=== PATIENT | female | born 1970 | race African-American/Black ===

== ENCOUNTER 2020-10-19 06:54 | Outpatient (NON) | payer OTHER, MEDICAID, SELFPAY ==
[2020-10-19 23:29] LABS: SARS-CoV-2 RNA PCR Negative
== END 2020-10-19 06:55 ==
LOC: ANHCOVIDDT 07:15
PROVIDERS: PCP Emergency Medicine; Visit Provider Emergency Medicine
DX: R51.9 Headache, unspecified (principal); Z20.822 Contact with and (suspected) exposure to COVID-19
CPT/HCPCS: C9803; U0003

== ENCOUNTER 2021-01-21 17:34 | Emergency (ER) | payer OTHER, MEDICAID, SELFPAY ==
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
[2021-01-21 18:30] VITALS: BP 148/79; PULSE 72; RESP 16; TEMP 36.3; O2SAT 100
[2021-01-21] MEDS: HYDROcodone/acetaminophen (*CRX) 5-325 MG TABLET 1 TAB PO (19:00)
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
== END 2021-01-21 20:09 | disposition home or self-care (01) ==
PROVIDERS: Emergency Provider Emergency Medicine; PCP Emergency Medicine
DX: S63.601A Unspecified sprain of right thumb, initial encounter (principal); V49.40XA Driver injured in collision with unspecified motor vehicles in traffic accident, initial encounter
CPT/HCPCS: 73140; 99283; A9270

== ENCOUNTER 2022-01-06 23:32 | Inpatient (IN) | payer OTHER, SELFPAY ==
--- NOTE | ~2022-01-06 | XR_ITS ---
XR chest 1V portable DATE: 01/06/2022 23:49 INDICATION: Chest pain TECHNIQUE: Portable AP chest on 01/06/2022 2346 hours COMPARISON: November 30, 2015 2 view chest FINDINGS: Heart size appears within normal range. No hilar or mediastinal enlargement is evident. There is patchy infiltrate or atelectasis in the left lower lobe and minimal infiltrate or atelectasi s at the right lung base. No pulmonary consolidation is noted otherwise. No pleural effusion, pulmonary vascular congestion or pneumothorax. IMPRESSION: Bilateral lower lung infiltrate and/atelectasis, left greater than right Reviewed, dictated and finalized at location A.
[2022-01-06 23:29] VITALS: PULSE 90
[2022-01-06] MEDS: SODIUM CHLORIDE 0.9% IV 1,000 ML 999 ML IV CONT (23:29)
--- NOTE | 2022-01-06 23:38 | ECG_ITS ---
Measurements Intervals [place] Rate: 65 P: 64 VA: 169 QRS: 51 QRSD: 82 T: 73 QT: 439 QTc: 459 Interpretive Statements SINUS RHYTHM [id number] MYOCARDIAL INJURY WITH POSSIBLE POSTERIOR INVOLVEMENT POSSIBLE LEFT ATRIAL ENLARGEMENT [-0.1mV P WAVE IN V1/V2] ABNORMAL EKG Electronically Signed On 01-20-2022 13:47:16 CDT by Randell Blas M.D.
[2022-01-06 23:40] VITALS: BP 120/94; PULSE 75; RESP 22; O2SAT 92
--- NOTE | 2022-01-06 23:43 | ECG_ITS ---
Measurements Intervals [place] Rate: 67 P: 71 TN: 169 QRS: 48 QRSD: 85 T: 80 QT: 449 QTc: 477 Interpretive Statements SINUS RHYTHM ST DEVIATION AND MODERATE T-WAVE ABNORMALITY, CONSIDER ANTERIOR ISCHEMIA [-0.1+ mV T WAVE IN V3/V4] ABNORMAL ECG NO PREVIOUS ECG AVAILABLE FOR COMPARISON Electronically Signed On 01-07-2022 17:12:09 CDT by Neel Norton M.D.
[2022-01-06 23:47] LABS: Basophils Absolute Auto 0.1 K/mm3 (0.0-0.1); Basophils Percent Auto 0.8 % (0.2-1.2); Eosinophils Absolute Auto 0.3 K/mm3 (0-0.3); Eosinophils Percent Auto 3.3 % (0-4.4); Hematocrit 41.1 % (37.0-47.0); Hemoglobin 14.1 g/dL (12.0-15.0); Immature Granulocyte Absolute 0.03 K/mm3 (0.00-0.031); Immature Granulocyte Percent A 0.4 % (0-0.5); Lymphocytes Absolute Auto 4.84 K/mm3 (0.9-3.2); Lymphocytes Percent Auto 56.6 % (18.3-44.2); Mean Corpuscular HGB Conc 34.3 g/dl (32-36); Mean Corpuscular Hemoglobin 32.4 pg (26-34); Mean Corpuscular Volume 94.5 fl (80-100); Monocytes Absolute Auto 0.7 K/mm3 (0.1-0.6); Monocytes Percent Auto 7.6 % (2.6-8.5); Neutrophils Absolute Auto 2.7 K/mm3 (1.3-6.7); Neutrophils Percent Auto 31.3 % (45.5-73.1); Platelet Count Result 235 k/mm3 (150-375); Red Blood Count 4.35 M/mm3 (4.2-5.4); Red Cell Distribution Width 12.2 % (11.5-14.5); White Blood Count 8.6 K/mm3 (4.5-10.0)
[2022-01-06] MEDS: TICAGRELOR 90 MG TABLET 180 MG PO (23:55)
--- NOTE | 2022-01-06 23:57 | ED.GENADULT ---
HPI - General Adult General Chief complaint: Chest Pain Stated complaint: STEMI Time Seen by Provider: 01/06/22 23:37 History of Present Illness HPI narrative: Patient is a 51-year-old female who presents the emergency department with chief complaint of chest pain. Patient earlier today had a beer and then ate a THC gummy. Patient had several episodes where she passed out and there was complaining of chest discomfort. The patient states it feels as a heaviness or tightness in her chest patient states that its not improved by anything nor is it worsened by anything. Patient states is midsternal nonradiating. Patient family called EMS when EMS arrived and found the patient to be hypotensive with a pressure in the 60s and 70s. EKG was done in the field which showed ST depressions a posterior EKG was performed which showed evidence of ST elevation. Upon arrival to department patient's blood pressure has improved patient is still complaining of pain. Patient was a prehospital activation for ST elevation [place]. Patient received aspirin by EMS. Cardiology was notified Related Data Home Medications Medication Instructions Recorded Confirmed No Home Medications 01/07/22 01/07/22 Allergies Allergy/AdvReac Type Severity Reaction Status Date / Time No Known Allergies Allergy Unknown Verified 06/05/18 18:48 Review of Systems Review of Systems: A 10 system review of systems was completed on the patient and is negative except for what is stated in the HPI. Nursing and ancillary documentation was reviewed. PMFSH Past Medical History Medical History Healthy female adult Surgical History Surgical History History of section Family History Family History (Updated 01/07/22 @ 02:44 by Alessia Barros RN) Grandparent Cancer Social History Social History (Updated 01/07/22 @ 02:05 by Jose Alejandro Cerrato MD) Smoking packs per day: 1 Smoking cigarettes per day: 20.0 Years smoked: 33 Smoking pack-years: 33.00 Smoking status: Current every day smoker Tobacco type: cigarettes Alcohol intake: current Drinks per week: 1 Substance use: current Substance use type: marijuana Other substance usage details: marijuana Spiritual care concerns: No Exam Narrative: GENERAL: Well-appearing, well-nourished, and in no acute distress. HEAD: Normocephalic, atraumatic. EYES: PERRLA and EOMI. ENT: Nares clear, no rhinorrhea or epistaxis. Mucous membranes moist. NECK: Supple. CHEST: Clear to auscultation. No respiratory distress. HEART: Regular rate and rhythm. No murmur heard. Normal peripheral pulses. ABDOMEN: Soft, nontender, nondistended, normal active bowel sounds. EXTREMITIES: Normal range of motion. No edema. SKIN: Warm, dry, no rash. NEURO: No focal deficits. Alert and oriented x3. PSYCH: Normal mood and affect. Course Course Emergency Course: Prehospital EKG shows evidence of ST depression and posterior EKG showed ST elevation EKGs in the emergency department showed evidence of improved and was normalized ST elevation. Patient received aspirin prehospital Beta-blockers and nitrates were held due to hypotension Patient received fluid boluses and pressure has improved to the 120s Patient received a heparin bolus Brilinta will be given to the patient Vital Signs Vital signs: Vital Signs Pulse Rate 90 01/06/22 23:29 Pulse Rate 81 01/07/22 06:00 Respiratory Rate 17 01/07/22 05:25 Blood Pressure 139/82 01/07/22 05:25 Pulse Oximetry 98 01/07/22 05:25 Medical Decision Making Vital Signs Vital Signs: Vital Signs Pulse Rate 90 01/06/22 23:29 Pulse Rate 81 01/07/22 06:00 Respiratory Rate 17 01/07/22 05:25 Blood Pressure 139/82 01/07/22 05:25 Pulse Oximetry 98 01/07/22 05:25 Lab Data Result diagrams: 01/06/22 23
[2022-01-06 23:58] LABS: Partial Thromboplastin Time 22.7 SECONDS (22.3-36.8); Prothrombin Time 12.3 Seconds (11.1-14.7)
[2022-01-07] VITALS (48 sets, daily range): BP systolic 94–156; BP diastolic 69–107; PULSE 68–99; RESP 12–20; O2SAT 94–100; BMI 28.1
[2022-01-07] MEDS: fentaNYL CITRATE INJ (*CRX) 100 MCG/2 ML VIAL 50 MCG IV PUSH
[2022-01-07 00:08] LABS: Alanine Aminotransferase 21 U/L (4-35); Albumin Level 4.5 g/dL (3.5-5.1); Alkaline Phosphatase 63 U/L (38-126); Anion Gap 9 mmol/L (8-16); Aspartate Amino Transferase 43 U/L (14-36); Bilirubin,Total 0.6 mg/dL (0.2-1.3); Blood Urea Nitrogen 10 mg/dL (7-17); Calcium 8.4 mg/dL (8.4-10.2); Carbon Dioxide 21 mmol/L (22-30); Chloride 107 mmol/L (98-107); Cholesterol 256 mg/dL (0-200); Estimated Glomerular Filt Rate > 60; Glucose 219 mg/dL (65-110); HDL Direct 39 mg/dL; Potassium 4.2 mmol/L (3.4-5.0); Sodium 137 mmol/L (137-145); Triglycerides 150 mg/dL (<150)
[2022-01-07 00:17] LABS: LDL Cholesterol Direct 171 mg/dL
--- NOTE | 2022-01-07 00:21 | PC.NURSE ---
Per , pt ate a marijuana edible and drank one beer. Pt then had several syncopal episodes in bathroom, along with vomiting. Pt then started to c/o chest pain and was brought in for evaluation.
[2022-01-07 00:22] LABS: Troponin I 0.045 ng/mL (0.000-0.034)
--- NOTE | 2022-01-07 01:31 | WPDMODSED ---
Moderate Sedation Note-Pt Data Patient Data Allergies Allergy/AdvReac Type Severity Reaction Status Date / Time No Known Allergies Allergy Unknown Verified 06/05/18 18:48 Home Medications Medication Instructions Recorded Confirmed Type hydrocodone-acetaminophen 1 tablet PO Q6H PRN #10 tablet 01/21/21 Rx Sedation/Anesthesia: No previous sedation/anesthesia problems (including family history). [facility] Past Medical History Medical History Healthy female adult Surgical History Surgical History History of section Mod Sed Physical Exam Physical Exam Pre Procedural Exam: Normal: Airway Hours since solid foods: 4 Hours since liquid intake: 4 Mallampati Classification: class II Internal Medicine - PN: Obj Da Vital Signs Vital Signs: Vital Signs - 24 hr 01/06/22 23:29 01/06/22 23:40 01/07/22 00:05 Pulse Rate 90 75 70 Respiratory Rate 22 H 18 Blood Pressure 120/94 H 133/87 Pulse Oximetry 92 96 Meds/Results Radiology Results: ITS Impressions Chest X-Ray 01/06/22 23:57 IMPRESSION: Bilateral lower lung infiltrate and/atelectasis, left greater than right Labs CBC & Chem 7: 01/06/22 23:40 01/06/22 23:39 Labs: Laboratory Results - last 24 hr 01/06/22 01/06/22 01/06/22 23:39 23:39 23:39 WBC RBC Hgb Hct MCV MCH MCHC RDW Plt Count MPV Immature Gran % (Auto) Neut % (Auto) Lymph % (Auto) Dundy % (Auto) Eos % (Auto) Baso % (Auto) Lymph # (Auto) Dundy # (Auto) Eos # (Auto) Baso # (Auto) Abs Immat Gran (auto) Absolute Neuts (auto) Absolute Nucleated RBC Nucleated RBC % PT 12.3 INR 1.0 APTT 22.7 Sodium 137 Potassium 4.2 Chloride 107 Carbon Dioxide 21 L Anion Gap 9 BUN 10 Creatinine 0.90 Estim Creat Clear Calc Not Reportable Estimated GFR > 60 Glucose 219 H Calcium 8.4 Total Bilirubin 0.6 AST 43 H ALT 21 Alkaline Phosphatase 63 Troponin I 0.045 H* Total Protein 8.0 Albumin 4.5 Triglycerides 150 Cholesterol 256 H LDL Cholesterol Direct 171 HDL Direct 39 Blood Type A Positive Antibody Screen Negative 01/06/22 23:40 WBC 8.6 RBC 4.35 Hgb 14.1 Hct 41.1 MCV 94.5 MCH 32.4 MCHC 34.3 RDW 12.2 Plt Count 235 MPV 11.0 H Immature Gran % (Auto) 0.4 Neut % (Auto) 31.3 L Lymph % (Auto) 56.6 H Dundy % (Auto) 7.6 Eos % (Auto) 3.3 Baso % (Auto) 0.8 Lymph # (Auto) 4.84 H Dundy # (Auto) 0.7 H Eos # (Auto) 0.3 Baso # (Auto) 0.1 Abs Immat Gran (auto) 0.03 Absolute Neuts (auto) 2.7 Absolute Nucleated RBC 0.0 Nucleated RBC % 0.0 PT INR APTT Sodium Potassium Chloride Carbon Dioxide Anion Gap BUN Creatinine Estim Creat Clear Calc Estimated GFR Glucose Calcium Total Bilirubin AST ALT Alkaline Phosphatase Troponin I Total Protein Albumin Triglycerides Cholesterol LDL Cholesterol Direct HDL Direct Blood Type Antibody Screen ASA Classification/Sedation ASA Classification/Sedation ASA Class: V Emergent: Yes Risks: Risks, benefits and alternatives explained and patient/family accepted plan for sedation. Patient re-evaluated immediately prior to sedation.
--- NOTE | 2022-01-07 01:35 | WPDCARDPROC ---
Cardiac Cath Procedure Note Date of procedure:: 01/07/22 Performing physician:: Jose Alejandro Cerrato MD Procedure Procedure note:: EMERGENT CARDIAC CATHETERIZATION AND PERCUTANEOUS CORONARY INTERVENTION REPORT DATE OF PROCEDURE: 01/07/2022 INDICATION FOR PROCEDURE: Acute coronary syndrome-posterior ST-elevation myocardial infarction BRIEF CLINICAL HISTORY: 51-year-old female with no known prior cardiac history; history of tobacco and marijuana abuse. Patient presented to [facility] emergency room with complaints of chest pain that started about 90 minutes prior to the arrival. EKG showed ST depression in the septal leads with ST elevation in the posterior leads. Cardiac catheterization lab was activated for primary PCI. Patient was hypotensive in the ER with blood pressures in 70s-80s systolic. She was given boluses of IV normal saline with improvement in the blood pressure. Patient was given aspirin, loading dose of ticagrelor and 4000 units of unfractionated heparin in the emergency room. Patient was emergently brought to the laboratory technology teacher for primary PCI. PROCEDURES PERFORMED: 1. Emergent left heart catheterization- Selective left and right coronary angiogram; left ventriculogram and hemodynamic assessment 2. Percutaneous coronary intervention- a) balloon angioplasty and stenting of ostial-proximal left circumflex artery using 3.5x18 mm Leapsetiro sirolimus eluting stent; b) balloon angioplasty of ostial LAD in a kissing fashion; c) intravascular ultrasound ( IVUS) of left main and LCX 3. Moderate sedation-CPT code 97175 MODERATE SEDATION: Midazolam 1 mg; fentanyl 50 mcg. Start time 0023 , Stop time 0118 ; Total [id number] time 55 minutes; Rupa Torres RN was trained observer for moderate sedation. ACCESS SITE: Right common femoral artery PROCEDURE NOTE: patient was emergently brought to catheterization lab and prepped and draped in a usual sterile manner. After local anesthesia with lidocaine, right common femoral artery access was taken with micropuncture needle followed by insertion of a 6 Algerian sheath. Selective left and right coronary angiogram was performed using 5 Algerian JL4 and JR4 catheters respectively. Orthogonal views were taken. After completion of PCI, 5 Algerian pigtail catheter was advanced in the LV cavity and was flushed with normal saline. LV pressure measurement was performed. After this, left ventriculogram was performed. The catheter was flushed again, and gradient across the aortic valve was measured on the pullback of the catheter. The angiographic findings and details of intervention are given below. FINDINGS: LEFT MAIN CORONARY: The left main coronary artery is a medium caliber, relatively short vessel with poorly defined hazy stenosis in the distal segment before it bifurcates into LAD and left circumflex branches. LEFT ANTERIOR DESCENDING ARTERY: The lad is a medium to large caliber vessel in the proximal segment, becomes medium caliber, tortuous vessel in the mid segment, tapers distally and reaches LV apex. There is about 80% stenosis at the ostium of LAD. The diagonal branch is a small to medium caliber vessel with high-grade stenosis at the ostium. LEFT CIRCUMFLEX ARTERY: The LAD is a medium caliber vessel with hazy, about 99% diffuse stenosis in the proximal segment. Om 1 branch is a medium caliber vessel with about 50% stenosis in the distal segment. The LCX continues in the AV groove and gives rise to small caliber OM2 branch and medium caliber LPDA which has diffuse disease in the distal segment. There was DAVY 2 flow before PCI, which normalized to DAVY 3 flow after PCI. RIGHT CORONARY ARTERY: Medium to large caliber vessel, with severe atherosclerosis. There is diffuse, high-grade stenosis in the proximal and mid segments up to 95% in severity. The vessel gives rise to medium caliber PDA branch and small caliber PLV branch with high-grade stenosis at the origin of the PLV branch and
--- NOTE | 2022-01-07 02:02 | PM.IMHP ---
H&P: HPI History of Present Illness Date/Time: 01/07/22 02:02 Date of service: 01/07/2022 Chief complaint: Chest pain HPI: 51-year-old female with no known prior cardiac history; history of tobacco and marijuana abuse. Patient presented to [facility] emergency room with complaints of chest pain that started about 90 minutes prior to the arrival. EKG showed ST depression in the septal leads with ST elevation in the posterior leads. Cardiac catheterization lab was activated for primary PCI. Patient was hypotensive in the ER with blood pressures in 70s-80s systolic. She was given boluses of IV normal saline with improvement in the blood pressure. Patient was given aspirin, loading dose of ticagrelor and 4000 units of unfractionated heparin in the emergency room. Patient was emergently brought to the recyclable products sorter for primary PCI . Emergent cardiac catheterization showed multivessel CAD with proximal LCX as culprit vessel. She underwent primary PCI with balloon angioplasty and stenting of ostial-proximal LCX which was infarct-related vessel. LV systolic function is preserved. Patient will undergo staged intervention for the remaining high-grade stenosis -multivessel PCI versus surgical revascularization after discussion with the patient . Chief Complaint: Chest pain Review of Systems Review of Systems: General: Negative for fever, chills, fatigue Psychological: positive for anxiety Ophthalmic: negative for loss of vision ENT: Negative for epistaxis, headaches Allergy and immunology: Negative for hives, nasal congestion Hematologic and lymphatic: Negative for overt bleeding problems Endocrine: Negative for hot flashes, palpitations Respiratory: Negative for cough, hemoptysis Cardiovascular: positive for chest pain, shortness is breath, dizziness, no syncope Gastrointestinal: Negative for abdominal pain, nausea, vomiting, hematochezia Musculoskeletal: Negative for myalgia, joint pains Neurological: Negative for weakness Dermatological: Negative for rash, skin discoloration PMFSH Past Medical History Medical History Healthy female adult Surgical History Surgical History History of section Social History Social History (Updated 01/07/22 @ 02:05 by Jose Alejandro Cerrato MD) Smoking status: Current every day smoker Alcohol intake: current Substance use: current Substance use type: marijuana Other substance usage details: marijuana Meds Home Medications and Allergies Home Medications Medication Instructions Recorded Confirmed Type hydrocodone-acetaminophen 1 tablet PO Q6H PRN #10 tablet 01/21/21 Rx Allergies Allergy/AdvReac Type Severity Reaction Status Date / Time No Known Allergies Allergy Unknown Verified 06/05/18 18:48 Vital Signs Vital Signs - 24 hr 01/06/22 23:29 01/06/22 23:40 01/07/22 00:05 Pulse Rate 90 75 70 Respiratory Rate 22 H 18 Blood Pressure 120/94 H 133/87 Pulse Oximetry 92 96 Exam Narrative: PHYSICAL EXAMINATION: GENERAL: Alert, oriented, no acute distress MENTAL STATUS: anxious EYES: Extraocular movements intact, no pallor EARS: External ears appear normal, hearing grossly normal NOSE: Normal and patent, no discharge MOUTH: Mucous membranes moist, tongue normal NECK: Supple, no JVD CHEST: Good respiratory effort, clear to auscultation HEART: Normal rate, regular rhythm, normal S1 and S2, no audible murmurs ABDOMEN: Soft, nontender NEUROLOGICAL: Alert, oriented, normal speech, no gross motor deficits MUSCULOSKELETAL: No major deformity, no amputation EXTREMITIES: No pedal edema, no clubbing, no cyanosis SKIN: no rash on the exposed area, no cyanosis PSYCHIATRIC: Normal mood, appropriate affect H&P: Results Labs Labs: Short CBC 01/06/22 Range/Units 23:40 WBC 8.6 (4.5-10.0) K
[2022-01-07] MEDS: SODIUM CHLORIDE 0.9% IV 1,000 ML 125 ML IV CONT ×2 (02:23→12:04)
--- NOTE | 2022-01-07 02:40 | ADMGEN ---
This patient, Bertha Echevarria, was admitted to Intensive Care Unit-9 at 0210 on 01/07/2022 . Patient/family oriented to hospital policies and general routines including ID bracelet, bed and alarms, visiting hours, pain management, procedures, bathroom and other care routines, personal items, smoking policy, room service/diet, and visiting hours. Information on how to activate the Rapid Response Team has been discussed. Patient/Family are encouraged to report perceived risks to care and to ask questions if they do not understand what they are told or what they should do.
--- NOTE | 2022-01-07 02:49 | PC.NURSE ---
This patient, Bertha Echevarria, was admitted to IMU status, and placed in Intensive Care Unit-9. Patient/family oriented to hospital policies and general routines including ID bracelet, bed and alarms, visiting hours, pain management, procedures, bathroom and other care routines, personal items, smoking policy, room service/diet, and visiting hours. Valuables list has been completed. Information on how to activate the Rapid Response Team has been discussed. Patient/Family are encouraged to report perceived risks to care and to ask questions if they do not understand what they are told or what they should do.
[2022-01-07] MEDS: ATORVASTATIN 40 MG TABLET 80 MG PO ×2 (03:01→20:30)
--- NOTE | 2022-01-07 06:55 | ECG_ITS ---
Measurements Intervals [place] Rate: 88 P: 69 LA: 161 QRS: 60 QRSD: 80 T: -46 QT: 405 QTc: 491 Interpretive Statements SINUS RHYTHM POSSIBLE LEFT ATRIAL ENLARGEMENT [-0.1mV P WAVE IN V1/V2] MODERATE T-WAVE ABNORMALITY, CONSIDER INFERIOR/LATERAL ISCHEMIA [-0.1+ mV T WAVE IN II/aVF] COMPARED TO ECG 01/06/2022 23:43:25 PRECORDIAL T-WAVE ABNORMALITY IS IMPROVED Electronically Signed On 01-07-2022 17:15:48 CDT by Neel Norton M.D.
[2022-01-07] MEDS: NITROGLYCERIN SL 0.4 MG TABLET SUBLINGUAL ×2 (07:15→08:30)
--- NOTE | 2022-01-07 08:00 | ECG_ITS ---
Measurements Intervals [place] Rate: 83 P: 61 LA: 147 QRS: 35 QRSD: 87 T: -10 QT: 391 QTc: 461 Interpretive Statements SINUS RHYTHM ST AND T ABNORMALITY CONSISTENT WITH INFEROLATERAL ISCHEMIA COMPARED TO ECG 01/07/2022 06:59:45 NO SIGNIFICANT CHANGES Electronically Signed On 01-07-2022 17:17:56 CDT by Neel Norton M.D.
--- NOTE | 2022-01-07 08:39 | PC.NURSE ---
Cardiopulmonary Rehab Services flyer was given to patient in cardiac admission folder.
[2022-01-07] MEDS: MORPHINE SULFATE (*CRX) 2 MG/ML INJ IV PUSH (08:55)
--- NOTE | 2022-01-07 08:56 | WPDMODSED ---
Moderate Sedation Note-Pt Data Patient Data Allergies Allergy/AdvReac Type Severity Reaction Status Date / Time No Known Allergies Allergy Unknown Verified 06/05/18 18:48 Home Medications Medication Instructions Recorded Confirmed Type No Home Medications 01/07/22 01/07/22 History Current Medications: Active Medications Aspirin (Aspirin 81 Mg Enteric Tablet) 81 mg PO QAM DANIELLE Atorvastatin Calcium (Atorvastatin 40 Mg Tablet) 80 mg PO HS DANIELLE Sodium Chloride (Normal Saline Iv) 1,000 mls @ 125 mls/hr IV CONT .Q8H ONE Stop: 01/07/22 10:07 Last Admin: 01/07/22 02:23 Dose: 125 mls/hr Documented by: Metoprolol Tartrate (Metoprolol Tartrate 25 Mg Tablet) 25 mg PO Q12HR DANIELLE Morphine Sulfate (Morphine Sulfate (*Crx) 2 Mg/Ml Inj) 2 mg IV PUSH Q3H PRN PRN Reason: Pain Rated 4-6 Morphine Sulfate (Morphine Sulfate (*Crx) 4 Mg/Ml Inj) 4 mg IV PUSH Q3H PRN PRN Reason: Pain Rated 7-10 Ticagrelor (Ticagrelor 90 Mg Tablet) 90 mg PO Q12HR DANIELLE Sedation/Anesthesia: No previous sedation/anesthesia problems (including family history). [facility] Past Medical History Medical History Healthy female adult Surgical History Surgical History History of section Family History Family History (Updated 01/07/22 @ 02:44 by Alessia Barros RN) Grandparent Cancer Social History Social History (Updated 01/07/22 @ 02:05 by Jose Alejandro Cerrato MD) Smoking packs per day: 1 Smoking cigarettes per day: 20.0 Years smoked: 33 Smoking pack-years: 33.00 Smoking status: Current every day smoker Tobacco type: cigarettes Alcohol intake: current Drinks per week: 1 Substance use: current Substance use type: marijuana Other substance usage details: marijuana Spiritual care concerns: No Mod Sed Physical Exam Physical Exam Pre Procedural Exam: Normal: Airway Hours since solid foods: 10 Hours since liquid intake: 10 Mallampati Classification: class II Internal Medicine - PN: Obj Da Vital Signs Vital Signs: Vital Signs - 24 hr 01/06/22 23:29 01/06/22 23:40 01/07/22 00:05 Pulse Rate 90 75 70 Pulse Rate [Monitor] Respiratory Rate 22 H 18 Blood Pressure 120/94 H 133/87 Pulse Oximetry 92 96 01/07/22 01:55 01/07/22 02:10 01/07/22 02:25 Pulse Rate 80 82 79 Pulse Rate [Monitor] 80 82 79 Respiratory Rate 15 12 13 Blood Pressure 137/87 135/88 134/85 Pulse Oximetry 95 95 97 01/07/22 02:45 01/07/22 02:55 01/07/22 03:25 Pulse Rate 79 84 80 Pulse Rate [Monitor] 84 80 Respiratory Rate 14 16 Blood Pressure 142/84 H 140/87 Pulse Oximetry 95 96 97 01/07/22 04:00 01/07/22 04:25 01/07/22 04:47 Pulse Rate 84 86 82 Pulse Rate [Monitor] 86 Respiratory Rate 12 14 Blood Pressure 140/85 138/81 Pulse Oximetry 98 98 97 01/07/22 04:52 01/07/22 04:57 01/07/22 05:02 Pulse Rate 75 77 78 Pulse Rate [Monitor] 78 Respiratory Rate 13 16 15 Blood Pressure 127/85 121/89 124/80 Pulse Oximetry 98 99 98 01/07/22 05:07 01/07/22 05:25 01/07/22 06:00 Pulse Rate 81 84 81 Pulse Rate [Monitor] 81 84 Respiratory Rate 14 17 Blood Pressure 127/90 139/82 Pulse Oximetry 98 98 01/07/22 06:25 01/07/22 07:15 01/07/22 07:20 Pulse Rate 74 79 83 Pulse Rate [Monitor] 74 Respiratory Rate 16 Blood Pressure 138/73 138/79 94/76 L Pulse Oximetry 95 98 95 01/07/22 07:30 01/07/22 07:53 Pulse Rate 72 Pulse Rate [Monitor] Respiratory Rate Blood Pressure 115/69 Pulse Oximetry 98 100 Intake/Output Intake/Output: Intake & Output 01/04/22 01/05/22 01/06/22 01/07/22 23:59 23:59 23:59 23:59 Output Total 950 Balance -950 Meds/Results Medications: Active Medications Generic Name Dose Route Start Last Admin Trade Name Freq PRN Reason Stop Dose Admin Aspirin 81 mg 01/07/22 09:00 Aspirin 81 Mg Enteric [facility]at
--- NOTE | 2022-01-07 09:00 | PC.NURSE ---
patient was taken to labor commissioner
--- NOTE | 2022-01-07 09:28 | WPDCNINT ---
Assessment and Plan Assessment and plan (1) ST elevation (STEMI) myocardial infarction involving left circumflex coronary artery: Code(s): I21.21 - ST elevation (STEMI) myocardial infarction involving left circumflex coronary artery Status: Acute Assessment and Plan: Patient presented with STEMI and had cardiac catheterization done overnight. Patient underwent Emergent left heart catheterization- Selective left and right coronary angiogram; left ventriculogram and hemodynamic assessment. Percutaneous coronary intervention- a) balloon angioplasty and stenting of ostial-proximal left circumflex artery using 3.5x18 mm orsiro sirolimus eluting stent; b) balloon angioplasty of ostial LAD in a kissing fashion; c) intravascular ultrasound ( IVUS) of left main and LCX She was given aspirin Brilinta prior to the procedure This morning patient continues to have chest pain and case was discussed with Cardiology. Patient is going back to cardiac catheterization lab to evaluate for any stent thrombosis versus other areas that may need intervention Patient may need CABG due to her multivessel disease and may need to be transferred to outside facility for cardiothoracic surgery evaluation Once patient back we will check echocardiogram although the cardiac function was preserved on the ventriculogram done last night Continue aspirin but hold Brilinta this time as she may be going for cardiac surgery Patient was given nitroglycerin and patient's pain did improve but did not fully resolve. Continue p.r.n. nitroglycerin and morphine for pain control Lipitor has been started Continue IV fluids for renal protection (2) Chest pain: Code(s): R07.9 - Chest pain, unspecified Status: Acute Assessment and Plan: Patient has ongoing chest pain in although her history appears mixed, it is likely secondary to her coronary disease and RI Patient is going back to cardiac catheterization lab to evaluate for any stent thrombosis versus other areas that may need intervention P.r.n. nitroglycerin. May need nitroglycerin infusion depending on a cardiac catheterization results P.r.n. morphine (3) Tobacco abuse: Code(s): Z72.0 - Tobacco use Status: Acute Assessment and Plan: Patient was encouraged and counseled to quit smoking Additional Plan DVT prophylaxis -start Lovenox from tomorrow Nutrition -NPO at this time Code Status - Full Code Total Critical Care Time - 32 minutes Due to a high probability of clinically significant, life threatening deterioration, the patient required my highest level of preparedness to intervene emergently and I personally spent this critical care time directly and personally managing the patient. This critical care time included obtaining a history; examining the patient; pulse oximetry; ordering and review of studies; arranging urgent treatment with development of a management plan; evaluation of patient's response to treatment; frequent reassessment; and discussions with other providers. It was exclusive of separately billable procedures and treating other patients and teaching time. Please see Assessment and Plan section and the rest of the note for further information on patient assessment and treatment Human Resources Compensation Analyst Consult Note Consult date: 01/07/22 HPI: Bertha Echevarria is a 51 year old female with no significant past medical history except smoking 1 pack per day for more than 30 years presented last night with chief complaint of chest pain. Patient states that she was sleeping when she woke up at 10:00 p.m. with chest pain. Chest pain was 10 out 10, was burning in quality, radiated to her abdomen, was associated with nausea vomiting dizziness lightheadedness. She did not see any blood in her vomit. Pain continued and she arrived to the ER. In the ED patient was found to have elevated troponin and was diagnosed with STEMI. Patient was taken emergently to cardiac catheterization lab and un
--- NOTE | 2022-01-07 10:40 | WPDCARDPROC ---
Cardiac Cath Procedure Note Date of procedure:: 01/07/22 Performing physician:: Jose Alejandro Cerrato MD Procedure Procedure note:: CARDIAC CATHETERIZATION AND PERCUTANEOUS CORONARY INTERVENTION REPORT ( REPEAT PROCEDURE, SEPARATE FROM EMERGENT PROCEDURE PERFORMED LAST NIGHT) DATE OF PROCEDURE: 01/07/2022 INDICATION FOR PROCEDURE: recurrent chest pain in a patient with recent posterior ST-elevation HI and known multivessel CAD BRIEF CLINICAL HISTORY: 51-year-old female with CAD, tobacco and marijuana abuse. Patient was brought to [facility] ER last night via EMS with chest pain at, and was found to have posterior ST-elevation HI. She was emergently taken to the cardiac crime lab analyst, and was found to have multivessel CAD involving ostial LAD, proximal left circumflex artery, and RCA. Lesion in proximal left circumflex artery was infarct-related, and patient underwent PCI/ MARY x1 ostial -proximal left circumflex artery, and angioplasty of the ostial LAD in a kissing fashion. Patient had resolution of chest discomfort. Additional PCI at that time was not performed with intention to do staged intervention -multivessel PCI versus surgical revascularization. However, this morning, patient had recurrent chest discomfort with features similar to what she had during coronary event. EKG with posteriorly due to show improvement in the ST segment abnormality, however, due to ongoing chest discomfort, patient was brought to the crime lab analyst for repeat coronary angiogram. The case was also discussed with Dr. Yepez-CT surgeon at [facility]. Benefits and risks of the procedure were discussed with the patient in depth, and informed consent was obtained prior to the procedure. Risks of the procedure include but are not limited to vascular complications including groin hematoma, retroperitoneal bleed, vessel perforation; periprocedural HI, cardiac arrhythmias, stroke, contrast induced nephropathy, and . After discussing all the benefits, risks and alternatives, patient was willing to proceed with the procedure. PROCEDURES PERFORMED: 1. Selective left and right coronary angiogram 2. Percutaneous coronary intervention- Balloon angioplasty and stenting of diffuse, high-grade stenosis in the proximal-mid RCA using 2 sirolimus eluting stents -non overlapping ( 3.5 x 15 mm in the proximal segment and 3.5 x 26 mm in the mid segment); balloon angioplasty and stenting of proximal RPDA using a 2.5 x 13 mm sirolimus eluting stent; balloon angioplasty of ostial RPL branch. 3. Moderate sedation-CPT code 02769 MODERATE SEDATION: Fentanyl 25 mcg. Start time 0927 , Stop time 1029 ; Total [id number] time 58 minutes; Rupa Torres RN was trained observer for moderate sedation. ACCESS SITE: Right common femoral artery PROCEDURE NOTE: After obtaining informed consent, patient was urgently brought to catheterization lab and prepped and draped in a usual sterile manner. After local anesthesia with lidocaine, right common femoral artery access was taken with micropuncture needle followed by insertion of a 5 Malay sheath. Selective left and right coronary angiogram was performed using 5 Malay JL4 and JR4 catheters respectively. Orthogonal views were taken. The angiographic findings and details of intervention are given below. FINDINGS: LEFT MAIN CORONARY: The left main coronary artery is a medium caliber, relatively short vessel . Previously visualized poorly defined hazy stenosis in the distal segment is no longer seen. LEFT ANTERIOR DESCENDING ARTERY: The lad is a medium to large caliber vessel in the proximal segment, becomes medium caliber, tortuous vessel in the mid segment, tapers distally and reaches LV apex. There is about 40-50% residual stenosis at the ostium of LAD post previous angioplasty. The diagonal branch is a small to medium caliber vessel with high-grade stenosis at the ostium. LEFT CIRCUMFLEX ARTERY: The LCX is a medium caliber vessel. Re
--- NOTE | 2022-01-07 11:00 | PC.NURSE ---
patient back from laboratory sampler; 6fr sheath intact in right groin; site clean, dry and intact; no bleeding or hematoma present; patient complaining of chest pain of 5/10 but states feels different and better than before.
[2022-01-07] MEDS: ASPIRIN 81 MG ENTERIC TABLET PO (11:02)
[2022-01-07] MEDS: TICAGRELOR 90 MG TABLET PO ×2 (11:04→20:30)
[2022-01-07] MEDS: ONDANSETRON INJ 4 MG/2 ML VIAL IV PUSH ×2 (12:04→17:45)
[2022-01-07] MEDS: MORPHINE SULFATE (*CRX) 4 MG/ML INJ IV PUSH (15:13)
[2022-01-07] MEDS: MAG HYDROX/AL HYDROX/SIMETH 30 ML UDC PO (18:24)
[2022-01-07] MEDS: METOPROLOL TARTRATE 25 MG TABLET PO (20:29)
[2022-01-07] MEDS: LACTATED RINGERS 1,000 ML 100 ML IV CONT (20:30)
[2022-01-08] VITALS (17 sets, daily range): BP systolic 108–149; BP diastolic 77–98; PULSE 64–100; RESP 14–26; TEMP 36.8–37.1; O2SAT 94–100
[2022-01-08] MEDS: MORPHINE SULFATE (*CRX) 2 MG/ML INJ IV PUSH ×3 (01:30→20:49)
[2022-01-08] MEDS: LACTATED RINGERS 1,000 ML 100 ML IV CONT (06:22)
[2022-01-08] MEDS: METOPROLOL TARTRATE 25 MG TABLET PO ×2 (08:02→20:47)
[2022-01-08] MEDS: TICAGRELOR 90 MG TABLET PO ×2 (08:02→20:47)
[2022-01-08] MEDS: ASPIRIN 81 MG ENTERIC TABLET PO (08:02)
[2022-01-08 08:10] LABS: Hematocrit 34.4 % (37.0-47.0); Hemoglobin 11.8 g/dL (12.0-15.0); Mean Corpuscular HGB Conc 34.3 g/dl (32-36); Mean Corpuscular Hemoglobin 32.2 pg (26-34); Mean Corpuscular Volume 93.7 fl (80-100); Mean Platelet Volume 11.1 fl (7.4-10.4); Platelet Count Result 166 k/mm3 (150-375); Red Blood Count 3.67 M/mm3 (4.2-5.4); Red Cell Distribution Width 12.5 % (11.5-14.5)
[2022-01-08 08:21] LABS: Alanine Aminotransferase 34 U/L (4-35); Albumin Level 3.6 g/dL (3.5-5.1); Alkaline Phosphatase 50 U/L (38-126); Anion Gap 5 mmol/L (8-16); Aspartate Amino Transferase 213 U/L (14-36); Bilirubin,Total 0.7 mg/dL (0.2-1.3); Blood Urea Nitrogen 9 mg/dL (7-17); Calcium 7.9 mg/dL (8.4-10.2); Carbon Dioxide 22 mmol/L (22-30); Chloride 108 mmol/L (98-107); Estimated CRCL calculation 83 ml/min; Estimated Glomerular Filt Rate > 60; Glucose 135 mg/dL (65-110); Potassium 3.7 mmol/L (3.4-5.0); Sodium 135 mmol/L (137-145)
--- NOTE | 2022-01-08 09:27 | WPDINTPN ---
Progress Note: A&P Assessment and Plan (1) ST elevation (STEMI) myocardial infarction involving left circumflex coronary artery: Code(s): I21.21 - ST elevation (STEMI) myocardial infarction involving left circumflex coronary artery Status: Acute Assessment and Plan: Patient presented with STEMI and had cardiac catheterization done overnight. Patient underwent Emergent left heart catheterization- Selective left and right coronary angiogram; left ventriculogram and hemodynamic assessment. Percutaneous coronary intervention- a) balloon angioplasty and stenting of ostial-proximal left circumflex artery using 3.5x18 mm orsiro sirolimus eluting stent; b) balloon angioplasty of ostial LAD in a kissing fashion; c) intravascular ultrasound ( IVUS) of left main and LCX She was given aspirin Brilinta prior to the procedure 01/07 patient continued to had chest pain in the morning and was taken back to cardiac catheterization lab and 3 additional stents were placed in right coronary artery. Will check echocardiogram although the cardiac function was preserved on the ventriculogram done last night Continue aspirin, Brilinta Continue p.r.n. nitroglycerin and morphine for pain control Lipitor has been started He will discontinue IV fluids that were started for renal protection Add ARB (2) Chest pain: Code(s): R07.9 - Chest pain, unspecified Status: Acute Assessment and Plan: Chest distant appears to be better and this time does not appear to be classic headache chest pain P.r.n. nitroglycerin. P.r.n. morphine (3) Tobacco abuse: Code(s): Z72.0 - Tobacco use Status: Acute Assessment and Plan: Patient was again encouraged and counseled to quit smoking (4) Nausea: Code(s): R11.0 - Nausea Status: Acute Assessment and Plan: Continue p.r.n. Zofran And Protonix (5) Anemia: Code(s): D64.9 - Anemia, unspecified Status: Acute Assessment and Plan: Could be dilutional. Discussed with Dr. Norton who examine cath puncture site which doesnt show any hematoma and doesn't recommend any additional testing. Continue to monitor hemoglobin Additional Plan DVT prophylaxis -SCDs Nutrition -NPO at this time Code Status - Full Code Incentive spirometry Transfer out of ICU today Subjective Date/time seen: 01/08/22 09:27 Patient states she feels much better today as compared to yesterday but still feels that she has occasional discomfort in her chest. She states that it feels different than her presentation and she is not showed whether it is real pain Or heartburn. It comes and goes spontaneously. When asked her to rate her discomfort she states is 1/10. She continues to feel nauseous. No vomiting. No shortness of breath dizziness or lightheadedness. Patient denies any other complaints. All other systems were reviewed and were negative Review of Systems Review of Systems: All systems reviewed & are unremarkable except as noted in HPI and below (HPI) Exam Narrative: General: Pt is alert awake and in NAD Lungs/Chest: Trachea central Clear BS B/L, No crackles or wheezing. Cardiac: RRR. Normal S1 S2. No murmurs Circulation: Pedal pulses are intact and symmetrical. Abdomen: Normal bowel sounds. Soft. NT. ND. Extremities: No clubbing, cyanosis or edema. Warm right groin cath site is under dressing hand is mildly tender but has no swelling or hematoma : Gamez in place Neurologic: Follows commands. Moves all 4 extremities PERRL AO x3 Skin: No Rash Objective Data Vital Signs Vital Signs: Vital Signs - 24 hr 01/07/22 11:00 01/07/22 11:15 01/07/22 11:30 Temperature Pulse Rate 78 68 72 Respiratory Rate 18 18 18 Blood Pressure 118/80 139/75 151/89 H Pulse Oximetry 96 95 94 01/07/22 11:45 01/07/22 12:00 01/07/22 12:30 Temperature Pulse Rate 73 78 82 Respiratory Rate 18 16 15 Blood Pressure 152/99 H 156/101 H 140/83 Pulse Oximetry
--- NOTE | 2022-01-08 10:00 | PM.PNCARD ---
Progress Note: A&P Additional Plan 51-year-old lady with: Extensive multivessel coronary artery disease status post emergency PCI of the ostial circumflex segment as well as the long length of the heavily diseased right coronary artery because of ongoing chest pain yesterday. She feels better this morning no longer having any ischemic chest pain. Patient has been started on dual anti-platelet therapy beta-dipesh and statin. Will start ARB today. Consult cardiac rehab, she can move out of the ICU. Neel Norton MD [facility] Subjective Date/time seen: 01/08/22 10:00 Interval history: Follow-up visit in this 51-year-old lady with: New diagnosis of coronary artery disease yesterday presenting with acute TN. Patient has extensive multivessel disease as detailed in the flue dust laborer notes. No went initially PCI of the ostial/proximal circumflex segment and then brought back to the flue dust laborer because of ongoing chest pain and had extensive intervention and heavily diseased RCA. Initial plan was to consider surgical revascularization following recovery from this infarction. Patient feels well this morning is very appreciative of the care that she received yesterday. Understands that her unhealthy diet and cigarette smoking or the principle reasons for this. Exam Const: General: comfortable and no acute distress HENMT: Mouth: Yes moist mucous membranes Eyes: Sclera: sclerae normal Pupils: Equal, round and reactive pupils present Neck: Neck: supple and no JVD Resp: Effort & Inspection: normal respiratory effort Auscultation: clear to auscultation bilaterally Cardio: Rate: regular rate Rhythm: regular rhythm Other: No audible murmur or gallop GI: GI Palp: Yes Soft to palpation Auscultation: normal bowel sounds Skin: General skin exam: normal color Neuro: Cognition (Neuro): normal cognition Extrem: General: normal to inspection Other: crime lab analyst puncture site in the right groin looks fine no hematoma. Objective Data Vital Signs Vital Signs: Vital Signs - 24 hr 01/07/22 11:00 01/07/22 11:15 01/07/22 11:30 Temperature Pulse Rate 78 68 72 Respiratory Rate 18 18 18 Blood Pressure 118/80 139/75 151/89 H Pulse Oximetry 96 95 94 01/07/22 11:45 01/07/22 12:00 01/07/22 12:30 Temperature Pulse Rate 73 78 82 Respiratory Rate 18 16 15 Blood Pressure 152/99 H 156/101 H 140/83 Pulse Oximetry 95 97 95 01/07/22 13:00 01/07/22 13:03 01/07/22 13:25 Temperature Pulse Rate 76 74 78 Respiratory Rate 16 16 16 Blood Pressure 145/90 H 137/88 146/82 H Pulse Oximetry 95 96 95 01/07/22 13:45 01/07/22 14:00 01/07/22 14:15 Temperature Pulse Rate 84 87 75 Respiratory Rate 20 18 16 Blood Pressure 125/107 H 144/85 H 129/76 Pulse Oximetry 94 96 96 01/07/22 14:30 01/07/22 15:00 01/07/22 15:30 Temperature Pulse Rate 82 76 85 Respiratory Rate 15 16 14 Blood Pressure 133/79 133/78 141/81 H Pulse Oximetry 96 97 96 01/07/22 16:00 01/07/22 17:00 01/07/22 18:00 Temperature Pulse Rate 99 88 90 Respiratory Rate 19 17 16 Blood Pressure 143/84 H 144/87 H 138/83 Pulse Oximetry 97 95 96 01/07/22 19:00 01/07/22 20:00 01/07/22 20:29 Temperature Pulse Rate 84 88 84 Respiratory Rate 17 15 Blood Pressure 144/84 H 143/79 H Pulse Oximetry 96 94 01/07/22 22:00 01/07/22 23:21 01/08/22 00:00 Temperature 36.9 C Pulse Rate 85 84 84 Respiratory Rate 14 16 26 H Blood Pressure 138/83 137/77 Pulse Oximetry 94 94 94 01/08/22 02:00 01/08/22 03:16 01/08/22 04:00 Temperature 37.1 C Pulse Rate 77 81 70 Respiratory Rate 15 14 14 Blood Pressure 140/84 144/83 H Pulse Oximetry 95 95 97 01/08/22 06:00 01/08/22 08:00 01/08/22 08:02 Temperature Pulse Rate 65 74 Respiratory Rate 15 Blood Pressure 128/89 Pulse Oximetry 96 98 Intake/Output Intake/Output: Intake & Output 01/05/22 01/06/22 01/07/22 01/08/22 23:59 23:59 23:59 23:59 Intake Total 240 1500 Output Total 1850
[2022-01-08] MEDS: ATORVASTATIN 40 MG TABLET 80 MG PO (20:46)
[2022-01-09] VITALS (7 sets, daily range): BP systolic 119–131; BP diastolic 79–87; PULSE 58–80; RESP 14–18; TEMP 36–36.8; O2SAT 98–99
[2022-01-09 04:52] LABS: Hemoglobin 11.5 g/dL (12.0-15.0); Mean Corpuscular HGB Conc 34.8 g/dl (32-36); Mean Corpuscular Hemoglobin 32.5 pg (26-34); Mean Corpuscular Volume 93.2 fl (80-100); Platelet Count Result 156 k/mm3 (150-375); Red Blood Count 3.54 M/mm3 (4.2-5.4); Red Cell Distribution Width 12.4 % (11.5-14.5); White Blood Count 6.8 K/mm3 (4.5-10.0)
[2022-01-09 05:07] LABS: Alanine Aminotransferase 47 U/L (4-35); Albumin Level 3.6 g/dL (3.5-5.1); Alkaline Phosphatase 65 U/L (38-126); Anion Gap 4 mmol/L (8-16); Aspartate Amino Transferase 119 U/L (14-36); Bilirubin,Total 0.5 mg/dL (0.2-1.3); Blood Urea Nitrogen 10 mg/dL (7-17); Carbon Dioxide 26 mmol/L (22-30); Chloride 108 mmol/L (98-107); Estimated CRCL calculation 73 ml/min; Estimated Glomerular Filt Rate > 60; Glucose 142 mg/dL (65-110); Magnesium 1.9 mg/dL (1.6-2.3); Potassium 3.7 mmol/L (3.4-5.0); Sodium 138 mmol/L (137-145)
[2022-01-09] MEDS: ASPIRIN 81 MG ENTERIC TABLET PO (08:21)
[2022-01-09] MEDS: METOPROLOL TARTRATE 25 MG TABLET PO (08:22)
[2022-01-09] MEDS: TICAGRELOR 90 MG TABLET PO (08:22)
[2022-01-09] MEDS: LOSARTAN POTASSIUM 25 MG TABLET PO (08:22)
[2022-01-09] MEDS: PANTOPRAZOLE 40 MG TABLET PO (08:22)
--- NOTE | 2022-01-09 09:06 | PM.DS ---
DS: Admitting Diagnosis Discharge Date 12/30/2021 <MP Mcmahan - Last Filed: 01/09/22 10:11> Admitting Diagnosis STEMI <MP Mcmahan - Last Filed: 01/09/22 10:11> DS: Discharge Diagnosis Discharge Diagnosis (1) ST elevation (STEMI) myocardial infarction involving left circumflex coronary artery: Code(s): I21.21 - ST elevation (STEMI) myocardial infarction involving left circumflex coronary artery <MP Mcmahan - Last Filed: 01/09/22 10:11> Status: Acute <MP Mcmahan - Last Filed: 01/09/22 10:11> Assessment and Plan: Patient presented with posterior ST-elevation [place], found to have multivessel CAD with proximal LCX as infarct-related vessel. She underwent primary PCI with balloon angioplasty and stenting of ostial-proximal LCX which was infarct-related vessel. LV systolic function is preserved. She was brought back to the circus laborer for ongoing chest pain. At that time, she underwent extensive intervention to the heavily diseased proximal to mid RCA as well as stenting of the proximal RPDA and balloon angioplasty to the ostial RPL branch. Today she is feeling well and is without any complaints. She denies any chest pain or shortness of breath. She has ambulated in her room and has not had any problems with that. Her vital signs are stable and she has not had any ectopy on telemetry. Plan for d/c home today. Continue beta-dipesh Continue high-intensity statin. Continue losartan Risk factor modification Smoking cessation. Cardiac rehab referral <MP Mcmahan - Last Filed: 01/09/22 10:11> (2) Tobacco abuse: Code(s): Z72.0 - Tobacco use <MP Mcmahan - Last Filed: 01/09/22 10:11> Status: Acute <MP Mcmahan - Last Filed: 01/09/22 10:11> Assessment and Plan: smoking cessation counseling was done. <MP Mcmahan - Last Filed: 01/09/22 10:11> DS: Summary Hospital Course Hospital Course: Patient presented to the emergency department with a chief complaint of chest pain that had been ongoing for about 90 minutes prior to presentation to the hospital. EKG showed ST depression in the septal leads with ST elevation in the posterior leads. Cardiac catheterization lab was activated for primary PCI. Patient was emergently brought to the circus laborer for primary PCI . Emergent cardiac catheterization showed multivessel CAD with proximal LCX as culprit vessel. She underwent primary PCI with balloon angioplasty and stenting of ostial-proximal LCX which was infarct-related vessel. LV systolic function is preserved. She was brought back to the circus laborer on the morning of 01/07 for ongoing chest pain. At that time, she underwent extensive intervention to the heavily diseased proximal to mid RCA as well as stenting of the proximal RPDA and balloon angioplasty to the ostial RPL branch. Following the second set of interventions she remained free from chest pain and did not have any post-procedural complications. Today, she is feeling well, vital signs are stable, and she has not had any ectopy on telemetry. She does not have any ongoing chest pain. She is stable for discharge home today. <MP Mcmahan - Last Filed: 01/09/22 10:11> Time spent discussing smoking cessation with patient: 3 to 10 minutes <MP Mcmahan - Last Filed: 01/09/22 10:11> Status at Discharge Functional status at discharge: independent ambulation <MP Mcmahan - Last Filed: 01/09/22 10:11> Time Spent with Patient Time attestation: Total time spent providing and/or coordinating discharge services: 44 minutes <MP Mcmahan - Last Filed: 01/09/22 10:11> Exam Const: General: comfortable and no acute distress <MP Mcmahan - Last Filed: 01/09/22 10:11> HENMT: Mouth: Yes moist mucous membranes <MP Mcmahan - Last Filed: 01/09/22 10:11> Eyes:
== END 2022-01-09 09:40 | disposition home or self-care (01) | DRG 174 ==
LOC: ANHED 23:41 → ANHICU 01-07 02:26
PROVIDERS: Internal Medicine; Admitting Provider Internal Medicine Cardiovascular Disease; Emergency Provider Emergency Medicine; PCP Emergency Medicine; Visit Provider Nurse Practitioner
PROC: 4A023N7 Measurement of Cardiac Sampling and Pressure, Left Heart, Percutaneous Approach (ICD-10-PCS; CPT 93452; principal; 2022-01-06 23:55)
PROC: (CPT 92920; 2022-01-06 23:55)
PROC: 027034Z Dilation of Coronary Artery, One Artery with Drug-eluting Intraluminal Device, Percutaneous Approach (ICD-10-PCS; CPT 93454; principal; 2022-01-07 08:45)
PROC: 027034Z Dilation of Coronary Artery, One Artery with Drug-eluting Intraluminal Device, Percutaneous Approach (ICD-10-PCS; 2022-01-07 08:45)
DX: I21.21 ST elevation (STEMI) myocardial infarction involving left circumflex coronary artery (principal); I25.10 Atherosclerotic heart disease of native coronary artery without angina pectoris; F12.10 Cannabis abuse, uncomplicated; F17.210 Nicotine dependence, cigarettes, uncomplicated; Z79.899 Other long term (current) drug therapy
CPT/HCPCS: 36415; 71045; 80053; 80061; 83735; 84484; 85025; 85027; 85610; 85730; 86850; 86900; 86901; 92920; 92978; 93005; 93454; 93458; 96374; 99285; A9270; C1725; C1753; C1769; C1874; C1887; C1894; C9600; C9606; J0461; J0583; J1644; J2250; J2270; J2405; J3010; J7030; J7040; J7120

== ENCOUNTER 2022-02-10 07:00 | Emergency (ER) | payer OTHER, SELFPAY ==
[2022-02-10] VITALS (39 sets, daily range): BP systolic 112–129; BP diastolic 67–90; PULSE 49–91; RESP 12–23; O2SAT 97–100
--- NOTE | ~2022-02-10 | CT_ITS ---
EXAMINATION: CT brain wo con DATE: 02/10/2022 07:26 INDICATION: Head injury TECHNIQUE: Computed tomography (CT) of the head was performed without intravenous contrast. Sagittal and coronal reconstructions were performed. The mA was adjusted according to patient size. Iterative reconstruction technique was employed. The dose-length product was 605.33 mGy-cm. COMPARISON: None FINDINGS: No fracture. No acute intracranial hemorrhage, acute infarction or abnormal extra axial fluid collect ion. Ventricles are normal and symmetric. No mass/mass effect. The orbits, paranasal sinuses and mast oid air cells are normal. IMPRESSION: 1. Normal head CT. Reviewed, dictated and finalized at location A. IMPRESSION: 1. Normal head CT.
--- NOTE | ~2022-02-10 | XR_ITS ---
EXAMINATION: XR chest 1V portable DATE: 02/10/2022 07:39 INDICATION: Chest pain. Bradycardia. TECHNIQUE: frontal view of the chest was obtained. COMPARISON: Chest radiograph dated 01/06/2022 FINDINGS: The lungs are clear with no focal airspace opacities, pulmonary edema, pleural effusion or pneumothor ax. The cardiomediastinal silhouette is normal. Calcified nodules at the left axilla potentially calc ified lymph nodes related to old granulomatous disease. IMPRESSION: 1. No acute cardiopulmonary disease. Reviewed, dictated and finalized at location A.
--- NOTE | 2022-02-10 07:07 | ECG_ITS ---
Measurements Intervals Tuttle Rate: 58 P: 76 MT: 135 QRS: 65 QRSD: 93 T: 43 QT: 433 QTc: 428 Interpretive Statements SINUS BRADYCARDIA WITH SINUS ARRHYTHMIA BORDERLINE ST-T WAVE ABNORMALITY- INFERIOR LEADS BASELINE ARTIFACT- I, II, III, AVL BORDERLINE ECG Electronically Signed On 02-10-2022 8:49:17 CDT by Daniel Vazquez D.O.
--- NOTE | 2022-02-10 07:14 | ED.CHESTPAIN ---
HPI - Chest Pain General Chief Complaint: Chest Pain Stated Complaint: STEMI Time Seen by Provider: 02/10/22 07:12 Source: patient, EMS, RN notes reviewed and old records reviewed Mode of arrival: EMS Limitations: no limitations History of Present Illness HPI narrative: 51-year-old female presents to the emergency department for evaluation after having a syncopal episode with associated dizziness and chest pain. Patient states that she had a episode of bilateral chest pain yesterday that lasted approximately 1 hour and this occurred before bed. this morning she reported was having dizziness and while walking to the bathroom she had a syncopal episode during which she fell and struck her face on the tub. Patient did have a previous STEMI in 01/07 and was cathed. Patient denies any anterior chest pain at this time but she states this feels exactly like the last time I had a heart attack . Patient states that she did have a little dizziness when she initially got out of bed but was able to make it to the bathroom. Patient states after having a bowel movement she stood up and was increasingly dizzy and did ultimately have a near syncopal episode. Patient did have a prodrome of feeling lightheaded and flushed prior to the episode. Patient did not take any of her home medications this morning but reports she had been taking her brilinta daily until this morning. Patient was treated aspirin en route to the ED. Patient denies any current chest pain. Related Data Allergies Allergy/AdvReac Type Severity Reaction Status Date / Time No Known Allergies Allergy Unknown Verified 02/10/22 08:11 Review of Systems Review of Systems: CONSTITUTIONAL: Denies fever, chills, or sweats. EYES: Denies visual changes, redness, or discharge. ENT: Denies rhinorrhea, congestion, sore throat, or otalgia. CARDIOVASCULAR: See HPI RESPIRATORY: Denies cough or dyspnea. GASTROINTESTINAL: Denies abdominal pain, nausea, vomiting, or diarrhea. GENITOURINARY: Denies dysuria or hematuria. SKIN: Denies rash or itching. MUSCULOSKELETAL: Denies back pain, joint pain, or myalgia. NEUROLOGIC: See HPI PSYCHIATRIC: Denies anxiety or depression. All systems reviewed & are unremarkable except as noted in HPI and below PMFSH Past Medical History Medical History Healthy female adult Surgical History Surgical History History of section Family History Family History Grandparent Cancer Social History Social History Smoking packs per day: 1 Smoking cigarettes per day: 20.0 Years smoked: 33 Smoking pack-years: 33.00 Smoking status: Current every day smoker Tobacco type: cigarettes Alcohol intake: current Drinks per week: 1 Substance use: current Substance use type: marijuana Other substance usage details: marijuana Spiritual care concerns: No Exam Narrative: APPEARANCE: Well appearing, no pain, no distress, well-nourished. HEAD: normocephalic, atraumatic. EYES: PERRLA/EOMI, conjunctivae clear. NOSE: Abrasion to nose THROAT: Pharynx clear, no exudate. NECK: Supple. No adenopathy, no masses. RESPIRATORY: Airway patent, respirations nonlabored. Clear to auscultation bilaterally, no rales, rhonchi, wheezing. CARDIOVASCULAR: Regular rate and rhythm without murmurs rubs or gallops. ABDOMINAL: Soft, nontender, nondistended, normal bowel sounds MUSCULOSKELETAL: Moves all extremities. Strength/ROM intact, No edema, No calf tenderness. NEURO: Alert. Cranial nerves II through XII intact. Good gait. Good coordination SKIN: Warm, dry. Normal Color Course Course Emergency Course: STEMI was called in the field. Patient did have slight elevation in anterior elevations with no depression. Previous cath did show show disease of the LAD. Cardiology
[2022-02-10] MEDS: TICAGRELOR 90 MG TABLET (07:15)
[2022-02-10 07:20] LABS: Basophils Absolute Auto 0.1 K/mm3 (0.0-0.1); Basophils Percent Auto 1.2 % (0.2-1.2); Eosinophils Absolute Auto 0.7 K/mm3 (0-0.3); Eosinophils Percent Auto 10.5 % (0-4.4); Hematocrit 36.4 % (37.0-47.0); Hemoglobin 12.2 g/dL (12.0-15.0); Immature Granulocyte Absolute 0.01 K/mm3 (0.00-0.031); Immature Granulocyte Percent A 0.2 % (0-0.5); Lymphocytes Absolute Auto 2.96 K/mm3 (0.9-3.2); Mean Corpuscular HGB Conc 33.5 g/dl (32-36); Mean Corpuscular Hemoglobin 31.7 pg (26-34); Mean Corpuscular Volume 94.5 fl (80-100); Monocytes Absolute Auto 0.5 K/mm3 (0.1-0.6); Monocytes Percent Auto 7.9 % (2.6-8.5); Neutrophils Absolute Auto 2.3 K/mm3 (1.3-6.7); Neutrophils Percent Auto 35.2 % (45.5-73.1); Platelet Count Result 224 k/mm3 (150-375); Red Blood Count 3.85 M/mm3 (4.2-5.4); Red Cell Distribution Width 11.4 % (11.5-14.5); White Blood Count 6.6 K/mm3 (4.5-10.0)
[2022-02-10 07:31] LABS: Alanine Aminotransferase 99 U/L (4-35); Albumin Level 4.4 g/dL (3.5-5.1); Alkaline Phosphatase 181 U/L (38-126); Anion Gap 8 mmol/L (8-16); Aspartate Amino Transferase 94 U/L (14-36); Bilirubin,Total 0.5 mg/dL (0.2-1.3); Blood Urea Nitrogen 8 mg/dL (7-17); Calcium 8.6 mg/dL (8.4-10.2); Carbon Dioxide 25 mmol/L (22-30); Chloride 105 mmol/L (98-107); Cholesterol 134 mg/dL (0-200); Estimated CRCL calculation 65 ml/min; Estimated Glomerular Filt Rate > 60; Glucose 150 mg/dL (65-110); HDL Direct 33 mg/dL; Sodium 138 mmol/L (137-145); Triglycerides 157 mg/dL (<150)
[2022-02-10 07:41] LABS: LDL Cholesterol Direct 62 mg/dL; Troponin I < 0.012 ng/mL (0.000-0.034)
--- NOTE | 2022-02-10 07:43 | PC.NURSE ---
Took report from Sebastián guadarramanight nurse, pt resting at this time, no complains, family at bedside.
[2022-02-10 07:58] LABS: INR 1.1; Prothrombin Time 14.2 Seconds (11.1-14.7)
[2022-02-10 07:59] LABS: Partial Thromboplastin Time 24.5 SECONDS (22.3-36.8)
[2022-02-10 08:54] LABS: D Dimer 0.41 ug/mL (<0.48)
[2022-02-10] MEDS: ACETAMINOPHEN 325 MG TABLET 650 MG PO (09:32)
[2022-02-10 10:46] LABS: Troponin I < 0.012 ng/mL (0.000-0.034)
== END 2022-02-10 12:25 | disposition home or self-care (01) ==
PROVIDERS: Emergency Provider Emergency Medicine; PCP Emergency Medicine
DX: R55 Syncope and collapse (principal); S09.90XA Unspecified injury of head, initial encounter; F17.210 Nicotine dependence, cigarettes, uncomplicated; R00.1 Bradycardia, unspecified; R94.31 Abnormal electrocardiogram [ECG] [EKG]; W01.198A Fall on same level from slipping, tripping and stumbling with subsequent striking against other object, initial encounter
CPT/HCPCS: 36415; 70450; 71045; 80053; 80061; 84484; 85025; 85380; 85610; 85730; 86850; 86900; 86901; 93005; 99284; A9270; J1644

== ENCOUNTER 2022-04-06 11:47 | Observation (INO) | payer OTHER, SELFPAY ==
[2022-04-06] VITALS (17 sets, daily range): BP systolic 119–153; BP diastolic 76–90; PULSE 47–72; RESP 12–23; TEMP 36.4–37; O2SAT 97–100; BMI 26.6
--- NOTE | ~2022-04-06 | XR_ITS ---
EXAMINATION: XR chest 2V DATE: 04/06/2022 12:27 INDICATION: Left upper chest pain TECHNIQUE: PA and lateral views of the chest are obtained. COMPARISON: 02/10/2022 FINDINGS: The lungs are free of acute opacities. There is no pleural effusion or pneumothorax. The ca rdiomediastinal silhouette is normal. There is mild thoracic spondylosis. Calcified left axillary lym ph nodes are again noted. IMPRESSION: 1. No acute cardiopulmonary abnormality. Reviewed, dictated and finalized at location A.
--- NOTE | 2022-04-06 11:56 | ECG_ITS ---
Measurements Intervals [place] Rate: 64 P: 68 ND: 156 QRS: 58 QRSD: 86 T: 38 QT: 413 QTc: 426 Interpretive Statements SINUS RHYTHM WITH SINUS ARRHYTHMIA NORMAL ECG COMPARED TO ECG 02/10/2022 07:05:15 NO CHANGE Electronically Signed On 04-07-2022 7:13:07 CDT by Neel Norton M.D.
[2022-04-06 12:12] LABS: Basophils Absolute Auto 0.1 K/mm3 (0.0-0.1); Basophils Percent Auto 1.2 % (0.2-1.2); Eosinophils Absolute Auto 0.3 K/mm3 (0-0.3); Eosinophils Percent Auto 5.9 % (0-4.4); Hematocrit 35.4 % (37.0-47.0); Hemoglobin 11.7 g/dL (12.0-15.0); Immature Granulocyte Absolute 0.01 K/mm3 (0.00-0.031); Immature Granulocyte Percent A 0.2 % (0-0.5); Lymphocytes Absolute Auto 2.24 K/mm3 (0.9-3.2); Lymphocytes Percent Auto 43.8 % (18.3-44.2); Mean Corpuscular HGB Conc 33.1 g/dl (32-36); Mean Corpuscular Hemoglobin 30.5 pg (26-34); Mean Corpuscular Volume 92.4 fl (80-100); Mean Platelet Volume 11.3 fl (7.4-10.4); Monocytes Absolute Auto 0.4 K/mm3 (0.1-0.6); Monocytes Percent Auto 7.6 % (2.6-8.5); Neutrophils Absolute Auto 2.1 K/mm3 (1.3-6.7); Neutrophils Percent Auto 41.3 % (45.5-73.1); Platelet Count Result 258 k/mm3 (150-375); Red Blood Count 3.83 M/mm3 (4.2-5.4); Red Cell Distribution Width 11.9 % (11.5-14.5); White Blood Count 5.1 K/mm3 (4.5-10.0)
--- NOTE | 2022-04-06 12:15 | ED.CHESTPAIN ---
HPI - Chest Pain General Chief Complaint: Chest Pain Stated Complaint: Chest Pain Time Seen by Provider: 04/06/22 12:02 Source: RN notes reviewed History of Present Illness HPI narrative: Patient presents emerged department from work via EMS for chest pain. Patient states she is at work today when she experienced left-sided chest pain the pain was described as a burning sensation across her chest. States that the pain is now resolved. She states that she has a previous heart attack earlier this year with a stent placed states she supposed be on aspirin but has not taken the aspirin for the past 3 weeks states she has been taking her medication. She states that this pain did not radiate states that it feels similar to her previous heart attack. States she did feel short of breath with the symptoms. Denies any fevers or chills abdominal pain nausea vomiting or any other symptoms Related Data Allergies Allergy/AdvReac Type Severity Reaction Status Date / Time No Known Allergies Allergy Unknown Verified 02/10/22 08:11 Review of Systems Review of Systems: Gen.: Denies fevers or chills ENT: Denies congestion Respiratory: Reports shortness of breath CV: See HPI GI: Denies abdominal pain nausea, emesis or diarrhea Musculoskeletal: Denies back pain or muscle pain Neuro: Denies numbness, tingling, weakness or focal weakness Skin: Denies rash Except as documented, all other systems reviewed and negative [facility] Past Medical History Medical History (Updated 04/06/22 @ 13:53 by Jack Walters DO) Coronary artery disease Healthy female adult Surgical History Surgical History History of section Family History Family History Grandparent Cancer Social History Social History Smoking packs per day: 1 Smoking cigarettes per day: 20.0 Years smoked: 33 Smoking pack-years: 33.00 Smoking status: Current every day smoker Tobacco type: cigarettes Alcohol intake: current Drinks per week: 1 Substance use: current Substance use type: marijuana Other substance usage details: marijuana Spiritual care concerns: No Exam Narrative: APPEARANCE: No acute distress, nontoxic, resting in bed EYES: EOMI HEENT: Normocephalic, atraumatic, OMM RESPIRATORY: No respiratory distress Clear to auscultation bilaterally with no rhonchi wheezing or rales. CARDIOVASCULAR: Regular rate and rhythm without murmurs rubs or gallops. ABDOMINAL: Soft, nontender, nondistended, no rebound or guarding MUSCULOSKELETAl: Moves all extremities. No clubbing, cyanosis or edema. NEURO: Awake and alert. Following commands, speech normal, no focal deficits SKIN:: Warm, dry. No rashes lesions or abrasions PSYCHIATRIC: Normal affect/mood, Course Course Emergency Course: Discussed with Dr. Norton presentation and work-up this patient started on aspirin and Lovenox and will follow as an inpatient Discussed with GIL Hidalgo for Dr. Pierson agrees with admission Discussed with patient and family results of workup and diagnosis. Discussed need for admission. Patient and family understand and agree to current treatment plan Vital Signs Vital signs: Vital Signs Temperature 97.5 F L 04/06/22 11:52 Temperature 97.5 F L 04/06/22 11:52 Pulse Rate 55 L 04/06/22 13:32 Respiratory Rate 23 H 04/06/22 13:15 MDM - Chest Pain Lab Data Result diagrams: 04/06/22 12:06 04/06/22 12:06 Labs: Lab Results 04/06/22 04/06/22 04/06/22 Range/Units 12:06 12:06 12:06 WBC 5.1 (4.5-10.0) K/mm3 RBC 3.83 L (4.2-5.4) M/mm3 Hgb 11.7 L (12.0-15.0) g/dL Hct 35.4 L (37.0-47.0) % MCV 92.4 (80-100) fl MCH 30.5 (26-34) pg MCHC 33.1 (32-36) g/dl RDW 11.9 (11.5-14.5) % Plt Count 258 (150-375) k/mm3 MPV 11
[2022-04-06 12:25] LABS: Alanine Aminotransferase 55 U/L (6-35); Alkaline Phosphatase 121 U/L (38-126); Anion Gap 9 mmol/L (8-16); Aspartate Amino Transferase 51 U/L (14-36); Bilirubin,Total 0.5 mg/dL (0.2-1.3); Blood Urea Nitrogen 12 mg/dL (7-17); Calcium 9.2 mg/dL (8.4-10.2); Carbon Dioxide 24 mmol/L (22-30); Chloride 105 mmol/L (98-107); Estimated CRCL calculation 63 ml/min; Estimated Glomerular Filt Rate > 60; Glucose 105 mg/dL (65-110); Lipase 72 U/L (23-300); Potassium 4.3 mmol/L (3.4-5.0); Prothrombin Time 12.7 Seconds (11.1-14.7); Sodium 138 mmol/L (137-145)
[2022-04-06 12:26] LABS: Partial Thromboplastin Time 30.6 SECONDS (22.3-36.8)
[2022-04-06 12:35] LABS: Troponin I < 0.012 ng/mL (0.000-0.034)
[2022-04-06] MEDS: ENOXAPARIN 80 MG/0.8 ML SYRINGE 66 MG SUB-Q (14:10)
--- NOTE | 2022-04-06 14:45 | PM.IMHP ---
H&P: HPI History of Present Illness Date/Time: 04/06/22 14:45 Chief Complaint: Chest pain. Narrative: This is a very pleasant 51-year-old female with coronary artery disease, hypertension, and hyperlipidemia who presented to the emergency department via EMS from work for evaluation of chest pain. Shortly prior to arrival she developed nonradiating and self-limiting left-sided chest pain, similar to the pain she experienced with her AR in December of this year. She also reports dizziness, nausea, and shortness of breath with the onset of the chest pain. At that time she had the pharmacist at her work take her blood pressure and per patient report, her blood pressure was 160/100. She was given a baby aspirin and emergency services were contacted. With further questioning the patient admits that she has not been taking her aspirin for the last 3 weeks because she forgot to by it while out shopping. She states compliance with her prescription medications, however. Her initial troponin was normal and EKG on arrival did not show any acute ST segment changes. She has not had any significant chest discomfort since admission to the [facility]. Review of Systems Review of Systems: Twelve systems were reviewed. She has frequent hot flashes thus it is difficult for her to say whether not she was having sweats with the chest pain today or if she was simply having a hot flash. No cold or flu symptoms. She denies pleuritic pain. No lower extremity edema. No vomiting. Except as documented, all other systems were reviewed and are negative. [facility] Past Medical History Medical History (Updated 04/06/22 @ 21:45 by Gwen Grey PA-C) Acute ST elevation myocardial infarction (STEMI) of posterior wall (01/06/22) Coronary artery disease Dyslipidemia Hypertension Tobacco abuse Patient quit smoking in December 2021 after her AR. Surgical History Surgical History (Updated 04/06/22 @ 15:54 by Gwen Grey PA-C) History of cardiac catheterization History of section History of coronary artery stent placement (12/2021) PCI/stenting of the ostial-proximal left circumflex and right PDA with balloon angioplasty to the ostial RPL branch. Family History Family History (Updated 04/06/22 @ 15:54 by Gwen Grey PA-C) Grandparent Cancer Social History Social History Social History: Surrogate decision maker: Angel Echevarria, son. Code status: Full code. Smoking packs per day: 1 Smoking cigarettes per day: 20.0 Years smoked: 33 Smoking pack-years: 33.00 Smoking status: Former smoker Tobacco type: cigarettes Smoking end date: 01/06/22 Alcohol intake: former Drinks per week: 1 Substance use: former Substance use type: marijuana Spiritual care concerns: No Meds Home Medications and Allergies Home Medications Medication Instructions Recorded Confirmed Type aspirin 81 mg tablet,delayed 81 mg PO QAM 30 days #30 tabs 01/09/22 04/06/22 Rx release atorvastatin 40 mg tablet 80 mg PO HS 30 days #60 tabs 01/09/22 04/06/22 Rx losartan 25 mg tablet 25 mg PO DAILY 30 days #30 tabs 01/09/22 04/06/22 Rx ticagrelor 90 mg tablet (Brilinta) 90 mg PO Q12HR #60 tabs 01/09/22 04/06/22 Rx metoprolol tartrate 25 mg tablet 25 mg PO DAILY 04/06/22 04/06/22 History Allergies Allergy/AdvReac Type Severity Reaction Status Date / Time No Known Allergies Allergy Unknown Verified 02/10/22 08:11 Vital Signs Vital Signs - 24 hr 04/06/22 11:52 04/06/22 12:53 04/06/22 13:00 Temperature 97.5 F L Pulse Rate 60 54 L Respiratory Rate 14 21 H Blood Pressure Pulse Oximetry 04/06/22 13:15 04/06/22 13:32 04/06/22 13:30 Temperature Pulse Rate 56 L 55 L 56 L Respiratory Rate 23 H 12 Blood Pressure Pulse Oximetry 04/06/22 13:52 04/06/22 14:03 04/06/22 14:15 Temperature Pulse Rate 47 L 51 L 54 L Respiratory Rate 18 21 H 19 Blo
--- NOTE | 2022-04-06 15:15 | PC.NURSE ---
This patient, Bertha Echevarria, was admitted to IMU Room 200-01. Patient/family oriented to hospital policies and general routines including ID bracelet, bed and alarms, visiting hours, pain management, procedures, bathroom and other care routines, personal items, smoking policy, room service/diet, and visiting hours. Information on how to activate the Rapid Response Team has been discussed. Patient/Family are encouraged to report perceived risks to care and to ask questions if they do not understand what they are told or what they should do.
[2022-04-06 15:35] LABS: Troponin I < 0.012 ng/mL (0.000-0.034)
[2022-04-06 18:50] LABS: Troponin I < 0.012 ng/mL (0.000-0.034)
[2022-04-06 19:27] LABS: Hepatitis B Surface Antigen Negative (Negative)
[2022-04-06 19:33] LABS: HAV RESULT Negative (Negative); Hepatitis B Core IgM Result Negative (Negative)
[2022-04-06 19:45] LABS: Hepatitis C Virus Antibody Negative (Negative)
[2022-04-06] MEDS: ATORVASTATIN 40 MG TABLET 80 MG PO (20:53)
[2022-04-06] MEDS: TICAGRELOR 90 MG TABLET PO (20:53)
[2022-04-07] VITALS (7 sets, daily range): BP systolic 108–125; BP diastolic 62–79; PULSE 45–88; RESP 16–18; TEMP 36.4; O2SAT 99–100
--- NOTE | 2022-04-07 04:19 | ECG_ITS ---
Measurements Intervals [place] Rate: 52 P: 60 MN: 129 QRS: 46 QRSD: 94 T: 21 QT: 448 QTc: 420 Interpretive Statements SINUS BRADYCARDIA OTHERWISE NORMAL ECG COMPARED TO ECG 04/06/2022 12:01:17 SINUS BRADYCARDIA NOW PRESENT Electronically Signed On 04-07-2022 15:45:19 CDT by Neel Norton M.D.
[2022-04-07 04:31] LABS: Basophils Absolute Auto 0.1 K/mm3 (0.0-0.1); Basophils Percent Auto 1.5 % (0.2-1.2); Eosinophils Absolute Auto 0.3 K/mm3 (0-0.3); Eosinophils Percent Auto 6.6 % (0-4.4); Hematocrit 34.9 % (37.0-47.0); Hemoglobin 11.5 g/dL (12.0-15.0); Immature Granulocyte Absolute 0.01 K/mm3 (0.00-0.031); Immature Granulocyte Percent A 0.2 % (0-0.5); Lymphocytes Percent Auto 47.1 % (18.3-44.2); Mean Corpuscular Hemoglobin 30.3 pg (26-34); Mean Corpuscular Volume 92.1 fl (80-100); Mean Platelet Volume 10.9 fl (7.4-10.4); Monocytes Absolute Auto 0.4 K/mm3 (0.1-0.6); Monocytes Percent Auto 9.2 % (2.6-8.5); Neutrophils Absolute Auto 1.7 K/mm3 (1.3-6.7); Neutrophils Percent Auto 35.4 % (45.5-73.1); Platelet Count Result 223 k/mm3 (150-375); Red Blood Count 3.79 M/mm3 (4.2-5.4); Red Cell Distribution Width 11.9 % (11.5-14.5); White Blood Count 4.7 K/mm3 (4.5-10.0)
[2022-04-07 04:42] LABS: Alanine Aminotransferase 45 U/L (6-35); Albumin Level 4.2 g/dL (3.5-5.1); Alkaline Phosphatase 116 U/L (38-126); Anion Gap 7 mmol/L (8-16); Aspartate Amino Transferase 38 U/L (14-36); Bilirubin,Total 0.3 mg/dL (0.2-1.3); Blood Urea Nitrogen 13 mg/dL (7-17); Calcium 8.9 mg/dL (8.4-10.2); Carbon Dioxide 23 mmol/L (22-30); Chloride 110 mmol/L (98-107); Estimated CRCL calculation 63 ml/min; Estimated Glomerular Filt Rate > 60; Glucose 124 mg/dL (65-110); Magnesium 1.8 mg/dL (1.6-2.3); Potassium 4.3 mmol/L (3.4-5.0); Sodium 140 mmol/L (137-145)
[2022-04-07 04:54] LABS: Troponin I < 0.012 ng/mL (0.000-0.034)
[2022-04-07] MEDS: ASPIRIN 81 MG ENTERIC TABLET PO (08:08)
[2022-04-07] MEDS: TICAGRELOR 90 MG TABLET PO (08:08)
[2022-04-07] MEDS: LOSARTAN POTASSIUM 25 MG TABLET PO (08:08)
[2022-04-07] MEDS: METOPROLOL TARTRATE 25 MG TABLET PO (08:08)
--- NOTE | 2022-04-07 09:29 | PM.CNCAR ---
Assessment and Plan Assessment and plan (1) Chest pain: Code(s): R07.9 - Chest pain, unspecified Status: Acute (2) Coronary artery disease: Code(s): I25.10 - Atherosclerotic heart disease of [place] coronary artery without angina pectoris Status: Acute Plan this is a 51-year-old lady with known to have severe multivessel coronary disease as described above she enters the hospital with some chest pain that is reminiscent of her ischemia although fortunately her ECG looks benign her troponins are negative. Due to the extensive multivessel nature of disease involvement of the left main I did recommend a follow-up angiogram for today. The patient does not wish to proceed with that. She would like to be treated medically. I will give her a full strength aspirin at this time since for some reason she decided to stop the aspirin on her own accord. I will also add isosorbide to her regimen. Neel Norton MD [facility] History of Present Illness History of Present Illness Consult date/time: 04/07/22 09:29 Consult reason: chest pain Reason For Visit: Unstable angina Narrative: this is a 51-year-old woman known to have multivessel coronary artery disease admitted to the hospital yesterday evening because of some chest pain that occurred while she was at home and created concern. The discomfort was a burning-like central retrosternal pain that lasted for about 20 minutes and resolved spontaneously before she came in. She recognizes the symptoms as very similar to her recent previous ischemic symptoms and so she of course was concerned and presented to the emergency department. By the time she got here she was pain free her electrocardiogram is unremarkable her biomarkers x3 sets following admission are normal. She is comfortable this morning and offers no complaints. I have not been involved in this patient's care prior to this consultation she was seen recently here late in December of this year and seen by my partner, Dr. Cerrato who took her to the chemical lab supervisor emergently in the setting of what was appeared to be acute posterior infarction. The patient was brought to the cardiac catheterization lab and found to have multivessel disease including some hazy stenosis in the left main. High-grade stenosis in the proximal circumflex. Significant stenosis in the ostium of the LAD as well as several high-grade lesions in the right coronary from the proximal, 2nd portion and in the RPDA. She also had some small vessel disease in the RPDA itself as well as in the RPL. She underwent emergency revascularization with stenting of the ostium of the circumflex as well as kissing balloon angioplasty of the ostium of the circumflex, left main and LAD. She had an acceptable angiographic result of this procedure. The following day she was still having ischemic type chest pain she was brought back to the cardiac catheterization where she underwent right coronary intervention involving the prox stenting of the proximal and mid lesions and balloon angioplasty of the distal lesion. Following that she stabilized and was discharged. She was seen in the office a couple of times since then and has been doing well. She does indicate that she stopped taking her aspirin several weeks ago she did not think that the baby aspirin was in important part of her medical regimen. She has been compliant with the remainder of her regimen including her Brilinta. I did review the angiograms and I was very concerned about the involvement of her left main in December as well as the multivessel nature of her disease. On the positive side there is no evidence of acute coronary syndrome but given the symptoms I did recommend follow-up cardiac catheterization. Patient understands this but is not agreeable at this time it is her preference to try to treat this medically since she thinks the symptoms are not as severe and she points out that her electrocardiogram is not ischemic looki
[2022-04-07] MEDS: ISOSORBIDE MONONITRATE 30 MG TAB.ER.24H PO (10:20)
--- NOTE | 2022-04-07 16:16 | PM.DS ---
DS: Admitting Diagnosis Discharge Date 04/07/22 Admitting Diagnosis Chest pain DS: Discharge Diagnosis Discharge Diagnosis (1) Chest pain: Code(s): R07.9 - Chest pain, unspecified Status: Acute Assessment and Plan: Patient's symptoms are similar to those she experienced when she had an [place] in December 2021. She is thus being admitted to IMU for closer monitoring. She was given a therapeutic dose of Lovenox in the emergency department as well as aspirin 324 mg. Troponins will be trended and she will be NPO after midnight for possible intervention tomorrow. Dr. Norton has been consulted and his input is appreciated. (2) Coronary artery disease: Code(s): I25.10 - Atherosclerotic heart disease of [place] coronary artery without angina pectoris Status: Acute Assessment and Plan: Continue dual anti-platelet therapy, statin, and beta-dipesh. I had a long discussion with the patient about the importance of taking all of her prescribed medications. As the aspirin is an [id number] medication, I do not think she thought it was too important to take, compared to her prescription medications. (3) Dyslipidemia: Code(s): E78.5 - Hyperlipidemia, unspecified Status: Acute Assessment and Plan: Continue statin. Her LFTs are a bit elevated but lower than what they have been in the past. (4) Elevated LFTs: Code(s): R79.89 - Other specified abnormal findings of blood chemistry Status: Acute Assessment and Plan: They have been elevated in the past but are lower than what they have been. Abdominal exam is benign. (5) Tobacco abuse: Code(s): Z72.0 - Tobacco use Status: Acute DS: Summary Hospital Course Hospital Course: 51-year-old female with past medical history significant for severe multivessel coronary artery disease with recent PCI in December 2021 is presenting with symptoms similar to when she had her 1st [place]. She is complaining of a sense of nausea any nausea, dizziness as well as dyspnea with exertion. She also has some left-sided chest pain that radiates into her back and feels the same as her 1st episode. While she was at work at [employer], she checked her blood pressure was 160/100 and so a colleague called emergency services. She also states that she has stopped taking her baby aspirin because she thought it was on important, however, she did continue her Brilinta. Initial troponin was negative. ECG showed no acute abnormalities. Cardiology was consulted and recommended catheterization. Patient adamantly refused any invasive procedures and requested medical management. Cardiology recommended full-dose aspirin as well as isosorbide be added to her current regimen. Patient was discharged in good condition and was chest pain-free. Strict return precautions were discussed extensively. Risks and benefits of avoiding catheterization discussed with patient, discussed significant risk of avoiding catheterization and patient still refused procedure. Time Spent with Patient Time attestation: Total time spent providing and/or coordinating discharge services: Exam Narrative: General: Well-developed feel mi sitting up in bed in no distress. Weight: 70.5 kg. BMI: 26.7. HEENT: PERRL, EOMI. Sclerae anicteric. Oral mucosa moist. Oropharynx clear. Neck: Supple. No JVD or bruits. Respiratory: Lungs are clear to auscultation bilaterally. Cardiovascular: Regular rate and rhythm with S1-S2. Chest: No tenderness to palpation over the chest wall. Gastrointestinal: Abdomen is soft, nontender, and nondistended with positive bowel sounds. Skin: Warm and dry. No rash or lesions on limited exam. Extremities: No cyanosis, clubbing, or edema. Radial and pedal pulses intact. Neurological: Alert. Cranial nerves 2-12 are grossly intact. No gross focal deficits to casual conversation. Psychiatric: Pleasant and cooperative with normal mood and affect.
== END 2022-04-07 14:06 | disposition home or self-care (01) ==
LOC: ANHED 13:53 → ANHIMU 14:33
PROVIDERS: Emergency Medicine; Internal Medicine; Physician Assistant; Admitting Provider Student in an Organized Health Care Education/Training Program; Emergency Provider Emergency Medicine; PCP Emergency Medicine; Visit Provider Student in an Organized Health Care Education/Training Program
DX: R07.9 Chest pain, unspecified (principal); I25.10 Atherosclerotic heart disease of native coronary artery without angina pectoris; I10 Essential (primary) hypertension; E78.5 Hyperlipidemia, unspecified; Z87.891 Personal history of nicotine dependence; I25.2 Old myocardial infarction
CPT/HCPCS: 36415; 71046; 80053; 80074; 83690; 83735; 84484; 85025; 85610; 85730; 93005; 96372; 99285; A9270; G0378; G0379; J1650

== ENCOUNTER 2022-05-30 09:34 | Observation (INO) | payer OTHER, SELFPAY ==
[2022-05-30] VITALS (11 sets, daily range): BP systolic 99–143; BP diastolic 61–76; PULSE 46–67; RESP 14–24; TEMP 36.3–36.8; O2SAT 98–100
--- NOTE | ~2022-05-30 | XR_ITS ---
EXAMINATION: XR chest 2V DATE: 05/30/2022 10:18 INDICATION: Chest pain TECHNIQUE: PA and lateral views of the chest are obtained. COMPARISON: 04/06/2022 FINDINGS: The lungs are free of acute opacities. No pleural effusion or pneumothorax. The cardiomedia stinal silhouette is normal. There is mild thoracic spondylosis. Again noted are calcified left axill marge lymph nodes. IMPRESSION: 1. No acute cardiopulmonary abnormality. Reviewed, dictated and finalized at location A.
--- NOTE | 2022-05-30 09:39 | ECG_ITS ---
Measurements Intervals [place] Rate: 51 P: 58 MN: 160 QRS: 29 QRSD: 87 T: -8 QT: 432 QTc: 398 Interpretive Statements SINUS BRADYCARDIA, OTHERWISE NORMAL EKG NO CHANGE COMPARED TO PRIOR TRACING Electronically Signed On 05-31-2022 13:18:00 CDT by Kassidy Sun M.D.
[2022-05-30 09:59] LABS: Basophils Percent Auto 0.9 % (0.2-1.2); Eosinophils Absolute Auto 0.3 K/mm3 (0-0.3); Eosinophils Percent Auto 5.6 % (0-4.4); Hemoglobin 11.1 g/dL (12.0-15.0); Immature Granulocyte Absolute 0.01 K/mm3 (0.00-0.031); Immature Granulocyte Percent A 0.2 % (0-0.5); Lymphocytes Percent Auto 42.7 % (18.3-44.2); Mean Corpuscular HGB Conc 32.6 g/dl (32-36); Mean Corpuscular Hemoglobin 29.7 pg (26-34); Mean Corpuscular Volume 90.9 fl (80-100); Mean Platelet Volume 11.8 fl (7.4-10.4); Monocytes Absolute Auto 0.5 K/mm3 (0.1-0.6); Neutrophils Absolute Auto 1.9 K/mm3 (1.3-6.7); Neutrophils Percent Auto 40.6 % (45.5-73.1); Platelet Count Result 215 k/mm3 (150-375); Red Blood Count 3.74 M/mm3 (4.2-5.4); Red Cell Distribution Width 12.7 % (11.5-14.5); White Blood Count 4.7 K/mm3 (4.5-10.0)
[2022-05-30 10:20] LABS: Alanine Aminotransferase 40 U/L (6-35); Albumin Level 4.3 g/dL (3.5-5.1); Alkaline Phosphatase 64 U/L (38-126); Anion Gap 10 mmol/L (8-16); Aspartate Amino Transferase 39 U/L (14-36); Bilirubin,Total 0.5 mg/dL (0.2-1.3); Blood Urea Nitrogen 12 mg/dL (7-17); Carbon Dioxide 28 mmol/L (22-30); Chloride 101 mmol/L (98-107); Estimated CRCL calculation 65 ml/min; Estimated Glomerular Filt Rate > 60; Glucose 152 mg/dL (65-110); Potassium 4.5 mmol/L (3.4-5.0); Sodium 139 mmol/L (137-145)
[2022-05-30 10:22] LABS: NT Pro B Type Natriuretic Pept 99 pg/mL (5-100); Troponin I < 0.012 ng/mL (0.000-0.034)
--- NOTE | 2022-05-30 11:36 | ED.CHESTPAIN ---
HPI - Chest Pain General Chief Complaint: Chest Pain Stated Complaint: chest pain Time Seen by Provider: 05/30/22 09:39 History of Present Illness HPI narrative: 51yoF h/o CAD s/p stents p/w L sided chest pain and radiating to L arm since eating burger earlier. States this does feel quite similar to the time where she had a heart attack. Related Data Home Medications Medication Instructions Recorded Confirmed metoprolol tartrate 25 mg tablet 25 mg PO DAILY 04/06/22 04/06/22 Allergies Allergy/AdvReac Type Severity Reaction Status Date / Time No Known Allergies Allergy Unknown Verified 02/10/22 08:11 Review of Systems Review of Systems: CONST: No fever. HEENT: No sore throat C/V: chest pain RESP: No cough GI: nausea : No dysuria. M/S: No joint pain. SKIN: No rash. NEURO: Some tingling in the left arm PSYCH: [No depression] PMFSH Past Medical History Medical History Acute ST elevation myocardial infarction (STEMI) of posterior wall (01/06/22) Coronary artery disease Dyslipidemia Hypertension Tobacco abuse Patient quit smoking in December 2021 after her [place]. Surgical History Surgical History History of cardiac catheterization History of section History of coronary artery stent placement (12/2021) PCI/stenting of the ostial-proximal left circumflex and right PDA with balloon angioplasty to the ostial RPL branch. Family History Family History Grandparent Cancer Social History Social History Social History: Surrogate decision maker: Angel Echevarria, son. Code status: Full code. Smoking packs per day: 1 Smoking cigarettes per day: 20.0 Years smoked: 33 Smoking pack-years: 33.00 Smoking status: Former smoker Tobacco type: cigarettes Smoking end date: 01/06/22 Alcohol intake: former Drinks per week: 1 Substance use: former Substance use type: marijuana Spiritual care concerns: No Exam Narrative: EXAMINATION OF ORGAN SYSTEMS/BODY AREAS: Constitutional: Vital signs per nursing GENERAL:[No acute distress, non-toxic appearing.] HEAD: Normal with no signs of head trauma. EYES: EOMI, conjunctiva normal ENT: Hearing grossly intact LUNGS: Nonlabored breathing. HEART: [Regular rate and rhythm] ABD: [Soft], [nontender to palpation] EXT: Normal range of motion SKIN: [No rashes or lesions.] NEURO: [Alert and oriented x 3. No gross focal sensory or strength deficits.] PSYCH: Normal affect Course Vital Signs Vital signs: Vital Signs Temperature 97.8 F 05/30/22 09:40 Pulse Rate 57 L 05/30/22 09:40 Respiratory Rate 14 05/30/22 09:40 Blood Pressure 139/61 05/30/22 09:40 Pulse Oximetry 100 05/30/22 09:40 Oxygen Delivery Room Air 05/30/22 09:40 Temperature 97.8 F 05/30/22 09:40 Pulse Rate 57 L 05/30/22 09:52 Respiratory Rate 14 05/30/22 09:40 Blood Pressure 139/61 05/30/22 09:40 Pulse Oximetry 100 05/30/22 09:40 Oxygen Delivery Room Air 05/30/22 09:40 MDM - Chest Pain MDM Narrative Medical decision making narrative: ED COURSE AND MEDICAL DECISION MAKIN51 year old presenting with chest pain. EKG done in triage negative for acute ischemic changes. Cardiac workup is initiated. EKG: Performed in triage and interpreted by me. Normal sinus rhythm. Rate 51. Normal axis. VT normal. QRS duration normal. QTc normal. No pathologic Q waves. No ST segment elevation or depression to suggest acute ischemia. No RV strain pattern. HEART score is 5. Wells low risk making PE unlikely. Presentation not consistent with dissection or aneurysm without severe pain or pulse deficits. CXR negative for mediastinal widening. No abdominal pain or signs of sepsis that would be concerning for esophageal perforation or mediastinitis. No cardiomega
[2022-05-30 13:16] LABS: Troponin I < 0.012 ng/mL (0.000-0.034)
--- NOTE | 2022-05-30 13:20 | PM.IMHP ---
H&P: HPI History of Present Illness Date/Time: 05/30/22 13:20 Chief Complaint: Chest pain. Narrative: This is a pleasant 51-year-old female with known multivessel coronary artery disease with history of posterior wall STEMI in December 2021 status post difficult, complex multivessel PCI who presented to the emergency department via EMS from work for evaluation of chest pain. She is known to myself and the hospitalist service from a recent overnight admission on 04/06/22 at which time she presented with similar complaints. Cardiac catheterization was recommended though she declined however she has followed up with Dr. Cerrato in the office and in fact she is scheduled for angiography 1 week from today at [facility]. She continues to have intermittent chest pain, mainly with exertion, and today was no different. While at work at a local [employer] she once again developed nonradiating left-sided anterior chest pain associated with associated with sweats and shortness of breath. Her symptoms improved with resting for 10 minutes or so she has had several recurrent episodes today which have occurred with activity. 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 She checked her blood pressure at the store and reports that it was well over 200 and she was advised to come to the ER. EKG on arrival showed no acute ST or T-wave abnormalities and her 1st troponin was negative. After discussions with Cardiology, it was felt that she should be admitted overnight for observation. She received aspirin 324 mg on arrival to ER but she has not required any other medications and she is currently without pain. She denies presyncope, syncope, current chest pain, shortness breast, pleuritic pain, palpitations, nausea, and vomiting. Review of Systems Review of Systems: Twelve systems were reviewed and are negative except for as per HPI. [facility] Past Medical History Medical History (Updated 05/30/22 @ 19:46 by Gwen Grey PA-C) Acute ST elevation myocardial infarction (STEMI) of posterior wall (01/06/22) Coronary artery disease Dyslipidemia Hypertension Tobacco abuse Patient quit smoking in December 2021 after her [place]. Surgical History Surgical History (Updated 05/30/22 @ 19:44 by Gwen Grey PA-C) History of cardiac catheterization History of section History of coronary artery stent placement (12/2021) Multivessel coronary disease status post difficult complex multivessel PCI. Family History Family History Grandparent Cancer Social History Social History Social History: Surrogate decision maker: Angel Echevarria, son. Code status: Full code. Smoking packs per day: 1 Smoking cigarettes per day: 20.0 Years smoked: 33 Smoking pack-years: 33.00 Smoking status: Former smoker Tobacco type: cigarettes Smoking end date: 01/06/22 Alcohol intake: former Drinks per week: 1 Substance use: former Substance use type: marijuana Spiritual care concerns: No Meds Home Medications and Allergies Home Medications Medication Instructions Recorded Confirmed Type aspirin 81 mg tablet,delayed 81 mg PO QAM 30 days #30 tabs 01/09/22 05/30/22 Rx release atorvastatin 40 mg tablet 80 mg PO HS 30 days #60 tabs 01/09/22 05/30/22 Rx losartan 25 mg tablet 25 mg PO DAILY 30 days #30 tabs 01/09/22 05/30/22 Rx ticagrelor 90 mg tablet (Brilinta) 90 mg PO Q12HR #60 tabs 01/09/22 05/30/22 Rx metoprolol tartrate 25 mg tablet 25 mg PO DAILY 04/06/22 05/30/22 History isosorbide mononitrate 30 mg 30 mg PO QAM 30 days #30 tabs 04/07/22 05/30/22 Rx tablet,extended release 24 hr Allergies Allergy/AdvReac Type Severity Reaction Status Date / Time No Known Allergies Allergy Unknown Verified 02/10/22 08:11
--- NOTE | 2022-05-30 14:48 | ADMGEN ---
This patient, Bertha Echevarria, was admitted to IMU Room 205-01. Patient/family oriented to hospital policies and general routines including ID bracelet, bed and alarms, visiting hours, pain management, procedures, bathroom and other care routines, personal items, smoking policy, room service/diet, and visiting hours. Information on how to activate the Rapid Response Team has been discussed. Patient/Family are encouraged to report perceived risks to care and to ask questions if they do not understand what they are told or what they should do.
[2022-05-30 15:17] LABS: SARS-CoV-2 RNA PCR Negative
--- NOTE | 2022-05-30 16:07 | PM.CNCAR ---
Assessment and Plan Assessment and plan (1) Chest pain: Code(s): R07.9 - Chest pain, unspecified Status: Acute Plan This is a 51-year-old lady with multivessel coronary disease status post difficult complex multivessel PCI in the end of December of this year. Since then she has been symptomatic with exertional shortness of breath as well as episodes of intermittent chest discomfort now with paresthesias that are creating concern of course but are not associated with any objective evidence of acute coronary syndrome. Because of these symptoms and the extensive nature of her coronary disease follow-up angiography appropriately is scheduled to be done at [facility]. Because of the proximity of this disease to the left main I would have significant concerns/pause in bringing this lady to the cardiac laboratory mechanical technician here at [place]. Since there is no evidence of acute coronary syndrome I would observe her overnight if she stable in the morning lower to be discharged with instructions to remain sedentary until her angiogram takes place as it is currently scheduled next week at [facility]. If she becomes objectively unstable she can be transferred over there by ambulance for angiography at any time Neel Norton MD [facility] History of Present Illness History of Present Illness Consult date/time: 05/30/22 16:07 Reason For Visit: Chest Pain Narrative: This is a 51-year-old woman who I know from previous consultation with coronary artery disease admitted to the IMU after being seen in the emergency room earlier today. The patient is followed by my partner Dr. Cerrato. She was in her usual state of relatively stable health when earlier today while at work at a local [employer] started to have some symptoms of paresthesias in her hands and a tingling sensation as well in the left precordium. The symptoms would come and go for a brief period of time were not associated by any radha pain in the chest diaphoresis nausea or vomiting. Because of her history she became concerned and went to the pharmacy department at the [employer] where she was seen by the pharmacist had her blood pressure checked and was found to be rather high. She was advised to come to the emergency room by ambulance and was resistant initially. She states because she continued to have markedly elevated blood pressure she then became agreeable an ambulance was called and brought her here to the emergency room. In the emergency department her ECG shows sinus rhythm with no significant ST or T-wave abnormalities. She has 2 troponin levels so far that are normal. Patient has a established history of coronary artery disease that was severe and complex and was managed after presentation here in December of this year with acute coronary syndrome and ST elevation posterior [place]. She was brought to the cardiac catheterization lab and found to have multivessel coronary disease involving the ostium of the LAD, proximal circumflex as well as right coronary artery. Her some proximal circumflex disease was felt to be the culprit and was treated with a drug-eluting stent and then she underwent angioplasty and stenting of the LAD with in a kissing fashion. I did believe she had some abnormal hazy appearance of her left main at that time as well. Following that procedure she was once again symptomatic with chest pain she was brought back to the laboratory mechanical technician where she underwent PCI of extensive diffuse disease in the right coronary artery using 3 drug-eluting stents from the proximal, mid and down to the RPDA. Objectively she has done well since that procedure although she has been in the hospital in March of this year with recurrent chest pain at which time I recommended follow-up angiography which she declined. She did see my partner, Dr Cerrato on 05/07/2022 and because of these symptoms he recommended follow-up angiography which as it happens is scheduled for noon next Thursday, 1 week from today over at [facility]
[2022-05-30] MEDS: ACETAMINOPHEN 325 MG TABLET 650 MG PO (18:25)
[2022-05-30] MEDS: ATORVASTATIN 40 MG TABLET 80 MG PO (21:30)
[2022-05-30] MEDS: TICAGRELOR 90 MG TABLET PO (21:31)
[2022-05-31] VITALS (10 sets, daily range): BP systolic 103–114; BP diastolic 62–74; PULSE 46–74; RESP 15–18; TEMP 36.4–36.8; O2SAT 98–100
[2022-05-31 05:04] LABS: Anion Gap 8 mmol/L (8-16); Blood Urea Nitrogen 12 mg/dL (7-17); Calcium 8.6 mg/dL (8.4-10.2); Carbon Dioxide 26 mmol/L (22-30); Chloride 106 mmol/L (98-107); Estimated CRCL calculation 58 ml/min; Estimated Glomerular Filt Rate > 60; Glucose 125 mg/dL (65-110); Magnesium 1.8 mg/dL (1.6-2.3); Potassium 4.1 mmol/L (3.4-5.0); Sodium 140 mmol/L (137-145)
[2022-05-31] MEDS: ASPIRIN 81 MG ENTERIC TABLET PO (09:16)
[2022-05-31] MEDS: ISOSORBIDE MONONITRATE 30 MG TAB.ER.24H PO (09:16)
[2022-05-31] MEDS: TICAGRELOR 90 MG TABLET PO (09:16)
[2022-05-31] MEDS: METOPROLOL TARTRATE 25 MG TABLET PO (09:16)
[2022-05-31] MEDS: LOSARTAN POTASSIUM 25 MG TABLET PO (09:16)
--- NOTE | 2022-05-31 10:03 | PM.PNCARD ---
Progress Note: A&P Assessment and Plan (1) Chest pain: Code(s): R07.9 - Chest pain, unspecified Status: Acute Assessment and Plan: Atypical chest pain, no ischemia by EKG, normal troponins, no recurrence. Okay for discharge Take it easy, return to 1 work 1 week after cardiac catheterization (return to work on June 12) Add nitroglycerin. Reviewed use and when to go to the hospital for chest pain. Keep appointment for cardiac catheterization this . (2) Coronary artery disease: Code(s): I25.10 - Atherosclerotic heart disease of augustine coronary artery without angina pectoris Status: Acute Assessment and Plan: History of STEMI, complex multivessel PCI in December. Pt very apprehensive about her heart disease and pushing herself. Hopefully the cath will be reassuring May benefit fr Cardiac Rehab after cath. Cont ASA, Brilinta, atorva, BB, ACEI, etc. Subjective Date/time seen: 05/31/22 10:03 follow-up for CAD, chest pain Patient was multivessel CAD and difficult multivessel PCI in December for a STEMI. Has been having some intermittent chest discomfort is scheduled to have an outpatient cardiac catheterization by Dr. Mosher next . Admitted with somewhat atypical chest pain. Troponins negative x2. Patient is feeling fine, eager for discharge, no more chest pain. No HILL when up and about in the room although does have some with activity at home and at work. 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 She would like to go to [place] to her mother's 69th birthday today, passenger in the car. Review of Systems Constitutional: Constitutional: Denies fever(s) Cardiovascular: Cardiovascular: Denies chest pain, Denies pedal edema, Denies lightheadedness and Denies dyspnea Respiratory: Respiratory: Denies chest congestion, Denies dyspnea and Reports dyspnea on exertion Comments: HILL sometimes as an outpatient Gastrointestinal: Gastrointestinal: Denies abdominal pain and Denies hematochezia Musculoskeletal: Musculoskeletal: Reports no additional musculoskeletal complaints Integumentary/Breasts: Skin/Breast: Reports system reviewed and no additional complaints, except as docu Neurologic: Reports system reviewed and no additional complaints, except as documented, Denies behavioral changes and Denies confusion Psychiatric: Psychiatric: Denies behavioral changes and Denies confusion Objective Data Vital Signs Vital Signs: Vital Signs - 24 hr 05/30/22 13:07 05/30/22 13:01 05/30/22 13:15 Temperature Pulse Rate 46 L 62 Respiratory Rate 24 H Blood Pressure Pulse Oximetry Oxygen Delivery Room Air 05/30/22 13:30 05/30/22 16:00 05/30/22 16:00 Temperature 97.7 F Pulse Rate 67 56 L 59 L Respiratory Rate 22 H 18 Blood Pressure 143/76 H Pulse Oximetry 100 100 Oxygen Delivery 05/30/22 14:50 05/30/22 18:00 05/30/22 20:00 Temperature 98.3 F 97.3 F L Pulse Rate 58 L 56 L 62 Respiratory Rate 20 14 Blood Pressure 120/70 99/63 L Pulse Oximetry 100 100 Oxygen Delivery 05/30/22 20:00 05/30/22 20:00 05/30/22 22:00 Temperature Pulse Rate 62 56 L 57 L Respiratory Rate 14 Blood Pressure Pulse Oximetry 100 Oxygen Delivery Room Air 05/31/22 00:00 05/30/22 23:54 05/31/22 00:00 Temperature 97.5 F L Pulse Rate 57 L 57 L 55 L Respiratory Rate 16 16 Blood Pressure 111/64 Pulse Oximetry 98 98 Oxygen Delivery Room Air 05/31/22 02:00 05/31/22 04:00 05/31/22 03:27 Temperature 98.3 F Pulse Rate 49 L 55 L 55 L Respiratory Rate 15 15 Blood Pressure 112/74 Pulse Oximetry 100 100 Oxygen Delivery Room Air 05/31/22 04:00 05/31/22 06:00 05/31/22 08:00 Temperature 97.5 F L Pulse Rate 55 L 54 L 46 L Respiratory Rate 16 Blood Pressure 114/62 Pulse Oximetry 100 Oxygen De
--- NOTE | 2022-05-31 12:38 | PM.DS ---
DS: Admitting Diagnosis Discharge Date 05/31/22 Admitting Diagnosis Chest pain DS: Discharge Diagnosis Discharge Diagnosis (1) Chest pain: Code(s): R07.9 - Chest pain, unspecified Status: Acute (2) Stable angina: Code(s): I20.8 - Other forms of angina pectoris Status: Acute (3) Hypertension: Code(s): I10 - Essential (primary) hypertension Status: Acute (4) Anemia: Code(s): D64.9 - Anemia, unspecified Status: Acute (5) Hyperglycemia: Code(s): R73.9 - Hyperglycemia, unspecified Status: Acute (6) Elevated LFTs: Code(s): R79.89 - Other specified abnormal findings of blood chemistry Status: Acute DS: Summary Hospital Course Reason for hospitalization: 51yo female with CAD, HTN here for Chest pain. Please see H&P for details. Hospital Course: The patient presents to the ED from work for evaluation of exertional chest discomfort with activity. EKG showed no acute ST or T-wave abnormalities. Her troponins was negative. CXR clear. We continued dual antiplatelet therapy, beta-dipesh, long-acting nitrate, and statin. Patient reports that her blood pressures was extremely high at work but they have been well within normal limits here. She mentioned that she has been off of her metoprolol for the past 2 weeks. Cardiology consulted. She does have bradycardia mostly at night (so takes metoprolol only in the morning and not BID). She has a chronic anemia which is stable on review of previous labs. AST and ALT are also mildly elevated which is stable when compared to previous labs. Random glucose today is 152 with hemoglobin A1c 6.0. She was admitted for observation and if she remains stable. Plans for discharge home as she has a scheduled cardiac catheterization for next Thursday at [facility] per Dr. Cerrato. Discussed with Campus Dean. Patient did well and was able be discharged home on 05/31/2022. Status at Discharge Cognitive/behavioral status at discharge: Stable Time Spent with Patient Time attestation: Total time spent providing and/or coordinating discharge services: 34 minutes Time spent: Greater than 30 minutes Exam Narrative: AF 98.2 103/65 61 18 100% Gen - NARD Chest - CTA bilaterally, nml RR CV - RRR S1/S2. Tele showing sinus bradycardia. Abd - Soft, NT/ND, Positive BS Ext - No pedal edema Neuro - Alert and oriented. Nonfocal exam. Psych - Nml mood and affect Skin - Warm and dry DS: Data Data Completed and Pending Labs on day of discharge: Labs from last 24 hours 05/31/22 05/31/22 05/30/22 04:33 04:33 14:25 Sodium 140 Potassium 4.1 Chloride 106 Carbon Dioxide 26 Anion Gap 8 BUN 12 Creatinine 0.90 Estim Creat Clear Calc 58 Estimated GFR > 60 Glucose 125 H Hemoglobin A1c 6.0 H Calcium 8.6 Magnesium 1.8 Troponin I SARS-CoV-2 RNA (RT-PCR) Negative 05/30/22 12:45 Sodium Potassium Chloride Carbon Dioxide Anion Gap BUN Creatinine Estim Creat Clear Calc Estimated GFR Glucose Hemoglobin A1c Calcium Magnesium Troponin I < 0.012 SARS-CoV-2 RNA (RT-PCR) Discharge Plan Discharge Attending physician on discharge: Ru Lewis Consulting providers: Randell Blas Discharging Clinician: Ru Lewis Anticipated Discharge Date/Time: 05/31/22 12:49 Patient Disposition: Home, Self-Care Activity: as tolerated Diet: heart healthy Discharge Instructions: Check blood pressure 1 to 2 times a day. Record and bring into your doctor for review. Call your doctor if your blood pressure is greater than 180/110. Contact your doctor or call 911 and come to the Emergency Room if you have recurrent chest pain or other worrisome symptoms. Avoid NSAIDs (ibuprofen, naproxen, Aleve). Tylenol is safe to take. Follow-up with your doctor in 1-2 weeks. Please call for appointment. Would not suggest
== END 2022-05-31 13:28 | disposition home or self-care (01) ==
LOC: ANHED 13:07 → ANHIMU 14:31
PROVIDERS: Physician Assistant; Admitting Provider Student in an Organized Health Care Education/Training Program; Emergency Provider Emergency Medicine; PCP Emergency Medicine; Visit Provider Internal Medicine
DX: I25.118 Atherosclerotic heart disease of native coronary artery with other forms of angina pectoris (principal); Z95.5 Presence of coronary angioplasty implant and graft; I10 Essential (primary) hypertension; D64.9 Anemia, unspecified; R73.9 Hyperglycemia, unspecified; R00.1 Bradycardia, unspecified; R20.2 Paresthesia of skin; E78.5 Hyperlipidemia, unspecified; I25.2 Old myocardial infarction; R06.02 Shortness of breath; Z20.822 Contact with and (suspected) exposure to COVID-19; Z87.891 Personal history of nicotine dependence; Z79.82 Long term (current) use of aspirin; Z79.02 Long term (current) use of antithrombotics/antiplatelets; Z79.899 Other long term (current) drug therapy
CPT/HCPCS: 36415; 71046; 80048; 80053; 83036; 83735; 83880; 84484; 85025; 93005; 99285; A9270; C9803; G0378; G0379; U0003; U0005

== ENCOUNTER 2022-06-06 17:35 | Emergency (ER) | payer OTHER, SELFPAY ==
[2022-06-06] VITALS (7 sets, daily range): BP systolic 101–125; BP diastolic 47–84; PULSE 49–73; RESP 11–20; TEMP 37; O2SAT 98
--- NOTE | 2022-06-06 17:43 | ECG_ITS ---
Measurements Intervals [place] Rate: 58 P: 69 [place]: 164 QRS: 61 QRSD: 93 T: 54 QT: 434 QTc: 426 Interpretive Statements SINUS BRADYCARDIA WITH SINUS ARRHYTHMIA NONSPECIFIC ST AND T-WAVE ABNORMALITY ABNORMAL ECG Electronically Signed On 06-07-2022 10:00:36 CDT by Randell Blas M.D.
[2022-06-06 17:47] LABS: Glucose Point of Care 101 mg/dl (65-105)
[2022-06-06 17:55] LABS: Basophils Absolute Auto 0.1 K/mm3 (0.0-0.1); Basophils Percent Auto 0.7 % (0.2-1.2); Eosinophils Absolute Auto 0.3 K/mm3 (0-0.3); Eosinophils Percent Auto 2.9 % (0-4.4); Hematocrit 34.1 % (37.0-47.0); Immature Granulocyte Absolute 0.02 K/mm3 (0.00-0.031); Immature Granulocyte Percent A 0.2 % (0-0.5); Lymphocytes Absolute Auto 4.32 K/mm3 (0.9-3.2); Lymphocytes Percent Auto 43.6 % (18.3-44.2); Mean Corpuscular HGB Conc 32.3 g/dl (32-36); Mean Corpuscular Hemoglobin 29.4 pg (26-34); Mean Corpuscular Volume 91.2 fl (80-100); Mean Platelet Volume 11.5 fl (7.4-10.4); Monocytes Percent Auto 9.6 % (2.6-8.5); Neutrophils Absolute Auto 4.3 K/mm3 (1.3-6.7); Platelet Count Result 261 k/mm3 (150-375); Red Blood Count 3.74 M/mm3 (4.2-5.4); Red Cell Distribution Width 12.7 % (11.5-14.5); White Blood Count 9.9 K/mm3 (4.5-10.0)
[2022-06-06 18:05] LABS: INR 1.1; Prothrombin Time 13.5 Seconds (11.1-14.7)
[2022-06-06 18:06] LABS: Partial Thromboplastin Time 25.9 SECONDS (22.3-36.8)
--- NOTE | 2022-06-06 18:37 | ED.GENADULT ---
HPI - General Adult General Chief complaint: Syncope <Eric Ferreira MD - Last Filed: 06/06/22 19:21> Stated complaint: Unspecified <Eric Ferreira MD - Last Filed: 06/06/22 19:21> Time Seen by Provider: 06/06/22 17:37 <Eric Ferreira MD - Last Filed: 06/06/22 19:21> History of Present Illness HPI narrative: Patient is a 51-year-old female who presents ER with syncope. Patient was discharged 40 minutes prior to arrival from [facility] where she underwent cardiac catheterization with placement of 2 stents. Patient has 6 total stents. While driving home patient told her significant other that she was feeling lightheaded and had pressure in the abdomen. She then lost consciousness. This occurred a second time and then the family diverted to the emergency room. Patient denies any chest pain or chest pressure. She reports some mild abdominal discomfort. She also has pain in her right groin where they did the cath. <Eric Ferreira MD - Last Filed: 06/06/22 19:21> Related Data Home medications: Home Medications Medication Instructions Recorded Confirmed metoprolol tartrate 25 mg tablet 25 mg PO DAILY 04/06/22 05/30/22 <Eric Ferreira MD - Last Filed: 06/06/22 19:21> Allergies/adverse reactions: Allergies Allergy/AdvReac Type Severity Reaction Status Date / Time No Known Allergies Allergy Unknown Verified 02/10/22 08:11 <Eric Ferreira MD - Last Filed: 06/06/22 19:21> Review of Systems Review of Systems: All systems reviewed & are unremarkable except as noted in HPI and below <Eric Ferreira MD - Last Filed: 06/06/22 19:21> Constitutional: Constitutional: Denies chills, Reports fatigue, Denies fever(s) and Reports weakness <Eric Ferreira MD - Last Filed: 06/06/22 19:21> ENT: Denies nasal congestion and Denies sore throat <Eric Ferreira MD - Last Filed: 06/06/22 19:21> Cardiovascular: Cardiovascular: Denies chest pain, Denies rapid heart rate, Denies radiating jaw, neck or arm pain and Reports slow heart rate <Eric Ferreira MD - Last Filed: 06/06/22 19:21> Respiratory: Respiratory: Denies cough, Denies dyspnea and Denies wheezing <Eric Ferreira MD - Last Filed: 06/06/22 19:21> Gastrointestinal: Gastrointestinal: Denies abdominal pain, Denies nausea and Denies vomiting <Eric Ferreira MD - Last Filed: 06/06/22 19:21> Neurologic: Reports syncope, Denies headache(s), Denies focal weakness and Denies numbness <Eric Ferreira MD - Last Filed: 06/06/22 19:21> [facility] Past Medical History Medical History: Medical History (Updated 06/06/22 @ 21:05 by Ru Leblanc MD) Acute ST elevation myocardial infarction (STEMI) of posterior wall (01/06/22) Coronary artery disease Dyslipidemia Hypertension Tobacco abuse Patient quit smoking in December 2021 after her [place]. <Eric Ferreira MD - Last Filed: 06/06/22 19:21> Surgical History Surgical History: Surgical History (Updated 05/30/22 @ 19:44 by Gwen Grey PA-C) History of cardiac catheterization History of section History of coronary artery stent placement (12/2021) Multivessel coronary disease status post difficult complex multivessel PCI. <Eric Ferreira MD - Last Filed: 06/06/22 19:21> Family History Family History: Family History Grandparent Cancer <Eric Ferreira MD - Last Filed: 06/06/22 19:21> Social History Social History: Social History Social History: Surrogate decision maker: Angel Echevarria, son. Code status: Full code. Smoking packs per day: 1 Smoking cigarettes per day: 20.0 Years smoked: 33 Smoking pack-years: 33.00 Smoking status: Former smoker Tobacco type: cigarettes Smoking end date: 01/06/22 Alcohol intake: former Drinks per week: 1 Substance use: forme
--- NOTE | 2022-06-06 20:15 | PC.NURSE ---
Labs were redrawn and sent down. Pt aware that we will be waiting for results before she will be able to go over to CT.
[2022-06-06 20:37] LABS: Alanine Aminotransferase 39 U/L (6-35); Albumin Level 4.3 g/dL (3.5-5.1); Alkaline Phosphatase 71 U/L (38-126); Anion Gap 9 mmol/L (8-16); Aspartate Amino Transferase 45 U/L (14-36); Bilirubin,Total 0.4 mg/dL (0.2-1.3); Blood Urea Nitrogen 12 mg/dL (7-17); Calcium 8.7 mg/dL (8.4-10.2); Carbon Dioxide 29 mmol/L (22-30); Chloride 105 mmol/L (98-107); Estimated CRCL calculation 51 ml/min; Estimated Glomerular Filt Rate > 60; Glucose 163 mg/dL (65-110); Potassium 4.1 mmol/L (3.4-5.0); Sodium 143 mmol/L (137-145)
[2022-06-06 21:02] LABS: NT Pro B Type Natriuretic Pept 125 pg/mL (5-100); Troponin I 0.037 ng/mL (0.000-0.034)
--- NOTE | 2022-06-06 21:05 | PC.NURSE ---
RN gets a call from ER charge nurse that pt is leaving the ER and asking if pt had an IV. RN informed Maya that pt did have an IV the last I saw her. Maya then was about to remove that IV prior to pt leaving. PT ambulated out of the ER.
--- NOTE | 2022-06-06 21:11 | PC.NURSE ---
AT 2102 CRITICAL LABS WERE REPORTED TO . HE INFORMED ME THAT PT JUST RAN OUT THE DOOR. MD UNSURE IF PT STILL HAD IV. PT WAS FOUND IN PARKING LOT AND BROUGHT BACK INTO ED. IV D/C INTACT WITH DRSG APPLIED
== END 2022-06-06 21:05 | disposition left against medical advice (07) ==
PROVIDERS: Emergency Medicine; Emergency Provider Emergency Medicine; PCP Emergency Medicine
DX: R55 Syncope and collapse (principal); I25.2 Old myocardial infarction; I25.10 Atherosclerotic heart disease of native coronary artery without angina pectoris; E78.5 Hyperlipidemia, unspecified; I10 Essential (primary) hypertension; Z95.5 Presence of coronary angioplasty implant and graft; Z87.891 Personal history of nicotine dependence; R00.1 Bradycardia, unspecified; R94.31 Abnormal electrocardiogram [ECG] [EKG]
CPT/HCPCS: 36415; 80053; 82948; 83880; 84484; 85025; 85610; 85730; 93005; 99284

== ENCOUNTER 2022-08-21 15:24 | Observation (INO) | payer OTHER, SELFPAY ==
[2022-08-21] VITALS (26 sets, daily range): BP systolic 97–115; BP diastolic 61–79; PULSE 48–67; RESP 12–21; TEMP 36.5–37.2; O2SAT 97–100; BMI 27.8
--- NOTE | ~2022-08-21 | XR_ITS ---
EXAMINATION: XR chest 1V portable DATE: 08/21/2022 15:57 INDICATION: Shortness of breath. Dizziness. TECHNIQUE: A single frontal view of the chest was obtained. COMPARISON: Chest 2 views 05/30/2022 FINDINGS: The chest demonstrates clear lungs without pneumonia, pleural effusion, or pneumothorax. Th e heart size is normal. IMPRESSION: 1. No acute cardiopulmonary disease. Reviewed, dictated and finalized at location A. ASSISTANT
--- NOTE | 2022-08-21 15:33 | ED.DIZZY ---
HPI - Dizziness General Chief Complaint: Dizziness Stated Complaint: light headed and dizzy Time Seen by Provider: 08/21/22 15:31 Source: patient and EMS Mode of arrival: EMS Limitations: no limitations History of Present Illness HPI Narrative: Patient was stood up to go to the bathroom, developed severe dizziness, diaphoresis all over and shortness of breath. Lasted for about 10 minutes, her daughter called 911, was so diaphoretic when the EMT arrived at home. Currently patient feeling back to normal. She denies any chest pain, fever, chills, nausea, vomiting. Patient reports having 2 heart attack. Last 1 was a large 2021. Patient reported her symptoms is consistent with heart attack. She denied any chest pain at that time. Patient on baby aspirin and Brilinta Related Data Home Medications Medication Instructions Recorded Confirmed metoprolol tartrate 25 mg tablet 25 mg PO DAILY 04/06/22 05/30/22 Allergies Allergy/AdvReac Type Severity Reaction Status Date / Time No Known Allergies Allergy Unknown Verified 08/21/22 15:34 Review of Systems Review of Systems: All systems reviewed & are unremarkable except as noted in HPI and below PMFSH Past Medical History Medical History Acute ST elevation myocardial infarction (STEMI) of posterior wall (01/06/22) Coronary artery disease Dyslipidemia Hypertension Tobacco abuse Patient quit smoking in December 2021 after her [place]. Surgical History Surgical History (Updated 05/30/22 @ 19:44 by Gwen Grey PA-C) History of cardiac catheterization History of section History of coronary artery stent placement (12/2021) Multivessel coronary disease status post difficult complex multivessel PCI. Family History Family History Grandparent Cancer Social History Social History Social History: Surrogate decision maker: Angel Echevarria, son. Code status: Full code. Smoking packs per day: 1 Smoking cigarettes per day: 20.0 Years smoked: 33 Smoking pack-years: 33.00 Smoking status: Former smoker Tobacco type: cigarettes Smoking end date: 01/06/22 Alcohol intake: former Drinks per week: 1 Substance use: former Substance use type: marijuana Spiritual care concerns: No Exam Narrative: General appearance: Well-developed, well-nourished Skin: Normal color Head: Normocephalic, nontraumatic Eyes: Clear conjunctiva ENT: Oropharynx normal, ears normal, nose normal Neck: Supple, nontender Chest and respiratory: Airway patent, no respiratory distress, no accessory muscle use Heart: Bradycardia Abdomen: Soft, nontender, no organomegaly, quiet bowel sounds, rectal exam showed brown stool, guaiac positive Vascular: Normal peripheral pulses, normal capillary refill. Musculoskeletal: Normal range of motion, nontender back Neurologic: Alert and oriented ?3, [employer] is normal as tested, no gross motor deficit Course Course Emergency Course: Patient presents with dizziness, diaphoresis and shortness of breath while going to the bathroom. Work-up showed slightly elevated troponin, EKG showed no new changes compared to the previous EKGs, hemoglobin today is 9.7 compared to 11+ in the past. Patient hemoglobin is gradually going down since December 2021. Patient on aspirin and Brilinta. She denies any black stool, vomiting blood or passing blood per rectum. Rectal exam showed brown stool, guaiac positive. I believe patient anemia high likely the underlying cause of her shortness of breath and dizziness. Vi
--- NOTE | 2022-08-21 15:42 | ECG_ITS ---
Measurements Intervals [place] Rate: 51 P: 70 MT: 168 QRS: 37 QRSD: 92 T: 24 QT: 446 QTc: 411 Interpretive Statements SINUS BRADYCARDIA NONSPECIFIC T-WAVE ABNORMALITY- ANTEROLATERAL LEADS BASELINE ARTIFACT- I, III, AVR, AVL, V1 BORDERLINE ECG COMPARED TO ECG 06/06/2022 17:43:45 NO SIGNIFICANT CHANGES Electronically Signed On 08-21-2022 16:46:57 [employer] by Daniel Vazquez D.O.
[2022-08-21 16:29] LABS: Basophils Percent Auto 1.1 % (0.2-1.2); Eosinophils Percent Auto 0.6 % (0-4.4); Hematocrit 29.9 % (37.0-47.0); Hemoglobin 9.7 g/dL (12.0-15.0); Immature Granulocyte Absolute 0.01 K/mm3 (0.00-0.031); Immature Granulocyte Percent A 0.3 % (0-0.5); Lymphocytes Absolute Auto 1.32 K/mm3 (0.9-3.2); Lymphocytes Percent Auto 37.6 % (18.3-44.2); Mean Corpuscular HGB Conc 32.4 g/dl (32-36); Mean Corpuscular Hemoglobin 27.4 pg (26-34); Mean Corpuscular Volume 84.5 fl (80-100); Mean Platelet Volume 11.5 fl (7.4-10.4); Monocytes Absolute Auto 0.7 K/mm3 (0.1-0.6); Monocytes Percent Auto 18.8 % (2.6-8.5); Neutrophils Absolute Auto 1.5 K/mm3 (1.3-6.7); Neutrophils Percent Auto 41.6 % (45.5-73.1); Platelet Count Result 171 k/mm3 (150-375); Red Blood Count 3.54 M/mm3 (4.2-5.4); White Blood Count 3.5 K/mm3 (4.5-10.0)
[2022-08-21 16:41] LABS: Alanine Aminotransferase 49 U/L (6-35); Albumin Level 3.9 g/dL (3.5-5.1); Alkaline Phosphatase 57 U/L (38-126); Anion Gap 11 mmol/L (8-16); Aspartate Amino Transferase 61 U/L (14-36); Bilirubin,Total 0.2 mg/dL (0.2-1.3); Blood Urea Nitrogen 14 mg/dL (7-17); Calcium 8.3 mg/dL (8.4-10.2); Carbon Dioxide 29 mmol/L (22-30); Chloride 101 mmol/L (98-107); Estimated CRCL calculation 51 ml/min; Estimated Glomerular Filt Rate > 60; Glucose 121 mg/dL (65-110); INR 1.1; Potassium 3.8 mmol/L (3.4-5.0); Prothrombin Time 13.6 Seconds (11.1-14.7); Sodium 141 mmol/L (137-145)
[2022-08-21 16:42] LABS: Partial Thromboplastin Time 26.2 SECONDS (22.3-36.8)
[2022-08-21 16:51] LABS: Troponin I < 0.012 ng/mL (0.000-0.034)
[2022-08-21 17:04] LABS: Appearance Urine Slightly Cloudy (Clear); Bilirubin Urine Negative (Negative); Blood Urine Negative (Negative); Color Urine Yellow (Yellow); Glucose Urine UA Negative (Negative); Ketones Urine Negative (Negative); Leukocyte Esterase Ur Trace LEU/UL (Negative); Nitrate Urine Negative (Negative); Protein Urine Trace mg/dL (Negative); Specific Grav Ur 1.015 (1.001-1.035); Urobilinogen Urine 0.2 mg/dL (<2.0)
[2022-08-21 17:10] LABS: Bacteria Urine Trace /hpf; Mucus Urine Rare /lpf; RBC Urine 0-2 /hpf (0-2); Squamous Epithelial Cell Urine Many /hpf (Few); WBC Urine 0-3 /hpf
[2022-08-21 17:25] LABS: Amphetamine Screen Urine Negative (Negative); Barbiturate Screen Urine Negative (Negative); Benzodiazepines Screen Urine Negative (Negative); Cannabinoid Screen Urine Negative (Negative); Cocaine Screen Urine Negative (Negative); Methadone Screen Urine Negative (Negative); Opiate Screen Urine Negative (Negative); Phencyclidine Screen Urine Negative (Negative)
[2022-08-21 17:42] LABS: Add Urine Microscopic? YES
[2022-08-21] MEDS: PANTOPRAZOLE SODIUM IV 40 MG VIAL IV PUSH (17:54)
[2022-08-21 18:03] LABS: Influenza A QL RT-PCR Negative (Negative); Influenza B QL RT-PCR Negative (Negative); SARS-CoV-2 RNA PCR Positive
--- NOTE | 2022-08-21 19:08 | PM.IMHP ---
H&P: HPI History of Present Illness Date/Time: 08/21/22 19:08 Chief Complaint: Lightheaded and dizzy Narrative: This is a 52-year-old female patient who has had a history of having coronary artery disease with at least 6 stents. The patient stated that when she stood up to go to the bathroom she developed severe dizziness diaphoresis over and shortness of breath. It lasted about 10 minutes and her daughter called 911. However after the patient was admitted the patient told the nurse that she took a nitro today. Patient's last stent was sometime this last summer and she is on dual therapy with aspirin and Brilinta. She has not missed any doses. She has not noticed any blood in her stool. Patient stated that her symptoms were consistent with her last heart event. She denied any chest pain at the time that she was seen in the emergency room. ER physician stated that the patient was guaiac positive. Her white count was noted to be 3.5. H&H is 9.7 and 29.9. Her previous hemoglobin was 11 and that is her baseline. Troponins are negative x2. Urine was negative. The patient was negative for influenza a and B but was found positive for COVID. The patient was started on Protonix IV. GI has been consulted. Patient is being admitted for observation status on the date of service of 08/21/2022. Review of Systems Review of Systems: See HPI All systems reviewed & are unremarkable except as noted in HPI and below Constitutional: Constitutional: Reports as per HPI and Reports no additional constitutional complaints Eyes: Eyes: Reports as per HPI and Reports no additional eye complaints ENT: Reports system reviewed and no additional complaints, except as documented and Reports Normal hearing present Cardiovascular: Cardiovascular: Reports no additional cardiovascular complaints Respiratory: Respiratory: Reports no additional respiratory complaints and Reports no additional respiratory complaints Gastrointestinal: Gastrointestinal: Reports as per HPI and Reports no additional gastrointestinal complaints Musculoskeletal: Musculoskeletal: Reports no additional musculoskeletal complaints Integumentary/Breasts: Skin/Breast: Reports system reviewed and no additional complaints, except as docu and Reports as per HPI Neurologic: Reports system reviewed and no additional complaints, except as documented, Reports as per HPI and Reports Normal hearing present Psychiatric: Psychiatric: Reports no additional psychiatric complaints and Reports as per HPI Endocrine: Endocrine: Reports no additional endocrine complaints Hematologic/Lymphatic: Hematologic/Lymphatic: Reports no additional hematologic/lymphatic complaints Allergic/Immunologic: Allergic/Immunologic: Reports no additional allergic/immunologic complaints [facility] Past Medical History Medical History (Updated 08/21/22 @ 21:41 by Lauren Santo NP) Acute ST elevation myocardial infarction (STEMI) of posterior wall (01/06/22) Chest pain Coronary artery disease COVID Dyslipidemia Hyperglycemia Hypertension ST elevation (STEMI) myocardial infarction involving left circumflex coronary artery Stable angina Tobacco abuse Patient quit smoking in December 2021 after her [place]. Unstable angina Surgical History Surgical History (Updated 08/21/22 @ 19:11 by Lauren Santo NP) History of cardiac catheterization History of section History of coronary artery stent placement (12/2021) Multivessel coronary disease status post difficult complex multivessel PCI. 6 total stents Family History Family History Grandparent Cancer Social History Social History (Updated 08/21/22 @ 21:25 by Lauren aSnto NP) Social History: quit smoking and December of this year no longer smoke smokes. She continues to work at [employer] but has apply for disability. Surrogate decision maker: and Angel Echevarria, son. Code status: Full cod
--- NOTE | 2022-08-21 19:45 | ADMGEN ---
This patient, Bertha Echevarria, was admitted to Medical Room 346-01. Patient/family oriented to hospital policies and general routines including ID bracelet, bed and alarms, visiting hours, pain management, procedures, bathroom and other care routines, personal items, smoking policy, room service/diet, and visiting hours. Information on how to activate the Rapid Response Team has been discussed. Patient/Family are encouraged to report perceived risks to care and to ask questions if they do not understand what they are told or what they should do.
[2022-08-21 20:59] LABS: Troponin I < 0.012 ng/mL (0.000-0.034)
[2022-08-21] MEDS: TICAGRELOR 90 MG TABLET PO (21:22)
[2022-08-21 23:46] LABS: Hematocrit 30.1 % (37.0-47.0); Hemoglobin 9.7 g/dL (12.0-15.0)
[2022-08-21] MEDS: MELATONIN 5 MG TABLET PO (23:54)
[2022-08-22] VITALS (13 sets, daily range): BP systolic 83–126; BP diastolic 55–71; PULSE 58–77; RESP 18; TEMP 36.4–36.8; O2SAT 96–99
[2022-08-22 00:08] LABS: Troponin I < 0.012 ng/mL (0.000-0.034)
[2022-08-22 06:09] LABS: Alanine Aminotransferase 42 U/L (6-35); Albumin Level 3.8 g/dL (3.5-5.1); Alkaline Phosphatase 58 U/L (38-126); Anion Gap 12 mmol/L (8-16); Aspartate Amino Transferase 43 U/L (14-36); Bilirubin,Total 0.2 mg/dL (0.2-1.3); Blood Urea Nitrogen 10 mg/dL (7-17); Calcium 8.2 mg/dL (8.4-10.2); Carbon Dioxide 25 mmol/L (22-30); Chloride 104 mmol/L (98-107); Estimated CRCL calculation 64 ml/min; Estimated Glomerular Filt Rate > 60; Glucose 122 mg/dL (65-110); Magnesium 1.8 mg/dL (1.6-2.3); Potassium 3.8 mmol/L (3.4-5.0); Sodium 141 mmol/L (137-145)
[2022-08-22 06:18] LABS: Basophils Percent Auto 0.7 % (0.2-1.2); Eosinophils Absolute Auto 0.1 K/mm3 (0-0.3); Eosinophils Percent Auto 1.7 % (0-4.4); Hematocrit 29.5 % (37.0-47.0); Hemoglobin 9.4 g/dL (12.0-15.0); Immature Granulocyte Absolute 0.01 K/mm3 (0.00-0.031); Immature Granulocyte Percent A 0.3 % (0-0.5); Lymphocytes Absolute Auto 1.57 K/mm3 (0.9-3.2); Lymphocytes Percent Auto 52.3 % (18.3-44.2); Mean Corpuscular HGB Conc 31.9 g/dl (32-36); Mean Corpuscular Hemoglobin 26.7 pg (26-34); Mean Corpuscular Volume 83.8 fl (80-100); Mean Platelet Volume 12.1 fl (7.4-10.4); Monocytes Absolute Auto 0.5 K/mm3 (0.1-0.6); Neutrophils Absolute Auto 0.8 K/mm3 (1.3-6.7); Platelet Count Result 172 k/mm3 (150-375); Red Blood Count 3.52 M/mm3 (4.2-5.4); Red Cell Distribution Width 14.9 % (11.5-14.5)
[2022-08-22] MEDS: ACETAMINOPHEN 325 MG TABLET 650 MG PO ×2 (06:48→13:42)
[2022-08-22 07:56] LABS: Thyroid Stimulating Hormone Reflex 0.751 uIU/mL (0.465-4.68)
[2022-08-22 09:04] LABS: Hematocrit 30.1 % (37.0-47.0); Hemoglobin 9.5 g/dL (12.0-15.0)
[2022-08-22] MEDS: BENZOCAINE/MENTHOL (*BKC) 18 EA LOZENGE 1 LOZENGE PO (11:24)
--- NOTE | 2022-08-22 12:51 | P.PNIM_ITS ---
Progress Note: A&P Assessment and Plan (1) GI bleed: Code(s): K92.2 - Gastrointestinal hemorrhage, unspecified Status: Acute Assessment and Plan: Patient presented with dark stools of unclear duration * noted to be guaiac-positive in the ED * stool occult blood test has been ordered, awaiting collection * there is no evidence of active bleeding, and therefore patient has been continued on aspirin and Brilinta at this time given her recent stent placement 4 months ago. * will await evaluation from GI for further recommendations. May need to consider Cardiology consultation for recommendations regarding anti-platelet therapy pending further GI workup * continue Protonix (2) Anemia: Code(s): D64.9 - Anemia, unspecified Status: Acute Assessment and Plan: Acute on chronic. Hemoglobin is 9.4 today * likely secondary to GI bleed as above * H&H remaining stable * continue to monitor q6h (3) COVID: Code(s): U07.1 - COVID-19 Status: Acute Assessment and Plan: Positive COVID PCR on 08/21/2022 * patient has no supplemental oxygen requirement, therefore not a candidate for antivirals or steroids * chest x-ray with no acute findings * continue isolation precautions * supportive care * patient received 1st part of COVID vaccine but did not receive 2nd part and has not had any booster (4) Dizziness: Code(s): R42 - Dizziness and giddiness Status: Acute Assessment and Plan: Patient presented after episode of dizziness, found to be diaphoretic and hypotensive * may be secondary to taking nitro * less likely secondary to anemia as hemoglobin has declined from baseline secondary to below * blood pressures have stabilized * orthostatic vital signs are negative * implement fall precautions * continue to monitor closely (5) Chest pressure: Code(s): R07.89 - Other chest pain Status: Acute Assessment and Plan: patient complains of atypical mild chest pressure worse with positional changes * troponin negative x3 * EKG with no ST abnormalities * possibly musculoskeletal in etiology. continue supportive care (6) Hypertension: Code(s): I10 - Essential (primary) hypertension Status: Acute Assessment and Plan: blood pressure has been stable. * Continue home losartan and metoprolol with parameters (7) Coronary artery disease: Code(s): I25.10 - Atherosclerotic heart disease of [place] coronary artery without angina pectoris Status: Acute Assessment and Plan: The patient has had a total of 6 cardiac stents with most recent 4 months ago * Continue dual anti-platelet therapy with aspirin and Brilinta. Proceed with caution given melena. See plan above The patient is on dual therapy with aspirin and Brilinta. * continue Imdur Subjective Date/time seen: 08/22/22 12:51 Interval history: Date of service: 08/22/22 Bertha Echevarria is a 52 year old female with a history of coronary artery disease with recent STEMI in December 2021 s/p stent placement, hypertension, hyperlipidemia, and tobacco abuse who is seen in follow up for COVID-19 and GI bleeding. The patient states that she is feeling okay today. She continues to endorse a very mild chest pressure that she describes as a squeezing sensation. This has not improved or worsened since she has been here. She does believe this pain is somewhat positional and is worse when she is lying down. states
--- NOTE | 2022-08-22 12:51 | PM.IMPN ---
Progress Note: A&P Assessment and Plan (1) GI bleed: Code(s): K92.2 - Gastrointestinal hemorrhage, unspecified Status: Acute Assessment and Plan: Patient presented with dark stools of unclear duration noted to be guaiac-positive in the ED stool occult blood test has been ordered, awaiting collection there is no evidence of active bleeding, and therefore patient has been continued on aspirin and Brilinta at this time given her recent stent placement 4 months ago. will await evaluation from GI for further recommendations. May need to consider Cardiology consultation for recommendations regarding anti-platelet therapy pending further GI workup continue Protonix (2) Anemia: Code(s): D64.9 - Anemia, unspecified Status: Acute Assessment and Plan: Acute on chronic. Hemoglobin is 9.4 today likely secondary to GI bleed as above H&H remaining stable continue to monitor q6h (3) COVID: Code(s): U07.1 - COVID-19 Status: Acute Assessment and Plan: Positive COVID PCR on 08/21/2022 patient has no supplemental oxygen requirement, therefore not a candidate for antivirals or steroids chest x-ray with no acute findings continue isolation precautions supportive care patient received 1st part of COVID vaccine but did not receive 2nd part and has not had any booster (4) Dizziness: Code(s): R42 - Dizziness and giddiness Status: Acute Assessment and Plan: Patient presented after episode of dizziness, found to be diaphoretic and hypotensive may be secondary to taking nitro less likely secondary to anemia as hemoglobin has declined from baseline secondary to below blood pressures have stabilized orthostatic vital signs are negative implement fall precautions continue to monitor closely (5) Chest pressure: Code(s): R07.89 - Other chest pain Status: Acute Assessment and Plan: patient complains of atypical mild chest pressure worse with positional changes troponin negative x3 EKG with no ST abnormalities possibly musculoskeletal in etiology. continue supportive care (6) Hypertension: Code(s): I10 - Essential (primary) hypertension Status: Acute Assessment and Plan: blood pressure has been stable. Continue home losartan and metoprolol with parameters (7) Coronary artery disease: Code(s): I25.10 - Atherosclerotic heart disease of [place] coronary artery without angina pectoris Status: Acute Assessment and Plan: The patient has had a total of 6 cardiac stents with most recent 4 months ago Continue dual anti-platelet therapy with aspirin and Brilinta. Proceed with caution given melena. See plan above The patient is on dual therapy with aspirin and Brilinta. continue Imdur Subjective Date/time seen: 08/22/22 12:51 Interval history: Date of service: 08/22/22 Bertha Echevarria is a 52 year old female with a history of coronary artery disease with recent STEMI in December 2021 s/p stent placement, hypertension, hyperlipidemia, and tobacco abuse who is seen in follow up for COVID-19 and GI bleeding. The patient states that she is feeling okay today. She continues to endorse a very mild chest pressure that she describes as a squeezing sensation. This has not improved or worsened since she has been here. She does believe this pain is somewhat positional and is worse when she is lying down. states dizziness has resolved. She continues to note dark stools but states that it was mild enough that she did not really think much of it. She has not had any diarrhea. She denies shortness of breath, cough, palpitations, lightheadedness, fever, chills. No change in sense of taste or smell. No recent sick contacts. Review of Systems Review of Systems: All systems reviewed & are unremarkable except as noted in HPI and below Exam Narrative: General: well
[2022-08-22] MEDS: METOPROLOL SUCCINATE EXT REL 50 MG TABCR PO (13:40)
[2022-08-22] MEDS: ISOSORBIDE MONONITRATE 30 MG TAB.ER.24H PO (13:41)
[2022-08-22] MEDS: TICAGRELOR 90 MG TABLET PO ×2 (13:41→20:51)
[2022-08-22] MEDS: LOSARTAN POTASSIUM 25 MG TABLET PO (13:41)
[2022-08-22] MEDS: ASPIRIN 81 MG ENTERIC TABLET PO (13:43)
--- NOTE | 2022-08-22 15:10 | WPDGICN ---
Assessment and Plan Assessment and plan (1) Dark stools: Code(s): R19.5 - Other fecal abnormalities Status: Acute Assessment and Plan: monitor for signs of bleeding probably esophagitis, no signs of active bleeding but trend h/h iv protonix for now if stable h/h then I would prefer egd and possible colonoscopy (never had one) as outpatient since she also has covid ok to start diet (2) Occult blood in stools: Code(s): R19.5 - Other fecal abnormalities Status: Acute Assessment and Plan: trend h/h egd and colonoscopy most likely as outpatient (3) Chest pressure: Code(s): R07.89 - Other chest pain Status: Acute (4) COVID: Code(s): U07.1 - COVID-19 Status: Acute Assessment and Plan: on isolation (5) Dizziness: Code(s): R42 - Dizziness and giddiness Status: Acute (6) Coronary artery disease: Code(s): I25.10 - Atherosclerotic heart disease of [place] coronary artery without angina pectoris Status: Acute GI Consult Note Consult date/time: 08/22/22 15:10 Reason for consult: dark stool, + FOBT HPI: Bertha Echevarria is a 52 year old female ?with history of coronary artery disease s/p stents on brilinta.?She came here after had new episode of dizziness and diaphoresis after standing up, lasted about 10 minutes and her daughter called EMS, also she has chronic chest pain and took nitro. She noted dark stool but it was not tarry, ER evaluation with positive FOBT. H&H is 9.7 and 29.9 but stable, baseline 11 and that is her baseline.? Troponins are negative. Urine was negative.? The patient was negative for influenza a and B but was found positive for COVID. Also has been having sore throat, no fever. Review of Systems Constitutional: Constitutional: Denies headache(s) Eyes: Eyes: Denies blurry vision ENT: Reports Normal hearing present, Denies headache(s) and Denies neck pain Cardiovascular: Cardiovascular: Denies chest pain and Denies dyspnea Respiratory: Respiratory: Reports cough Gastrointestinal: Gastrointestinal: Reports no additional gastrointestinal complaints Genitourinary: Genitourinary: Denies dysuria Musculoskeletal: Musculoskeletal: Denies neck pain Integumentary/Breasts: Skin/Breast: Denies dry skin Neurologic: Reports Normal hearing present and Denies headache(s) Comments: dizziness Psychiatric: Psychiatric: Denies anxiety Endocrine: Endocrine: Denies change in body appearance Hematologic/Lymphatic: Hematologic/Lymphatic: Denies easy bleeding Allergic/Immunologic: Allergic/Immunologic: Denies urticaria PMFSH Past Medical History Medical History (Updated 08/22/22 @ 15:15 by Paulino Curtis MD) Acute ST elevation myocardial infarction (STEMI) of posterior wall (01/06/22) Chest pain Coronary artery disease COVID Dark stools Dyslipidemia Hyperglycemia Hypertension Occult blood in stools ST elevation (STEMI) myocardial infarction involving left circumflex coronary artery Stable angina Tobacco abuse Patient quit smoking in December 2021 after her [place]. Unstable angina Surgical History Surgical History (Updated 08/21/22 @ 19:11 by Lauren Santo NP) History of cardiac catheterization History of section History of coronary artery stent placement (12/2021) Multivessel coronary disease status post difficult complex multivessel PCI. 6 total stents Family History Family History Grandparent Cancer Social History Social History (Updated 08/21/22 @ 21:25 by Lauren Santo NP) Social History: quit smoking and December of this year no longer smoke smokes. She continues to work at [employer] but has apply for disability. Surrogate decision maker: and Angel Echevarria, son. Code status: Full code. Smoking packs per day: 1 Smoking cigarettes per day: 20.0 Years smoked: 33 Smoking pack-years: 33.00
[2022-08-22 16:32] LABS: Hematocrit 29.6 % (37.0-47.0); Hemoglobin 9.2 g/dL (12.0-15.0)
[2022-08-22] MEDS: PANTOPRAZOLE SODIUM IV 40 MG VIAL IV PUSH (17:17)
[2022-08-22] MEDS: ATORVASTATIN 40 MG TABLET PO (20:51)
[2022-08-22 23:39] LABS: Hematocrit 29.1 % (37.0-47.0); Hemoglobin 9.3 g/dL (12.0-15.0)
[2022-08-23] VITALS (14 sets, daily range): BP systolic 93–130; BP diastolic 52–77; PULSE 56–67; RESP 16–18; TEMP 35.9–36.5; O2SAT 95–100
[2022-08-23] MEDS: ACETAMINOPHEN 325 MG TABLET 650 MG PO (00:42)
[2022-08-23] MEDS: traMADol HCL (*CRX) 25 MG TABLET PO (04:40)
[2022-08-23 06:06] LABS: Basophils Percent Auto 0.6 % (0.2-1.2); Eosinophils Absolute Auto 0.1 K/mm3 (0-0.3); Eosinophils Percent Auto 2.3 % (0-4.4); Hematocrit 27.6 % (37.0-47.0); Hemoglobin 8.9 g/dL (12.0-15.0); Lymphocytes Absolute Auto 1.58 K/mm3 (0.9-3.2); Lymphocytes Percent Auto 45.8 % (18.3-44.2); Mean Corpuscular HGB Conc 32.2 g/dl (32-36); Mean Corpuscular Hemoglobin 26.5 pg (26-34); Mean Corpuscular Volume 82.1 fl (80-100); Mean Platelet Volume 11.8 fl (7.4-10.4); Monocytes Absolute Auto 0.4 K/mm3 (0.1-0.6); Monocytes Percent Auto 10.7 % (2.6-8.5); Neutrophils Absolute Auto 1.4 K/mm3 (1.3-6.7); Neutrophils Percent Auto 40.6 % (45.5-73.1); Platelet Count Result 171 k/mm3 (150-375); Red Blood Count 3.36 M/mm3 (4.2-5.4); Red Cell Distribution Width 14.6 % (11.5-14.5); White Blood Count 3.5 K/mm3 (4.5-10.0)
[2022-08-23 06:19] LABS: Alanine Aminotransferase 37 U/L (6-35); Albumin Level 3.8 g/dL (3.5-5.1); Alkaline Phosphatase 62 U/L (38-126); Anion Gap 10 mmol/L (8-16); Aspartate Amino Transferase 36 U/L (14-36); Bilirubin,Total 0.3 mg/dL (0.2-1.3); Blood Urea Nitrogen 10 mg/dL (7-17); Calcium 8.2 mg/dL (8.4-10.2); Carbon Dioxide 24 mmol/L (22-30); Chloride 104 mmol/L (98-107); Estimated CRCL calculation 64 ml/min; Estimated Glomerular Filt Rate > 60; Glucose 115 mg/dL (65-110); Potassium 3.6 mmol/L (3.4-5.0); Sodium 138 mmol/L (137-145)
[2022-08-23] MEDS: ISOSORBIDE MONONITRATE 30 MG TAB.ER.24H PO (09:43)
[2022-08-23] MEDS: TICAGRELOR 90 MG TABLET PO ×2 (09:43→20:29)
[2022-08-23] MEDS: ASPIRIN 81 MG ENTERIC TABLET PO (09:43)
[2022-08-23] MEDS: PANTOPRAZOLE SODIUM IV 40 MG VIAL IV PUSH (09:43)
--- NOTE | 2022-08-23 10:27 | PC.NURSE ---
0945 Bp 93/60 this am and bp meds help. garo CORDERO notified
[2022-08-23] MEDS: ONDANSETRON INJ 4 MG/2 ML VIAL IV PUSH (11:48)
--- NOTE | 2022-08-23 12:41 | P.PNIM_ITS ---
Progress Note: A&P Assessment and Plan (1) GI bleed: Code(s): K92.2 - Gastrointestinal hemorrhage, unspecified Status: Acute Assessment and Plan: Patient presented with dark stools of unclear duration * noted to be guaiac-positive in the ED * stool occult blood test has been ordered, awaiting collection * there is no evidence of active bleeding, and therefore patient has been continued on aspirin and Brilinta at this time given her recent stent placement 3 months ago. * she has been seen in consultation by Gastroenterology. Recommend outpatient EGD and consider colonoscopy given patient is COVID positive * continue Protonix (2) Anemia: Code(s): D64.9 - Anemia, unspecified Status: Acute Assessment and Plan: Acute on chronic. Hemoglobin is 8.9 today * likely secondary to GI bleed as above * remaining relatively stable * recheck H&H this afternoon to trend (3) COVID: Code(s): U07.1 - COVID-19 Status: Acute Assessment and Plan: Positive COVID PCR on 08/21/2022 * patient has no supplemental oxygen requirement, therefore not a candidate for antivirals or steroids * chest x-ray with no acute findings * continue isolation precautions * supportive care * patient received 1st part of COVID vaccine but did not receive 2nd part and has not had any booster (4) Dizziness: Code(s): R42 - Dizziness and giddiness Status: Acute Assessment and Plan: Patient presented after episode of dizziness, found to be diaphoretic and hypotensive * may be secondary to taking nitro vs anemia * orthostatic vital signs are negative * implement fall precautions * continue to monitor closely (5) Chest pressure: Code(s): R07.89 - Other chest pain Status: Resolved Assessment and Plan: resolved. patient complained of atypical mild chest pressure worse with positional changes * troponin negative x3 * EKG with no ST abnormalities * most likely musculoskeletal in etiology. continue supportive care (6) Hypertension: Code(s): I10 - Essential (primary) hypertension Status: Chronic Assessment and Plan: blood pressure has been stable, Slightly soft. * BP this morning was 93/63 and she was bradycardic therefore metoprolol and losartan held * continue to monitor blood pressure trends and adjust medication regimen appropriately (7) Coronary artery disease: Code(s): I25.10 - Atherosclerotic heart disease of [place] coronary artery without angina pectoris Status: Acute Assessment and Plan: The patient has had a total of 6 cardiac stents with most recent 3 months ago * Continue dual anti-platelet therapy with aspirin and Brilinta. Proceed with caution given melena. See plan above * continue Imdur Subjective Date/time seen: 08/23/22 12:41 Interval history: Date of service: 08/23/22 Bertha Echevarria is a 52 year old female with a history of coronary artery disease with recent STEMI in December 2021 s/p stent placement, hypertension, hyperlipidemia, and tobacco abuse who is seen in follow up for COVID-19 and GI bleeding. she is feeling okay today. Her main complaint is pain in her left thigh and quadriceps muscle. She states this has been bothering her for a couple of days but it is worse today. She attributes this to her cardiac medications. Explained that this would be unlikely to be the cause it sounds more like a muscle strain. She is still able to ambulate but
--- NOTE | 2022-08-23 12:41 | PM.IMPN ---
Progress Note: A&P Assessment and Plan (1) GI bleed: Code(s): K92.2 - Gastrointestinal hemorrhage, unspecified Status: Acute Assessment and Plan: Patient presented with dark stools of unclear duration noted to be guaiac-positive in the ED stool occult blood test has been ordered, awaiting collection there is no evidence of active bleeding, and therefore patient has been continued on aspirin and Brilinta at this time given her recent stent placement 3 months ago. she has been seen in consultation by Gastroenterology. Recommend outpatient EGD and consider colonoscopy given patient is COVID positive continue Protonix (2) Anemia: Code(s): D64.9 - Anemia, unspecified Status: Acute Assessment and Plan: Acute on chronic. Hemoglobin is 8.9 today likely secondary to GI bleed as above remaining relatively stable recheck H&H this afternoon to trend (3) COVID: Code(s): U07.1 - COVID-19 Status: Acute Assessment and Plan: Positive COVID PCR on 08/21/2022 patient has no supplemental oxygen requirement, therefore not a candidate for antivirals or steroids chest x-ray with no acute findings continue isolation precautions supportive care patient received 1st part of COVID vaccine but did not receive 2nd part and has not had any booster (4) Dizziness: Code(s): R42 - Dizziness and giddiness Status: Acute Assessment and Plan: Patient presented after episode of dizziness, found to be diaphoretic and hypotensive may be secondary to taking nitro vs anemia orthostatic vital signs are negative implement fall precautions continue to monitor closely (5) Chest pressure: Code(s): R07.89 - Other chest pain Status: Resolved Assessment and Plan: resolved. patient complained of atypical mild chest pressure worse with positional changes troponin negative x3 EKG with no ST abnormalities most likely musculoskeletal in etiology. continue supportive care (6) Hypertension: Code(s): I10 - Essential (primary) hypertension Status: Chronic Assessment and Plan: blood pressure has been stable, Slightly soft. BP this morning was 93/63 and she was bradycardic therefore metoprolol and losartan held continue to monitor blood pressure trends and adjust medication regimen appropriately (7) Coronary artery disease: Code(s): I25.10 - Atherosclerotic heart disease of [place] coronary artery without angina pectoris Status: Acute Assessment and Plan: The patient has had a total of 6 cardiac stents with most recent 3 months ago Continue dual anti-platelet therapy with aspirin and Brilinta. Proceed with caution given melena. See plan above continue Imdur Subjective Date/time seen: 08/23/22 12:41 Interval history: Date of service: 08/23/22 Bertha Ehcevarria is a 52 year old female with a history of coronary artery disease with recent STEMI in December 2021 s/p stent placement, hypertension, hyperlipidemia, and tobacco abuse who is seen in follow up for COVID-19 and GI bleeding. she is feeling okay today. Her main complaint is pain in her left thigh and quadriceps muscle. She states this has been bothering her for a couple of days but it is worse today. She attributes this to her cardiac medications. Explained that this would be unlikely to be the cause it sounds more like a muscle strain. She is still able to ambulate but has some discomfort in her leg when doing so. She denies any further dark stools. Her last bowel movement was 2 days ago. She has not experienced dizziness, lightheadedness, or weakness. She denies nausea, vomiting fever, chills, shortness breath, cough, chest pain. Review of Systems Review of Systems: All systems reviewed & are unremarkable except as noted in HPI and below Exam Narrative: General: well-nourished, well-appearing 52-year-old
[2022-08-23 14:15] LABS: Hematocrit 31.1 % (37.0-47.0)
--- NOTE | 2022-08-23 14:29 | WPDGIPROGNO ---
Progress Note: A&P Assessment and Plan (1) Dark stools: Code(s): R19.5 - Other fecal abnormalities Status: Acute Assessment and Plan: no more episodes and h/h stab;e (2) Occult blood in stools: Code(s): R19.5 - Other fecal abnormalities Status: Acute Assessment and Plan: no signs of overt gib I can perform egd and colonoscopy as outpatient once she is fully recover from covid (3) COVID: Code(s): U07.1 - COVID-19 Status: Acute Assessment and Plan: on isolation (4) Dizziness: Code(s): R42 - Dizziness and giddiness Status: Acute Subjective Date/time seen: 08/23/22 14:29 Interval history: main complain if sore throat- drinking tea and is helping, no more BM since admission. Review of Systems Review of Systems: All systems reviewed & are unremarkable except as noted in HPI and below Exam Const: General: comfortable and no acute distress HENMT: Face/Nose/Sinus: Normal nares present Eyes: General: appearance normal, both eyes and all related structures Neck: Neck: no JVD Resp: Auscultation: clear to auscultation bilaterally Cardio: Rate: regular rate Rhythm: regular rhythm GI: Inspection: non-distended GI Palp: Yes Soft to palpation and No Tenderness to palpation present (GI) Auscultation: normal bowel sounds Skin: General skin exam: normal color Neuro: Speech: normal speech Extrem: General: normal to inspection Psych: Mental Status: mental status grossly normal Objective Data Vital Signs Vital Signs: Vital Signs - 24 hr 08/22/22 16:00 08/22/22 21:26 08/22/22 21:28 Temperature 97.6 F Pulse Rate 72 68 Respiratory Rate 18 Blood Pressure 100/59 L 83/60 L Pulse Oximetry 98 08/22/22 21:34 08/23/22 04:45 08/22/22 20:00 Temperature 97.6 F Pulse Rate 75 64 77 Respiratory Rate 18 Blood Pressure 104/62 102/52 L Pulse Oximetry 95 08/23/22 00:00 08/23/22 04:00 08/23/22 07:50 Temperature Pulse Rate 56 L 56 L Respiratory Rate Blood Pressure 93/63 L Pulse Oximetry 08/23/22 08:00 08/23/22 12:10 08/23/22 12:12 Temperature 96.7 F L Pulse Rate 59 L 57 L Respiratory Rate 16 Blood Pressure 117/71 118/68 Pulse Oximetry 100 08/23/22 12:14 08/23/22 12:00 Temperature Pulse Rate 60 Respiratory Rate Blood Pressure 103/77 Pulse Oximetry Intake/Output Intake/Output: Intake & Output 08/20/22 08/21/22 08/22/22 08/23/22 23:59 23:59 23:59 23:59 Intake Total 860 930 Output Total 550 Balance 860 380 Meds/Results Medications: Active Medications Generic Name Dose Route Start Last Admin Trade Name Freq PRN Reason Stop Dose Admin Acetaminophen 650 mg 08/21/22 16:50 08/23/22 00:42 Acetaminophen 325 Mg Tablet PO 650 mg Q4H PRN Administration Mild Pain (1-3) or Fever Aspirin 81 mg 08/22/22 09:00 08/23/22 09:43 Aspirin 81 Mg Enteric Tablet PO 81 mg QAM DANIELLE Administration Atorvastatin Calcium 40 mg 08/21/22 21:45 08/22/22 20:51 Atorvastatin 40 Mg Tablet PO 40 mg HS DANIELLE Administration Benzocaine 1 lozenge 08/22/22 10:26 08/22/22 11:24 Benzocaine/Menthol (*Bkc) 18 Ea Lozenge PO 1 lozenge PRN PRN Administration Sore Throat Isosorbide Mononitrate 30 mg 08/22/22 09:00 08/23/22 09:43 Isosorbide Mononitrate 30 Mg Tab.Er.24h PO 30 mg QAM DANIELLE Administration Lidocaine 2 patch 08/23/22 09:00 Lidocaine 5% Patch TRANSDERM DAILY DANIELLE Losartan Potassium 25 mg 08/22/22 09:00 08/23/22 09:35 Losartan Potassium 25 Mg Tablet PO Not Given DAILY DANIELLE Metoprolol Succinate 50 mg 08/22/22 09:00 08/23/22 09:35 Metoprolol Succinate Ext Rel 50 Mg Tabcr PO Not Given QAM DANIELLE Nitroglycerin 0.4 mg 08/21/22 21:36 Nitroglycerin Sl 0.4 Mg Tablet SUBLINGUAL Q5MIN PRN chest pain Ondansetron HCl 4 mg 08/23/22 11:16 08/23/22 11:48 Ondansetron Inj 4 Mg/2 Ml Vial I
[2022-08-23] MEDS: ATORVASTATIN 40 MG TABLET PO (20:29)
[2022-08-23] MEDS: BENZOCAINE/MENTHOL (*BKC) 18 EA LOZENGE 1 LOZENGE PO (20:30)
[2022-08-24] VITALS: PULSE 64
[2022-08-24 01:06] VITALS: BP 123/73; PULSE 71; RESP 20; O2SAT 99
[2022-08-24 04:00] VITALS: PULSE 58
[2022-08-24 04:20] VITALS: BP 109/72; PULSE 75; RESP 18; TEMP 36.5; O2SAT 100
[2022-08-24 05:50] LABS: Hematocrit 29.1 % (37.0-47.0); Hemoglobin 9.3 g/dL (12.0-15.0); Mean Corpuscular Hemoglobin 26.8 pg (26-34); Mean Corpuscular Volume 83.9 fl (80-100); Mean Platelet Volume 11.1 fl (7.4-10.4); Platelet Count Result 157 k/mm3 (150-375); Red Blood Count 3.47 M/mm3 (4.2-5.4); Red Cell Distribution Width 14.5 % (11.5-14.5); White Blood Count 3.4 K/mm3 (4.5-10.0)
[2022-08-24 06:04] LABS: Anion Gap 12 mmol/L (8-16); Blood Urea Nitrogen 10 mg/dL (7-17); Calcium 8.3 mg/dL (8.4-10.2); Carbon Dioxide 25 mmol/L (22-30); Chloride 104 mmol/L (98-107); Estimated CRCL calculation 64 ml/min; Estimated Glomerular Filt Rate > 60; Glucose 119 mg/dL (65-110); Potassium 3.8 mmol/L (3.4-5.0); Sodium 141 mmol/L (137-145)
[2022-08-24 08:00] VITALS: PULSE 75; RESP 18; O2SAT 100
[2022-08-24] MEDS: PANTOPRAZOLE SODIUM IV 40 MG VIAL IV PUSH (10:02)
[2022-08-24] MEDS: TICAGRELOR 90 MG TABLET PO (10:02)
[2022-08-24] MEDS: METOPROLOL SUCCINATE EXT REL 50 MG TABCR PO (10:02)
[2022-08-24] MEDS: LOSARTAN POTASSIUM 25 MG TABLET PO (10:03)
[2022-08-24] MEDS: ISOSORBIDE MONONITRATE 30 MG TAB.ER.24H PO (10:03)
[2022-08-24] MEDS: ASPIRIN 81 MG ENTERIC TABLET PO (10:03)
--- NOTE | 2022-08-24 11:56 | P.DS_ITS ---
DS: Admitting Diagnosis Discharge Date 08/24/2022 Admitting Diagnosis Dizziness DS: Discharge Diagnosis Discharge Diagnosis (1) GI bleed: Code(s): K92.2 - Gastrointestinal hemorrhage, unspecified Status: Acute Assessment and Plan: Patient presented with dark stools of unclear duration * noted to be guaiac-positive in the ED * stool occult blood test ordered but no specimen for collection * no evidence of active bleeding, and therefore patient was continued on aspirin and Brilinta given her recent stent placement 3 months ago. * she was seen in consultation by Gastroenterology and outpatient EGD and colonoscopy was recommended upon resolution of acute COVID-19 illness. * Started on Protonix 40 mg daily * Avoid NSAIDs (2) Anemia: Code(s): D64.9 - Anemia, unspecified Status: Acute Assessment and Plan: Acute on chronic. * likely secondary to GI bleed as above * H&H remained stable during admission * Started p.o. iron supplementation * recheck H&H in 1 week to ensure remaining stable (3) COVID: Code(s): U07.1 - COVID-19 Status: Acute Assessment and Plan: Positive COVID PCR on 08/21/2022 * patient had no supplemental oxygen requirement, therefore not a candidate for antivirals or steroids * chest x-ray with no acute findings * supportive care * patient received 1st part of COVID vaccine but did not receive 2nd part and has not had any booster. Patient counseled that she is eligible for COVID vaccination 30 days following acute illness (4) Dizziness: Code(s): R42 - Dizziness and giddiness Status: Acute Assessment and Plan: Patient presented after episode of dizziness, found to be diaphoretic and hypotensive * may be secondary to taking nitro vs anemia vs hypotension * orthostatic vital signs negative * fall precautions * symptoms resolved (5) Chest pressure: Code(s): R07.89 - Other chest pain Status: Resolved Assessment and Plan: resolved. patient complained of atypical mild chest pressure worse with positional changes * troponin negative x3 * EKG with no ST abnormalities * most likely musculoskeletal in etiology. (6) Hypertension: Code(s): I10 - Essential (primary) hypertension Status: Chronic Assessment and Plan: Blood pressures were slightly soft and patient was mildly bradycardic * Metoprolol and losartan were held initially. * Metoprolol resumed at reduced dose 12.5 mg daily * Losartan held * Isosorbide mononitrate decreased to 15 mg daily * Instructed to monitor blood pressures and heart rate at home and follow-up with PCP for review (7) Coronary artery disease: Code(s): I25.10 - Atherosclerotic heart disease of [place] coronary artery without angina pectoris Status: Acute Assessment and Plan: The patient has had a total of 6 cardiac stents with most recent 3 months ago * Continue dual anti-platelet therapy with aspirin and Brilinta. (8) Leukopenia: Code(s): D72.819 - Decreased white blood cell count, unspecified Status: Acute Assessment and Plan: White count was low, likely secondary to acute viral illness * Repeat CBC with diff in 1 week to assess for resolution DS: Summary Hospital Course Hospital Course: Date of admission: 08/21/2022 Date of discharge: 08/24/2022 Bertha Echevarria is a 52 year old female with a history of coronary artery disease wi
--- NOTE | 2022-08-24 11:56 | PM.DS ---
DS: Admitting Diagnosis Discharge Date 08/24/2022 Admitting Diagnosis Dizziness DS: Discharge Diagnosis Discharge Diagnosis (1) GI bleed: Code(s): K92.2 - Gastrointestinal hemorrhage, unspecified Status: Acute Assessment and Plan: Patient presented with dark stools of unclear duration noted to be guaiac-positive in the ED stool occult blood test ordered but no specimen for collection no evidence of active bleeding, and therefore patient was continued on aspirin and Brilinta given her recent stent placement 3 months ago. she was seen in consultation by Gastroenterology and outpatient EGD and colonoscopy was recommended upon resolution of acute COVID-19 illness. Started on Protonix 40 mg daily Avoid NSAIDs (2) Anemia: Code(s): D64.9 - Anemia, unspecified Status: Acute Assessment and Plan: Acute on chronic. likely secondary to GI bleed as above H&H remained stable during admission Started p.o. iron supplementation recheck H&H in 1 week to ensure remaining stable (3) COVID: Code(s): U07.1 - COVID-19 Status: Acute Assessment and Plan: Positive COVID PCR on 08/21/2022 patient had no supplemental oxygen requirement, therefore not a candidate for antivirals or steroids chest x-ray with no acute findings supportive care patient received 1st part of COVID vaccine but did not receive 2nd part and has not had any booster. Patient counseled that she is eligible for COVID vaccination 30 days following acute illness (4) Dizziness: Code(s): R42 - Dizziness and giddiness Status: Acute Assessment and Plan: Patient presented after episode of dizziness, found to be diaphoretic and hypotensive may be secondary to taking nitro vs anemia vs hypotension orthostatic vital signs negative fall precautions symptoms resolved (5) Chest pressure: Code(s): R07.89 - Other chest pain Status: Resolved Assessment and Plan: resolved. patient complained of atypical mild chest pressure worse with positional changes troponin negative x3 EKG with no ST abnormalities most likely musculoskeletal in etiology. (6) Hypertension: Code(s): I10 - Essential (primary) hypertension Status: Chronic Assessment and Plan: Blood pressures were slightly soft and patient was mildly bradycardic Metoprolol and losartan were held initially. Metoprolol resumed at reduced dose 12.5 mg daily Losartan held Isosorbide mononitrate decreased to 15 mg daily Instructed to monitor blood pressures and heart rate at home and follow-up with PCP for review (7) Coronary artery disease: Code(s): I25.10 - Atherosclerotic heart disease of [place] coronary artery without angina pectoris Status: Acute Assessment and Plan: The patient has had a total of 6 cardiac stents with most recent 3 months ago Continue dual anti-platelet therapy with aspirin and Brilinta. (8) Leukopenia: Code(s): D72.819 - Decreased white blood cell count, unspecified Status: Acute Assessment and Plan: White count was low, likely secondary to acute viral illness Repeat CBC with diff in 1 week to assess for resolution DS: Summary Hospital Course Hospital Course: Date of admission: 08/21/2022 Date of discharge: 08/24/2022 Bertha Echevarria is a 52 year old female with a history of coronary artery disease with recent STEMI in December 2021 s/p stent placement, hypertension, hyperlipidemia, and tobacco abuse who presented to the emergency department on with complaints of dizziness and diaphoresis. On presentation to the ED, her blood pressure was 97/66, pulse 53, additional vital signs stable, WBC 3.5, hemoglobin 9.7, additional laboratory workup unremarkable, troponin negative, CXR with no acute cardiopulmonary findings. She was admitted to the hospitalist service for further evaluation and m
== END 2022-08-24 13:24 | disposition home or self-care (01) ==
LOC: ANHED 17:15 → ANHIMU 17:51 → ANH3MED 18:28
PROVIDERS: Nurse Practitioner; Admitting Provider Internal Medicine; Emergency Provider Emergency Medicine; Visit Provider Physician Assistant
DX: K92.2 Gastrointestinal hemorrhage, unspecified (principal); U07.1 COVID-19; D64.9 Anemia, unspecified; I10 Essential (primary) hypertension; E78.5 Hyperlipidemia, unspecified; I25.10 Atherosclerotic heart disease of native coronary artery without angina pectoris; Z95.5 Presence of coronary angioplasty implant and graft; R42 Dizziness and giddiness; I25.2 Old myocardial infarction; R00.1 Bradycardia, unspecified; R94.31 Abnormal electrocardiogram [ECG] [EKG]; Z87.891 Personal history of nicotine dependence; F12.11 Cannabis abuse, in remission; Z79.1 Long term (current) use of non-steroidal anti-inflammatories (NSAID); Z79.82 Long term (current) use of aspirin; Z79.51 Long term (current) use of inhaled steroids; Z79.52 Long term (current) use of systemic steroids; Z79.899 Other long term (current) drug therapy
CPT/HCPCS: 36415; 71045; 80048; 80053; 80307; 81001; 82728; 83735; 84100; 84443; 84484; 85014; 85018; 85025; 85027; 85610; 85730; 86850; 86900; 86901; 87502; 93005; 96365; 96374; 96375; 96376; 99285; A9270; C9113; G0378; G0379; J0131; J2405; U0003; U0005

== ENCOUNTER 2024-10-29 10:45 | Observation (INO) | payer OTHER, SELFPAY ==
[2024-10-29] VITALS (24 sets, daily range): BP systolic 110–132; BP diastolic 61–94; PULSE 57–88; RESP 13–217; TEMP 36.2–36.6; O2SAT 96–100
--- NOTE | ~2024-10-29 | CT_ITS ---
EXAMINATION: CT brain wo con DATE: 10/29/2024 19:58 INDICATION: vertigo . TECHNIQUE: Computed tomography (CT) of the head was performed without intravenous contrast. The mA wa s adjusted according to patient size. Iterative reconstruction technique was employed. The dose-lengt h product was 681.00 mGy-cm. COMPARISON: 02/10/2022. FINDINGS: No acute intracranial hemorrhage or extra-axial fluid collection. No hydrocephalus, mass, or herniation. No acute ischemic infarct. Unremarkable dural venous sinus attenuation. No acute osseous abnormality. Right middle ethmoid cell opacification, the remaining aerated spaces are clear. Right darshan bullosa . IMPRESSION: No acute intracranial process. Reviewed, dictated and finalized at location K. BALER
--- NOTE | ~2024-10-29 | XR_ITS ---
EXAMINATION: XR chest 2V DATE: 10/29/2024 11:41 INDICATION: Dizziness. TECHNIQUE: Frontal and lateral views of the chest were obtained. COMPARISON: Chest single view 08/21/2022 FINDINGS: There is no pneumonia, pleural effusion, or pneumothorax. The heart size is normal. IMPRESSION: 1. No acute cardiopulmonary disease. Reviewed, dictated and finalized at location A. ERY BUYER
--- NOTE | 2024-10-29 10:53 | ECG_ITS ---
Test Date: 2024-10-29 10:59:10 Measurements Intervals [place] Rate: 58 P: 58 NE: 180 QRS: 39 QRSD: 93 T: 60 QT: 391 QTc: 385 Interpretive Statements SINUS BRADYCARDIA NONSPECIFIC ST & T-WAVE ABNORMALITY No previous ECG available for comparison Electronically Signed On 10-30-2024 09:54:50 RADIO REPAIRMAN by Florian Craig M.D.
[2024-10-29 11:29] LABS: Basophils Percent Auto 0.7 % (0.2-1.2); Eosinophils Absolute Auto 0.1 K/mm3 (0-0.3); Eosinophils Percent Auto 3.1 % (0-4.4); Hemoglobin 12.1 g/dL (12.0-15.0); Immature Granulocyte Absolute 0.01 K/mm3 (0.00-0.031); Immature Granulocyte Percent A 0.2 % (0-0.5); Lymphocytes Absolute Auto 1.54 K/mm3 (0.9-3.2); Lymphocytes Percent Auto 36.8 % (18.3-44.2); Mean Corpuscular HGB Conc 33.6 g/dl (32-36); Mean Corpuscular Hemoglobin 30.6 pg (26-34); Mean Corpuscular Volume 90.9 fl (80-100); Mean Platelet Volume 11.1 fl (7.4-10.4); Monocytes Absolute Auto 0.3 K/mm3 (0.1-0.6); Monocytes Percent Auto 8.1 % (2.6-8.5); Neutrophils Absolute Auto 2.1 K/mm3 (1.3-6.7); Neutrophils Percent Auto 51.1 % (45.5-73.1); Platelet Count Result 229 k/mm3 (150-375); Red Blood Count 3.96 M/mm3 (4.2-5.4); Red Cell Distribution Width 11.6 % (11.5-14.5); White Blood Count 4.2 K/mm3 (4.5-10.0)
[2024-10-29 11:38] LABS: Alanine Aminotransferase 55 U/L (6-35); Albumin Level 4.5 g/dL (3.5-5.1); Alkaline Phosphatase 76 U/L (38-126); Anion Gap 6 mmol/L (4-12); Aspartate Amino Transferase 46 U/L (14-36); Bilirubin,Total 0.9 mg/dL (0.2-1.3); Blood Urea Nitrogen 11 mg/dL (7-17); Calcium 9.4 mg/dL (8.4-10.2); Carbon Dioxide 27 mmol/L (22-30); Chloride 108 mmol/L (98-107); Estimated CRCL calculation 61 ml/min; Estimated Glomerular Filt Rate > 60; Glucose 97 mg/dL (65-110); Potassium 4.3 mmol/L (3.4-5.0); Sodium 141 mmol/L (137-145)
[2024-10-29 11:42] LABS: Add Urine Microscopic? YES; Appearance Urine Clear (Clear); Bacteria Urine None Seen /hpf; Bilirubin Urine Negative (Negative); Blood Urine Negative (Negative); Color Urine Yellow (Yellow); Glucose Urine UA Negative (Negative); Ketones Urine Negative (Negative); Leukocyte Esterase Ur Trace LEU/UL (Negative); Need Manual Microscopic Reviewed; Nitrate Urine Negative (Negative); Protein Urine Trace mg/dL (Negative); RBC Urine 0-2 /hpf (0-2); Specific Grav Ur 1.014 (1.001-1.035); Squamous Epithelial Cell Urine Few /hpf (Few); pH Urine 5.5 (5.0-9.0)
[2024-10-29 12:46] LABS: Troponin I < 0.012 ng/mL (0.000-0.034)
--- NOTE | 2024-10-29 13:40 | P.HP_ITS ---
H&P: HPI History of Present Illness Date/Time: 10/29/24 13:40 Chief Complaint: Multiple complaints. Narrative: This is a 54-year-old female with coronary artery disease, hypertension, and hyperlipidemia who presented to the emergency department with multiple complaints. The patient provides the following history. Upon waking this morning she felt lightheaded and dizzy and with further questioning she reports a spinning sensation associated with ringing in her ears. She was able to make herself to the bathroom and while having a bowel movement she started to feel nauseated, warm, and sweaty. After she was finished in the bathroom she was able to get herself up and walk to the other room however she was still experiencing vertigo and perhaps a bit of blurry vision as well. She then developed right anterior chest and left side of the neck. All of the symptoms are similar to though she experience prior to having her STEMI and she came in for evaluation. Her symptoms resolved without intervention within about 20 minutes or so and have not returned. She still feels ?a little off.? She denies current vertigo, visual changes, facial droop, slurred speech, difficulty speaking and swallowing, focal weakness, paresthesias, pleuritic pain, palpitations, shortness of breath, lower extremity edema, calf pain, abdominal pain, bloating, belching, vomiting, diarrhea, hematemesis, melena, and hematochezia. In the ED: Vital signs were stable on arrival. Labs were significant for WBC count of 4.2, AST 46, ALT 55, troponin less than 0.012. Urinalysis was positive for trace leukocyte esterase and 6 to 10 wbc's with few squamous cells on microscopy. Chest x-ray showed no acute cardiopulmonary disease. EKG showed a sinus rhythm with nonspecific ST T-wave abnormalities. Given her cardiac history she is being admitted for close monitoring due to symptoms concerning for her anginal equivalent. Review of Systems Review of Systems: 12 systems were reviewed and are negativ e except for as per HPI. [facility] Past Medical History Medical History (Updated 10/29/24 @ 21:07 by Gwen Grey PA-C) Gastroesophageal reflux disease Iron deficiency anemia Hypertension Dyslipidemia Acute ST elevation myocardial infarction (STEMI) of posterior wall (01/06/22) Unstable angina Coronary artery disease Tobacco abuse patient quit smoking in December 2021 after her [place] Surgical History Surgical History History of coronary artery stent placement (12/2021) multivessel coronary disease status post difficult complex multivessel PCI and stent x 6 History of cardiac catheterization History of section Family History Family History Grandparent Cancer Hypertension Social History Social History (Updated 10/29/24 @ 21:56 by Gwen Grey PA-C) Social History: Surrogate decision maker: Angel Echevarria (son) and Jair Carrasco. Code status: Full code. Smoking packs per day: 1 Smoking cigarettes per day: 20.0 Years smoked: 33 Smoking pack-years: 33.00 Smoking status: Former smoker Alcohol intake: current Drinks per week: 1 Substance use: never Substance use type: marijuana Do You Feel Safe in your Home?: Yes Lack of Transportation: YES Lack of Food: Never True Current Housing: I Have Housing Concerned About Future Housing: No Difficulty Paying Gas/Electric Bills: No Difficulty Paying for Meds: No Currently Unemployed: No Education: High School Diploma/GED Difficulty w/ Childcare or Family Care: No Spiritual care concerns: No Meds Home Medications and Allergies Home Medications ?Medication ?Instructions ?Recorded ?Confirmed ?Type nitroglycerin 0.4 mg sublingual 0.4 mg sublingual PRN PRN chest 08/21/22 10/29/24 History tablet pain isosorbide mononitrate 30 mg 15 mg (1/2 x 30 mg) PO QAM 30 days 08/24/22 10/29/24 Rx tablet,extended release 24 hr #30 tabs metoprolol succinate 25 mg 12.5 mg (1/2 x 25 mg) PO DAILY #30 08/24/22 10/29/24 Rx tablet,extended release 24 hr tabs aspirin 81 mg tablet,delayed 81 mg PO BID 10/29/24 10/29/24 History release atorvastatin 80 mg tablet 80 mg PO DAILY 10/29/24 10/29/24 History ezetimibe 10 mg tablet 10 mg PO DAILY 10/29/24 10/29/24 History losartan 50 mg tablet 50 mg PO DAILY 10/29/24 10/29/24 History ticagrelor 60 mg tablet (Brilinta) 60 mg PO Q12H 10/29/24 10/29/24 History Allergies Allergy/AdvReac Type Severity Reaction Status Date / Time No Known Allergies Allergy Unknown Verified 10/29/24 11:12 Vital Signs Vital Signs - 24 hr 10/29/24 10:47 10/29/24 11:14 10/29/24 11:15 Temperature 97.6 F Pulse Rate 68 74 Respiratory Rate 18 19 Blood Pressure 112/66 Pulse Oximetry 100 100 Oxygen Delivery Room Air 10/29/24 11:16 10/29/24 11:31 10/29/24 13:13 Temperature Pulse Rate 75 57 L 71 Respiratory Rate 13 16 17 Blood Pressure 122/94 H 116/76 122/71 Pulse Oximetry 100 100 99 Oxygen Delivery Exam Narrative: General: Well-developed female sitting up in bed in no distress. Weight: 72.4 kg. BMI: 27.4. HEENT: PERRL, EOMI. Conjunctivae anicteric. Oral mucosa moist. Neck: Supple. No JVD. No tenderness to palpation over the midline or paraspinous muscles. Respiratory: Lungs are clear to auscultation bilaterally. Cardiovascular: Regular rate and rhythm with S1-S2. Chest: Mild tenderness to palpation over the right anterior chest. Gastrointestinal: Abdomen is soft, nontender, and nondistended with positive bowel sounds. Skin: Warm and dry. No rash or lesions on limited exam. Extremities: No cyanosis, clubbing, or edema. Radial and pedal pulses intact. Neurological: Alert. Cranial nerves 2-12 are grossly intact. No gross focal deficits to casual conversation. Psychiatric: Pleasant and cooperative with normal mood and affect. Judgment and insight intact. H&P: Results Labs Labs: Short CBC 10/29/24 Range/Units 11:23 WBC 4.2 L (4.5-10.0) K/mm3 Hgb 12.1 (12.0-15.0) g/dL Hct 36.0 L (37.0-47.0) % Plt Count 229 (150-375) k/mm3 BMP 10/29/24 11:23 Sodium 141 Potassium 4.3 Chloride 108 H Carbon Dioxide 27 BUN 11 Creatinine 0.91 Glucose 97 Calcium 9.4 Cardiac Enzymes 10/29/24 Range/Units 11:23 Troponin I < 0.012 (0.000-0.034) ng/mL Liver Function 10/29/24 Range/Units 11:23 Total Bilirubin 0.9 (0.2-1.3) mg/dL AST 46 H (14-36) U/L ALT 55 H (6-35) U/L Alkaline Phosphatase 76 (38-126) U/L Albumin 4.5 (3.5-5.1) g/dL Urine 10/29/24 Range/Units 11:23 Urine Color Yellow (Yellow) Urine Appearance Clear (Clear) Urine pH 5.5 (5.0-9.0) Ur Specific [place] 1.014 (1.001-1.035) Urine Protein Trace (Negative) mg/dL Urine Glucose (UA) Negative (Negative) mg/dL Imaging Chest X-Ray 10/29/24 12:00 IMPRESSION: 1. No acute cardiopulmonary disease. Assessment and Plan Assessment and plan (1) Anginal equivalent: Code(s): I20.89 - Other forms of angina pectoris Status: Acute (2) Vertigo: Code(s): R42 - Dizziness and giddiness Status: Acute (3) Elevated LFTs: Code(s): R79.89 - Other specified abnormal findings of blood chemistry Status: Acute (4) Hypertension: Code(s): I10 - Essential (primary) hypertension Status: Chronic (5) Coronary artery disease: Code(s): I25.10 - Atherosclerotic heart disease of [place] coronary artery without angina pectoris Status: Acute (6) Dyslipidemia: Code(s): E78.5 - Hyperlipidemia, unspecified Status: Acute Plan The patient presented to the emergency department with multiple complaints including vertigo, sweats, shortness of breath, right anterior chest discomfort, and left neck pain as detailed in HPI. Labs, imaging, EKG, and all reports were personally reviewed. She is currently asymptomatic but is concerned as the above constellation of symptoms are reportedly her anginal equivalent as almost all of the symptoms were present at the time of her STEMI. She will be monitored closely in IMU and cardiology has been consulted per patient request. Continue dual anti-platelet therapy, beta-dipesh, statin, and long-acting nitrate. Regarding the vertigo, this is also resolved and there are no gross focal deficits on exam however will obtain a brain CT. Blood pressures were reviewed and they are stable. AST and ALT are mildly elevated which appears to be chronic; her abdominal exam is benign. Findings and treatment plan were discussed with the patient. Questions were solicited and answered to satisfaction. The patient's medical management will be taken over by the hospitalist team in a.m. Quality VTE Prophylaxis VTE prophylaxis: mechanical ordered If No VTE Prophylaxis Answer both mechanical and pharmacologic: Reason no pharmacologic proph: medical contraindication (patient on dual anti- platelet therapy, pharmacologic prophylaxis would put her at increased risk for bleeding) The patient has been admitted under observation status. Hospitalist [facility] Advance Care Plan I have confirmed that the patient's Advanced Care Plan is present, code status is documented, or surrogate decision maker is listed in patient medical record.: Yes Medication Reconciliation I have utilized all available resources to obtain, update and review the patients current medications (includes all prescriptions, OTC, herbals, cannabis, and nutritional supplements).: Yes
--- NOTE | 2024-10-29 13:45 | ED_ITS ---
HPI - Dizziness General Chief Complaint: Dizziness Stated Complaint: dizziness, SOB, headache since this AM Time Seen by Provider: 10/29/24 11:30 Source: patient Mode of arrival: EMS Limitations: no limitations History of Present Illness HPI Narrative: This is a 54-year-old female, with history of WV status post 6 vessel stenting in 2021, who presents to the emergency department complaining of dizziness, nausea, headache and lethargy, and right shoulder pain radiating to the right neck similar to her symptoms prior to her [place]. the patient states she was eating breakfast at the onset of her symptoms. She denies any known aggravating or alleviating factors. She states this lasted approximately 20 minutes and has not since recurred. She has no other complaints at this time. Related Data Home Medications ?Medication ?Instructions ?Recorded ?Confirmed ?Last Taken ?Type atorvastatin 40 mg tablet 40 mg PO HS 08/21/22 08/21/22 08/21/22 History nitroglycerin 0.4 mg sublingual 0.4 mg sublingual PRN PRN chest 08/21/22 08/21/22 08/21/22 History tablet pain Allergies Allergy/AdvReac Type Severity Reaction Status Date / Time No Known Allergies Allergy Unknown Verified 10/29/24 11:12 Review of Systems 2 Review of Systems: All systems reviewed & are unremarkable except as noted in HPI and below PMFSH Past Medical History Medical History Occult blood in stools Dark stools COVID Hyperglycemia Stable angina Hypertension Dyslipidemia Acute ST elevation myocardial infarction (STEMI) of posterior wall (01/06/22) Unstable angina Coronary artery disease Chest pain Tobacco abuse Patient quit smoking in December [address] elevation (STEMI) myocardial infarction involving left circumflex coronary artery Surgical History Surgical History History of coronary artery stent placement (12/2021) Multivessel coronary disease status post difficult complex multivessel PCI. 6 total stents History of cardiac catheterization History of section Family History Family History Grandparent Cancer Social History Social History Social History: quit smoking and December of this year no longer smoke smokes. She continues to work at [employer] but has apply for disability. Surrogate decision maker: and Angel Echevarria, son. Code status: Full code. Smoking packs per day: 1 Smoking cigarettes per day: 20.0 Years smoked: 33 Smoking pack-years: 33.00 Smoking status: Former smoker Alcohol intake: never Drinks per week: 1 Substance use: never Substance use type: marijuana Lack of Transportation: No Lack of Food: Never True Current Housing: I Have Housing Concerned About Future Housing: No Difficulty Paying Gas/Electric Bills: No Difficulty Paying for Meds: No Currently Unemployed: No Education: High School Diploma/GED Difficulty w/ Childcare or Family Care: No Spiritual care concerns: No Exam 2 Narrative: GENERAL: Well-developed, well-nourished, and in no acute distress. HEAD: Normocephalic, atraumatic. EYES: PERRLA and EOMI. CHEST: Clear to auscultation. No respiratory distress. No wheezes rales or rhonchi HEART: Regular rate and rhythm. No murmur heard. Normal peripheral pulses. ABDOMEN: Soft, nontender, nondistended, normal active bowel sounds. EXTREMITIES: Normal range of motion. No edema. SKIN: Warm, dry, no rash. NEURO: Alert and oriented x3. No focal deficit. Moving all 4 limbs spontaneously PSYCH: Normal mood and affect. Course Course Emergency Course: 13:42 - EKG not concerning for ischemia. Chest x-ray unremarkable. CBC demonstrates mildly decreased white blood cell count of 4.2 but is otherwise unremarkable. Chemistries within normal limits. Initial troponin negative. Urinalysis unremarkable. Given the patient's previous history of [place] and very similar symptoms today, I have increased suspicion for ACS. I discussed the patient with hospitalist, VICKY Grey who accepts admission for observation. Vital Signs Vital signs: Vital Signs Temperature 97.6 F 10/29/24 10:47 Pulse Rate 68 10/29/24 10:47 Respiratory Rate 18 10/29/24 10:47 Blood Pressure 112/66 10/29/24 10:47 Pulse Oximetry 100 10/29/24 10:47 Oxygen Delivery Room Air 10/29/24 10:47 Temperature 97.6 F 10/29/24 10:47 Pulse Rate 71 10/29/24 13:13 Respiratory Rate 17 10/29/24 13:13 Blood Pressure 122/71 10/29/24 13:13 Pulse Oximetry 99 10/29/24 13:13 Oxygen Delivery Room Air 10/29/24 10:47 MDM - Dizziness MDM Narrative Medical decision making narrative: Plan: Labs, imaging, EKG, troponin, reassess Differential Diagnosis Differential diagnosis: Likely other (ACS, gastroenteritis, metabolic abnormality, other) Lab Data 10/29/24 11:23 10/29/24 11:23 Labs: Lab Results 10/29/24 Range/Units 11:23 WBC 4.2 L (4.5-10.0) K/mm3 RBC 3.96 L (4.2-5.4) M/mm3 Hgb 12.1 (12.0-15.0) g/dL Hct 36.0 L (37.0-47.0) % MCV 90.9 (80-100) fl MCH 30.6 (26-34) pg MCHC 33.6 (32-36) g/dl RDW 11.6 (11.5-14.5) % Plt Count 229 (150-375) k/mm3 MPV 11.1 H (7.4-10.4) fl Immature Gran % (Auto) 0.2 (0-0.5) % Neut % (Auto) 51.1 (45.5-73.1) % Lymph % (Auto) 36.8 (18.3-44.2) % [place] % (Auto) 8.1 (2.6-8.5) % Eos % (Auto) 3.1 (0-4.4) % Baso % (Auto) 0.7 (0.2-1.2) % Lymph # (Auto) 1.54 (0.9-3.2) K/mm3 [place] # (Auto) 0.3 (0.1-0.6) K/mm3 Eos # (Auto) 0.1 (0-0.3) K/mm3 Baso # (Auto) 0.0 (0.0-0.1) K/mm3 Abs Immat Gran (auto) 0.01 (0.00-0.031) K/mm3 Absolute Neuts (auto) 2.1 (1.3-6.7) K/mm3 Absolute Nucleated RBC 0.000 (0.0-0.012) K/mm3 Nucleated RBC % 0.0 (0.0-0.2) % Sodium 141 (137-145) mmol/L Potassium 4.3 (3.4-5.0) mmol/L Chloride 108 H (98-107) mmol/L Carbon Dioxide 27 (22-30) mmol/L Anion Gap 6 (4-12) mmol/L BUN 11 (7-17) mg/dL Creatinine 0.91 (0.7-1.0) mg/dL Estim Creat Clear Calc 61 ml/min Estimated GFR > 60 (59 - ) Glucose 97 (65-110) mg/dL Calcium 9.4 (8.4-10.2) mg/dL Total Bilirubin 0.9 (0.2-1.3) mg/dL AST 46 H (14-36) U/L ALT 55 H (6-35) U/L Alkaline Phosphatase 76 (38-126) U/L Troponin I < 0.012 (0.000-0.034) ng/mL Total Protein 8.0 (6.3-8.2) g/dL Albumin 4.5 (3.5-5.1) g/dL Urine Color Yellow (Yellow) Urine Appearance Clear (Clear) Urine pH 5.5 (5.0-9.0) Ur Specific [place] 1.014 (1.001-1.035) Urine Protein Trace (Negative) mg/dL Urine Glucose (UA) Negative (Negative) mg/dL Urine Ketones Negative (Negative) mg/dL Ur Blood (Man) Negative (Negative) Urine Nitrate Negative (Negative) Urine Bilirubin Negative (Negative) Urine Urobilinogen 1.0 (<2.0) mg/dL Add Ur Microanalysis Reviewed Leukocyte Esterase Rfl Trace H (Negative) MYRA/UL Urine RBC 0-2 (0-2) /hpf Urine WBC 6-10 H (0-3) /hpf Ur Squamous Epith Cells Few (Few) /hpf Urine Bacteria None seen /hpf Urine Casts 11-20 ECG Data EKG #1: Attestation: I personally reviewed and interpreted this ECG as follows: ECG completion date: 10/29/24 ECG completion time: 10:59 Prior ECG tracings: available for review Interpretation: Sinus bradycardia, rate 58, normal axis, [address]-elevation in V2 with T-wave inversions in lead to, lead 3, AVF, V5 and V6 this does not appear to have changed compared to EKG done in February 2022. Normal intervals with QTC of 385 Discharge Plan Discharge Clinical Impression: Atypical chest pain Nausea & vomiting Qualifiers: Vomiting type: unspecified Qualified Code(s): R11.2 - Nausea with vomiting, unspecified Patient Disposition: Still a Patient Condition: Stable Patient Language: Telugu Prescriptions: No Action Brilinta 90 mg Tablet 90 mg PO Q12HR Qty: 60 11RF aspirin 81 mg Tablet,Delayed Release (Dr/Ec) 81 mg PO QAM 30 Days Qty: 30 11RF losartan 25 mg Tablet 25 mg PO DAILY 30 Days Qty: 30 11RF atorvastatin 40 mg tablet 40 mg PO HS nitroglycerin 0.4 mg tablet, sublingual 0.4 mg sublingual PRN PRN (Reason: chest pain) Rx Instructions: do not exceed 3 doses per episode pantoprazole 40 mg tablet,delayed release (DR/EC) 40 mg PO QAM Qty: 30 0RF isosorbide mononitrate 30 mg Tablet Extended Release 24 Hr 15 mg PO QAM 30 Days Qty: 30 0RF metoprolol succinate 25 mg tablet extended release 24 hr 12.5 mg PO DAILY Qty: 30 0RF ferrous sulfate 325 mg (65 mg iron) tablet,delayed release (DR/EC) 325 mg PO DAILY Qty: 30 0RF Follow-up/Referrals: Jossy,VICKY Marte [Primary Care Provider] - Time of Disposition: 13:42
--- NOTE | 2024-10-29 14:10 | ECG_ITS ---
Test Date: 2024-10-29 14:24:05 Measurements Intervals [place] Rate: 75 P: 54 [place]: 161 QRS: 41 QRSD: 94 T: -29 QT: 361 QTc: 404 Interpretive Statements SINUS RHYTHM MODERATE T-WAVE ABNORMALITY, CONSIDER INFERIOR ISCHEMIA [-0.1+ mV T-WAVE IN II/aVF] Compared to ECG 10/29/2024 10:59:10 Possible ischemia now present Sinus bradycardia no longer present T-wave abnormality still present Electronically Signed On 10-30-2024 09:56:58 [employer] by Florian Craig M.D.
[2024-10-29 14:54] LABS: Troponin I < 0.012 ng/mL (0.000-0.034)
--- NOTE | 2024-10-29 17:42 | ECG_ITS ---
Test Date: 2024-10-29 17:52:22 Measurements Intervals [place] Rate: 78 P: 56 [place]: 159 QRS: 37 QRSD: 94 T: -12 QT: 359 QTc: 410 Interpretive Statements SINUS RHYTHM NONSPECIFIC T-WAVE ABNORMALITY Compared to ECG 10/29/2024 14:24:05 no change Electronically Signed On 10-30-2024 10:02:09 [employer] by Florian Craig M.D.
[2024-10-29 18:21] LABS: Troponin I < 0.012 ng/mL (0.000-0.034)
[2024-10-29 18:36] LABS: Influenza A QL RT-PCR Negative (Negative); Influenza B QL RT-PCR Negative (Negative); SARS-CoV-2 RNA PCR Negative (Negative)
[2024-10-29] MEDS: TICAGRELOR 60 MG TABLET PO (22:40)
[2024-10-29] MEDS: ASPIRIN 81 MG ENTERIC TABLET PO (22:49)
[2024-10-30] VITALS (12 sets, daily range): BP systolic 104–113; BP diastolic 63–89; PULSE 67–88; RESP 16–20; TEMP 36.7–37; O2SAT 97–99
[2024-10-30 04:12] LABS: Basophils Percent Auto 0.8 % (0.2-1.2); Eosinophils Absolute Auto 0.2 K/mm3 (0-0.3); Eosinophils Percent Auto 4.1 % (0-4.4); Hematocrit 33.9 % (37.0-47.0); Hemoglobin 11.3 g/dL (12.0-15.0); Lymphocytes Absolute Auto 2.46 K/mm3 (0.9-3.2); Mean Corpuscular HGB Conc 33.3 g/dl (32-36); Mean Corpuscular Hemoglobin 30.3 pg (26-34); Mean Corpuscular Volume 90.9 fl (80-100); Mean Platelet Volume 11.1 fl (7.4-10.4); Monocytes Absolute Auto 0.4 K/mm3 (0.1-0.6); Monocytes Percent Auto 8.1 % (2.6-8.5); Neutrophils Absolute Auto 1.8 K/mm3 (1.3-6.7); Platelet Count Result 233 k/mm3 (150-375); Red Blood Count 3.73 M/mm3 (4.2-5.4); Red Cell Distribution Width 11.8 % (11.5-14.5); White Blood Count 4.9 K/mm3 (4.5-10.0)
[2024-10-30 04:26] LABS: Anion Gap 6 mmol/L (4-12); Blood Urea Nitrogen 12 mg/dL (7-17); Calcium 8.5 mg/dL (8.4-10.2); Carbon Dioxide 26 mmol/L (22-30); Chloride 107 mmol/L (98-107); Estimated CRCL calculation 65 ml/min; Estimated Glomerular Filt Rate > 60; Glucose 104 mg/dL (65-110); Potassium 3.8 mmol/L (3.4-5.0); Sodium 139 mmol/L (137-145)
[2024-10-30] MEDS: METOPROLOL SUCCINATE EXT REL 12.5 MG TABCR PO (09:00)
[2024-10-30] MEDS: ATORVASTATIN 40 MG TABLET 80 MG PO (09:00)
[2024-10-30] MEDS: ASPIRIN 81 MG ENTERIC TABLET PO (09:01)
[2024-10-30] MEDS: ISOSORBIDE MONONITRATE 15 MG TAB.ER.24H PO (09:01)
[2024-10-30] MEDS: EZETIMIBE 10 MG TABLET PO (09:01)
[2024-10-30] MEDS: LOSARTAN POTASSIUM 50 MG TABLET PO (09:01)
[2024-10-30] MEDS: TICAGRELOR 60 MG TABLET PO (09:02)
--- NOTE | 2024-10-30 13:19 | P.CONCA_ITS ---
Assessment and Plan Assessment and plan (1) Dizziness: Code(s): R42 - Dizziness and giddiness Status: Acute Plan Dizziness possibly related to hypovolemia decreased oral intake Coronary artery disease with no evidence of ACS and negative cardiac enzymes with no dynamic EKG changes Obesity Anxiety Hypertension controlled Plan Aspirin Statin Ezetimibe Losartan Metoprolol Ticagrelor Encourage increased oral intake Follow up in the Cardiology Clinic cardiology will sign off History of Present Illness History of Present Illness Consult date/time: 10/30/24 13:19 Reason For Visit: Nausea and vomiting Narrative: 54-year-old presents to the hospital presents to the hospital with progressive weakness associated with dizziness and nausea that started yesterday. Her symptoms dizziness is worse with standing. She has been complaining of decreased oral intake recently. She was started on medication for weight loss recently. She feels better today. She was admitted to the hospital with observation since she has a major concern about her symptoms related to coronary artery disease. Patient has a history of acute coronary syndrome STEMI and PCI. Her symptoms significantly different from the episodes associated with ACS. [facility] Past Medical History Medical History (Updated 10/29/24 @ 21:07 by Gwen Grey PA-C) Gastroesophageal reflux disease Iron deficiency anemia Hypertension Dyslipidemia Acute ST elevation myocardial infarction (STEMI) of posterior wall (01/06/22) Unstable angina Coronary artery disease Tobacco abuse patient quit smoking in December 2021 after her [place] Surgical History Surgical History History of coronary artery stent placement (12/2021) multivessel coronary disease status post difficult complex multivessel PCI and stent x 6 History of cardiac catheterization History of section Family History Family History Grandparent Cancer Hypertension Social History Social History (Updated 10/29/24 @ 21:56 by Gwen Grey PA-C) Social History: Surrogate decision maker: Angel Echevarria (son) and Jair Carrasco. Code status: Full code. Smoking packs per day: 1 Smoking cigarettes per day: 20.0 Years smoked: 33 Smoking pack-years: 33.00 Smoking status: Former smoker Alcohol intake: current Drinks per week: 1 Substance use: never Substance use type: marijuana Do You Feel Safe in your Home?: Yes Lack of Transportation: YES Lack of Food: Never True Current Housing: I Have Housing Concerned About Future Housing: No Difficulty Paying Gas/Electric Bills: No Difficulty Paying for Meds: No Currently Unemployed: No Education: High School Diploma/GED Difficulty w/ Childcare or Family Care: No Spiritual care concerns: No Meds Home Medications and Allergies Home Medications ?Medication ?Instructions ?Recorded ?Confirmed ?Type nitroglycerin 0.4 mg sublingual 0.4 mg sublingual PRN PRN chest 08/21/22 10/29/24 History tablet pain isosorbide mononitrate 30 mg 15 mg (1/2 x 30 mg) PO QAM 30 days 08/24/22 10/29/24 Rx tablet,extended release 24 hr #30 tabs metoprolol succinate 25 mg 12.5 mg (1/2 x 25 mg) PO DAILY #30 08/24/22 10/29/24 Rx tablet,extended release 24 hr tabs aspirin 81 mg tablet,delayed 81 mg PO BID 10/29/24 10/29/24 History release atorvastatin 80 mg tablet 80 mg PO DAILY 10/29/24 10/29/24 History ezetimibe 10 mg tablet 10 mg PO DAILY 10/29/24 10/29/24 History losartan 50 mg tablet 50 mg PO DAILY 10/29/24 10/29/24 History ticagrelor 60 mg tablet (Brilinta) 60 mg PO Q12H 10/29/24 10/29/24 History Allergies Allergy/AdvReac Type Severity Reaction Status Date / Time No Known Allergies Allergy Unknown Verified 10/29/24 11:12 Vital Signs Vital Signs - 24 hr 10/29/24 13:30 10/29/24 13:45 10/29/24 14:00 Temperature Pulse Rate 67 71 61 Respiratory Rate 17 20 17 Blood Pressure Pulse Oximetry Oxygen Delivery 10/29/24 14:01 10/29/24 14:15 10/29/24 14:30 Temperature Pulse Rate 64 72 74 Respiratory Rate 17 17 19 Blood Pressure 110/61 Pulse Oximetry Oxygen Delivery 10/29/24 14:45 10/29/24 15:00 10/29/24 15:01 Temperature Pulse Rate 78 79 80 Respiratory Rate 19 18 17 Blood Pressure 115/82 Pulse Oximetry Oxygen Delivery 10/29/24 15:15 10/29/24 15:30 10/29/24 16:01 Temperature 36.4 C Pulse Rate 77 79 88 Respiratory Rate 16 18 217 H Blood Pressure 119/88 Pulse Oximetry 96 Oxygen Delivery 10/29/24 17:30 10/29/24 18:11 10/29/24 20:00 Temperature 36.6 C 36.2 C L 36.2 C L Pulse Rate 76 76 73 Respiratory Rate 19 20 20 Blood Pressure 132/79 119/84 124/82 Pulse Oximetry 98 100 100 Oxygen Delivery 10/29/24 20:00 10/29/24 20:15 10/29/24 22:00 Temperature Pulse Rate 82 76 Respiratory Rate Blood Pressure Pulse Oximetry Oxygen Delivery Room Air 10/30/24 00:00 10/30/24 00:00 10/30/24 00:05 Temperature 36.7 C Pulse Rate 87 88 Respiratory Rate 18 Blood Pressure 113/83 Pulse Oximetry 98 Oxygen Delivery Room Air 10/30/24 02:00 10/30/24 04:00 10/30/24 04:00 Temperature Pulse Rate 81 75 Respiratory Rate Blood Pressure Pulse Oximetry Oxygen Delivery Room Air 10/30/24 04:20 10/30/24 06:00 10/30/24 08:00 Temperature 36.7 C Pulse Rate 87 75 67 Respiratory Rate 16 Blood Pressure 106/63 Pulse Oximetry 98 Oxygen Delivery 10/30/24 08:08 10/30/24 08:45 10/30/24 09:00 Temperature 36.9 C Pulse Rate 70 82 Respiratory Rate 20 Blood Pressure 104/89 Pulse Oximetry 99 97 Oxygen Delivery Room Air 10/30/24 10:00 10/30/24 11:36 10/30/24 12:00 Temperature 37.0 C Pulse Rate 74 83 86 Respiratory Rate 20 Blood Pressure 110/84 Pulse Oximetry 99 Oxygen Delivery Exam 2 Const: General: comfortable and no acute distress Other: Able to lie flat HENMT: Face/Nose/Sinus: Normal nares present and no epistaxis Mouth: Yes moist mucous membranes Eyes: Sclera: sclerae normal Pupils: Equal, round and reactive pupils present Neck: Neck: supple and no JVD Carotids: no bruits Resp: Auscultation: clear to auscultation bilaterally and lung sounds not diminished Other: No chest wall tenderness Cardio: Rate: regular rate Rhythm: regular rhythm Heart sounds: no gallops, no murmurs and no rubs GI: GI Palp: Yes Soft to palpation and No Tenderness to palpation present (GI) Auscultation: normal bowel sounds Skin: General skin exam: normal color, rashes and/or lesions noted and no erythema Other: Warm Neuro: Cranial nerves: Yes Equal, round and reactive pupils present Speech: normal speech Other: No obvious focal deficit or facial asymmetry Extrem: General: no edema Other: Normal capillary refills Intact distal pulses. Results Labs and Meds 10/30/24 04:01 10/30/24 04:01 Lab results: Cardiac Enzymes 10/29/24 10/29/24 Range/Units 14:27 17:51 Troponin I < 0.012 < 0.012 (0.000-0.034) ng/mL CBC 10/30/24 Range/Units 04:01 WBC 4.9 (4.5-10.0) K/mm3 RBC 3.73 L (4.2-5.4) M/mm3 Hgb 11.3 L (12.0-15.0) g/dL Hct 33.9 L (37.0-47.0) % Plt Count 233 (150-375) k/mm3 Lymph # (Auto) 2.46 (0.9-3.2) K/mm3 [place] # (Auto) 0.4 (0.1-0.6) K/mm3 Eos # (Auto) 0.2 (0-0.3) K/mm3 Baso # (Auto) 0.0 (0.0-0.1) K/mm3 Comprehensive Metabolic Panel 10/30/24 Range/Units 04:01 Sodium 139 (137-145) mmol/L Potassium 3.8 (3.4-5.0) mmol/L Chloride 107 (98-107) mmol/L Carbon Dioxide 26 (22-30) mmol/L BUN 12 (7-17) mg/dL Creatinine 0.85 (0.7-1.0) mg/dL Glucose 104 (65-110) mg/dL Calcium 8.5 (8.4-10.2) mg/dL Intake and Output 10/29/24 10/30/24 10/30/24 23:59 07:59 15:59 Intake Total 1100 440 Balance 1100 440 Intake: Oral 1100 440
--- NOTE | 2024-10-30 14:40 | PM.DS ---
DS: Admitting Diagnosis Discharge Date 10/30/24 Admitting Diagnosis Multiple complaints. Chest pain DS: Discharge Diagnosis Discharge Diagnosis (1) Anginal equivalent: Code(s): I20.89 - Other forms of angina pectoris Status: Acute (2) Vertigo: Code(s): R42 - Dizziness and giddiness Status: Acute (3) Elevated LFTs: Code(s): R79.89 - Other specified abnormal findings of blood chemistry Status: Acute (4) Hypertension: Code(s): I10 - Essential (primary) hypertension Status: Chronic (5) Coronary artery disease: Code(s): I25.10 - Atherosclerotic heart disease of [place] coronary artery without angina pectoris Status: Acute (6) Dyslipidemia: Code(s): E78.5 - Hyperlipidemia, unspecified Status: Acute DS: Summary Hospital Course Hospital Course: patient with history of CAD presented with chest pain, patient was seen by the procurement buyer does not suspect ay ACS as patient cardiac enzymes are normal and there are no acute changing on her EKG. patient is clinically stable her symptoms have resolved, will discharge patient to follow up with her procurement buyer and primary care provider. Time Spent with Patient Time attestation: Total time spent providing and/or coordinating discharge services: Exam Narrative: Patient is comfortable, NAD HEENT: eyes are clear and none icteric LUNGS:CTA HEART: RR S1S2 ABD: BS+, Soft and nontender Lower extremities: no edema SKIN: nonjaundiced Neuro: grossly intact. DS: Data Data Completed and Pending Labs on day of discharge: Labs from last 24 hours 10/30/24 10/29/24 10/29/24 04:01 17:53 17:51 WBC 4.9 RBC 3.73 L Hgb 11.3 L Hct 33.9 L MCV 90.9 MCH 30.3 MCHC 33.3 RDW 11.8 Plt Count 233 MPV 11.1 H Immature Gran % (Auto) 0.0 Neut % (Auto) 37.0 L Lymph % (Auto) 50.0 H [place] % (Auto) 8.1 Eos % (Auto) 4.1 Baso % (Auto) 0.8 Lymph # (Auto) 2.46 [place] # (Auto) 0.4 Eos # (Auto) 0.2 Baso # (Auto) 0.0 Abs Immat Gran (auto) 0.00 Absolute Neuts (auto) 1.8 Absolute Nucleated RBC 0.000 Nucleated RBC % 0.0 Sodium 139 Potassium 3.8 Chloride 107 Carbon Dioxide 26 Anion Gap 6 BUN 12 Creatinine 0.85 Estim Creat Clear Calc 65 Estimated GFR > 60 Glucose 104 Calcium 8.5 Magnesium 2.0 Troponin I < 0.012 Influenza A (RT-PCR) Negative Influenza B (RT-PCR) Negative SARS-CoV-2 RNA (RT-PCR) Negative 10/29/24 14:27 WBC RBC Hgb Hct MCV MCH MCHC RDW Plt Count MPV Immature Gran % (Auto) Neut % (Auto) Lymph % (Auto) [place] % (Auto) Eos % (Auto) Baso % (Auto) Lymph # (Auto) [place] # (Auto) Eos # (Auto) Baso # (Auto) Abs Immat Gran (auto) Absolute Neuts (auto) Absolute Nucleated RBC Nucleated RBC % Sodium Potassium Chloride Carbon Dioxide Anion Gap BUN Creatinine Estim Creat Clear Calc Estimated GFR Glucose Calcium Magnesium Troponin I < 0.012 Influenza A (RT-PCR) Influenza B (RT-PCR) SARS-CoV-2 RNA (RT-PCR) Discharge Plan Discharge Attending physician on discharge: Mick Ray Consulting providers: Florian Craig; Gwen Grey; Miquel Prince; Lorne Lauren V. Discharging Clinician: Alfonzo Langston Patient Disposition: Home, Self-Care Activity: as tolerated Diet: heart healthy Discharge Instructions: patient to follow discharge care instruction from her procurement buyer and follow up with her cardiology as schedule, patient to follow up with her primary care provider as soon as possible, patient is instructed if any symptoms redevelop to go to nearest ER. Patient Instructions: Antibiotic Form, Nitroglycerin (By mouth), Fall Prevention (DC) Patient Language: Macedonian Stand Alone Forms: General Discharge Information Follow-up/Referrals: Florian Craig MD [Physician] - [facility],VICKY Marte [Primary Care Provider] - Discharge Medications: New nitroglycerin [Nitrostat] 0.4 mg Tablet, Sublingual 0.4 mg sublingual Q5MIN PRN (Reason: Chest Pain) Qty: 26 0RF Continued atorvastatin 80 mg tablet 80 mg PO DAILY ezetimibe 10 mg tablet 10 mg PO DAILY Brilinta 60 mg tablet 60 mg PO Q12H losartan 50 mg tablet 50 mg PO DAILY aspirin 81 mg Tablet,Delayed Release (Dr/Ec) 81 mg PO BID nitroglycerin 0.4 mg tablet, sublingual 0.4 mg sublingual PRN PRN (Reason: chest pain) Rx Instructions: do not exceed 3 doses per episode isosorbide mononitrate 30 mg Tablet Extended Release 24 Hr 15 mg PO QAM 30 Days Qty: 30 0RF metoprolol succinate 25 mg tablet extended release 24 hr 12.5 mg PO DAILY Qty: 30 0RF Date of admission: 10/29/24 13:44 Primary Care Provider: JossyRosanna Admitting Provider: Mick Ray Attending physician on admission: Alfonzo Langston Condition: Stable
== END 2024-10-30 13:50 | disposition home or self-care (01) ==
LOC: ANHED 13:51 → ANHIMU 10-30 13:14
PROVIDERS: Emergency Medicine; Physician Assistant; Admitting Provider Hospitalist; Emergency Provider Preventive Medicine Aerospace Medicine; PCP Nurse Practitioner Family; Visit Provider Family Medicine
DX: I25.118 Atherosclerotic heart disease of native coronary artery with other forms of angina pectoris (principal); R42 Dizziness and giddiness; I10 Essential (primary) hypertension; I25.2 Old myocardial infarction; R79.89 Other specified abnormal findings of blood chemistry; E78.5 Hyperlipidemia, unspecified; K21.9 Gastro-esophageal reflux disease without esophagitis; D50.9 Iron deficiency anemia, unspecified; F41.9 Anxiety disorder, unspecified; E66.9 Obesity, unspecified; Z68.27 Body mass index [BMI] 27.0-27.9, adult; Z20.822 Contact with and (suspected) exposure to COVID-19; Z86.16 Personal history of COVID-19; Z79.02 Long term (current) use of antithrombotics/antiplatelets; Z79.82 Long term (current) use of aspirin; Z79.899 Other long term (current) drug therapy; Z87.891 Personal history of nicotine dependence; Z95.5 Presence of coronary angioplasty implant and graft
CPT/HCPCS: 36415; 70450; 71046; 80048; 80053; 81001; 83735; 84484; 85025; 87086; 87636; 93005; 99285; A9270; G0378; G0379

== ENCOUNTER 2025-01-01 17:34 | Inpatient (IN) | payer MEDICARE, MEDICAID, SELFPAY ==
[2025-01-01] VITALS (22 sets, daily range): BP systolic 93–107; BP diastolic 68–78; PULSE 72–102; RESP 9–18; TEMP 36.8; O2SAT 96–100
--- NOTE | ~2025-01-01 | XR_ITS ---
XR chest 1V DATE: 01/01/2025 21:15 INDICATION: Chest pain, shortness of breath, syncope TECHNIQUE: AP chest COMPARISON: 10/29/2024 2 view chest FINDINGS: Normal heart size. No hilar or mediastinal enlargement. No pulmonary infiltrate or consolidation, pleural effusion or pulmonary vascular congestion or pneumo thorax. IMPRESSION: No active cardiopulmonary disease Reviewed, dictated and finalized at location A.
--- NOTE | ~2025-01-01 | CT_ITS ---
EXAMINATION: CT abdomen pelvis w con DATE: 01/01/2025 21:11 INDICATION: Gastrointestinal bleeding, bright red blood per rectum TECHNIQUE: Computed tomography (CT) of the abdomen and pelvis was performed with 100 CC Omnipaque 350 intravenous contrast. Automated exposure control and iterative reconstruction technique were employe d. Exam dose: 632.94 mGy-cm total exam DLP. COMPARISON: None. FINDINGS: The lung bases are clear. Heart size is within normal range. No pericardial or pleural effu mary. The liver, gallbladder, bile ducts, spleen, pancreas, pancreatic duct, and adrenal glands and kidneys are unremarkable. The uterus, adnexal areas and bladder appear unremarkable except for bilateral tubal ligation. Normal caliber of the abdominal aorta. No intraperitoneal or retroperitoneal or pelvic mass lesion or adenopathy or ascites. Normal appendix. No bowel obstruction. There is fluid containing distal ileum with occasional air-flu id levels but no dilatation of small or large bowel. No small bowel wall thickening is noted. The col on is relatively evacuated except for minimal stool content in the ascending colon. The evacuation of the colon may account for mild prominence of the colon wall, but colitis is not excluded. No pneumatosis or intraperitoneal free air. IMPRESSION: Fluid containing nondilated distal small bowel with occasional air-fluid levels and sugg estion of possible colon wall thickening which may indicate colitis; clinical correlation is advised No bowel obstruction or intraperitoneal free air Normal appendix Reviewed, dictated and finalized at Location A. Reviewed, dictated and finalized at location A. IMPRESSION: Fluid containing nondilated distal small bowel with occasional air -fluid levels and suggestion of possible colon wall thickening which may indica te colitis; clinical correlation is advised No bowel obstruction or intraperitoneal free air Normal appendix
--- NOTE | ~2025-01-01 | CT_ITS ---
EXAMINATION: CT facial & cervical spine wo DATE: 01/01/2025 21:10 INDICATION: Fall. Patient struck face. Epistaxis. TECHNIQUE: Computed tomography (CT) of the facial bones and maxillofacial region and cervical spine w as performed without intravenous contrast. Automated exposure control and iterative reconstruction te chnique were employed. Exam dose: 342.17 mGy-cm total exam DLP. COMPARISON: None. FINDINGS: The cardiothymic sutures, orbital to and rims, zygomatic arches, nasal bones, anterior n hayley spine, maxillary bones, pterygoid plates and mandible are intact, without fracture. There is no fluid level in the paranasal sinuses. There is mild reversal cervical curvature which may be due to muscle spasm or positioning. Normal alignment at the atlantoaxial joints. C1 and C2 are normally aligned and the odontoid process is intact. No fracture or dislocation or locked facet or prevertebral soft tissue swelling. There is moderate degenerative disc disease including anterior and posterior spurring at C3-4, C4-5, C5-6 and C6-7. Uncovertebral joint spurring is noted at C3-4, C4-5 and C5-6. No cervical mass lesion or lymphadenopathy. IMPRESSION: No facial fracture Moderate cervical spondylosis No fracture or dislocation or locked facet of the cervical spine Reviewed, dictated and finalized at [facility]. Reviewed, dictated and finalized at [facility].
--- NOTE | ~2025-01-01 | XR_ITS ---
[id number] DATE: 01/01/2025 21:15 INDICATION: Injury, pain TECHNIQUE: AP and crosstable lateral views COMPARISON: None FINDINGS: Mild superior pole patellar enthesopathy at quadriceps tendon insertion site. No fracture or dislocation or joint effusion. Joint spaces are well preserved. No radiopaque intra-ar ticular loose body or chondrocalcinosis. No periosteal reaction or bone destruction. IMPRESSION: No fracture or dislocation or joint effusion Reviewed, dictated and finalized at [facility]. Reviewed, dictated and finalized at [facility].
--- NOTE | ~2025-01-01 | CT_ITS ---
EXAMINATION: CT brain wo con DATE: 01/01/2025 21:10 INDICATION: Patient fell and struck head. Patient is on blood thinners. TECHNIQUE: Computed tomography (CT) of the head was performed without intravenous contrast. The mA wa s adjusted according to patient size. Iterative reconstruction technique was employed. Exam dose: 68 1.00 mGy-cm total exam DLP. COMPARISON: None FINDINGS: No intracranial mass lesion or hemorrhage or cerebrovascular accident, midline shift or mas s effect is detected. Normal ventricular size. No subdural or epidural hematoma. There is some ballooning of the sella turcica and apparent thinning of the wall, with fluid attenuati on in the sella turcica, suggesting empty sella. Leftward deviation of the nasal septum. Valentina bullosa of both middle nasal turbinates, especially pr ominent on the right, with soft tissue thickening on the left. There is an opacified right ethmoid air cell. The paranasal sinuses and mastoid air cells are otherwi se unremarkable. No fracture or bone destruction of the cranial vault. IMPRESSION: No skull fracture or acute intracranial finding Suspected empty sella Reviewed, dictated and finalized at [facility]. Reviewed, dictated and finalized at location [facility].
--- OUTSIDE RECORDS SUMMARY | 2025-01-01 17:36 | XMS_ITS | Referral Summary ---
Author Organization [facility] [address] [facility] [address] [place] [address] Care Team Providers Care Sandblaster Supervisor Name Role Phone Rosanna Fenton DECORATIVE GREENS CUTTER Primary Care Provider [phone] Encounters Date Type Department Care Team Description 12/14/2024 Telephone [facility] Internal Medicine at [place] [address] [place] [address] Rosanna Fenton, DECORATIVE GREENS CUTTER Medication Request 12/02/2024 Telephone [facility] Cardiology [address] [facility] [address] [place] [address] Jose Alejandro Cerrato MD 11/24/2024 Telephone [facility] Internal Medicine at [place] [address] [place] [address] Rosanna Fenton, DECORATIVE GREENS CUTTER Medication Request 11/14/2024 Telephone [facility] Family Medicine [address] [facility] [address] [place] [address] Rosanna Fenton, DECORATIVE GREENS CUTTER 11/11/2024 Nurse Triage [facility] Internal Medicine at [place] [address] [place] [address] Rosanna Fenton, DECORATIVE GREENS CUTTER 11/11/2024 Telephone [facility] Internal Medicine at [place] [address] [place] [address] Rosanna Fenton, DECORATIVE GREENS CUTTER 11/07/2024 Telephone [facility] Family Medicine [address] [facility] [address] [place] [address] Rosanna Fenton NP 11/04/2024 Orders Only [facility] Cardiology [address] [facility] [address], [place] [address] Florian Craig MD 10/29/2024 Orders Only [facility] Health Information Management [address] [place] [address] Rosanna Fenton NP 10/26/2024 Telephone [facility] Family Medicine [address] [place] [address] [address] [place] [address] Rosanna Fenton NP 10/25/2024 Telephone [facility] Internal Medicine at [address] [place] [address] Rosanna Fenton NP Medication Request 10/14/2024 10:26 AM TELEVISION AUDIO ENGINEER - 10/14/2024 11:59 PM TELEVISION AUDIO ENGINEER Hospital Encounter [address] [address] Hematuria, unspecified type Discharge Disposition: Discharge to home or self care 10/14/2024 Telephone [facility] Family Medicine [address] [place] [address] [address] [place] [address] Rosanna Fenton NP 10/14/2024 10:00 AM TELEVISION AUDIO ENGINEER Office Visit [facility] at [address] [address] Juana Escobar NP Hematuria, unspecified type (Primary Dx) 10/14/2024 Nurse Triage [facility] Internal Medicine at [address] [place] [address] Rosanna Fenton NP from Last 3 Months Allergies No known active allergies Medications aspirin 81 mg enteric coated tabletIndications: Coronary artery disease involving mohegan coronary artery of mohegan heart without angina pectoris Take 1 tablet (81 mg total) by mouth every morning 30 tablet 11 2 Active nitroglycerin (NITROSTAT) 0.[address] 1 tablet (0.4 mg total) under the tongue every 5 (five) minutes as needed 2 Active isosorbide mononitrate ER (IMDUR) 30 mg 24 hr tablet TAKE 1 TABLET BY MOUTH EVERY DAY 30 tablet 11 4 Active fluconazole (DIFLUCAN) 150 mg tabletIndications: History of lump of right breast Take 1 tablet (150 mg total) by mouth daily Take one tab now. Repeat in 7 days if symptoms persist. 2 tablet 4 Active ticagrelor (BRILINTA) 60 mg tablet Take 1 tablet (60 mg total) by mouth 2 (two) times a day 180 tablet 6 5 025 Active ezetimibe (ZETIA) 10 mg tablet Take 1 tablet (10 mg total) by mouth daily 90 tablet 5 026 Active losartan (COZAAR) 50 mg tabletIndications: Hypertension, essential Take 1 tablet (50 mg total) by mouth daily 90 tablet 5 Active metoprolol XL (TOPROL-XL) 25 mg extended release tabletIndications: Hypertension, essential Take 1 tablet (25 mg total) by mouth daily 90 tablet 5 Active semaglutide (OZEMPIC) 1 mg/dose (4 mg/3 mL) pen injector injection Inject 1 mg under the skin every 7 days 3 mL 1 5 Active atorvastatin (LIPITOR) 80 mg tabletIndications: Mixed hyperlipidemia Take 1 tablet (80 mg total) by mouth daily 90 tablet 3 5 Active atorvastatin (LIPITOR) 80 mg tabletIndications: Mixed hyperlipidemia Take 1 tablet (80 mg total) by mouth daily 90 tablet 3 4 025 Discontin ued(Reord er) semaglutide (OZEMPIC) 1 mg/dose (4 mg/3 mL) pen injector injection Inject 1 mg under the skin every 7 days 3 mL 1 5 025 Discontin ued(Reord er) metoprolol XL (TOPROL-XL) 25 mg extended release tabletIndications: Hypertension, essential Take 1 tablet (25 mg total) by mouth daily 90 tablet 5 025 Discontin ued(Reord er) Active Problems Problem Noted Date Diagnosed Date Type 2 diabetes mellitus with hyperlipidemia 09/2024 BMI 28.0-28.9,adult 09/15/2024 Cervical cancer screening 09/15/2024 History of lump of right breast 09/15/2024 Overview (09/15/2024): Take Keflex as directed as lump has been present for several years. Mammogram showed no evidence of malignancy Assessment & Plan (09/15/2024 11:43 AM TELEVISION AUDIO ENGINEER): This is a significant, separately identifiable problem that was evaluated and managed on the same day as the wellness exam ] Lump in lower outer quadrant of right breast 02/2024 Right sided sciatica 01/26/2024 Overview (01/26/2024): Baclofen up to 3 times daily with caution. Prednisone as directed. Notify the office without improvement of symptoms Anemia 07/02/2023 Assessment & Plan (07/02/2023 9:13 AM CDT): Review of labs show patient has been anemic since 2013. Most recent labs May 2022 with hemoglobin 10.7. -schedule EGD same day as colonoscopy -The risks (risks of bleeding, infection, perforation requiring surgery, missed polyps/cancer, dental injury, aspiration pneumonia, anesthesia complications such as drug reaction and cardiopulmonary complications including rare chance of ), benefits, and alternatives of the planned procedure were explained to the patient who understands and consents to having procedure done. terminal operator current use of anticoagulant 3 Assessment & Plan (07/02/2023 9:18 AM CDT): Coronary artery disease status post multiple stents on Brilinta. -will request cardiac clearance for EGD and colonoscopy and clearance to hold Brilinta 5 days prior to procedure -Discussed risks of holding anticoagulation including risks of blood clot, heart attack, stroke, and . -if patient is not cleared always considered high-risk, we will consider alternatives like CT colonography or barium enema Hypertension associated with diabetes 11/10/2022 Mixed hyperlipidemia 11/10/2022 Physical exam, annual 11/10/2022 Gastroesophageal reflux disease without esophagi tis 11/10/2022 Blood in stool 11/10/2022 Assessment & Plan (07/02/2023 9:12 AM CDT): Intermittent rectal bleeding for the past three months, bright red blood per rectum, occurs a few times a month. No prior colonoscopy. No family history of colon cancer. -schedule colonoscopy -The risks (risks of bleeding, infection, perforation requiring surgery, missed polyps/cancer, dental injury, aspiration pneumonia, anesthesia complications such as drug reaction and cardiopulmonary complications including rare chance of ), benefits, and alternatives of the planned procedure were explained to the patient who understands and consents to having procedure done. Coronary artery disease invo lving mohegan coronary artery of mohegan heart without angina pectoris 02/05/2022 Tobacco abuse, in remission 02/05/2022 Arthralgia of shoulder 02/27/2016 Resolved Problems Problem Noted Date Diagnosed Date Resolved Date BMI 27.0-27.9,adult 03/11/2023 09/15/20 24 Assessment & Plan (03/11/2023 1:27 PM CDT): Weight/BMI is in healthy range. Continue healthy lifestyle to maintain. BMI 28.0-28.9,adult 11/10/2022 03/11/20 23 Assessment & Plan (11/10/2022 10:24 AM TELEVISION AUDIO ENGINEER): Weight/BMI is in healthy range. Continue healthy lifestyle to maintain. Immunizations Immunization Administration Dates Next Due Influenza, Unspecified 09/22/2024(Deferr ed: Patient Refused),09/15/2024(Deferred: Patient Refused),06/16/2024(Deferred: Patient Refused),01/26/2024(Deferred: Patient Refused),10/12/2023(Deferred: Patient Refused),10/12/2023(Deferred: Patient Refused),10/12/2023(Deferred: Patient Refused),07/27/2023(Deferred: Patient Refused),11/12/2022(Deferred: Patient Refused),11/10/2022(Deferred: Patient Refused),11/12/2021(Deferred: Patient Refused) Social History Tobacco Use Types Packs/Day Years Used Date Smoking Tobacco: Former Cigarettes Q uit: 12/24/2021 Smokeless Tobacco: Never Tobacco Cessation:Counseling Given: Not Answered AUDIT-C Answer Date Recorded Q1: How often do you have a drink containing alcohol? Monthly or less 11/23/2023 Q2: How many drinks containi ng alcohol do you have on a typical day when you are drinking? Patient does not drink Q3: How often do you have si x or more drinks on one occasion? Never 11/23/2023 PHQ-2 Answer Date Recorded PHQ-2 Total Score (If total score is 3 or more points, staff should administer the PHQ-9) 0 09/22/2024 Personal Safety Answer Date Recorded Have you ever been in or are you currently in a harmful physical or emotional relationship or is someone making you feel afraid or unsafe? Denies 11/23/2023 Comments No Sex and Gender Information Value Date Recorded Sex Assigned at Not on file Legal Sex Female 8:05 AM TELEVISION AUDIO ENGINEER Gender Identity Not on file Sexual Orientation Not on file Occupation Industry Job Start Date Job End Date [employer] Not on file Not on file Not on jay e Last Filed Vital Signs Vital Sign Reading Time Taken Comments Blood Pressure 125/86 10/14/2024 10:11 AM TELEVISION AUDIO ENGINEER Pulse 78 10/14/2024 10:11 AM TELEVISION AUDIO ENGINEER Temperature 36.8 C (98.2 F) 10/14/2024 10:11 AM TELEVISION AUDIO ENGINEER Respiratory Rate 16 10/14/2024 10:11 AM TELEVISION AUDIO ENGINEER Oxygen Saturation 97% 10/14/2024 10:11 AM TELEVISION AUDIO ENGINEER Inhaled Oxygen Concentration - - Weight 76.9 kg (169 lb 8 oz) 10/14/2024 10:11 AM TELEVISION AUDIO ENGINEER Height 165.1 cm (5' 5 ) 10/14/2024 10:11 AM TELEVISION AUDIO ENGINEER Body Mass Index 28.21 10/14/2024 10:11 AM TELEVISION AUDIO ENGINEER Plan of Treatment Not on file Medical Devices Implanted Type Area Manager Art Device Identifier Shelf Expiration Date Model / Serial / Lot ColoWrap Flora Synergy Xd Monorail 3.5mm 12mm 144cm Delivery System 1 Access [id number] - [id number] Implanted:Qty: 1 on 06/06/2022 by Jose Alejandro Cerrato MD at [facility]Wrap [facility] 12/09/2023 [id number] / / [id number] [employer] Mynx Control 6-7fr 2 Mode Balloon Catheter Sealant Lock Syringe [id number] - [id number] Implanted:Qty: 1 on 06/06/2022 by Jose Alejandro Cerrato MD at [facility] [employer] 05/11/2023 [id number] / / [id number] Procedures Procedure Name Priority Date/Time Associated Diagnosis Comments CARDIOLOGY DOCUMENT SCAN Routine 10/30/2024 3:08 PM TELEVISION AUDIO ENGINEER SCAN - RADIOLOGY/IMAGING 10/29/2024 POCT URINALYSIS DIPSTICK Routine 10/14/2024 10:30 AM TELEVISION AUDIO ENGINEER Hematuria, unspecified type URINE CULTURE Routine 10/14/2024 10:26 AM TELEVISION AUDIO ENGINEER Hematuria, unspecified type POCT HEMOGLOBIN A1C Routine 09/22/2024 9 :50 AM TELEVISION AUDIO ENGINEER Type 2 diabetes mellitus with hyperlipidemia (HCC) COMPREHENSIVE METABOLIC PANEL Routine 09/15/2024 11:57 AM TELEVISION AUDIO ENGINEER Hypertension, essential LIPID PANEL Routine 09/15/2024 11:57 AM TELEVISION AUDIO ENGINEER Mixed hyperlipidemia PAP AND HPV, REFLEX TO HPV GENOTYPES Routine 09/15/2024 11:48 AM TELEVISION AUDIO ENGINEER Cervical cancer screening DIAGNOSTIC MAMMOGRAM BILATERAL W EDITH Schedule Routine, Read Routine (OP Routine) 08/19/2024 2:19 PM TELEVISION AUDIO ENGINEER Abnormal mammogram from Last 3 Months or Most Recently Relevant to Health Maintenance Results * Cardiology Document Scan (10/30/2024 3:08 PM TELEVISION AUDIO ENGINEER) Anatomical Region Laterality Modality Other Florian Craig MD CV CARDIAC SERVICES PROCEDU RES Final Result * SCAN - RADIOLOGY/IMAGING (10/29/2024) Anatomical Region Laterality Modality Other Rosanna Fenton NP Edited Result - Final * (ABNORMAL) POCT urinalysis dipstick (10/14/2024 10:30 AM TELEVISION AUDIO ENGINEER) Color, Urine, POC Red Clarity, ur, POC Cloudy(A) Clear Glucose, ur, POC Negative Negative MG/DL Bilirubin, ur, POC Large Negative, Small, Moderate, Large Ketones, ur, POC 15.(A) Negative Specific [place], POC 1.020 1.003 - 1.030 Blood, ur, POC Large(A) Negative pH, ur, POC 5.5 5.0 - 8.0 Protein, ur, POC 300.(A) Negative Urobilinogen, urine, POC 2.0(A) 0.2 - 1.0 mg/dL Nitrite, ur, POC Negative Negative Leukocytes, ur, POC Large(A) Negative Lot Number [id number] Urine 10/14/2024 10:3 0 AM TELEVISION AUDIO ENGINEER Juana Escobar NP POINT OF CARE TEST ORDERABLES F inal Result * Urine culture Urine, clean voided (10/14/2024 10:26 AM TELEVISION AUDIO ENGINEER) Report Final Report: Less than 100,000 colonies/mL (clinically insignificant growth based on current clinical standards) Comment:Testing performed by : [facility], [address] [place]., [address] Organism (CLINICALLY INSIGNIFICANT GROWTH ANNETTE YANES Urine, clean voided 10/14/2024 10:26 AM TELEVISION AUDIO ENGINEER 10/14/2024 6:14 PM TELEVISION AUDIO ENGINEER Narrative ANNETTE YANES - 10/15/2024 8:23 PM TELEVISION AUDIO ENGINEER Testing performed by [facility] Microbiology Laboratory ([phone]) Juana Escobar NP LAB MICROBIOLOGY - [facility] Final Result ANNETTE YANES [address] Department [place] [address] * (ABNORMAL) POCT hemoglobin A1c (09/22/2024 9:50 AM TELEVISION AUDIO ENGINEER) Hemoglobin A1C, POC 8.3 4.0 - 5.6 % BLD 09/22/2024 9:50 AM TELEVISION AUDIO ENGINEER Rosanna Fenton NP POINT OF CARE TEST ORDERABLES Final Result * (ABNORMAL) Lipid panel (09/15/2024 11:57 AM TELEVISION AUDIO ENGINEER) Pathologist [facility] Cholesterol 225(H) <200 mg/dL [facility] HDL 42(L) > OR = 50 mg/dL [facility] Triglycerides 312(H) <150 mg/dL [facility] Comment: If a non-fasting specimen was collected, consider repeat triglyceride testing on a fasting specimen if clinically indicated. Leonard et al. J. of Clin. Lipidol. 2015;9:129-169. LDL 138(H) mg/dL (calc) [facility] Comment: Reference range: <100 Desirable range <100 mg/dL for primary prevention; <70 mg/dL for patients with CHD or diabetic patients with > or = 2 CHD risk factors. LDL-C is now calculated using the Pipe-Wells calculation, which is a validated novel method providing better accuracy than the Friedewald equation in the estimation of LDL-C. Pipe SS et al. ZINA. 2013;310(19): 8873-2207 (http://education.BioAssets Development/faq/RWJ247) Chol/HDL ratio 5.4(H) <5.0 (calc) [facility] Non-HDL, (LDL+VLDL) 183(H) <130 mg/dL (calc) [facility] Comment: For patients with diabetes plus 1 major ASCVD risk factor, treating to a non-HDL-C goal of <100 mg/dL (LDL-C of <70 mg/dL) is considered a therapeutic option. Blood 09/15/2024 11:5 7 AM TELEVISION AUDIO ENGINEER 09/15/2024 11:59 AM TELEVISION AUDIO ENGINEER Narrative [facility] - 09/16/2024 1:09 AM TELEVISION AUDIO ENGINEER FASTING:NO AN UPDATE OR CORRECTION HAS BEEN MADE TO NAME FASTING: NO us Rosanna Fenton DECORATIVE GREENS CUTTER LAB BLOOD ORDERABLES Final Re sult TERRIE [facility] [address] [place] [address] * (ABNORMAL) Comprehensive metabolic panel (09/15/2024 11:57 AM TELEVISION AUDIO ENGINEER) Glucose 208(H) 65 - 139 mg/dL [facility] Comment: Non-fasting reference interval BUN 12 7 - 25 mg/dL [facility] Creatinine 0.95 0.50 - 1.03 mg/dL [facility] eGFR 72 > OR = 60 mL/min/1.7 3m2 [facility] BUN/creat ratio SEE NOTE: 6 - 22 (calc) [facility] Comment: Not Reported: BUN and Creatinine are within reference range. Sodium 137 135 - 146 mmol/L [facility] Potassium, pl 4.0 3.5 - 5.3 mmol/L [facility] Chloride 102 98 - 110 mmol/L [facility] CO2 26 20 - 32 mmol/L [facility] Calcium 9.4 8.6 - 10.4 mg/dL [facility] Protein, sr 7.1 6.1 - 8.1 g/dL [facility] Albumin 4.4 3.6 - 5.1 g/dL [facility] GLOBULIN 2.7 1.9 - 3.7 g/dL (calc) [facility] Alb/glob ratio 1.6 1.0 - 2.5 (calc) [facility] Bilirubin, total 0.5 0.2 - 1.2 mg/dL [facility] Alk phos 81 37 - 153 U/L [facility] AST 29 10 - 35 U/L [facility] ALT (SGPT) 39(H) 6 - 29 U/L [facility] Blood 09/15/2024 11:5 7 AM TELEVISION AUDIO ENGINEER 09/15/2024 11:59 AM TELEVISION AUDIO ENGINEER Narrative [facility] - 09/16/2024 1:09 AM TELEVISION AUDIO ENGINEER FASTING:NO AN UPDATE OR CORRECTION HAS BEEN MADE TO NAME FASTING: NO Rosanna Fenton DECORATIVE GREENS CUTTER LAB BLOOD ORDERABLES Final Re sult Performing Organization Address City/State/[facility] Co de Phone Number [facility] [address] [place] [phone] * Pap and HPV, reflex to HPV Genotypes (09/15/2024 11:48 AM TELEVISION AUDIO ENGINEER) CLINICAL INFORMATION: [facility] Comment:CX CANCER SCREENING LMP [facility] Comment:POST MEN Previous Pap [facility] Comment:NONE GIVEN Prev. Bx [facility] Comment:NONE GIVEN SOURCE: [facility] Comment:Cervix, Endocervix Pap, specimen adequacy [facility] Comment:SATISFACTORY FOR ADELE LUATION HPV interp [facility] Comment: Cytology Results: Negative for intraepithelial lesion or malignancy. COMMENTS [facility] Comment: This Pap test has been evaluated with computer assisted technology. [employer] Power Line Repaire[employer] [facility] Comment: KMS, CT(ASCP) CT Screening location: [place] [address] [address] [place] [address] Comment [facility] Comment: EXPLANATORY NOTE: The Pap is a screening test for cervical cancer. It is not a diagnostic test and is subject to false negative and false positive results. It is most reliable when a satisfactory sample, regularly obtained, is submitted with relevant clinical findings and history, and when the Pap result is evaluated along with historic and current clinical information. Human papillomavirus DNA, High Risk E6/E7 Not Detected NOT DETECTED [facility] Comment: Not Detected High Risk HPV types (16,18,31,33,35,39,45,51,52, 56,58,59,66,68) were not detected. Other HPV types which cause anogenital lesions may be present. The significance of the other types of HPV in malignant processes has not been established. Methodology: Real Time PCR Thin prep-Endocervica l 09/15/2024 11:48 AM TELEVISION AUDIO ENGINEER 09/17/2024 6:25 AM TELEVISION AUDIO ENGINEER Rosanna Fenton DECORATIVE GREENS CUTTER LAB CYTOLOGY ORDERABLES Final Result [facility] [address] [place] [address] [facility] [address] [place] [address] * DIAGNOSTIC MAMMOGRAM BILATERAL W EDITH (08/19/2024 2:19 PM TELEVISION AUDIO ENGINEER) Anatomical Region Laterality Modality Breast Bilateral Mammography 08/19/2024 3:04 PM TELEVISION AUDIO ENGINEER Narrative 08/19/2024 3:09 PM TELEVISION AUDIO ENGINEER EXAM DESCRIPTION: US BREAST RIGHT COMPLETE; DIAGNOSTIC MAMMOGRAM BILATERAL W EDITH REASON FOR STUDY: Palpable abnormality in the posterior depth marked with a BB on the right breast. No surgical hx. Maternal grandmother diagnosed with breast cancer. COMPARISON: August 22, 2015 MAMMOGRAM: TECHNIQUE: 2D and 3D tomosynthesis mammographic images were obtained. Computer aided detection was utilized. FINDINGS: DENSITY: There are scattered areas of fibroglandular density. There are no suspicious masses. There are no suspicious calcifications. There is no unexplained architectural distortion. ULTRASOUND: TECHNIQUE: Grayscale interrogation of the 8 o'clock posterior right breast/breasts was performed, and static images were acquired. Selected color doppler/spectral images saved to PACS. FINDINGS: No cystic or solid masses identified. IMPRESSION: No findings to suggest malignancy are seen. Negative or inconclusive breast imaging studies should not deter biopsy if there are clinically suspicious palpable abnormalities. The patient may continue screening as per ACR guidelines. BI-RADS 1 - Negative. THIS IS AN ELECTRONICALLY VERIFIED FINAL REPORT 08/19/2024 3:09 PM - Electronically signed by Latoya Milian M.D. LD: JACQUELINE Report ID: [id number] Reading Location: MAMME Rosanna Fenton NP IMG MAMMO PROCEDURES Final Re sult from Last 3 Months or Most Recently Relevant to Health Maintenance [place] [employer] [facility] Care Teams Sandblaster Supervisor Relationship Specialty Start Date End Date Rosanna Fenton NP [address] [facility] [address] [place] [address] PCP - General Internal Medicine 03/12/23
--- OUTSIDE RECORDS SUMMARY | 2025-01-01 17:36 | XMS_ITS | Encounter Summary ---
Author Organization [facility] Healthcare Address [address] [place] [address] Care Team Providers Care Dust Collector Attendant Name Role Phone Rosanna Fenton NP Primary Care Provider [phone] Reason for Visit * Reason Onset Date Comments Medication Request 10/25/2024 Encounter Details Date Type Department Care Team ([facility] st Contact Info) Description 10/25/2024 Telephone [facility] Medical Group Internal Medicine at [place] [address] [place] [address] Rosanna Fenton NP [address] [place] [address] Medication Request Social History Tobacco Use Types Packs/Day Years Used Date Smoking Tobacco: Former Cigarettes Q uit: 12/24/2021 Smokeless Tobacco: Never AUDIT-C Answer Date Recorded Q1: How often [...] on file Legal Sex Female 8:05 AM UNDERCOLLAR BASTER Gender Identity Not on file Sexual Orientation Not on file Occupation Industry Job Start Date Job End Date [employer] Not on file Not on file Not on jay e documented as of this encounter Miscellaneous Notes * Telephone Encounter - Susan Bashir LPN - 10/26/2024 11:39 AM UNDERCOLLAR BASTER Called patient to clarify. Pt stated she has been doing the Ozempic sample that was received in office. She did not diamond picker the Trulicity and did not recall the phone call regarding the change. Pt gets new insurance on 11/12/24 of Medicare as primary and medicaid as secondary. This nurse spoke to theprovider and received ok to give pt sample of Ozempic and have her take 0.5mg weekly. Will send Ozem pic again after the beginning of Nov to see if Medicare will cover it. PCP was ok with plan. Pt wasalso agreeable to plan. Pt will diamond picker sample this week. Informed pt to take new insurance card topharmacy as soon as she receives it. RCOLLAR BASTER * Telephone Encounter - Susan Bashir LPN - 10/26/2024 10:40 AM UNDERCOLLAR BASTER Called and LVM for pt to return call. Please transfer through to office. RCOLLAR BASTER * Telephone Encounter - Naomi Yepez - 10/25/2024 12:55 PM CST Medication Question/Clarification Medication Name(s): dulaglutide (TRULICITY) 0.75 mg/0.5 mL pen injector What is the question or clarification needed? Patient called in about her medication. [facility] informed that dulaglutide (TRULICITY) 0.75 mg/0.5 mL pen injector was sent to her pharmacy on 09/27. Per patient she did not pick this medication up and in talking with the REGISTERED DIETICIAN she was not even aware that this was a med she should be taking. Per patient when in office she was given samples of Ozempic medication and was under the impression that this is what wouldbe called in. Patient is now concerned with changing medications and wants to know how this may impact her and ifit is safe and best to do so. Patient prefers to remain on Ozempic and also noted that as of 11/12 she will have both medicare and also medicaid and should be able to have the Ozempic covered. If needed, Pharmacy(s) medication(s) should be sent to: [facility]/pharmacy #[id number] - [place], [place] Additional Comments: Please follow up with patient by phone to offer clarity and answer any questions. Does message need to be routed? Yes-Action Needed RCOLLAR BASTER documented in this encounter Plan of Treatment Not on file documented as of this encounter Visit Diagnoses Diagnosis Coronary artery disease involving [place] coronary artery of [place] heart without angina pectoris documented in this encounter Care Teams Dust Collector Attendant Relationship Specialty Start Date End Date Rosanna Fenton NP [address] [facility] [address] [place] [address] PCP - General Internal Medicine 03/12/23 documented as of this encounter
--- OUTSIDE RECORDS SUMMARY | 2025-01-01 17:36 | XMS_ITS | Clinical Summary ---
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 Gender Identity Not on file Sexual Orientation Not on file Plan of Treatment Health Maintenance Due Date Last Done Comments Cervical Cancer Screening Pa p Smear (Age 30 to 64) Every 3 Years 1971 Colorectal Cancer Screening Colonoscopy (10 Years) 1971 Annual Physical 1974 Hepatitis C 1989 DTaP, Tdap and Td Vaccines ( 1 - Tdap) 1990 Hepatitis B Vaccines (1 of 3 - 19+ 3-dose series) 1990 Cervical Cancer Screening Pa p with HPV Testing (Age 30 to 64) Every 5 Years 2001 Cervical Cancer Screening with HPV 2001 Mammogram Screening 2011 Zoster Vaccines (1 of 2) 2021 COVID-19 Vaccine ( - 2023-2 5 season) 2024 Influenza Adult (#1) 2024 Meningococcal B Vaccine Aged Out No l onger eligible based on patient's age to complete this topic Meningococcal Vaccine Aged Out No jessy anastasia eligible based on patient's age to complete this topic Pneumococcal Vaccine: Pediat rics (0 to 5 Years) and At-Risk Patients (6 to 64 Years) Aged Out No longer eligible b ased on patient's age to complete this topic RSV Immunizations Under 20 Months Aged Out No longer eligible based on patient's age to complete this topic Insurance [facility]
--- OUTSIDE RECORDS SUMMARY | 2025-01-01 17:36 | XMS_ITS | Clinical Summary ---
Author Organization [facility] [address] Address [address] [place] [address] Care Team Providers Care Director Global Sales Name Role Phone Rosanna Fenton NP Primary Care Provider [phone] Allergies No known active allergies Medications aspirin 81 mg enteric coated tabletIndications: Coronary artery disease involving [place] coronary artery of [place] heart without angina pectoris Take 1 tablet [...] malignancy Assessment & Plan (09/15/2024 11:43 AM POULTRY HUSBANDMAN): This is a significant, separately identifiable problem [...] understands and consents to having procedure done. intermediate current use of anticoagulant Assessment & Plan (07/02/2023 9:18 AM CDT): [...] procedure done. Coronary artery disease invo lving manzanita coronary artery of [place]zanita heart without angina pectoris 02/05/2022 Tobacco abuse, in remission 02/05/2022 Arthralgia of shoulder 02/27/2016 Resolved Problems Problem Noted Date Diagnosed Date Resolved Date BMI 27.0-27.9,adult 03/11/2023 09/15/20 24 Assessment & Plan (03/11/2023 1:27 PM CDT): Weight/BMI is in healthy range. Continue healthy lifestyle to maintain. BMI 28.0-28.9,adult 11/10/2022 03/11/20 23 Assessment & Plan (11/10/2022 10:24 AM POULTRY HUSBANDMAN): Weight/BMI is in healthy range. Continue healthy lifestyle to maintain. Encounters Date Type Department Care Team Description 12/14/2024 Telephone [facility] Medical Group Internal Medicine at [place] [address] [place] [address] [address] [place] [phone] Rosanna Fenton, REFRIGERATION SPECIALIST Medication Request 12/02/2024 Telephone [facility] Cardiology [address] [facility] [address] [place] [phone] Jose Alejandro Cerrato MD 11/24/2024 Telephone [facility] Internal Medicine at [place] [address] [address] [place] [phone] Rosanna Fenton, REFRIGERATION SPECIALIST Medication Request 11/14/2024 Telephone [facility] Family Medicine [address] [address] [place] [phone] Rosanna Fenton, REFRIGERATION SPECIALIST 11/11/2024 Nurse Triage [facility] Medical [facility] Internal Medicine at [place] [address] [place] [address] Rd [address] [place] [address] Rosanna Fenton, REFRIGERATION SPECIALIST 11/11/2024 Telephone [facility] Internal Medicine at [place] [address] [facility] [address] [place] [address] Rosanna Fenton, REFRIGERATION SPECIALIST 11/07/2024 Telephone [facility] Family Medicine [address] [place] [address] [address] [place] [address] Rosanna Fenton, REFRIGERATION SPECIALIST 11/04/2024 Orders Only [facility] Cardiology [address] [facility] [address] [place] [phone] Florian Craig MD 10/29/2024 Orders Only [facility] [address] [place] [address] Rosanna Fenton NP 10/26/2024 Telephone [facility] Family Medicine [address] [place] [address] [address] [place] [phone] Rosanna Fenton NP 10/25/2024 Telephone [facility] Internal Medicine at [address] [place] [address] Rosanna Fenton NP Medication Request 10/14/2024 10:26 AM POULTRY HUSBANDMAN - 10/14/2024 11:59 PM POULTRY HUSBANDMAN Hospital Encounter [address] [address] Hematuria, unspecified type Discharge Disposition: Discharge to home or self care 10/14/2024 10:00 AM POULTRY HUSBANDMAN Office Visit [facility] Care at [address] [phone] Juana Escobar NP Hematuria, unspecified type (Primary Dx) 10/14/2024 Telephone [facility] Family Medicine [address] [place] [address] [address] [place] [address] Rosanna Fenton NP 10/14/2024 Nurse Triage [facility] Internal Medicine at [address] [place] [phone] Rosanna Fenton NP from Last 3 Months Immunizations Immunization Administration Dates Next Due Influenza, Unspecified 09/22/2024(Deferr ed: Patient Refused),09/15/2024(Deferred: Patient Refused),06/16/2024(Deferred: Patient Refused),01/26/2024(Deferred: Patient Refused),10/12/2023(Deferred: Patient Refused),10/12/2023(Deferred: Patient Refused),10/12/2023(Deferred: Patient Refused),07/27/2023(Deferred: Patient Refused),11/12/2022(Deferred: Patient Refused),11/10/2022(Deferred: Patient Refused),11/12/2021(Deferred: Patient Refused) Surgical History Surgery Date Site/Laterality Comments SECTION TUBAL LIGATION CARDIAC STENT PLACEMENT 06/06/2022 CARDIAC STENT PLACEMENT 01/06/2022 Mid RCA, Prox RCA, Circ, Pcx, dist RCA, Medical History Medical History Date Comments Chest pain STEMI (ST elevation myocardial infarction) ([facility]) Tobacco abuse CAD (coronary artery disease) Heart murmur Hypertension [place] (myocardial infarction) ([facility]) Family History Medical History Relation Name Comments No Known Problems Father Hypertension Mother Relation Name Status Comments Father Mother Social History Tobacco Use Types Packs/Day Years [...] on file Legal Sex Female 8:05 AM POULTRY HUSBANDMAN Gender Identity Not on file Sexual Orientation Not on file Occupation Industry Job Start Date Job End Date [employer] Not on file Not on file Not on jay e Obstetrics History Para Term AB IAB SAB Ectopic Multiple Livin g Live Births 3 3 3 Date Outcome GA Total Labor Labor/2nd/3rd Weight Sex Type Anes PTL Tiarra A1 A5 Name Clin Term Term Term Last Filed Vital Signs Vital Sign Reading Time Taken Comments Blood Pressure 125/86 10/14/2024 10:11 AM POULTRY HUSBANDMAN Pulse 78 10/14/2024 10:11 AM POULTRY HUSBANDMAN Temperature 36.8 C (98.2 F) 10/14/2024 10:11 AM POULTRY HUSBANDMAN Respiratory Rate 16 10/14/2024 10:11 AM POULTRY HUSBANDMAN Oxygen Saturation 97% 10/14/2024 10:11 AM POULTRY HUSBANDMAN Inhaled Oxygen Concentration - - Weight 76.9 kg (169 lb 8 oz) 10/14/2024 10:11 AM POULTRY HUSBANDMAN Height 165.1 cm (5' 5 ) 10/14/2024 10:11 AM POULTRY HUSBANDMAN Body Mass Index 28.21 10/14/2024 10:11 AM POULTRY HUSBANDMAN Plan of Treatment Health Maintenance Due Date Last Done Comments Albumin Creatinine Ratio, Urine 1971 Hepatitis C Screening 1971 Dilated Eye Exam 1971 Foot Exam 1971 DTaP/Tdap/Td Vaccine (1 - Tdap) 1982 Hepatitis B Screening 1989 Pneumococcal vaccine <65 (1 of 2 - PCV) 1990 Zoster Vaccine (1 of 2) 2021 Covid-19 Vaccine (2 - season) 2024 11/05/2021 Hemoglobin A1C 03/23/2025 09/22/2024 Influenza Vaccine (#1) 2025 Postp oned from 06/12/2024 (Patient declined, but will receive in the future) Breast Cancer Screening-Mammogram 08/19/2025 08/19/2024 Cervical Cancer Screening 09/15/2025 09/15/2024 Lipid Panel 09/15/2025 09/15/2024, 05/13, 04/15/2023, Additional history exists Regular Well Visit/Exam 18-64 09/15/2025 09/15/2024, 06/16/2024, 03/11/2023 eGFR 09/15/2025 09/15/2024, 06/03/2022 Depression Screening 09/22/2025 09/22/2024, 09/15/2024, 06/16/2024, Additional history exists Colon Cancer Screening-DNA Stool 06/04/2027 06/04/2024 Medical Devices Implanted Type Area Wood Cut Engraver Device Identifier Shelf Expiration Date Model / Serial / Lot [employer] Flora Synergy Xd Monorail 3.5mm 12mm 144cm Delivery System 1 Access [id number] - [id number] Implanted:Qty: 1 on 06/06/2022 by Jose Alejandro Cerrato MD at [facility] [employer] [facility] 12/09/2023 [id number] / / [id number] [employer] Mynx Control 6-7fr 2 Mode Balloon Catheter Sealant Lock Syringe [id number] - [id number] Implanted:Qty: 1 on 06/06/2022 by Jose Alejandro Cerrato MD at [facility] [employer] 05/11/2023 [id number] / / [id number] Procedures Procedure Name Priority Date/Time Associated Diagnosis Comments CARDIOLOGY DOCUMENT SCAN Routine 10/30/2024 3:08 PM POULTRY HUSBANDMAN SCAN - RADIOLOGY/IMAGING 10/29/2024 POCT URINALYSIS DIPSTICK Routine 10/14/2024 10:30 AM POULTRY HUSBANDMAN Hematuria, unspecified type URINE CULTURE Routine 10/14/2024 10:26 AM POULTRY HUSBANDMAN Hematuria, unspecified type POCT HEMOGLOBIN A1C Routine 09/22/2024 9 :50 AM POULTRY HUSBANDMAN Type 2 diabetes mellitus with hyperlipidemia (HCC) COMPREHENSIVE METABOLIC PANEL Routine 09/15/2024 11:57 AM POULTRY HUSBANDMAN Hypertension, essential LIPID PANEL Routine 09/15/2024 11:57 AM POULTRY HUSBANDMAN Mixed hyperlipidemia PAP AND HPV, REFLEX TO HPV GENOTYPES Routine 09/15/2024 11:48 AM POULTRY HUSBANDMAN Cervical cancer screening DIAGNOSTIC MAMMOGRAM BILATERAL W EDITH Schedule Routine, Read Routine (OP Routine) 08/19/2024 2:19 PM POULTRY HUSBANDMAN Abnormal mammogram from Last 3 Months or Most Recently Relevant to Health Maintenance Results * Cardiology Document Scan (10/30/2024 3:08 PM POULTRY HUSBANDMAN) Anatomical Region Laterality Modality Other us Florian Craig MD CV CARDIAC SERVICES PROCEDU RES Final Result * SCAN - RADIOLOGY/IMAGING (10/29/2024) Anatomical Region Laterality Modality Other us Rosanna Fenton NP Edited Result - Final * (ABNORMAL) POCT urinalysis dipstick (10/14/2024 10:30 AM POULTRY HUSBANDMAN) [facility] Color, Urine, POC Red Clarity, ur, POC Cloudy(A) Clear Glucose, ur, POC Negative Negative MG/DL Bilirubin, ur, POC Large Negative, Small, Moderate, Large Ketones, ur, POC 15.(A) Negative Specific [place], POC 1.020 1.003 - 1.030 Blood, ur, POC Large(A) Negative pH, ur, POC 5.5 5.0 - 8.0 Protein, ur, POC 300.(A) Negative Urobilinogen, urine, POC 2.0(A) 0.2 - 1.0 mg/dL Nitrite, ur, POC Negative Negative Leukocytes, ur, POC Large(A) Negative Lot Number [id number] Urine 10/14/2024 10:3 0 AM POULTRY HUSBANDMAN Juana Escobar NP POINT OF CARE TEST ORDERABLES F inal Result * Urine culture Urine, clean voided (10/14/2024 10:26 AM POULTRY HUSBANDMAN) [facility] Report Final Report: Less than 100,000 colonies/mL (clinically insignificant growth based on current clinical standards) Comment:Testing performed by : [facility], [address] [facility] [place]., [address] Organism (CLINICALLY INSIGNIFICANT GROWTH ANNETTE Urine, clean voided 10/14/2024 10:26 AM POULTRY HUSBANDMAN 10/14/2024 6:14 PM POULTRY HUSBANDMAN Narrative ANNETTE - 10/15/2024 8:23 PM POULTRY HUSBANDMAN Testing performed by [facility] Microbiology Laboratory ([phone]) Juana Escobar NP LAB MICROBIOLOGY - GENERAL ORDE [facility] Final Result ANNETTE YANES [address] Department [place] [address] * (ABNORMAL) POCT hemoglobin A1c (09/22/2024 9:50 AM POULTRY HUSBANDMAN) [facility] Hemoglobin A1C, POC 8.3 4.0 - 5.6 % BLD 09/22/2024 9:50 AM POULTRY HUSBANDMAN us Rosanna Fenton NP POINT OF CARE TEST ORDERABLES Final Result * (ABNORMAL) Lipid panel (09/15/2024 11:57 AM POULTRY HUSBANDMAN) Pathologist [facility] Cholesterol 225(H) <200 mg/dL [facility] HDL 42(L) > OR = 50 mg/dL [facility] Triglycerides 312(H) <150 mg/dL [facility] Comment: If a non-fasting specimen was collected, consider repeat triglyceride testing on a fasting specimen if clinically indicated. Leonard et al. J. of Clin. Lipidol. 2015;9:129-169. LDL 138(H) mg/dL (calc) [facility] Comment: Reference range: <100 Desirable range <100 mg/dL for primary prevention; <70 mg/dL for patients with CHD or diabetic patients with > or = 2 CHD risk factors. LDL-C is now calculated using the Pipe-Wells calculation, which is a validated novel method providing better accuracy than the Friedewald equation in the estimation of LDL-C. Pipe SS et al. ZINA. 2013;310(19): 1094-7702 (http://education.Rostima/faq/RDP621) Chol/HDL ratio 5.4(H) <5.0 (calc) [facility] Jason Non-HDL, (LDL+VLDL) 183(H) <130 mg/dL (calc) [facility] Comment: For patients with diabetes plus 1 major ASCVD risk factor, treating to a non-HDL-C goal of <100 mg/dL (LDL-C of <70 mg/dL) is considered a therapeutic option. Blood 09/15/2024 11:5 7 AM POULTRY HUSBANDMAN 09/15/2024 11:59 AM POULTRY HUSBANDMAN Narrative [facility] - 09/16/2024 1:09 AM POULTRY HUSBANDMAN FASTING:NO AN UPDATE OR CORRECTION HAS BEEN MADE TO NAME FASTING: NO us Rosanna M. Faires REFRIGERATION SPECIALIST LAB BLOOD ORDERABLES Final Re sult [facility] [address] [place] [address] * (ABNORMAL) Comprehensive metabolic panel (09/15/2024 11:57 AM POULTRY HUSBANDMAN) Glucose 208(H) 65 - 139 mg/dL [facility] Comment: Non-fasting reference interval BUN 12 7 - 25 mg/dL [facility] Creatinine 0.95 0.50 - 1.03 mg/dL [facility] eGFR 72 > OR = 60 mL/min/1.7 3m2 [facility] BUN/creat ratio SEE NOTE: 6 - 22 (calc) [facility] Comment: Not Reported: BUN and Creatinine are within reference range. Sodium 137 135 - 146 mmol/L [facility] Potassium, pl 4.0 3.5 - 5.3 mmol/L [facility] Chloride 102 98 - 110 mmol/L [facility] CO2 26 20 - 32 mmol/L [facility] Calcium 9.4 8.6 - 10.4 mg/dL [facility] Protein, sr 7.1 6.1 - 8.1 g/dL [facility] Eren Albumin 4.4 3.6 - 5.1 g/dL [facility] GLOBULIN 2.7 1.9 - 3.7 g/dL (calc) [facility] Alb/glob ratio 1.6 1.0 - 2.5 (calc) [facility] Bilirubin, total 0.5 0.2 - 1.2 mg/dL [facility] Alk phos 81 37 - 153 U/L [facility] AST 29 10 - 35 U/L [facility] ALT (SGPT) 39(H) 6 - 29 U/L [facility] Eren Blood 09/15/2024 11:5 7 AM POULTRY HUSBANDMAN 09/15/2024 11:59 AM POULTRY HUSBANDMAN Narrative [facility] - 09/16/2024 1:09 AM POULTRY HUSBANDMAN FASTING:NO AN UPDATE OR CORRECTION HAS BEEN MADE TO NAME FASTING: NO Rosanna Fenton REFRIGERATION SPECIALIST LAB BLOOD ORDERABLES Final Re sult Performing Organization Address City/[facility]/ZIP Co de Phone Number [place] [address] [address] [place] [phone] * Pap and HPV, reflex to HPV Genotypes (09/15/2024 11:48 AM POULTRY HUSBANDMAN) CLINICAL INFORMATION: [facility] Comment:CX CANCER SCREENING LMP [facility] Comment:POST MEN Previous Pap [facility] Comment:NONE GIVEN Prev. Bx [facility] Comment:NONE GIVEN SOURCE: [facility] Comment:Cervix, Endocervix Pap, specimen adequacy [facility] Comment:SATISFACTORY FOR ADELE LUATION HPV interp [facility] Comment: Cytology Results: Negative for intraepithelial lesion or malignancy. COMMENTS [facility] Comment: This Pap test has been evaluated with computer assisted technology. Mash Filter Operator [facility] Comment: KMS, CT(ASCP) CT Screening location: [place] [address] [address] [place] [address] Comment [facility] Comment: EXPLANATORY NOTE: The Pap is [...] High Risk E6/E7 Not Detected NOT DETECTED [facility] Comment: Not Detected High Risk HPV types (16,18,31,33,35,39,45,51,52, 56,58,59,66,68) were not detected. Other HPV types which cause anogenital lesions may be present. The significance of the other types of HPV in malignant processes has not been established. Methodology: Real Time PCR Thin prep-Endocervica l 09/15/2024 11:48 AM POULTRY HUSBANDMAN 09/17/2024 6:25 AM POULTRY HUSBANDMAN Rosanna Fenton REFRIGERATION SPECIALIST LAB CYTOLOGY ORDERABLES Final Result Performing Organization Address City/[facility]/ZIP Co de Phone Number [facility] [address] [place] [address] [facility] [address] [facility] [place] [address] * DIAGNOSTIC MAMMOGRAM BILATERAL W EDITH (08/19/2024 2:19 PM POULTRY HUSBANDMAN) Anatomical Region Laterality Modality Breast Bilateral Mammography 08/19/2024 3:04 PM POULTRY HUSBANDMAN Narrative 08/19/2024 3:09 PM POULTRY HUSBANDMAN EXAM DESCRIPTION: US BREAST RIGHT COMPLETE; DIAGNOSTIC [...] Latoya Milian M.D. LD: JACQUELINE Report ID: [id number] Reading Location: MAMME us Rosanna Fenton NP IMG MAMMO PROCEDURES Final Re sult from Last 3 Months or Most Recently Relevant to Health Maintenance Insurance AETNA [facility] AETNA [facility]ETNA [facility]ETNA [facility]ETNA [facility] Care Teams Director Global Sales Relationship Specialty Start Date End Date Rosanna Fenton, VICKY [address] [place] [address] PCP - General Internal Medicine 03/12/23
[2025-01-01 17:56] LABS: Basophils Percent Auto 0.6 % (0.2-1.2); Eosinophils Absolute Auto 0.1 K/mm3 (0-0.3); Eosinophils Percent Auto 0.7 % (0-4.4); Hematocrit 37.1 % (37.0-47.0); Hemoglobin 12.6 g/dL (12.0-15.0); Immature Granulocyte Absolute 0.02 K/mm3 (0.00-0.031); Immature Granulocyte Percent A 0.3 % (0-0.5); Lymphocytes Absolute Auto 1.59 K/mm3 (0.9-3.2); Lymphocytes Percent Auto 22.7 % (18.3-44.2); Mean Corpuscular Hemoglobin 30.6 pg (26-34); Monocytes Absolute Auto 0.3 K/mm3 (0.1-0.6); Monocytes Percent Auto 4.7 % (2.6-8.5); Platelet Count Result 255 k/mm3 (150-375); Red Blood Count 4.12 M/mm3 (4.2-5.4); Red Cell Distribution Width 11.5 % (11.5-14.5)
[2025-01-01 18:05] LABS: Alanine Aminotransferase 53 U/L (6-35); Alkaline Phosphatase 81 U/L (38-126); Anion Gap 13 mmol/L (4-12); Aspartate Amino Transferase 40 U/L (14-36); Blood Urea Nitrogen 11 mg/dL (7-17); Calcium 9.9 mg/dL (8.4-10.2); Carbon Dioxide 27 mmol/L (22-30); Chloride 102 mmol/L (98-107); Estimated Glomerular Filt Rate 59; Glucose 126 mg/dL (65-110); Sodium 142 mmol/L (137-145)
[2025-01-01 18:07] LABS: Prothrombin Time 13.3 Seconds (11.1-14.7)
[2025-01-01 18:08] LABS: Partial Thromboplastin Time 25.7 Seconds (22.3-36.8)
--- NOTE | 2025-01-01 18:36 | PC.NURSE ---
Received a call from blood bank that they were rejecting the type and screen. Lucy in triage notified of need for redraw.
--- NOTE | 2025-01-01 19:58 | ECG_ITS ---
Test Date: 2025-01-01 20:09:10 Measurements Intervals [place] Rate: 81 P: 50 AL: 149 QRS: 43 QRSD: 85 T: -15 QT: 344 QTc: 401 Interpretive Statements SINUS RHYTHM MODERATE T-WAVE ABNORMALITY, CONSIDER INFERIOR ISCHEMIA [-0.1+ mV T-WAVE IN II/aVF] Compared to ECG 10/29/2024 17:52:22 Possible ischemia now present T-wave abnormality still present Electronically Signed On 01-02-2025 16:38:48 CDT by Dale Rodriguez M.D.
--- NOTE | 2025-01-01 20:26 | ED.GIBLEED ---
HPI - GI Bleed General Chief complaint: GI Bleed Stated complaint: bloody stools, passed out today Time Seen by Provider: 01/01/25 20:25 Source: patient Mode of arrival: ambulatory Limitations: no limitations History of Present Illness HPI Narrative: Patient presents with what started as an episode of hematochezia followed by 5 episodes of bright red blood per rectum. While on the toilet having one of these episodes, she had a syncopal episode, losing muscle tone and consciousness and falling forward, striking her face/head and presumably her left knee. Patient has some pain along right side of nose and facial pain at upper lip. States she initially had epistaxis. ALso having left pain along medial aspect of joint. She takes Brilinta BID with her last dose this morning; on this medication for an extensive cardiac history for which she has 5 cardiac stents. Feeling nauseated. No prior colonoscopy. Prior abdominal surgery C section but denies any other abdominal surgeries. Abdominal pain starts as epigastric and radiates into her low abdomen, particularly the rlq which she describes as a squeezing sensation. On Ozempic. No history GIB. She was having chest pain radiating into left arm and shoulder blade. Described as a heaviness. Also shortness of breath. Cardiac risk factors HTN: + (on meds) HLD: + DM: 0 Obese: Smoker: 0 (quit 3 years ago) Personal history FL/TIA/CVA: Yes - 5 stents Fam Hx FL in first degree relative <65yo: 0 Related Data Home Medications ?Medication ?Instructions ?Recorded ?Confirmed ?Last Taken ?Type nitroglycerin 0.4 mg sublingual 0.4 mg sublingual PRN PRN chest 08/21/22 01/02/25 08/21/22 History tablet pain aspirin 81 mg tablet,delayed 81 mg PO BID 10/29/24 01/02/25 01/01/25 History release atorvastatin 80 mg tablet 80 mg PO DAILY 10/29/24 01/02/25 01/01/25 History ezetimibe 10 mg tablet 10 mg PO DAILY 10/29/24 01/02/25 01/01/25 History losartan 50 mg tablet 50 mg PO DAILY 10/29/24 01/02/25 01/01/25 History ticagrelor 60 mg tablet (Brilinta) 60 mg PO Q12H 10/29/24 01/02/25 12/31/24 19:30 History semaglutide 1 mg/dose (4 mg/3 mL) 1 mg subcut WEEKLY 01/02/25 01/02/25 12/29/24 History subcutaneous pen injector (Ozempic) Allergies Allergy/AdvReac Type Severity Reaction Status Date / Time No Known Allergies Allergy Unknown Verified 01/01/25 17:35 PMFSH Past Medical History Medical History Gastroesophageal reflux disease Iron deficiency anemia Hypertension Dyslipidemia Acute ST elevation myocardial infarction (STEMI) of posterior wall (01/06/22) Unstable angina Coronary artery disease Tobacco abuse patient quit smoking in December 2021 after her FL Surgical History Surgical History History of coronary artery stent placement (12/2021) multivessel coronary disease status post difficult complex multivessel PCI and stent x 6 History of cardiac catheterization History of section Family History Family History Grandparent Cancer Hypertension Social History Social History (Updated 10/29/24 @ 21:56 by Gwen Grey PA-C) Social History: Surrogate decision maker: Angel Echevarria (son) and Jair Carrasco. Code status: Full code. Smoking packs per day: 1 Smoking cigarettes per day: 20.0 Years smoked: 33 Smoking pack-years: 33.00 Smoking status: Former smoker Alcohol intake: never Drinks per week: 1 Substance use: never Substance use type: marijuana Do You Feel Safe in your Home?: Yes Lack of Transportation: No Lack of Food: Never True Current Housing: I Have Housing Concerned About Future Housing: No Difficulty Paying Gas/Electric Bills: No Difficulty Paying for Meds: No Currently Unemployed: No Education: Decline to Answer Difficulty w/ Childcare or Family Care: No Spiritual care concerns: No Exam Const: General: healthy appearing, no acute distress and alert; No diaphoretic or ill appearing Nutritional Appearance: well nourished Orientation/consciousness: patient oriented x3 Limitations: no limitations HENMT: Head: normal to inspection, no hematomas and no lacerations Face/Nose/Sinus: Normal nares present (mild hyperemeia but without evidence of epistaxis) and no nasal discharge noted Face and sinus: normal facial exam Other: gross auditory acuity intact. No septal hematoma; mild upper lip swelling Eyes: Direct Ophthalmoscopy: no photophobia Other: no conjunctival injection or scleral icterus Neck: Neck: no meningeal signs Resp: Effort & Inspection: normal respiratory effort, not labored, no retractions, not tachypneic and no use of accessory muscles Cardio: Rate: regular rate Rhythm: regular rhythm GI: Inspection: non-distended GI Palp: Yes Soft to palpation, No Tenderness to palpation present (GI), No Guarding due to palpation present (GI) and No Rigid due to palpation Rectal Exam: normal sphincter tone and No fecal impaction Other: no grossly bloody stool on gloved lubricated finger; no masses in rectal vault; FOBT/guiaic negative on bedside assay Skin: General skin exam: normal color, no jaundice and no pallor Rashes: no rashes Neuro: General: patient oriented x3, moves all extremities, no meningeal signs and no focal motor deficits Speech: normal speech Extrem: General: normal to inspection and no pedal edema Other: Mild swelling but no radha effusion. TTP along left knee medial joint line. ROM still intact. No overlying cyanosis/erythema/induration. Skin intact without laceration/abrasion. Psych: Mental Status: mental status grossly normal Affect: normal affect, No Sad affect present and No Anxious affect present Attitude: cooperative Course Vital Signs Vital signs: Vital Signs Temperature 98.3 F 01/01/25 17:41 Pulse Rate 88 01/01/25 17:41 Respiratory Rate 16 01/01/25 17:41 Blood Pressure 107/77 01/01/25 17:41 Pulse Oximetry 100 01/01/25 17:41 Temperature 98.5 F 01/02/25 12:00 Pulse Rate 84 01/02/25 14:00 Respiratory Rate 18 01/02/25 12:00 Blood Pressure 105/52 L 01/02/25 12:00 Pulse Oximetry 100 01/02/25 15:18 Oxygen Delivery Room Air 01/02/25 15:18 MDM - GI Bleed MDM Narrative Medical decision making narrative: The patient is a 54 year old who comes to the emergency department with rectal bleeding that started today. They noted an episode of hematochezia followed by 5 episodes of bright red blood in the toilet. Some associated abdominal pain. In the ED they are initially afebrile and hemodynamically stable without tachycardia or hypotension. Based on history and physical, suspect lower GI bleed so will go ahead and order CBC, CMP, coagulation studies, lactate, and type and screen. My differential diagnosis at this time is diverticulosis versus angiodysplasia versus Meckel's diverticulum. Colon cancer is also possible. Considered ischemic bowel or anal fissure. Possible IBD/infectious diarrhea. Suspect a degree of medication side effect. Not initially anemic. Repeat H&H for 4 hours from now ordered. Mild transaminitis. Repeat H/H shows 2.2 g drop. Now anemic. Bulloch Score (predicts readmission risk in patients with acute lower GI bleeding) Based on age, sex, previous lower GI bleed admission, DOUG findings, HR, SBP, and initial Hgb: 19 points (+1 age, +1 HR, 4 for SBP, +13 for repeat Hgb) ; 50-62?% Probability of safe discharge (absence of rebleeding, blood transfusion, therapeutic intervention, 28 day readmission, or ). Discharge NOT recommended. Consider admission with further workup and resuscitation as necessary. HEART SCORE History 2 highly suspicious 1 moderately suspicious 0 slightly suspicious History score [address] depression/elevation not due to LBBB, LVH, or digoxin [address] depression but LBBB, LVH, nonspecific repolarization changes 0 normal ECG score 1 Age 2 >/= 65 1 45-64 0 <45 Age score 1 Risk factors (HTN, hypercholesterolemia, DM, obesity with BMI >30, current smoker or cessation </=3mo), positive fam hx with parent or sibling with CVD before age 65, atherosclerotic disease (prior FL, PCI/CABG, CVA/TIA, or peripheral arterial disease) 2 >/= 3 risk factors or history of atherosclerotic dz 1 - 1-2 risk factors 0 no known risk factors Risk factor score 2 Initial Troponin 2 >3 times normal limit 1 1-3 times normal limit 0 less than or equal to normal limit Troponin score 0 Total HEART Score 4. Repeat troponin normal. [place] Syncope Rule: Congestive heart failure history: 0 Hematocrit <30%: 0 (but close on repeat) EKG abnormal (changed or any non-sinus rhythm): 0 SOB symptoms: Yes SBP <90mmHg at triage: No Patient reassessed at approximately 00:30 after 2nd troponin results. Discussed work up and findings so far. She has not had any more bloody bowel movements. We discussed the recommendation for admission given the syncope, chest pain, and BRBPR and how she is deemed moderate risk for all of these processes. She verifies understanding and is amenable. Discussed with GI Dr Chu who recommends q12 blood tests, clear liquid diet, and starting bowel prep recommended (polyethylene glycol at 0500 and 2000); ordered. Discussed with television cable installer hospitalist Dr Sebastian. Lab Data Attestation: I reviewed the patient's lab results. 01/02/25 09:57 01/02/25 09:57 Labs: Lab Results 01/01/25 01/01/25 01/01/25 Range/Units 17:49 17:50 18:45 WBC 7.0 (4.5-10.0) K/mm3 RBC 4.12 L (4.2-5.4) M/mm3 Hgb 12.6 (12.0-15.0) g/dL Hct 37.1 (37.0-47.0) % MCV 90.0 (80-100) fl MCH 30.6 (26-34) pg MCHC 34.0 (32-36) g/dl RDW 11.5 (11.5-14.5) % Plt Count 255 (150-375) k/mm3 MPV 11.0 H (7.4-10.4) fl Immature Gran % (Auto) 0.3 (0-0.5) % Neut % (Auto) 71.0 (45.5-73.1) % Lymph % (Auto) 22.7 (18.3-44.2) % [place] % (Auto) 4.7 (2.6-8.5) % Eos % (Auto) 0.7 (0-4.4) % Baso % (Auto) 0.6 (0.2-1.2) % Lymph # (Auto) 1.59 (0.9-3.2) K/mm3 [place] # (Auto) 0.3 (0.1-0.6) K/mm3 Eos # (Auto) 0.1 (0-0.3) K/mm3 Baso # (Auto) 0.0 (0.0-0.1) K/mm3 Abs Immat Gran (auto) 0.02 (0.00-0.031) K/mm3 Absolute Neuts (auto) 5.0 (1.3-6.7) K/mm3 Absolute Nucleated RBC 0.000 (0.0-0.012) K/mm3 Nucleated RBC % 0.0 (0.0-0.2) % PT 13.3 (11.1-14.7) Seconds INR 1.0 APTT 25.7 (22.3-36.8) Seconds Sodium 142 (137-145) mmol/L Potassium 4.0 (3.4-5.0) mmol/L Chloride 102 (98-107) mmol/L Carbon Dioxide 27 (22-30) mmol/L Anion Gap 13 H (4-12) mmol/L BUN 11 (7-17) mg/dL Creatinine 0.98 (0.7-1.0) mg/dL Estim Creat Clear Calc Not Reportable Estimated GFR 59 (59 - ) Glucose 126 H (65-110) mg/dL Lactic Acid (0.7-2.0) mmol/L Calcium 9.9 (8.4-10.2) mg/dL Iron (37-170) ug/dL TIBC (261-462) ug/dL % Saturation (20-50) % Ferritin (11.1-264) ng/mL Total Bilirubin 1.0 (0.2-1.3) mg/dL AST 40 H (14-36) U/L ALT 53 H (6-35) U/L Alkaline Phosphatase 81 (38-126) U/L Troponin I < 0.012 (0.000-0.034) ng/mL Total Protein 8.0 (6.3-8.2) g/dL Albumin 5.0 (3.5-5.1) g/dL Lipase 88 (23-300) U/L FLORES Screen Mitochondria M2 IgG Ab Actin IgG Antibody Blood Type A Positive Antibody Screen Negative 01/01/25 01/01/25 01/02/25 Range/Units 22:36 23:09 02:02 WBC (4.5-10.0) K/mm3 RBC (4.2-5.4) M/mm3 Hgb 10.4 L (12.0-15.0) g/dL Hct 30.8 L (37.0-47.0) % MCV (80-100) fl MCH (26-34) pg MCHC (32-36) g/dl RDW (11.5-14.5) % Plt Count (150-375) k/mm3 MPV (7.4-10.4) fl Immature Gran % (Auto) (0-0.5) % Neut % (Auto) (45.5-73.1) % Lymph % (Auto) (18.3-44.2) % [place] % (Auto) (2.6-8.5) % Eos % (Auto) (0-4.4) % Baso % (Auto) (0.2-1.2) % Lymph # (Auto) (0.9-3.2) K/mm3 [place] # (Auto) (0.1-0.6) K/mm3 Eos # (Auto) (0-0.3) K/mm3 Baso # (Auto) (0.0-0.1) K/mm3 Abs Immat Gran (auto) (0.00-0.031) K/mm3 Absolute Neuts (auto) (1.3-6.7) K/mm3 Absolute Nucleated RBC (0.0-0.012) K/mm3 Nucleated RBC % (0.0-0.2) % PT (11.1-14.7) Seconds INR APTT (22.3-36.8) Seconds Sodium (137-145) mmol/L Potassium (3.4-5.0) mmol/L Chloride (98-107) mmol/L Carbon Dioxide (22-30) mmol/L Anion Gap (4-12) mmol/L BUN (7-17) mg/dL Creatinine (0.7-1.0) mg/dL Estim Creat Clear Calc Estimated GFR (59 - ) Glucose (65-110) mg/dL Lactic Acid 1.3 (0.7-2.0) mmol/L Calcium (8.4-10.2) mg/dL Iron (37-170) ug/dL TIBC (261-462) ug/dL % Saturation (20-50) % Ferritin (11.1-264) ng/mL Total Bilirubin (0.2-1.3) mg/dL AST (14-36) U/L ALT (6-35) U/L Alkaline Phosphatase (38-126) U/L Troponin I < 0.012 (0.000-0.034) ng/mL Total Protein (6.3-8.2) g/dL Albumin (3.5-5.1) g/dL Lipase (23-300) U/L FLORES Screen Pending Mitochondria M2 IgG Ab Pending Actin IgG Antibody Pending Blood Type Antibody Screen 01/02/25 01/02/25 Range/Units 02:10 06:23 WBC (4.5-10.0) K/mm3 RBC (4.2-5.4) M/mm3 Hgb 8.8 L (12.0-15.0) g/dL Hct 27.2 L (37.0-47.0) % MCV (80-100) fl MCH (26-34) pg MCHC (32-36) g/dl RDW (11.5-14.5) % Plt Count (150-375) k/mm3 MPV (7.4-10.4) fl Immature Gran % (Auto) (0-0.5) % Neut % (Auto) (45.5-73.1) % Lymph % (Auto) (18.3-44.2) % [place] % (Auto) (2.6-8.5) % Eos % (Auto) (0-4.4) % Baso % (Auto) (0.2-1.2) % Lymph # (Auto) (0.9-3.2) K/mm3 [place] # (Auto) (0.1-0.6) K/mm3 Eos # (Auto) (0-0.3) K/mm3 Baso # (Auto) (0.0-0.1) K/mm3 Abs Immat Gran (auto) (0.00-0.031) K/mm3 Absolute Neuts (auto) (1.3-6.7) K/mm3 Absolute Nucleated RBC (0.0-0.012) K/mm3 Nucleated RBC % (0.0-0.2) % PT (11.1-14.7) Seconds INR APTT (22.3-36.8) Seconds Sodium (137-145) mmol/L Potassium (3.4-5.0) mmol/L Chloride (98-107) mmol/L Carbon Dioxide (22-30) mmol/L Anion Gap (4-12) mmol/L BUN (7-17) mg/dL Creatinine (0.7-1.0) mg/dL Estim Creat Clear Calc Estimated GFR (59 - ) Glucose (65-110) mg/dL Lactic Acid (0.7-2.0) mmol/L Calcium (8.4-10.2) mg/dL Iron 70 (37-170) ug/dL TIBC 336 (261-462) ug/dL % Saturation 21 (20-50) % Ferritin 40.80 (11.1-264) ng/mL Total Bilirubin (0.2-1.3) mg/dL AST (14-36) U/L ALT (6-35) U/L Alkaline Phosphatase (38-126) U/L Troponin I (0.000-0.034) ng/mL Total Protein (6.3-8.2) g/dL Albumin (3.5-5.1) g/dL Lipase (23-300) U/L FLORES Screen Mitochondria M2 IgG Ab Actin IgG Antibody Blood Type Antibody Screen Imaging Data Radiologist's impression: Impressions Head CT 01/01/25 21:11 IMPRESSION: No skull fracture or acute intracranial finding Suspected empty sella Head/Cervical Spine/Facial Bones CT 01/01/25 21:29 IMPRESSION: No facial fracture Moderate cervical spondylosis No fracture or dislocation or locked facet of the cervical spine Abdomen/Pelvis CT 01/01/25 21:35 IMPRESSION: Fluid containing nondilated distal small bowel with occasional air-fluid levels and suggestion of possible colon wall thickening which may indicate colitis; clinical correlation is advised No bowel obstruction or intraperitoneal free air Normal appendix Knee X-Ray 01/01/25 21:46 IMPRESSION: No fracture or dislocation or joint effusion Chest X-Ray 01/01/25 21:47 IMPRESSION: No active cardiopulmonary disease ECG Data EKG #1: Attestation: I personally reviewed and interpreted this ECG as follows: ECG completion date: 01/01/25 ECG completion time: 20:09 Prior ECG tracings: available for review (EKG from 10/29/2024 with T-wave inversions in the inferior leads as well as questionably in V5 and V6) Interpretation: Normal sinus rhythm at a rate of 81 beats per minute. RI interval 149. QRS 85. QT/QTC 344/381. Patient has T-wave inversions throughout the inferior leads as well as throughout precordial leads V3 through V6. Good R-wave progression across the precordial leads. EKG #2: Attestation: I personally reviewed and interpreted this ECG as follows: ECG completion date: 01/01/25 ECG completion time: 22:06 Interpretation: Normal sinus rhythm at a rate of 87 beats per minute. RI interval 153. QRS 104. QT/QTC 362/406. Good R-wave progression across the precordial leads. Questionably still present T-wave inversions in V4 and V5 although no longer seen in the previous. Discharge Plan Discharge Clinical Impression: Syncope, Transaminitis, BRBPR (bright red blood per rectum), Acute pain of left knee, Acute facial pain, Anemia, Chest pain, Acute gastrointestinal bleeding Patient Disposition: Still a Patient Condition: Stable
[2025-01-01 21:03] LABS: Lipase 88 U/L (23-300)
[2025-01-01 21:15] LABS: Troponin I < 0.012 ng/mL (0.000-0.034)
--- OUTSIDE RECORDS SUMMARY | 2025-01-01 21:20 | XMS_ITS | Clinical Summary ---
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 long-term current use of anticoagulant Assessment & Plan [...] procedure done. Coronary artery disease invo lving emmonak coronary artery of emmonak heart without angina pectoris 02/05/2022 Tobacco abuse, in remission 02/05/2022 Arthralgia of shoulder 02/27/2016 Resolved Problems Problem Noted Date Diagnosed Date Resolved Date BMI 27.0-27.9,adult 03/11/2023 09/15/20 24 Assessment & Plan (03/11/2023 1:27 PM CDT): Weight/BMI is in healthy range. Continue healthy lifestyle to maintain. BMI 28.0-28.9,adult 11/10/2022 03/11/20 23 Assessment & Plan (11/10/2022 10:24 AM MANAGER INTERNAL): Weight/BMI is in healthy range. Continue healthy lifestyle to maintain. Encounters Date Type Department Care Team Description 12/14/2024 Telephone [facility] Internal Medicine at [place] [address] [place] [address] [address] [place] [phone] Rosanna Fenton, CELL CLEANER Medication Request 12/02/2024 Telephone [facility] Cardiology [address] [facility] [address] [place] [phone] Jose Alejandro Cerrato MD 11/24/2024 Telephone [facility] Internal Medicine at [place] [address] [facility] [address] [place] [phone] Rosanna Fenton, CELL CLEANER Medication Request 11/14/2024 Telephone [facility] Family Medicine [address] [facility] [address] [place] [phone] Rosanna Fenton, CELL CLEANER 11/11/2024 Nurse Triage [facility] Medical [facility] Internal Medicine at [place] [address] [place] [address] Rd [address] [place] [address] Rosanna Fenton, CELL CLEANER 11/11/2024 Telephone [facility] Internal Medicine at [place] [address] [facility] [address] [place] [address] Rosanna Fenton, CELL CLEANER 11/07/2024 Telephone [facility] Family Medicine [address] [place] [address] [address] [place] [address] Rosanna Fenton, CELL CLEANER 11/04/2024 Orders Only [facility] [address] [facility] [address] [place] [phone] Florian Craig MD 10/29/2024 Orders Only [facility] Health Information Management [address] [place] [address] Rosanna Fenton NP 10/26/2024 Telephone [facility] Medicine [address] [place] [address] [address] [place] [phone] Rosanna Fenton NP 10/25/2024 Telephone [facility] Internal Medicine at [address] [place] [address] Rosanna Fenton NP Medication Request 10/14/2024 10:26 AM MANAGER INTERNAL - 10/14/2024 11:59 PM MANAGER INTERNAL Hospital Encounter [address] [address] Hematuria, unspecified type Discharge Disposition: Discharge to home or self care 10/14/2024 10:00 AM MANAGER INTERNAL Office Visit [facility] Care at [address] [phone] Juana Escobar NP Hematuria, unspecified type (Primary Dx) 10/14/2024 Telephone [facility] Family Medicine [address] [place] [address] [address] [place] [address] Rosanna Fenton NP 10/14/2024 Nurse Triage [facility] Internal Medicine at [address] [place] [phone] Rosanna Fenton NP from Last 3 Months [...] Chest pain STEMI (ST elevation myocardial infarction) ([facility]) Tobacco abuse CAD (coronary artery disease) Heart murmur Hypertension [place] (myocardial infarction) ([facility]) Family History Medical History Relation Name Comments [...] on file Legal Sex Female 8:05 AM MANAGER INTERNAL Gender Identity Not on file Sexual Orientation [...] Comments Blood Pressure 125/86 10/14/2024 10:11 AM MANAGER INTERNAL Pulse 78 10/14/2024 10:11 AM MANAGER INTERNAL Temperature 36.8 C (98.2 F) 10/14/2024 10:11 AM MANAGER INTERNAL Respiratory Rate 16 10/14/2024 10:11 AM MANAGER INTERNAL Oxygen Saturation 97% 10/14/2024 10:11 AM MANAGER INTERNAL Inhaled Oxygen Concentration - - Weight 76.9 kg (169 lb 8 oz) 10/14/2024 10:11 AM MANAGER INTERNAL Height 165.1 cm (5' 5 ) 10/14/2024 10:11 AM MANAGER INTERNAL Body Mass Index 28.21 10/14/2024 10:11 AM MANAGER INTERNAL Plan of Treatment Health Maintenance Due Date [...] 06/04/2027 06/04/2024 Medical Devices Implanted Type Area Steam Heating Installer Device Identifier Shelf Expiration Date Model / Serial / Lot [employer]derm Flora Synergy Xd Monorail 3.5mm 12mm 144cm Delivery System 1 Access [id number] - [id number] Implanted:Qty: 1 on 06/06/2022 by Jose Alejandro Cerrato MD at [facility] [employer] [facility] 12/09/2023 [id number] / / [id number] [employer] Mynx Control 6-7fr 2 Mode Balloon Catheter Sealant Lock Syringe [id number] - [id number] Implanted:Qty: 1 on 06/06/2022 by Jose Alejandro Cerrato MD at [facility] [employer] 05/11/2023 [id number] / / [id number] Procedures Procedure Name Priority Date/Time Associated Diagnosis Comments CARDIOLOGY DOCUMENT SCAN Routine 10/30/2024 3:08 PM MANAGER INTERNAL SCAN - RADIOLOGY/IMAGING 10/29/2024 POCT URINALYSIS DIPSTICK Routine 10/14/2024 10:30 AM MANAGER INTERNAL Hematuria, unspecified type URINE CULTURE Routine 10/14/2024 10:26 AM MANAGER INTERNAL Hematuria, unspecified type POCT HEMOGLOBIN A1C Routine 09/22/2024 9 :50 AM MANAGER INTERNAL Type 2 diabetes mellitus with hyperlipidemia (HCC) COMPREHENSIVE METABOLIC PANEL Routine 09/15/2024 11:57 AM MANAGER INTERNAL Hypertension, essential LIPID PANEL Routine 09/15/2024 11:57 AM MANAGER INTERNAL Mixed hyperlipidemia PAP AND HPV, REFLEX TO HPV GENOTYPES Routine 09/15/2024 11:48 AM MANAGER INTERNAL Cervical cancer screening DIAGNOSTIC MAMMOGRAM BILATERAL W EDITH Schedule Routine, Read Routine (OP Routine) 08/19/2024 2:19 PM MANAGER INTERNAL Abnormal mammogram from Last 3 Months or Most Recently Relevant to Health Maintenance Results * Cardiology Document Scan (10/30/2024 3:08 PM MANAGER INTERNAL) Anatomical Region Laterality Modality Other us Florian Craig MD CV CARDIAC SERVICES PROCEDU RES Final Result * SCAN - RADIOLOGY/IMAGING (10/29/2024) Anatomical Region Laterality Modality Other us Rosanna Fenton NP Edited Result - Final * (ABNORMAL) POCT urinalysis dipstick (10/14/2024 10:30 AM MANAGER INTERNAL) [facility] Color, Urine, POC Red Clarity, ur, POC Cloudy(A) Clear Glucose, ur, POC Negative Negative MG/DL Bilirubin, ur, POC Large Negative, Small, Moderate, Large Ketones, ur, POC 15.(A) Negative Specific Moro, POC 1.020 1.003 - 1.030 Blood, ur, POC Large(A) Negative pH, ur, POC 5.5 5.0 - 8.0 Protein, ur, POC 300.(A) Negative Urobilinogen, urine, POC 2.0(A) 0.2 - 1.0 mg/dL Nitrite, ur, POC Negative Negative Leukocytes, ur, POC Large(A) Negative Lot Number [id number] Urine 10/14/2024 10:3 0 AM MANAGER INTERNAL Juana Escobar NP POINT OF CARE TEST ORDERABLES F inal Result * Urine culture Urine, clean voided (10/14/2024 10:26 AM MANAGER INTERNAL) [facility] Report Final Report: Less than 100,000 colonies/mL (clinically insignificant growth based on current clinical standards) Comment:Testing performed by : [facility], [address] [place] [address] Organism (CLINICALLY INSIGNIFICANT GROWTH ANNETTE Urine, clean voided 10/14/2024 10:26 AM MANAGER INTERNAL 10/14/2024 6:14 PM MANAGER INTERNAL Narrative ANNETTE - 10/15/2024 8:23 PM MANAGER INTERNAL Testing performed by [facility] Microbiology Laboratory ([phone]) Juana Escobar NP LAB MICROBIOLOGY - GENERAL ORDE [facility] Final Result ANNETTE YANES [address] Department [place] [address] * (ABNORMAL) POCT hemoglobin A1c (09/22/2024 9:50 AM MANAGER INTERNAL) [facility] Hemoglobin A1C, POC 8.3 4.0 - 5.6 % BLD 09/22/2024 9:50 AM MANAGER INTERNAL us Rosanna Fenton NP POINT OF CARE TEST ORDERABLES Final Result * (ABNORMAL) Lipid panel (09/15/2024 11:57 AM MANAGER INTERNAL) Pathologist [facility] Cholesterol 225(H) <200 mg/dL [facility] HDL 42(L) > OR = 50 mg/dL [facility] Triglycerides 312(H) <150 mg/dL [facility] Comment: If a non-fasting specimen was collected, consider repeat triglyceride testing on a fasting specimen if clinically indicated. Leonard et al. J. of Clin. Lipidol. 2015;9:129-169. LDL 138(H) mg/dL (calc) [facility] Comment: Reference range: <100 Desirable range <100 mg/dL for primary prevention; <70 mg/dL for patients with CHD or diabetic patients with > or = 2 CHD risk factors. LDL-C is now calculated using the Pipe-Wells calculation, which is a validated novel method providing better accuracy than the Friedewald equation in the estimation of LDL-C. Pipe SS et al. ZINA. 2013;310(19): 7179-1351 (http://education.[employer]/faq/EUT402) Chol/HDL ratio 5.4(H) <5.0 (calc) [facility] Non-HDL, (LDL+VLDL) 183(H) <130 mg/dL (calc) [facility] Comment: For patients with diabetes plus 1 major ASCVD risk factor, treating to a non-HDL-C goal of <100 mg/dL (LDL-C of <70 mg/dL) is considered a therapeutic option. Blood 09/15/2024 11:5 7 AM MANAGER INTERNAL 09/15/2024 11:59 AM MANAGER INTERNAL Narrative [facility] - 09/16/2024 1:09 AM MANAGER INTERNAL FASTING:NO AN UPDATE OR CORRECTION HAS BEEN MADE TO NAME FASTING: NO us Rosanna M. Faires CELL CLEANER LAB BLOOD ORDERABLES Final Re sult TERRIE [facility]ted[facility]ran [facility] [address] [place] [address] * (ABNORMAL) Comprehensive metabolic panel (09/15/2024 11:57 AM MANAGER INTERNAL) Glucose 208(H) 65 - 139 mg/dL [facility] Comment: Non-fasting reference interval BUN 12 7 - 25 mg/dL [facility] Alfaro[facility] Creatinine 0.95 0.50 - 1.03 mg/dL [facility] eGFR 72 > OR = 60 mL/min/1.7 3m2 [facility] BUN/creat ratio SEE NOTE: 6 - 22 (calc) [facility] Comment: Not Reported: BUN and Creatinine are within reference range. Sodium 137 135 - 146 mmol/L [facility] Potassium, pl 4.0 3.5 - [...] ratio 1.6 1.0 - 2.5 (calc) [facility] Bilirubin, total 0.5 0.2 - 1.2 mg/dL [facility] Alk phos 81 37 - 153 U/L [facility] AST 29 10 - 35 U/L [facility] ALT (SGPT) 39(H) 6 - 29 U/L [facility] Eren Blood 09/15/2024 11:5 7 AM MANAGER INTERNAL 09/15/2024 11:59 AM MANAGER INTERNAL Narrative [facility] - 09/16/2024 1:09 AM MANAGER INTERNAL FASTING:NO AN UPDATE OR CORRECTION HAS BEEN MADE TO NAME FASTING: NO Rosanna Fenton CELL CLEANER LAB BLOOD ORDERABLES Final Re sult Performing Organization Address City/[facility]/ZIP Co de Phone Number [place] [address] [place] [phone] * Pap and HPV, reflex to HPV Genotypes (09/15/2024 11:48 AM MANAGER INTERNAL) CLINICAL INFORMATION: [facility] Comment:CX CANCER SCREENING LMP [facility] Comment:POST MEN Previous Pap [facility] Comment:NONE GIVEN Prev. Bx [facility] Comment:NONE GIVEN SOURCE: [facility] Comment:Cervix, Endocervix Pap, specimen adequacy [facility] Comment:SATISFACTORY FOR ADELE LUATION HPV interp [facility] Comment: Cytology Results: Negative for intraepithelial lesion or malignancy. COMMENTS [facility] Comment: This Pap test has been evaluated with computer assisted technology. Community Education Specialist [facility] Comment: KMS, CT(ASCP) CT Screening location: [place] [address] [address] [place] [phone] Comment [facility] Comment: EXPLANATORY NOTE: The Pap [...] PCR Thin prep-Endocervica l 09/15/2024 11:48 AM MANAGER INTERNAL 09/17/2024 6:25 AM MANAGER INTERNAL Rosanna Fenton CELL CLEANER LAB CYTOLOGY ORDERABLES Final Result Performing Organization Address City/[facility]/ZIP Co de Phone Number [facility] [address] [place] [address] [facility] [address] [facility] [place] [address] * DIAGNOSTIC MAMMOGRAM BILATERAL W EDITH (08/19/2024 2:19 PM MANAGER INTERNAL) Anatomical Region Laterality Modality Breast Bilateral Mammography 08/19/2024 3:04 PM MANAGER INTERNAL Narrative 08/19/2024 3:09 PM MANAGER INTERNAL EXAM DESCRIPTION: US BREAST RIGHT COMPLETE; DIAGNOSTIC [...] Latoya Milian M.D. LD: JACQUELINE Report ID: [id number] Reading Location: MAMME us Rosanna Fenton NP IMG MAMMO PROCEDURES Final Re sult from Last 3 Months or Most Recently Relevant to Health Maintenance Insurance [facility]NA [facility] AETNA [facility] AETNA [facility] AETNA [facility] AETNA [facility] Care Teams Circus Train Supervisor Relationship Specialty Start Date End Date Rosanna Fenton, VICKY [address] [place] [address] PCP - General Internal Medicine 03/12/23
--- OUTSIDE RECORDS SUMMARY | 2025-01-01 21:20 | XMS_ITS | Referral Summary ---
Author Organization [facility] [place] [address] [facility] [address] Address [address] [place] [address] Care Team Providers Care Adzing And Boring Machine Feeder Name Role Phone Rosanna Fenton CHOPPER OPERATOR Primary Care Provider [phone] Encounters Date Type Department Care Team Description 12/14/2024 Telephone [facility] [place] [facility] [place] [address] [place] [address] Rosanna Fenton, CHOPPER OPERATOR Medication Request 12/02/2024 Telephone [facility] [address] [facility] [address] [place] [address] Jose Alejandro Cerrato MD 11/24/2024 Telephone [facility] Internal Medicine [place] [address] [place] [address] Rosanna Fenton, CHOPPER OPERATOR Medication Request 11/14/2024 Telephone [facility] Family Medicine [address] [place] [address] Rosanna Fenton, CHOPPER OPERATOR 11/11/2024 Nurse Triage [facility] Internal Medicine [place] [address] [place] [address] Rosanna Fenton, CHOPPER OPERATOR 11/11/2024 Telephone [facility] Internal Medicine [place] [address] [place] [address] Rosanna Fenton, CHOPPER OPERATOR 11/07/2024 Telephone [facility] Medicine [address] [place] [address] Rosanna Fenton NP 11/04/2024 Orders Only [facility] [address] [facility] [address], [place] [address] Florian Craig MD 10/29/2024 Orders Only [facility] Information Management [address] [place] [address] Rosanna Fenton NP 10/26/2024 Telephone [facility] Medicine [address] [place] [address] [address] [place] [address] Rosanna Fenton NP 10/25/2024 Telephone [facility] Internal Medicine at [address] [place] [address] Rosanna Fenton NP Medication Request 10/14/2024 10:26 AM SCHOOL LUNCH MONITOR - 10/14/2024 11:59 PM SCHOOL LUNCH MONITOR Hospital Encounter [address] [address] Hematuria, unspecified type Discharge Disposition: Discharge to home or self care 10/14/2024 Telephone [facility] Medicine [address] [place] [address] [address] [place] [address] Rosanna Fenton NP 10/14/2024 10:00 AM SCHOOL LUNCH MONITOR Office Visit [facility] at [address] [address] Juana Escobar NP Hematuria, unspecified type (Primary Dx) 10/14/2024 Nurse Triage [facility] Internal Medicine at [address] [place] [address] Rosanna Fenton NP from Last 3 Months Allergies No known active allergies Medications aspirin 81 mg enteric coated tabletIndications: Coronary artery disease involving [place] coronary artery of [place] heart without angina pectoris Take 1 tablet [...] malignancy Assessment & Plan (09/15/2024 11:43 AM SCHOOL LUNCH MONITOR): This is a significant, separately identifiable problem [...] understands and consents to having procedure done. intermodal customer service current use of anticoagulant 3 Assessment & [...] procedure done. Coronary artery disease invo lving [place] coronary artery of [place] heart without angina pectoris 02/05/2022 Tobacco abuse, in remission 02/05/2022 Arthralgia of shoulder 02/27/2016 Resolved Problems Problem Noted Date Diagnosed Date Resolved Date BMI 27.0-27.9,adult 03/11/2023 09/15/20 24 Assessment & Plan (03/11/2023 1:27 PM CDT): Weight/BMI is in healthy range. Continue healthy lifestyle to maintain. BMI 28.0-28.9,adult 11/10/2022 03/11/20 23 Assessment & Plan (11/10/2022 10:24 AM SCHOOL LUNCH MONITOR): Weight/BMI is in healthy range. Continue healthy [...] on file Legal Sex Female 8:05 AM SCHOOL LUNCH MONITOR Gender Identity Not on file Sexual Orientation Not on file Occupation Industry Job Start Date Job End Date [employer] Not on file Not on file Not on jay e Last Filed Vital Signs Vital Sign Reading Time Taken Comments Blood Pressure 125/86 10/14/2024 10:11 AM SCHOOL LUNCH MONITOR Pulse 78 10/14/2024 10:11 AM SCHOOL LUNCH MONITOR Temperature 36.8 C (98.2 F) 10/14/2024 10:11 AM SCHOOL LUNCH MONITOR Respiratory Rate 16 10/14/2024 10:11 AM SCHOOL LUNCH MONITOR Oxygen Saturation 97% 10/14/2024 10:11 AM SCHOOL LUNCH MONITOR Inhaled Oxygen Concentration - - Weight 76.9 kg (169 lb 8 oz) 10/14/2024 10:11 AM SCHOOL LUNCH MONITOR Height 165.1 cm (5' 5 ) 10/14/2024 10:11 AM SCHOOL LUNCH MONITOR Body Mass Index 28.21 10/14/2024 10:11 AM SCHOOL LUNCH MONITOR Plan of Treatment Not on file Medical Devices Implanted Type Area Clinical Applications Manager Device Identifier Shelf Expiration Date Model / Serial / Lot [employer] Flora Synergy Xd Monorail 3.5mm 12mm 144cm Delivery System 1 Access [id number] - [id number] Implanted:Qty: 1 on 06/06/2022 by Jose Alejandro Cerrato MD at [facility] 12/09/2023 [id number] / / [id number] [employer] Mynx Control 6-7fr 2 Mode Balloon Catheter Sealant Lock Syringe [id number] - [id number] Implanted:Qty: 1 on 06/06/2022 by Jose Alejandro Cerrato MD at [facility] [employer] 05/11/2023 [id number] / / [id number] Procedures Procedure Name Priority Date/Time Associated Diagnosis Comments CARDIOLOGY DOCUMENT SCAN Routine 10/30/2024 3:08 PM SCHOOL LUNCH MONITOR SCAN - RADIOLOGY/IMAGING 10/29/2024 POCT URINALYSIS DIPSTICK Routine 10/14/2024 10:30 AM SCHOOL LUNCH MONITOR Hematuria, unspecified type URINE CULTURE Routine 10/14/2024 10:26 AM SCHOOL LUNCH MONITOR Hematuria, unspecified type POCT HEMOGLOBIN A1C Routine 09/22/2024 9 :50 AM SCHOOL LUNCH MONITOR Type 2 diabetes mellitus with hyperlipidemia (HCC) COMPREHENSIVE METABOLIC PANEL Routine 09/15/2024 11:57 AM SCHOOL LUNCH MONITOR Hypertension, essential LIPID PANEL Routine 09/15/2024 11:57 AM SCHOOL LUNCH MONITOR Mixed hyperlipidemia PAP AND HPV, REFLEX TO HPV GENOTYPES Routine 09/15/2024 11:48 AM SCHOOL LUNCH MONITOR Cervical cancer screening DIAGNOSTIC MAMMOGRAM BILATERAL W EDITH Schedule Routine, Read Routine (OP Routine) 08/19/2024 2:19 PM SCHOOL LUNCH MONITOR Abnormal mammogram from Last 3 Months or Most Recently Relevant to Health Maintenance Results * Cardiology Document Scan (10/30/2024 3:08 PM SCHOOL LUNCH MONITOR) Anatomical Region Laterality Modality Other Florian Craig MD CV CARDIAC SERVICES PROCEDU RES Final Result * SCAN - RADIOLOGY/IMAGING (10/29/2024) Anatomical Region Laterality Modality Other Rosanna Fenton NP Edited Result - Final * (ABNORMAL) POCT urinalysis dipstick (10/14/2024 10:30 AM SCHOOL LUNCH MONITOR) Color, Urine, POC Red Clarity, ur, POC Cloudy(A) Clear Glucose, ur, POC Negative Negative MG/DL Bilirubin, ur, POC Large Negative, Small, Moderate, Large Ketones, ur, POC 15.(A) Negative Specific [place], POC 1.020 1.003 - 1.030 Blood, ur, POC Large(A) Negative pH, ur, POC 5.5 5.0 - 8.0 Protein, ur, POC 300.(A) Negative Urobilinogen, urine, POC 2.0(A) 0.2 - 1.0 mg/dL Nitrite, ur, POC Negative Negative Leukocytes, ur, POC Large(A) Negative Lot Number [id number] Urine 10/14/2024 10:3 0 AM SCHOOL LUNCH MONITOR Juana Escobar NP POINT OF CARE TEST ORDERABLES F inal Result * Urine culture Urine, clean voided (10/14/2024 10:26 AM SCHOOL LUNCH MONITOR) Report Final Report: Less than 100,000 colonies/mL (clinically insignificant growth based on current clinical standards) Comment:Testing performed by : [facility], [address] [place]., [address] Organism (CLINICALLY INSIGNIFICANT GROWTH ANNETTE YANES Urine, clean voided 10/14/2024 10:26 AM SCHOOL LUNCH MONITOR 10/14/2024 6:14 PM SCHOOL LUNCH MONITOR Narrative ANNETTE YANES - 10/15/2024 8:23 PM SCHOOL LUNCH MONITOR Testing performed by [facility] Microbiology Laboratory ([phone]) Juana Escobar NP LAB MICROBIOLOGY - [facility] Final Result ANNETTE YANES [address] Department [place] [address] * (ABNORMAL) POCT hemoglobin A1c (09/22/2024 9:50 AM SCHOOL LUNCH MONITOR) Hemoglobin A1C, POC 8.3 4.0 - 5.6 % BLD 09/22/2024 9:50 AM SCHOOL LUNCH MONITOR Rosanna Fenton NP POINT OF CARE TEST ORDERABLES Final Result * (ABNORMAL) Lipid panel (09/15/2024 11:57 AM SCHOOL LUNCH MONITOR) Pathologist [facility] Cholesterol 225(H) <200 mg/dL [facility] HDL 42(L) > OR = 50 mg/dL [facility] Triglycerides 312(H) <150 mg/dL [facility] Comment: If a non-fasting specimen was collected, consider repeat triglyceride testing on a fasting specimen if clinically indicated. Leonard et al. J. of Clin. Lipidol. 2015;9:129-169. LDL 138(H) mg/dL (calc) [facility] Comment: Reference range: <100 Desirable range <100 mg/dL for primary prevention; <70 mg/dL for patients with CHD or diabetic patients with > or = 2 CHD risk factors. LDL-C is now calculated using the Pipe-Wells calculation, which is a validated novel method providing better accuracy than the Friedewald equation in the estimation of LDL-C. Pipe SS et al. ZINA. 2013;310(19): 1527-0582 (http://education.[employer]/faq/PJO055) Chol/HDL ratio 5.4(H) <5.0 (calc) [facility] Non-HDL, (LDL+VLDL) 183(H) <130 mg/dL (calc) [facility] Comment: For patients with diabetes plus 1 major ASCVD risk factor, treating to a non-HDL-C goal of <100 mg/dL (LDL-C of <70 mg/dL) is considered a therapeutic option. Blood 09/15/2024 11:5 7 AM SCHOOL LUNCH MONITOR 09/15/2024 11:59 AM SCHOOL LUNCH MONITOR Narrative [facility] - 09/16/2024 1:09 AM SCHOOL LUNCH MONITOR FASTING:NO AN UPDATE OR CORRECTION HAS BEEN MADE TO NAME FASTING: NO us Rosanna Fenton CHOPPER OPERATOR LAB BLOOD ORDERABLES Final Re sult TERRIE Jason [address] [place] [address] * (ABNORMAL) Comprehensive metabolic panel (09/15/2024 11:57 AM SCHOOL LUNCH MONITOR) Glucose 208(H) 65 - 139 mg/dL [facility] Comment: Non-fasting reference interval BUN 12 7 - 25 mg/dL [facility] Creatinine 0.95 0.50 - 1.03 mg/dL [facility] eGFR 72 > OR = 60 mL/min/1.7 3m2 [facility] BUN/creat ratio SEE NOTE: 6 - 22 (calc) [facility] Comment: Not Reported: BUN and Creatinine are within reference range. Sodium 137 135 - 146 mmol/L [facility] Potassium, pl 4.0 3.5 - 5.3 mmol/L [facility] Chloride 102 98 - 110 mmol/L [facility] CO2 26 20 - 32 mmol/L [facility] Calcium 9.4 8.6 - 10.4 mg/dL [facility] Protein, sr 7.1 6.1 - 8.1 g/dL [facility] Albumin 4.4 3.6 - 5.1 g/dL [facility] GLOBULIN 2.7 1.9 - 3.7 g/dL (calc) [facility] Alb/glob ratio 1.6 1.0 - 2.5 (calc) [facility] Bilirubin, total 0.5 0.2 - 1.2 mg/dL [facility] Alk phos 81 37 - 153 U/L [facility] AST 29 10 - 35 U/L [facility] ALT (SGPT) 39(H) 6 - 29 U/L [facility] Blood 09/15/2024 11:5 7 AM SCHOOL LUNCH MONITOR 09/15/2024 11:59 AM SCHOOL LUNCH MONITOR Narrative [facility] - 09/16/2024 1:09 AM SCHOOL LUNCH MONITOR FASTING:NO AN UPDATE OR CORRECTION HAS BEEN MADE TO NAME FASTING: NO Rosanna Fenton CHOPPER OPERATOR LAB BLOOD ORDERABLES Final Re sult Performing Organization Address City/State/[facility] Co de Phone Number [facility] [address] [place] [address] * Pap and HPV, reflex to HPV Genotypes (09/15/2024 11:48 AM SCHOOL LUNCH MONITOR) CLINICAL INFORMATION: [facility] Comment:CX CANCER SCREENING LMP [facility] Comment:POST MEN Previous Pap [facility] Comment:NONE GIVEN Prev. Bx [facility] Comment:NONE GIVEN SOURCE: [facility] Comment:Cervix, Endocervix Pap, specimen adequacy [facility] Comment:SATISFACTORY FOR ADELE LUATION HPV interp [facility] Comment: Cytology Results: Negative for intraepithelial lesion or malignancy. COMMENTS [facility] Comment: This Pap test has been evaluated with computer assisted technology. Medical Scribe [facility] Comment: KMS, CT(ASCP) CT Screening location: [place] [address] [address] [place] [phone] Comment [facility] Comment: EXPLANATORY NOTE: The Pap is [...] Risk E6/E7 Not Detected NOT DETECTED [facility] Comment: Not Detected High Risk HPV types (16,18,31,33,35,39,45,51,52, 56,58,59,66,68) were not detected. Other HPV types which cause anogenital lesions may be present. The significance of the other types of HPV in malignant processes has not been established. Methodology: Real Time PCR Thin prep-Endocervica l 09/15/2024 11:48 AM SCHOOL LUNCH MONITOR 09/17/2024 6:25 AM SCHOOL LUNCH MONITOR Rosanna Fenton CHOPPER OPERATOR LAB CYTOLOGY ORDERABLES Final Result [facility] [address] [place] [address] [facility] [place] [address] [place] [address] * DIAGNOSTIC MAMMOGRAM BILATERAL W EDITH (08/19/2024 2:19 PM SCHOOL LUNCH MONITOR) Anatomical Region Laterality Modality Breast Bilateral Mammography 08/19/2024 3:04 PM SCHOOL LUNCH MONITOR Narrative 08/19/2024 3:09 PM SCHOOL LUNCH MONITOR EXAM DESCRIPTION: US BREAST RIGHT COMPLETE; DIAGNOSTIC [...] Latoya Milian M.D. LD: JACQUELINE Report ID: [id number] Reading Location: [facility] Rosanna Fenton NP IMG MAMMO PROCEDURES Final Re sult from Last 3 Months or Most Recently Relevant to Health Maintenance [place] [employer] [employer] [facility] Care Teams Adzing And Boring Machine Feeder Relationship Specialty Start Date End Date Rosanna Fenton NP [address] [place] [address] PCP - General Internal Medicine 03/12/23
--- OUTSIDE RECORDS SUMMARY | 2025-01-01 21:20 | XMS_ITS | Clinical Summary ---
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 Gender Identity Not on file Sexual Orientation Not on file Plan of Treatment Health Maintenance Due Date Last Done Comments Hepatitis C Virus (HCV) Screening 1971 TdaP Immunization 1971 Hepatitis B Immunization (1 of 3 - 19+ 3-dose series) 1990 Pap Smear 1992 Cervical Cancer Screening (CCS) 2001 HPV/Cotest 2001 Colonoscopy 2016 Colorectal Cancer Screening 2016 Cologuard 2021 Immunochemical Fecal Occult Blood 2021 Mammogram 2021 Pneumococcal Immunization (5 0+ years) (1 of 1 - PCV) 2021 Zoster Immunization (1 of 2) 2021 Influenza Immunization (#1) 2024 SARS-COV-2 Immunization (2 - season) 2024 11/05/2021 Respiratory Syncytial Virus (RSV) Immunization (Adult) (1 - 1-dose 75+ series) 2046 Meningococcal Immunization (ACWY) Aged Out No longer eligible based on patient's age to complete this topic Pneumococcal Immunization Combined Aged Out No longer eligible based on patient's age to complete this topic Rotavirus Immunization Aged Out No lo nger eligible based on patient's age to complete this topic
--- OUTSIDE RECORDS SUMMARY | 2025-01-01 21:20 | XMS_ITS | Clinical Summary ---
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
--- OUTSIDE RECORDS SUMMARY | 2025-01-01 21:20 | XMS_ITS | Encounter Summary ---
Author Organization [facility] Healthcare Address [address] [place] [address] Care Team Providers Care Nuclear Physician Name Role Phone Rosanna Fenton NP Primary Care Provider [phone] Reason for Visit * Reason Onset Date Comments Medication Request 10/25/2024 Encounter Details Date Type Department Care Team ([facility] st Contact Info) Description 10/25/[address] 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 Pt stated she has been doing the Ozempic sample that was received in office. She did not strip picker the Trulicity and did not recall [...] Pt wasalso agreeable to plan. Pt will strip picker sample this week. Informed pt to take new insurance card topharmacy as soon as she receives it. DDED SYSTEMS SOFTWARE ENGINEER * Telephone Encounter - Susan Bashir LPN - 10/26/2024 10:40 AM EMBEDDED SYSTEMS SOFTWARE ENGINEER Called and LVM for pt to return call. Please transfer through to office. DDED SYSTEMS SOFTWARE ENGINEER * Telephone Encounter - Naomi Yepez - 10/25/2024 12:55 PM CST Medication Question/Clarification Medication Name(s): dulaglutide (TRULICITY) 0.75 mg/0.5 mL pen injector What is the question or clarification needed? Patient called in about her medication. [facility] informed that dulaglutide (TRULICITY) 0.75 mg/0.5 mL pen injector was sent to her pharmacy on 09/27. Per patient she did not pick this medication up and in talking with the ACADEMIC RECORDS SPECIALIST she was not even aware that this [...] needed, Pharmacy(s) medication(s) should be sent to: [facility]/pharmacy #[id number] - [place], [place] Additional Comments: Please follow up with patient by phone to offer clarity and answer any questions. Does message need to be routed? Yes-Action Needed DDED SYSTEMS SOFTWARE ENGINEER documented in this encounter Plan of Treatment Not on file documented as of this encounter Visit Diagnoses Diagnosis Coronary artery disease involving [place] coronary artery of [place] heart without angina pectoris documented in this encounter Care Teams Nuclear Physician Relationship Specialty Start Date End Date Rosanna Fenton NP [address] [facility] [address] [place] [address] PCP - General Internal Medicine 03/12/23 documented as of this encounter
[2025-01-01] MEDS: MORPHINE SULFATE (*CRX) 4 MG/ML INJ IV PUSH (21:39)
[2025-01-01] MEDS: ONDANSETRON INJ 4 MG/2 ML VIAL IV PUSH (21:39)
--- NOTE | 2025-01-01 21:50 | ECG_ITS ---
Test Date: 2025-01-01 22:06:53 Measurements Intervals [place] Rate: 87 P: 44 KS: 153 QRS: 40 QRSD: 104 T: 47 QT: 362 QTc: 436 Interpretive Statements SINUS RHYTHM NONSPECIFIC ST AND T-WAVE ABNORMALITY Compared to ECG 01/01/2025 20:09:10 NO SIGNIFICANT CHANGES Electronically Signed On 01-03-2025 15:22:22 CDT by Rich Harvey M.D.
[2025-01-01] MEDS: SODIUM CHLORIDE 0.9% IV 1,000 ML 999 ML IV CONT (22:19)
[2025-01-01 22:49] LABS: Hematocrit 30.8 % (37.0-47.0); Hemoglobin 10.4 g/dL (12.0-15.0)
[2025-01-01 23:02] LABS: Lactic Acid Reflex 1.3 mmol/L (0.7-2.0)
[2025-01-02] VITALS (32 sets, daily range): BP systolic 92–122; BP diastolic 52–86; PULSE 64–96; RESP 11–20; TEMP 36.6–37.9; O2SAT 95–100; BMI 27.0
--- NOTE | 2025-01-02 | ECHO_ITS ---
Patient Info Name: Bertha Echevarria Age: 54 years : 1970 Gender: Female Ht: 64 in Wt: 174 lbs BSA: 1.91 m2 HR: 93 bpm BP: 96 / 74 mmHg Heart Rhythm: Sinus Rhythm Technical Quality: Fair Exam Date: 01/02/2025 11:09 AM Exam Location: Echo Lab Patient Status: Inpatient Admit Date: 01/02/2025 Staff Ordering Physician: Eris Sutherland MD Asset Management Lead: Tata Ivy RDCS Attending Provider: Eris Sutherland MD Exam Type: CA echo doppler color flow Study Info Indications R55 - Syncope and collapse Complete two-dimensional, color flow and Doppler transthoracic echocardiogram is performed. Summary 1. Complete two-dimensional, color flow and Doppler transthoracic echocardiogram is performed. 2. There is normal biventricular size and systolic function. 3. There are no significant valvular abnormalities. Left Ventricle The left ventricle is normal in size and systolic function. The left ventricular ejection fraction is visually estimated to be 65-70%. Right Ventricle The right ventricle is normal in size and systolic function. Left Atria The left atrium is normal size. Right Atria The right atrium is normal size. Atrial Septum The atrial septum is normal. Aortic Valve The aortic valve is trileaflet and opens well. There is no aortic regurgitation. Pulmonic Valve The pulmonic valve is grossly normal. There is no pulmonic valve regurgitation. Mitral Valve The mitral valve is normal. There is no mitral regurgitation. Tricuspid Valve The tricuspid valve is normal. There is trace tricuspid regurgitation. Pericardium/Pleural Pericardium is normal in appearance with no evidence for significant pericardial effusion. Inferior Vena Cava Normal inferior vena cava with >50% collapse upon inspiration consistent with normal right atrial pressure, 3 mmHg. Aorta The aortic root at the level of the sinus of Valsalva measures 2.9 cm in diameter. Left Ventricular Outflow Tract Name Value Normal LVOT 2D LVOT Diameter 2.0 cm LVOT Doppler LVOT Peak Gradient 4 mmHg LVOT Mean Gradient 2 mmHg LVOT VTI 20 cm LVOT VTI/AV VTI Ratio 0.7 LVOT Stroke Volume 62 ml LVOT CO 4.7 l/min LVOT CI 2.5 l/min/m2 Pulmonic Valve Name Value Normal RVOT Doppler RVOT Peak Gradient 2 mmHg PV Doppler PV Peak Gradient 3 mmHg Mitral Valve Name Value Normal MV Doppler MV Decel [place] 802 cm/s2 MV PHT 28 ms MV Area (PHT) 7.8 cm2 4.0-5.0 MV Diastolic Function MV E Peak Velocity 78 cm/s MV A Peak Velocity 104 cm/s MV E/A 0.8 MV Decel Time 98 ms MV Annular TDI MV E/e' (Septal) 12.7 <=8.0 MV E/e' (Lateral) 7.3 <=8.0 MV E/e' (Average) 10.0 Tricuspid Valve Name Value Normal Estimated PAP/RSVP RA Pressure 3 mmHg <=5 Aorta Name Value Normal Ascending Aorta Ao Root Diameter (MM) 2.4 cm Ao Root Diam Index (MM) 1.3 cm/m2 Aortic Valve Name Value Normal AV Doppler AV Peak Velocity 142 cm/s AV Peak Gradient 8 mmHg AV Mean Gradient 4 mmHg AV VTI 28 cm AV Area (Cont Eq VTI) 2.3 cm2 >=3.0 AV Area (Cont Eq Blaise) 2.2 cm2 AV Regurgitation 2D LVOT Area 3.1 cm2 Ventricles Name Value Normal LV Dimensions 2D/MM IVS Diastolic Thickness (2D) 0.9 cm 0.6-1.0 LVID Diastole (2D) 4.0 cm 3.8-5.2 LVIW Diastolic Thickness (2D) 0.8 cm 0.6-0.9 LVID Systole (2D) 2.6 cm 2.2-3.5 LVOT Diameter 2.0 cm LV Mass (2D Cubed) 95.08 g 67.00-162.00 LV Mass Index (2D Cubed) 50 g/m2 43-95 Relative Wall Thickness (2D) 0.39 LV Fractional Shortening/Ejection Fraction 2D/MM LV Fractional Shortening (2D) 35 % 27-45 LV EF (2D Teicholz) 65 % 54-74 LV Diastolic Volume (4C MOD) 53 ml LV EF (4C MOD) 74 % LV Diastolic Volume (2C MOD) 31 ml LV EF (2C MOD) 61 % LV Diastolic Volume (BP MOD) 42 ml 46-106 LV Diastolic Volume Index (BP MOD) 22 ml/m2 29-61 LV Systolic Volume (BP MOD) 14 ml 14-42 LV Systolic Volume Index (BP MOD) 7 ml/m2 8-24 LV EF (BP MOD) 68 % 54-74 LV Diastolic Length (4C) 7.6 cm LV Systolic Length (4C) 6.5 cm LV Stroke Volume (4C MOD) 39 ml Atria Name Value Normal LA Dimensions LA Dimension (MM) 3.1 cm 2.7-3.8 LA Volume (4C A-L) 37 ml LA Volume (BP A-L) 40 ml RA Dimensions RA Area (4C) 13.7 cm2 <=18.0 Report Signatures
[2025-01-02 00:19] LABS: Troponin I < 0.012 ng/mL (0.000-0.034)
--- NOTE | 2025-01-02 00:53 | PC.NURSE ---
pt currently does not want the tylenol that is ordered.
--- NOTE | 2025-01-02 01:53 | PM.IMHP ---
H&P: HPI History of Present Illness Date/Time: 01/02/25 01:53 Chief Complaint: bloody stool Narrative: 54-year-old female past medical history of coronary artery disease status post stents, CC mg abuse, hyperlipidemia, hypertension who presented to the ER on account of bloody stool and syncopal episode. Patient reported she was in her usual state of oral to yesterday when she started having abdominal pain, described as she upper abdomen, we constant 8/10 in intensity. This was followed by 4 episodes of bloody stool described as bright red blood with blood clots. Patient noted 1 episode of passing out with the head trauma. Noted that this was witnessed and she must have been out for about 4 minutes. Otherwise denies any chest pain no shortness of breaths no dysuria no focal symptoms, also denies using [id number] pain medications or trauma to the abdomen. ER evaluation notable for Temperature 98.3?, pulse rate 82, respiratory 16, saturating 100% on room air. Labs notable for hemoglobin 12.6, repeat was 10.4. Troponin negative. CT abdomen showed a fluid containing nondilated distal small bowel with occasional air-fluid levels and suggestion of possible colon wall thickening which may indicate colitis. GI was consulted prior to admission. Review of Systems Review of Systems: All other systems are reviewed and negative except as noted in history above. FORMERLY [facility], 1928–1983 Past Medical History Medical History (Updated 01/02/25 @ 00:30 by Dionna Gomez MD) Gastroesophageal reflux disease Iron deficiency anemia Hypertension Dyslipidemia Acute ST elevation myocardial infarction (STEMI) of posterior wall (01/06/22) Unstable angina Coronary artery disease Tobacco abuse patient quit smoking in December 2021 after her NC Surgical History Surgical History History of coronary artery stent placement (12/2021) multivessel coronary disease status post difficult complex multivessel PCI and stent x 6 History of cardiac catheterization History of section Family History Family History Grandparent Cancer Hypertension Social History Social History (Updated 10/29/24 @ 21:56 by Gwen Grey PA-C) Social History: Surrogate decision maker: Angel Echevarria (son) and Jair Carrasco. Code status: Full code. Smoking packs per day: 1 Smoking cigarettes per day: 20.0 Years smoked: 33 Smoking pack-years: 33.00 Smoking status: Former smoker Alcohol intake: current Drinks per week: 1 Substance use: never Substance use type: marijuana Do You Feel Safe in your Home?: Yes Lack of Transportation: YES Lack of Food: Never True Current Housing: I Have Housing Concerned About Future Housing: No Difficulty Paying Gas/Electric Bills: No Difficulty Paying for Meds: No Currently Unemployed: No Education: High School Diploma/GED Difficulty w/ Childcare or Family Care: No Spiritual care concerns: No Meds Home Medications and Allergies Home Medications ?Medication ?Instructions ?Recorded ?Confirmed ?Type nitroglycerin 0.4 mg sublingual 0.4 mg sublingual PRN PRN chest 08/21/22 10/29/24 History tablet pain isosorbide mononitrate 30 mg 15 mg (1/2 x 30 mg) PO QAM 30 days 08/24/22 10/29/24 Rx tablet,extended release 24 hr #30 tabs metoprolol succinate 25 mg 12.5 mg (1/2 x 25 mg) PO DAILY #30 08/24/22 10/29/24 Rx tablet,extended release 24 hr tabs aspirin 81 mg tablet,delayed 81 mg PO BID 10/29/24 10/29/24 History release atorvastatin 80 mg tablet 80 mg PO DAILY 10/29/24 10/29/24 History ezetimibe 10 mg tablet 10 mg PO DAILY 10/29/24 10/29/24 History losartan 50 mg tablet 50 mg PO DAILY 10/29/24 10/29/24 History ticagrelor 60 mg tablet (Brilinta) 60 mg PO Q12H 10/29/24 10/29/24 History nitroglycerin 0.4 mg sublingual 0.4 mg sublingual Q5MIN PRN Chest 10/30/24 Rx tablet (Nitrostat) Pain #26 tabs Allergies Allergy/AdvReac Type Severity Reaction Status Date / Time No Known Allergies Allergy Unknown Verified 01/01/25 17:35 Vital Signs Vital Signs - 24 hr 01/01/25 17:41 01/01/25 20:12 01/01/25 20:13 Temperature 98.3 F Pulse Rate 88 85 91 Respiratory Rate 16 14 16 Blood Pressure 107/77 101/72 Pulse Oximetry 100 99 98 01/01/25 20:15 01/01/25 20:16 01/01/25 20:30 Temperature Pulse Rate 76 82 78 Respiratory Rate 13 17 18 Blood Pressure 94/73 L Pulse Oximetry 98 99 100 01/01/25 20:31 01/01/25 20:45 01/01/25 21:18 Temperature Pulse Rate 72 102 H 95 Respiratory Rate 17 18 12 Blood Pressure 99/70 L Pulse Oximetry 100 100 01/01/25 21:30 01/01/25 21:44 01/01/25 21:45 Temperature Pulse Rate 90 84 75 Respiratory Rate 14 9 L Blood Pressure 104/78 Pulse Oximetry 99 100 100 01/01/25 21:46 01/01/25 22:00 01/01/25 22:01 Temperature Pulse Rate 91 80 74 Respiratory Rate 9 L 14 17 Blood Pressure 93/70 L 94/72 L Pulse Oximetry 98 97 97 01/01/25 22:02 01/01/25 22:15 01/01/25 22:16 Temperature Pulse Rate 81 84 82 Respiratory Rate 13 12 11 L Blood Pressure 104/68 Pulse Oximetry 99 98 97 01/01/25 22:30 Temperature Pulse Rate 83 Respiratory Rate 12 Blood Pressure Pulse Oximetry 99 Exam Narrative: General: alert and comfortable Eyes: EOMI, PERRLA ENNT External ears normal, Neck is supple, no masses, Respiratory systems: Clear to auscultation Cardiovascular S1, S2, normal rhythm, no murmur, rub, or gallop; no thrill or palpable murmurs on palpation. Gastrointestinal: soft, epigastric tenderness r, and non-distended abdomen with no masses; BS present Skin: no rash, lesions, ulcerations, subcutaneous nodules or induration Musculoskeletal: no abnormality and no tenderness, normal ROM Neurologic: Alert and oriented x3, non focal Mental Status Exam: normal affect H&P: Results Labs Labs: Short CBC 01/01/25 01/01/25 Range/Units 17:50 22:36 WBC 7.0 (4.5-10.0) K/mm3 Hgb 12.6 10.4 L (12.0-15.0) g/dL Hct 37.1 30.8 L (37.0-47.0) % Plt Count 255 (150-375) k/mm3 BMP 01/01/25 17:50 Sodium 142 Potassium 4.0 Chloride 102 Carbon Dioxide 27 BUN 11 Creatinine 0.98 Glucose 126 H Calcium 9.9 Cardiac Enzymes 01/01/25 01/01/25 Range/Units 17:49 23:09 Troponin I < 0.012 < 0.012 (0.000-0.034) ng/mL Liver Function 01/01/25 Range/Units 17:50 Total Bilirubin 1.0 (0.2-1.3) mg/dL AST 40 H (14-36) U/L ALT 53 H (6-35) U/L Alkaline Phosphatase 81 (38-126) U/L Albumin 5.0 (3.5-5.1) g/dL Assessment and Plan Assessment and plan (1) Anemia: Code(s): D64.9 - Anemia, unspecified Status: Acute (2) GI bleed: Code(s): K92.2 - Gastrointestinal hemorrhage, unspecified Status: Acute Plan GI bleed Patient presented with abdominal pain and hematochezia CT abdomen showed fluid containing nondilated small bowel and possible colitis Continue IV Protonix, IV fluid, GI consult today. Monitor closely Possible colitis Blood culture ordered Continue Levaquin Flagyl Anemia Hemoglobin dropped from 12.6-10.4 GI bleed Monitor H and H, iron panel. Syncope wiith head trauma Likely from GI blood loss ECHo and Ct head pending contineu above care Coronary artery disease status post stents Or antiplatelets pending GI above. Monitor. Type 2 diabetes Sliding scale insulin with Accu-Cheks adjust with clinical course. Hypertension Titrate her medication clinical course DVT prophylaxis on SCDs, no anticoagulation due to GI bleed Full code Surrogate decision maker is the child's further Jair Carrasco
[2025-01-02] MEDS: PANTOPRAZOLE SODIUM IV 40 MG VIAL IV PUSH ×3 (02:44→20:22)
[2025-01-02] MEDS: ONDANSETRON INJ 4 MG/2 ML VIAL IV PUSH (02:44)
[2025-01-02] MEDS: SODIUM CHLORIDE 0.9% IV 1,000 ML 75 ML IV CONT (02:45)
[2025-01-02 02:57] LABS: Iron 70 ug/dL (37-170)
[2025-01-02 03:06] LABS: Percent Iron Saturation 21 % (20-50)
--- NOTE | 2025-01-02 03:31 | PC.NURSE ---
Blood cultures drawn via KONUXin device. 1st set rt forearm, 2nd set left wrist/hand area. Will start abx now.
[2025-01-02] MEDS: metroNIDAZOLE 500 MG/ISO 100ML 500 MG/100 ML BAG 100 MG IVPB ×3 (03:32→18:44)
[2025-01-02] MEDS: SODIUM CHLORIDE 0.9% IV 1,000 ML 999 ML IV CONT (03:33)
--- NOTE | 2025-01-02 04:42 | ADMGEN ---
This patient, Bertha Echeavrria, was admitted to IMU Room 213-01 at 0437. Patient/family oriented to hospital policies and general routines including ID bracelet, bed and alarms, visiting hours, pain management, procedures, bathroom and other care routines, personal items, smoking policy, room service/diet, and visiting hours. Information on how to activate the Rapid Response Team has been discussed. Patient/Family are encouraged to report perceived risks to care and to ask questions if they do not understand what they are told or what they should do.
[2025-01-02 06:36] LABS: Hematocrit 27.2 % (37.0-47.0); Hemoglobin 8.8 g/dL (12.0-15.0)
--- NOTE | 2025-01-02 07:50 | P.CONGI_ITS ---
Assessment and Plan Assessment and plan (1) BRBPR (bright red blood per rectum): Code(s): K62.5 - Hemorrhage of anus and rectum Status: Acute (2) ABLA (acute blood loss anemia): Code(s): D62 - Acute posthemorrhagic anemia Status: Acute (3) Nausea & vomiting: Qualifiers: Vomiting type: unspecified Qualified Code(s): R11.2 - Nausea with vomiting, unspecified Code(s): R11.2 - Nausea with vomiting, unspecified Status: Acute (4) Lower abdominal pain: Code(s): R10.30 - Lower abdominal pain, unspecified Status: Acute (5) Abnormal digestive system diagnostic imaging: Code(s): R93.3 - Abnormal findings on diagnostic imaging of other parts of digestive tract Status: Acute (6) Colitis: Code(s): K52.9 - Noninfective gastroenteritis and colitis, unspecified Status: Acute (7) Elevated liver transaminase level: Code(s): R74.01 - Elevation of levels of liver transaminase levels Status: Acute Plan 1. Rectal bleeding/ABLA/lower abdominal pain/abnormal imaging digestive- colitis/syncope: Patient has never had a colonoscopy. Family Hx negative for CRC or IBD. Patient was previously seen by GI during an admission August 2022 and outpatient EGD/colon was recommended but not done for anemia. She has been on aspirin 81 mg and Brilinta daily since her NH and stent placement in 2021, last doses taken yesterday AM. She admits to an acute onset of symptoms early Thursday morning. 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 Pain only temporarily improved after BM's. She states that after having a BM she got dizzy and passed out. Prior to acute symptoms she was have regular formed non urgent BM's every 1-2 days without bleeding. On admission Hgb 13 and today labs show WBC's 7, Hgb 9, Hct 37, MCV 90 and platelets 255. Iron panel and ferritin were normal. CT showed nondilated distal small bowel with air fluid levels suggesting possible colon wall thickening concerning for possible colitis. Patient is on antibiotics. No signs of active GI bleeding at time of visit. DDX: Acute infectious/inflammatory condition vs IBD vs hemorroid vs polyp vs AVM vs ischemic less likely neoplasm * clear liquid diet today * plan for colonoscopy tomorrow * bowel prep this evening * NPO after midnight * Hold anticoags * primary care team to continue monitoring H/H and transfuse as needed to keep Hgb > 7 2. Nausea and vomiting: Patient has never had an EGD. Lipase normal at 88. Admits to nausea and vomiting prior to admission that has since resolved. She has been on Ozempic x 2 months and was having some nausea but no vomiting. Denies any reflux, regurgitation or swallowing difficulty. DDX: Acute infectious/inflammatory condition vs medication induced vs motility disorder vs PUD. * EGD also ordered * primary care team to continue supportive care with pain management and antiemetics * further recs to follow endoscopy 3. Elevated liver transaminase: Patient with chronic transaminase elevation for > 3 years. Bilirubin and Alk phos have remained normal. Denies any prior Hx of liver disease and liver was normal on CT this admission. Labs this admission showing total bilirubin 1.0, AST 40, ALT 53, Alk Phos 81 and albumin 5.0. Iron panel and ferritin normal. Hepatitis panel was negative in March 2022. * Liver work up ordered and patient can follow up outpatient for management Thank you very much for allowing me to share in the care of this very nice patient. This report may have been done utilizing a voice recognition system. Attempts have been made to correct errors. However, there may be uncorrected grammatical, spelling, and recognition errors present. GI Consult Note Consult date/time: 01/02/25 07:50 Reason for consult: Lower GI bleed HPI: Bertha Echevarria is a pleasant 54 year old female with PMSH of CAD, Hx fo NH in 2021 s/p cardiac stents, HTN, HLD, GERD, , and tobacco abuse. She presented to the ER yesterday with complaints of rectal bleeding and syncopal episode. Patient was last seen by GI during a hospitalization in August 2022 for anemia and at that time was advised to follow up with us for an outpatient EGD and colonoscopy. Patient states that on Thursday as she started having painless rectal bleeding, lower abdominal pain, nausea, vomiting and syncopal episode. She abdominal pain is crampy and severe at times and only temporarily improves with BM's. No BM or rectal bleeding since admission. Admits to nausea and vomiting prior to admission but none since admission. Does admit to some nausea prior to her acute onset of symptoms Thursday but patient through it was related to Ozempic she started around 2 months ago. Denies abdominal bloating, odynophagia, dysphagia, reflux, regurgitation, unchanged early satiety and decreased appetite. Denies unexplained weight loss. Denies chronic constipation or melena. Prior to admission the patient was on aspirin 81 mg daily and Brilinta daily, last dose yesterday AM. Family Hx negative for CRC or IBD. Rare social drinking, non smoker and denies marijuana use. ENDOSCOPY HISTORY: Patient has never had an EGD or colonoscopy LABS AND STOOL STUDIES: Labs 01/01/2025- 01/02/2025: Sodium 142, potassium 4.0, BUN 11, creatinine 0.98, GFR 59 WBC 7, Hgb 9, Hct 27, MCV 90, platelets 255, INR 1.0 Total bilirubin 1.0, AST 40, ALT 53, Alkaline Phos 81, albumin 5.0 Total iron 70, TIBC 336, iron sat 21, ferritin 40.80 IMAGING: Chest Xray 01/01/2025: IMPRESSION: No active cardiopulmonary disease CT abd/pelvis w/contrast 01/01/2025: IMPRESSION: Fluid containing nondilated distal small bowel with occasional air- fluid levels and suggestion of possible colon wall thickening which may indicate colitis; clinical correlation is advised No bowel obstruction or intraperitoneal free air Normal appendix Review of Systems 2 Constitutional: Constitutional: Reports as per HPI ENT: Reports as per HPI Cardiovascular: Cardiovascular: Reports as per HPI, Denies chest pain and Denies dyspnea Respiratory: Respiratory: Denies cough and Denies dyspnea Gastrointestinal: Gastrointestinal: Reports as per HPI Musculoskeletal: Musculoskeletal: Reports as per HPI Integumentary/Breasts: Skin/Breast: Reports as per HPI Psychiatric: Psychiatric: Reports as per HPI Endocrine: Endocrine: Reports no additional endocrine complaints Hematologic/Lymphatic: Hematologic/Lymphatic: Reports no additional hematologic/lymphatic complaints [facility] Past Medical History Medical History (Updated 01/02/25 @ 09:16 by Alexa Arreola, DEANA) Gastroesophageal reflux disease Iron deficiency anemia Hypertension Dyslipidemia Acute ST elevation myocardial infarction (STEMI) of posterior wall (01/06/22) Unstable angina Coronary artery disease Tobacco abuse patient quit smoking in December 2021 after her NH Surgical History Surgical History History of coronary artery stent placement (12/2021) multivessel coronary disease status post difficult complex multivessel PCI and stent x 6 History of cardiac catheterization History of section Family History Family History Grandparent Cancer Hypertension Social History Social History (Updated 10/29/24 @ 21:56 by Gwen Grey PA-C) Social History: Surrogate decision maker: Angel Echevarria (son) and Jair Carrasco. Code status: Full code. Smoking packs per day: 1 Smoking cigarettes per day: 20.0 Years smoked: 33 Smoking pack-years: 33.00 Smoking status: Former smoker Alcohol intake: never Drinks per week: 1 Substance use: never Substance use type: marijuana Do You Feel Safe in your Home?: Yes Lack of Transportation: No Lack of Food: Never True Current Housing: I Have Housing Concerned About Future Housing: No Difficulty Paying Gas/Electric Bills: No Difficulty Paying for Meds: No Currently Unemployed: No Education: Decline to Answer Difficulty w/ Childcare or Family Care: No Spiritual care concerns: No Meds Home Medications and Allergies Home Medications ?Medication ?Instructions ?Recorded ?Confirmed ?Type nitroglycerin 0.4 mg sublingual 0.4 mg sublingual PRN PRN chest 08/21/22 01/02/25 History tablet pain isosorbide mononitrate 30 mg 15 mg (1/2 x 30 mg) PO QAM 30 days 08/24/22 01/02/25 Rx tablet,extended release 24 hr #30 tabs metoprolol succinate 25 mg 12.5 mg (1/2 x 25 mg) PO DAILY #30 08/24/22 01/02/25 Rx tablet,extended release 24 hr tabs aspirin 81 mg tablet,delayed 81 mg PO BID 10/29/24 01/02/25 History release atorvastatin 80 mg tablet 80 mg PO DAILY 10/29/24 01/02/25 History ezetimibe 10 mg tablet 10 mg PO DAILY 10/29/24 01/02/25 History losartan 50 mg tablet 50 mg PO DAILY 10/29/24 01/02/25 History ticagrelor 60 mg tablet (Brilinta) 60 mg PO Q12H 10/29/24 01/02/25 History nitroglycerin 0.4 mg sublingual 0.4 mg sublingual Q5MIN PRN Chest 10/30/24 01/02/25 Rx tablet (Nitrostat) Pain #26 tabs semaglutide 1 mg/dose (4 mg/3 mL) 1 mg subcut WEEKLY 01/02/25 01/02/25 History subcutaneous pen injector (Ozempic) Allergies Allergy/AdvReac Type Severity Reaction Status Date / Time No Known Allergies Allergy Unknown Verified 01/01/25 17:35 Vital Signs Vital Signs - 24 hr 01/01/25 17:41 01/01/25 20:12 01/01/25 20:13 Temperature 98.3 F Pulse Rate 88 85 91 Respiratory Rate 16 14 16 Blood Pressure 107/77 101/72 Pulse Oximetry 100 99 98 Oxygen Delivery 01/01/25 20:15 01/01/25 20:16 01/01/25 20:30 Temperature Pulse Rate 76 82 78 Respiratory Rate 13 17 18 Blood Pressure 94/73 L Pulse Oximetry 98 99 100 Oxygen Delivery 01/01/25 20:31 01/01/25 20:45 01/01/25 21:18 Temperature Pulse Rate 72 102 H 95 Respiratory Rate 17 18 12 Blood Pressure 99/70 L Pulse Oximetry 100 100 Oxygen Delivery 01/01/25 21:30 01/01/25 21:44 01/01/25 21:45 Temperature Pulse Rate 90 84 75 Respiratory Rate 14 9 L Blood Pressure 104/78 Pulse Oximetry 99 100 100 Oxygen Delivery 01/01/25 21:46 01/01/25 22:00 01/01/25 22:01 Temperature Pulse Rate 91 80 74 Respiratory Rate 9 L 14 17 Blood Pressure 93/70 L 94/72 L Pulse Oximetry 98 97 97 Oxygen Delivery 01/01/25 22:02 01/01/25 22:15 01/01/25 22:16 Temperature Pulse Rate 81 84 82 Respiratory Rate 13 12 11 L Blood Pressure 104/68 Pulse Oximetry 99 98 97 Oxygen Delivery 01/01/25 22:30 01/01/25 23:23 01/01/25 23:30 Temperature Pulse Rate 83 76 72 Respiratory Rate 12 14 12 Blood Pressure Pulse Oximetry 99 97 97 Oxygen Delivery 01/01/25 23:45 01/02/25 00:27 01/02/25 00:30 Temperature Pulse Rate 81 80 71 Respiratory Rate 11 L 14 14 Blood Pressure Pulse Oximetry 96 99 97 Oxygen Delivery 01/02/25 00:45 01/02/25 01:19 01/02/25 01:30 Temperature Pulse Rate 72 72 72 Respiratory Rate 11 L 14 12 Blood Pressure Pulse Oximetry 97 98 97 Oxygen Delivery 01/02/25 01:45 01/02/25 02:15 01/02/25 02:46 Temperature Pulse Rate 67 64 71 Respiratory Rate 13 12 14 Blood Pressure 122/86 94/69 L Pulse Oximetry 97 97 95 Oxygen Delivery 01/02/25 02:47 01/02/25 02:54 01/02/25 02:56 Temperature Pulse Rate 76 70 85 Respiratory Rate 12 17 Blood Pressure 92/69 L 96/70 L Pulse Oximetry 96 96 95 Oxygen Delivery 01/02/25 03:00 01/02/25 03:01 01/02/25 03:06 Temperature Pulse Rate 68 71 74 Respiratory Rate 15 12 11 L Blood Pressure 95/70 L 93/68 L Pulse Oximetry 97 96 96 Oxygen Delivery 01/02/25 03:16 01/02/25 03:56 01/02/25 04:00 Temperature Pulse Rate 80 75 71 Respiratory Rate 12 13 14 Blood Pressure 92/65 L Pulse Oximetry 97 100 99 Oxygen Delivery 01/02/25 04:01 01/02/25 04:17 01/02/25 04:38 Temperature 98.9 F Pulse Rate 69 84 74 Respiratory Rate 14 15 18 Blood Pressure 97/57 L Pulse Oximetry 99 95 97 Oxygen Delivery 01/02/25 04:40 01/02/25 04:50 01/02/25 06:00 Temperature Pulse Rate 68 93 Respiratory Rate 16 Blood Pressure 96/74 L Pulse Oximetry 98 Oxygen Delivery Room Air Exam 2 Const: General: cooperative, healthy appearing, comfortable, no acute distress and well developed Orientation/consciousness: oriented to person, oriented to place, oriented to time and patient oriented x3 HENMT: Head: normal to inspection, normocephalic and atraumatic Mouth: Yes Normal oral and palatal mucosa present and Yes moist mucous membranes Eyes: General: appearance normal, both eyes and all related structures C onjunctivae: conjunctivae normal Sclera: sclerae normal Pupils: Equal, round and reactive pupils present Neck: Neck: normal visual inspection Chest: Chest palpation & inspection: normal inspection of the chest Resp: Effort & Inspection: normal respiratory effort and able to speak in complete sentences Auscultation: clear to auscultation bilaterally Cardio: Jugular venous distension: no JVD Rate: regular rate Rhythm: r egular rhythm Heart sounds: S1 normal heart sound present and S2 normal heart sound present GI: Inspection: normal to inspection GI Palp: Yes Soft to palpation and Yes No hepatosplenomegaly present Auscultation: normal bowel sounds Rectal Exam: deferred Skin: General skin exam: normal color and no rashes or lesions noted Neuro: General: oriented to person, oriented to place, oriented to time and patient oriented x3 Cranial nerves: Yes Equal, round and reactive pupils present Speech: normal speech Extrem: General: normal to inspection and no clubbing, cyanosis or edema Psych: Appearance: grossly normal and well kempt Affect: normal affect Results Labs 01/02/25 06:23 01/01/25 17:50 Labs: Short CBC 01/01/25 01/01/25 01/02/25 Range/Units 17:50 22:36 06:23 WBC 7.0 (4.5-10.0) K/mm3 Hgb 12.6 10.4 L 8.8 L (12.0-15.0) g/dL Hct 37.1 30.8 L 27.2 L (37.0-47.0) % Plt Count 255 (150-375) k/mm3 BMP 01/01/25 17:50 Sodium 142 Potassium 4.0 Chloride 102 Carbon Dioxide 27 BUN 11 Creatinine 0.98 Glucose 126 H Calcium 9.9 Cardiac Enzymes 01/01/25 01/01/25 Range/Units 17:49 23:09 Troponin I < 0.012 < 0.012 (0.000-0.034) ng/mL Liver Function 01/01/25 Range/Units 17:50 Total Bilirubin 1.0 (0.2-1.3) mg/dL AST 40 H (14-36) U/L ALT 53 H (6-35) U/L Alkaline Phosphatase 81 (38-126) U/L Albumin 5.0 (3.5-5.1) g/dL
[2025-01-02] MEDS: levoFLOXacin 750 MG/D5W 150 ML 750 MG/150 ML BAG 100 MG IVPB (09:13)
[2025-01-02 10:05] LABS: Hematocrit 26.2 % (37.0-47.0); Hemoglobin 8.6 g/dL (12.0-15.0); Mean Corpuscular HGB Conc 32.8 g/dl (32-36); Mean Corpuscular Hemoglobin 30.6 pg (26-34); Mean Corpuscular Volume 93.2 fl (80-100); Mean Platelet Volume 10.6 fl (7.4-10.4); Platelet Count Result 165 k/mm3 (150-375); Red Blood Count 2.81 M/mm3 (4.2-5.4); Red Cell Distribution Width 11.7 % (11.5-14.5); White Blood Count 4.7 K/mm3 (4.5-10.0)
[2025-01-02 10:18] LABS: Alanine Aminotransferase 30 U/L (6-35); Albumin Level 3.4 g/dL (3.5-5.1); Alkaline Phosphatase 47 U/L (38-126); Anion Gap 9 mmol/L (4-12); Aspartate Amino Transferase 23 U/L (14-36); Blood Urea Nitrogen 10 mg/dL (7-17); Calcium 8.2 mg/dL (8.4-10.2); Carbon Dioxide 23 mmol/L (22-30); Chloride 110 mmol/L (98-107); Estimated CRCL calculation 62 ml/min; Estimated Glomerular Filt Rate > 60; Glucose 124 mg/dL (65-110); Potassium 3.7 mmol/L (3.4-5.0); Sodium 142 mmol/L (137-145)
[2025-01-02] MEDS: DICYCLOMINE HCL 10 MG CAPSULE 20 MG PO (10:57)
[2025-01-02] MEDS: BELLADONNA ALK/PHENOB ELIX 10 ML, MAG HYDROX/ALUMINUM HYD/SIMETH 30 ML, LIDOCAINE 2% VI... PO (10:57)
--- NOTE | 2025-01-02 16:42 | P.PNIM_ITS ---
Progress Note: A&P Assessment and Plan (1) Anemia: Code(s): D64.9 - Anemia, unspecified Status: Acute (2) GI bleed: Code(s): K92.2 - Gastrointestinal hemorrhage, unspecified Status: Acute Plan GI bleed Hold Brilinta Possible colonoscopy tomorrow 0 01/03 Patient presented with abdominal pain and hematochezia CT abdomen showed fluid containing nondilated small bowel and possible colitis Continue IV Protonix, IV fluid, GI consult today. Monitor closely Possible colitis Blood culture ordered Continue Levaquin Flagyl Anemia Hemoglobin dropped from 12.6-10.4 GI bleed Monitor H and H, iron panel. Syncope wiith head trauma Likely from GI blood loss ECHo and Ct head no significant finding Continue above care Coronary artery disease status post stents Stent placement 2021 Hold Brilinta Or antiplatelets pending GI above. Monitor. Type 2 diabetes Sliding scale insulin with Accu-Cheks adjust with clinical course. Hypertension Titrate her medication clinical course DVT prophylaxis on SCDs, no anticoagulation due to GI bleed Full code Surrogate decision maker is the child's further Jair Carrasco Subjective Date/time seen: 01/02/25 16:42 Interval history: Patient reports that she had stent placement a year 2021 and she was taking Brilinta. She was complaining about abdominal pain for which Bentyl and GI cocktail as given. Patient will undergo colonoscopy tomorrow. NPO midnight Review of Systems Review of Systems: All other systems are reviewed and negative except as noted in history above. Exam Narrative: General: alert and comfortable Eyes: EOMI, PERRLA ENNT External ears normal, Neck is supple, no masses, Respiratory systems: Clear to auscultation Cardiovascular S1, S2, normal rhythm, no murmur, rub, or gallop; no thrill or palpable murmurs on palpation. Gastrointestinal: soft, epigastric tenderness r, and non-distended abdomen with no masses; BS present Skin: no rash, lesions, ulcerations, subcutaneous nodules or induration Musculoskeletal: no abnormality and no tenderness, normal ROM Neurologic: Alert and oriented x3, non focal Mental Status Exam: normal affect Objective Data Vital Signs Vital Signs: Vital Signs - 24 hr 01/01/25 17:41 01/01/25 20:12 01/01/25 20:13 Temperature 98.3 F Pulse Rate 88 85 91 Respiratory Rate 16 14 16 Blood Pressure 107/77 101/72 Pulse Oximetry 100 99 98 Oxygen Delivery 01/01/25 20:15 01/01/25 20:16 01/01/25 20:30 Temperature Pulse Rate 76 82 78 Respiratory Rate 13 17 18 Blood Pressure 94/73 L Pulse Oximetry 98 99 100 Oxygen Delivery 01/01/25 20:31 01/01/25 20:45 01/01/25 21:18 Temperature Pulse Rate 72 102 H 95 Respiratory Rate 17 18 12 Blood Pressure 99/70 L Pulse Oximetry 100 100 Oxygen Delivery 01/01/25 21:30 01/01/25 21:44 01/01/25 21:45 Temperature Pulse Rate 90 84 75 Respiratory Rate 14 9 L Blood Pressure 104/78 Pulse Oximetry 99 100 100 Oxygen Delivery 01/01/25 21:46 01/01/25 22:00 01/01/25 22:01 Temperature Pulse Rate 91 80 74 Respiratory Rate 9 L 14 17 Blood Pressure 93/70 L 94/72 L Pulse Oximetry 98 97 97 Oxygen Delivery 01/01/25 22:02 01/01/25 22:15 01/01/25 22:16 Temperature Pulse Rate 81 84 82 Respiratory Rate 13 12 11 L Blood Pressure 104/68 Pulse Oximetry 99 98 97 Oxygen Delivery 01/01/25 22:30 01/01/25 23:23 01/01/25 23:30 Temperature Pulse Rate 83 76 72 Respiratory Rate 12 14 12 Blood Pressure Pulse Oximetry 99 97 97 Oxygen Delivery 01/01/25 23:45 01/02/25 00:27 01/02/25 00:30 Temperature Pulse Rate 81 80 71 Respiratory Rate 11 L 14 14 Blood Pressure Pulse Oximetry 96 99 97 Oxygen Delivery 01/02/25 00:45 01/02/25 01:19 01/02/25 01:30 Temperature Pulse Rate 72 72 72 Respiratory Rate 11 L 14 12 Blood Pressure Pulse Oximetry 97 98 97 Oxygen Delivery 01/02/25 01:45 01/02/25 02:15 01/02/25 02:46 Temperature Pulse Rate 67 64 71 Respiratory Rate 13 12 14 Blood Pressure 122/86 94/69 L Pulse Oximetry 97 97 95 Oxygen Delivery 01/02/25 02:47 01/02/25 02:54 01/02/25 02:56 Temperature Pulse Rate 76 70 85 Respiratory Rate 12 17 Blood Pressure 92/69 L 96/70 L Pulse Oximetry 96 96 95 Oxygen Delivery 01/02/25 03:00 01/02/25 03:01 01/02/25 03:06 Temperature Pulse Rate 68 71 74 Respiratory Rate 15 12 11 L Blood Pressure 95/70 L 93/68 L Pulse Oximetry 97 96 96 Oxygen Delivery 01/02/25 03:16 01/02/25 03:56 01/02/25 04:00 Temperature Pulse Rate 80 75 71 Respiratory Rate 12 13 14 Blood Pressure 92/65 L Pulse Oximetry 97 100 99 Oxygen Delivery 01/02/25 04:01 01/02/25 04:17 01/02/25 04:38 Temperature 98.9 F Pulse Rate 69 84 74 Respiratory Rate 14 15 18 Blood Pressure 97/57 L Pulse Oximetry 99 95 97 Oxygen Delivery 01/02/25 04:40 01/02/25 04:50 01/02/25 06:00 Temperature Pulse Rate 68 93 Respiratory Rate 16 Blood Pressure 96/74 L Pulse Oximetry 98 Oxygen Delivery Room Air 01/02/25 08:00 01/02/25 08:00 01/02/25 08:00 Temperature 98 F Pulse Rate 81 81 82 Respiratory Rate 16 16 Blood Pressure 96/61 L Pulse Oximetry 95 95 Oxygen Delivery Room Air 01/02/25 10:00 01/02/25 12:00 01/02/25 12:00 Temperature 98.5 F Pulse Rate 88 84 84 Respiratory Rate 18 18 Blood Pressure 105/52 L Pulse Oximetry 100 100 Oxygen Delivery Room Air 01/02/25 12:00 01/02/25 14:00 01/02/25 15:18 Temperature Pulse Rate 83 84 Respiratory Rate Blood Pressure Pulse Oximetry 100 Oxygen Delivery Room Air 01/02/25 16:00 Temperature Pulse Rate Respiratory Rate Blood Pressure Pulse Oximetry Oxygen Delivery Room Air Intake/Output Intake/Output: Intake & Output 12/30/24 12/31/24 01/01/25 01/02/25 23:59 23:59 23:59 23:59 Intake Total 1000 1432.5 Balance 1000 1432.5 Meds/Results Medications: Active Medications Generic Name Dose Route Start Last Admin Trade Name Freq PRN Reason Stop Dose Admin Acetaminophen 650 mg 01/02/25 00:48 Acetaminophen 325 Mg Tablet PO Q4H PRN Mild Pain (1-3) or Fever Dicyclomine HCl 20 mg 01/02/25 09:39 01/02/25 10:57 Dicyclomine Hcl 10 Mg Capsule PO 20 mg QID PRN Administration Abdominal Cramping Metronidazole 500 mg in 100 mls @ 100 mls/hr 01/02/25 02:00 01/02/25 13:05 Flagyl 500 Mg/Iso Soln 100 Ml IVPB Infused Q8H DANIELLE Infusion Sodium Chloride 1,000 mls @ 125 mls/hr 01/02/25 02:10 01/02/25 09:43 Normal Saline Iv IV CONT 125 mls/hr .Q8H DANIELLE Infusion Levofloxacin/Dextrose 750 mg in 150 mls @ 100 mls/hr 01/02/25 08:00 01/02/25 12:05 Levaquin 750 Mg/D5w 150 Ml IVPB Infused Q24H DANIELLE Infusion Ondansetron HCl 4 mg 01/02/25 00:48 01/02/25 02:44 Ondansetron Inj 4 Mg/2 Ml Vial IV PUSH 4 mg Q4H PRN Administration Nausea Pantoprazole Sodium 40 mg 01/02/25 02:05 01/02/25 09:13 Pantoprazole Sodium Iv 40 Mg Vial IV PUSH 40 mg Q12HR DANIELLE Administration Perflutren Lipid Microsphere 0 ml 01/02/25 02:12 Perflutren Lipid Microspheres 1.5 Ml Vial Diluted To 10 Ml Total Volume IV PUSH 01/05/25 02:12 ONCE PRN adequate visualization Protocol Polyethylene Glycol 119 gm 01/02/25 20:00 Polyethylene Glycol 3350 238 Gm Bottle PO 01/03/25 05:01 BID@0500,2000 [facility] Polyethylene Glycol 119 gm 01/02/25 17:00 Polyethylene Glycol 3350 238 Gm Bottle PO 01/02/25 17:01 ONCE ONE Radiology Results: ITS Impressions Head CT 01/01/25 21:11 IMPRESSION: No skull fracture or acute intracranial finding Suspected empty sella Head/Cervical Spine/Facial Bones CT 01/01/25 21:29 IMPRESSION: No facial fracture Moderate cervical spondylosis No fracture or dislocation or locked facet of the cervical spine Abdomen/Pelvis CT 01/01/25 21:35 IMPRESSION: Fluid containing nondilated distal small bowel with occasional air- fluid levels and suggestion of possible colon wall thickening which may indicate colitis; clinical correlation is advised No bowel obstruction or intraperitoneal free air Normal appendix Knee X-Ray 01/01/25 21:46 IMPRESSION: No fracture or dislocation or joint effusion Chest X-Ray 01/01/25 21:47 IMPRESSION: No active cardiopulmonary disease Labs Labs: Laboratory Results - last 24 hr 01/01/25 01/01/25 01/01/25 17:49 17:50 18:45 WBC 7.0 RBC 4.12 L Hgb 12.6 Hct 37.1 MCV 90.0 MCH 30.6 MCHC 34.0 RDW 11.5 Plt Count 255 MPV 11.0 H Immature Gran % (Auto) 0.3 Neut % (Auto) 71.0 Lymph % (Auto) 22.7 [place] % (Auto) 4.7 Eos % (Auto) 0.7 Baso % (Auto) 0.6 Lymph # (Auto) 1.59 [place] # (Auto) 0.3 Eos # (Auto) 0.1 Baso # (Auto) 0.0 Abs Immat Gran (auto) 0.02 Absolute Neuts (auto) 5.0 Absolute Nucleated RBC 0.000 Nucleated RBC % 0.0 PT 13.3 INR 1.0 APTT 25.7 Sodium 142 Potassium 4.0 Chloride 102 Carbon Dioxide 27 Anion Gap 13 H BUN 11 Creatinine 0.98 Estim Creat Clear Calc Not Reportable Estimated GFR 59 Glucose 126 H Lactic Acid Calcium 9.9 Iron TIBC % Saturation Ferritin Total Bilirubin 1.0 AST 40 H ALT 53 H Alkaline Phosphatase 81 Troponin I < 0.012 Total Protein 8.0 Albumin 5.0 Lipase 88 Blood Type A Positive Antibody Screen Negative 01/01/25 01/01/25 01/02/25 22:36 23:09 02:10 WBC RBC Hgb 10.4 L Hct 30.8 L MCV MCH MCHC RDW Plt Count MPV Immature Gran % (Auto) Neut % (Auto) Lymph % (Auto) [place] % (Auto) Eos % (Auto) Baso % (Auto) Lymph # (Auto) [place] # (Auto) Eos # (Auto) Baso # (Auto) Abs Immat Gran (auto) Absolute Neuts (auto) Absolute Nucleated RBC Nucleated RBC % PT INR APTT Sodium Potassium Chloride Carbon Dioxide Anion Gap BUN Creatinine Estim Creat Clear Calc Estimated GFR Glucose Lactic Acid 1.3 Calcium Iron 70 TIBC 336 % Saturation 21 Ferritin 40.80 Total Bilirubin AST ALT Alkaline Phosphatase Troponin I < 0.012 Total Protein Albumin Lipase Blood Type Antibody Screen 01/02/25 01/02/25 06:23 09:57 WBC 4.7 RBC 2.81 L Hgb 8.8 L 8.6 L Hct 27.2 L 26.2 L MCV 93.2 MCH 30.6 MCHC 32.8 RDW 11.7 Plt Count 165 MPV 10.6 H Immature Gran % (Auto) Neut % (Auto) Lymph % (Auto) [place] % (Auto) Eos % (Auto) Baso % (Auto) Lymph # (Auto) [place] # (Auto) Eos # (Auto) Baso # (Auto) Abs Immat Gran (auto) Absolute Neuts (auto) Absolute Nucleated RBC Nucleated RBC % PT INR APTT Sodium 142 Potassium 3.7 Chloride 110 H Carbon Dioxide 23 Anion Gap 9 BUN 10 Creatinine 0.90 Estim Creat Clear Calc 62 Estimated GFR > 60 Glucose 124 H Lactic Acid Calcium 8.2 L Iron TIBC % Saturation Ferritin Total Bilirubin 1.0 AST 23 ALT 30 Alkaline Phosphatase 47 Troponin I Total Protein 6.0 L Albumin 3.4 L Lipase Blood Type Antibody Screen Hospitalist [facility] Advance Care Plan I have confirmed that the patient's Advanced Care Plan is present, code status i s documented, or surrogate decision maker is listed in patient medical record.: Yes Medication Reconciliation I have utilized all available resources to obtain, update and review the patients current medications (includes all prescriptions, OTC, herbals, cannabis, and nutritional supplements).: Yes
[2025-01-02] MEDS: SODIUM CHLORIDE 0.9% IV 1,000 ML 125 ML IV CONT (18:17)
[2025-01-02] MEDS: polyethylene glycoL 3350 238 GM BOTTLE 119 GM PO ×2 (18:44→20:23)
[2025-01-02] MEDS: ACETAMINOPHEN 325 MG TABLET 650 MG PO (20:21)
[2025-01-03] VITALS (17 sets, daily range): BP systolic 102–133; BP diastolic 66–83; PULSE 77–109; RESP 16–20; TEMP 35.9–37.2; O2SAT 81–100
[2025-01-03] MEDS: metroNIDAZOLE 500 MG/ISO 100ML 500 MG/100 ML BAG 100 MG IVPB ×3 (02:30→17:42)
[2025-01-03] MEDS: SODIUM CHLORIDE 0.9% IV 1,000 ML 125 ML IV CONT (03:51)
[2025-01-03] MEDS: polyethylene glycoL 3350 238 GM BOTTLE 119 GM PO (03:52)
[2025-01-03 04:59] LABS: Hematocrit 28.5 % (37.0-47.0); Hemoglobin 9.2 g/dL (12.0-15.0); Mean Corpuscular HGB Conc 32.3 g/dl (32-36); Mean Corpuscular Hemoglobin 30.4 pg (26-34); Mean Corpuscular Volume 94.1 fl (80-100); Mean Platelet Volume 10.9 fl (7.4-10.4); Platelet Count Result 170 k/mm3 (150-375); Red Blood Count 3.03 M/mm3 (4.2-5.4); Red Cell Distribution Width 11.5 % (11.5-14.5); White Blood Count 5.5 K/mm3 (4.5-10.0)
[2025-01-03 05:18] LABS: Alanine Aminotransferase 31 U/L (6-35); Albumin Level 3.8 g/dL (3.5-5.1); Alkaline Phosphatase 56 U/L (38-126); Anion Gap 8 mmol/L (4-12); Aspartate Amino Transferase 29 U/L (14-36); Bilirubin,Total 0.5 mg/dL (0.2-1.3); Blood Urea Nitrogen 4 mg/dL (7-17); Calcium 8.4 mg/dL (8.4-10.2); Carbon Dioxide 23 mmol/L (22-30); Chloride 111 mmol/L (98-107); Estimated CRCL calculation 60 ml/min; Estimated Glomerular Filt Rate 60; Glucose 86 mg/dL (65-110); Potassium 3.7 mmol/L (3.4-5.0); Sodium 142 mmol/L (137-145)
[2025-01-03 07:58] LABS: Alpha-1-Antitrypsin, QN 119 mg/dL (83-199); Ceruloplasmin 17 mg/dL (14-48)
[2025-01-03] MEDS: levoFLOXacin 750 MG/D5W 150 ML 750 MG/150 ML BAG 100 MG IVPB (08:53)
[2025-01-03] MEDS: PANTOPRAZOLE SODIUM IV 40 MG VIAL IV PUSH (08:54)
--- NOTE | 2025-01-03 08:59 | P.PNIM_ITS ---
Progress Note: A&P Assessment and Plan (1) Anemia: Code(s): D64.9 - Anemia, unspecified Status: Acute (2) GI bleed: Code(s): K92.2 - Gastrointestinal hemorrhage, unspecified Status: Acute Plan GI bleed Hold Brilinta Underwent colonoscopy and EGD today Patient to be discharged tomorrow with Amoxil of 1 g twice daily Brilinta can be continued in a week Patient presented with abdominal pain and hematochezia CT abdomen showed fluid containing nondilated small bowel and possible colitis Continue IV Protonix, IV fluid, GI consult today. Monitor closely Possible colitis Blood culture ordered Continue Levaquin Flagyl Anemia Hemoglobin dropped from 12.6-10.4 GI bleed Monitor H and H, iron panel. Syncope wiith head trauma Likely from GI blood loss ECHo and Ct head no significant finding Continue above care Coronary artery disease status post stents Stent placement 2021 Hold Brilinta Or antiplatelets pending GI above. Monitor. Type 2 diabetes Sliding scale insulin with Accu-Cheks adjust with clinical course. Hypertension Titrate her medication clinical course DVT prophylaxis on SCDs, no anticoagulation due to GI bleed Full code Surrogate decision maker is the child's arpit Jair Carrasco Subjective Date/time seen: 01/03/25 08:59 Interval history: Patient underwent EGD and colonoscopy today. Patient started on Amoxil of for remaining 4 days and Brilinta can be continued in a week Review of Systems Review of Systems: All other systems are reviewed and negative except as noted in history above. Exam Narrative: General: alert and comfortable Eyes: EOMI, PERRLA ENNT External ears normal, Neck is supple, no masses, Respiratory systems: Clear to auscultation Cardiovascular S1, S2, normal rhythm, no murmur, rub, or gallop; no thrill or palpable murmurs on palpation. Gastrointestinal: soft, epigastric tenderness r, and non-distended abdomen with no masses; BS present Skin: no rash, lesions, ulcerations, subcutaneous nodules or induration Musculoskeletal: no abnormality and no tenderness, normal ROM Neurologic: Alert and oriented x3, non focal Mental Status Exam: normal affect Objective Data Vital Signs Vital Signs: Vital Signs - 24 hr 01/02/25 10:00 01/02/25 12:00 01/02/25 12:00 Temperature 98.5 F Pulse Rate 88 84 84 Respiratory Rate 18 18 Blood Pressure 105/52 L Pulse Oximetry 100 100 Oxygen Delivery Room Air 01/02/25 12:00 01/02/25 14:00 01/02/25 15:18 Temperature Pulse Rate 83 84 Respiratory Rate Blood Pressure Pulse Oximetry 100 Oxygen Delivery Room Air 01/02/25 16:00 01/02/25 16:00 01/02/25 16:00 Temperature 98.6 F Pulse Rate 94 95 Respiratory Rate 16 Blood Pressure 116/64 Pulse Oximetry 97 Oxygen Delivery Room Air 01/02/25 18:00 01/02/25 20:00 01/02/25 20:00 Temperature Pulse Rate 88 84 Respiratory Rate Blood Pressure Pulse Oximetry 97 Oxygen Delivery Room Air 01/02/25 20:16 01/02/25 22:00 01/02/25 23:46 Temperature 100.3 F H Pulse Rate 91 96 Respiratory Rate 20 Blood Pressure 113/68 Pulse Oximetry 97 Oxygen Delivery Room Air 01/03/25 00:00 01/03/25 00:00 01/03/25 02:00 Temperature 99.0 F Pulse Rate 90 85 88 Respiratory Rate 20 Blood Pressure 127/71 Pulse Oximetry 100 Oxygen Delivery 01/03/25 04:00 01/03/25 04:00 01/03/25 04:15 Temperature 98.9 F Pulse Rate 109 H 83 Respiratory Rate 20 Blood Pressure 124/66 Pulse Oximetry 99 99 Oxygen Delivery Room Air 01/03/25 06:00 01/03/25 07:24 Temperature 98.5 F Pulse Rate 87 82 Respiratory Rate 16 Blood Pressure 116/75 Pulse Oximetry 95 Oxygen Delivery Intake/Output Intake/Output: Intake & Output 12/31/24 01/01/25 01/02/25 01/03/25 23:59 23:59 23:59 23:59 Intake Total 1000 3711.0 3810 Output Total 900 Balance 1000 2811.0 3810 Meds/Results Medications: Active Medications Generic Name Dose Route Start Last Admin Trade Name Freq PRN Reason Stop Dose Admin Acetaminophen 650 mg 01/02/25 00:48 01/02/25 20:21 Acetaminophen 325 Mg Tablet PO 650 mg Q4H PRN Administration Mild Pain (1-3) or Fever Dicyclomine HCl 20 mg 01/02/25 09:39 01/02/25 10:57 Dicyclomine Hcl 10 Mg Capsule PO 20 mg QID PRN Administration Abdominal Cramping Metronidazole 500 mg in 100 mls @ 100 mls/hr 01/02/25 02:00 01/03/25 03:30 Flagyl 500 Mg/Iso Soln 100 Ml IVPB Infused Q8H DANIELLE Infusion Sodium Chloride 1,000 mls @ 125 mls/hr 01/02/25 02:10 01/03/25 03:51 Normal Saline Iv IV CONT 125 mls/hr .Q8H DANIELLE Administration Levofloxacin/Dextrose 750 mg in 150 mls @ 100 mls/hr 01/02/25 08:00 01/02/25 12:05 Levaquin 750 Mg/D5w 150 Ml IVPB Infused Q24H DANIELLE Infusion Ondansetron HCl 4 mg 01/02/25 00:48 01/02/25 02:44 Ondansetron Inj 4 Mg/2 Ml Vial IV PUSH 4 mg Q4H PRN Administration Nausea Pantoprazole Sodium 40 mg 01/02/25 02:05 01/02/25 20:22 Pantoprazole Sodium Iv 40 Mg Vial IV PUSH 40 mg Q12HR DANIELLE Administration Perflutren Lipid Microsphere 0 ml 01/02/25 02:12 Perflutren Lipid Microspheres 1.5 Ml Vial Diluted To 10 Ml Total Volume IV PUSH 01/05/25 02:12 ONCE PRN adequate visualization Protocol Radiology Results: ITS Impressions Head CT 01/01/25 21:11 IMPRESSION: No skull fracture or acute intracranial finding Suspected empty sella Head/Cervical Spine/Facial Bones CT 01/01/25 21:29 IMPRESSION: No facial fracture Moderate cervical spondylosis No fracture or dislocation or locked facet of the cervical spine Abdomen/Pelvis CT 01/01/25 21:35 IMPRESSION: Fluid containing nondilated distal small bowel with occasional air- fluid levels and suggestion of possible colon wall thickening which may indicate colitis; clinical correlation is advised No bowel obstruction or intraperitoneal free air Normal appendix Knee X-Ray 01/01/25 21:46 IMPRESSION: No fracture or dislocation or joint effusion Chest X-Ray 01/01/25 21:47 IMPRESSION: No active cardiopulmonary disease Labs Labs: Laboratory Results - last 24 hr 01/02/25 01/02/25 01/03/25 09:55 09:57 04:32 WBC 4.7 5.5 RBC 2.81 L 3.03 L Hgb 8.6 L 9.2 L Hct 26.2 L 28.5 L MCV 93.2 94.1 MCH 30.6 30.4 MCHC 32.8 32.3 RDW 11.7 11.5 Plt Count 165 170 MPV 10.6 H 10.9 H Sodium 142 142 Potassium 3.7 3.7 Chloride 110 H 111 H Carbon Dioxide 23 23 Anion Gap 9 8 BUN 10 4 L D Creatinine 0.90 0.97 Estim Creat Clear Calc 62 60 Estimated GFR > 60 60 Glucose 124 H 86 Calcium 8.2 L 8.4 Total Bilirubin 1.0 0.5 AST 23 29 ALT 30 31 Alkaline Phosphatase 47 56 Total Protein 6.0 L 6.0 L Albumin 3.4 L 3.8 [id number] 119 Ceruloplasmin 17 Hospitalist [facility] Advance Care Plan I have confirmed that the patient's Advanced Care Plan is present, code status is documented, or surrogate decision maker is listed in patient medical record.: Yes Medication Reconciliation I have utilized all available resources to obtain, update and review the patients current medications (includes all prescriptions, OTC, herbals, cannabis, and nutritional supplements).: Yes
--- NOTE | 2025-01-03 13:26 | PC.NURSE ---
To GI Lab per [wheelchair ], IV [ fluids stopped by GI RN]. Report given to [DIETER Jarrett @ 1006 this morning ].
--- NOTE | 2025-01-03 13:52 | WPDANESEPPF ---
Anes - Initial Pre Proc Eval Procedure: Operation Date: 01/03/25 14:45 Proposed Procedures p Esophagogastroduodenoscopy & Colonoscopy - Kwesi Chu MD Date/Time: 01/03/25 13:52 Surgeon: Eris Sutherland MD Pre Op Diagnosis: GI Bleed, Syncope; HEART score 4 Patient Data Age: 54 Gender: F Height: 1.63 m Weight: 77.9 kg Last Vital Signs Temp 35.9 C L 01/03/25 13:50 Pulse 81 01/03/25 13:50 Resp 20 01/03/25 13:50 BP 119/72 01/03/25 13:50 Pulse Ox 81 L 01/03/25 13:50 O2 Del Method Room Air 01/03/25 13:50 Allergies Allergy/AdvReac Type Severity Reaction Status Date / Time No Known Allergies Allergy Unknown Verified 01/03/25 13:49 Home Medications ?Medication ?Instructions ?Recorded ?Confirmed ?Type nitroglycerin 0.4 mg sublingual 0.4 mg sublingual PRN PRN chest 08/21/22 01/02/25 History tablet pain isosorbide mononitrate 30 mg 15 mg (1/2 x 30 mg) PO QAM 30 days 08/24/22 01/02/25 Rx tablet,extended release 24 hr #30 tabs metoprolol succinate 25 mg 12.5 mg (1/2 x 25 mg) PO DAILY #30 08/24/22 01/02/25 Rx tablet,extended release 24 hr tabs aspirin 81 mg tablet,delayed 81 mg PO BID 10/29/24 01/02/25 History release atorvastatin 80 mg tablet 80 mg PO DAILY 10/29/24 01/02/25 History ezetimibe 10 mg tablet 10 mg PO DAILY 10/29/24 01/02/25 History losartan 50 mg tablet 50 mg PO DAILY 10/29/24 01/02/25 History ticagrelor 60 mg tablet (Brilinta) 60 mg PO Q12H 10/29/24 01/02/25 History nitroglycerin 0.4 mg sublingual 0.4 mg sublingual Q5MIN PRN Chest 10/30/24 01/02/25 Rx tablet (Nitrostat) Pain #26 tabs semaglutide 1 mg/dose (4 mg/3 mL) 1 mg subcut WEEKLY 01/02/25 01/02/25 History subcutaneous pen injector (Ozempic) Laboratory Tests 01/02/25 01/03/25 09:55 04:32 WBC 5.5 K/mm3 (4.5-10.0) RBC 3.03 L M/mm3 (4.2-5.4) Hgb 9.2 L g/dL (12.0-15.0) Hct 28.5 L % (37.0-47.0) MCV 94.1 fl (80-100) MCH 30.4 pg (26-34) MCHC 32.3 g/dl (32-36) RDW 11.5 % (11.5-14.5) Plt Count 170 k/mm3 (150-375) MPV 10.9 H fl (7.4-10.4) Sodium 142 mmol/L (137-145) Potassium 3.7 mmol/L (3.4-5.0) Chloride 111 H mmol/L (98-107) Carbon Dioxide 23 mmol/L (22-30) Anion Gap 8 mmol/L (4-12) BUN 4 L D mg/dL (7-17) Creatinine 0.97 mg/dL (0.7-1.0) Estim Creat Clear Calc 60 ml/min Estimated GFR 60 (59 - ) Glucose 86 mg/dL (65-110) Calcium 8.4 mg/dL (8.4-10.2) Total Bilirubin 0.5 mg/dL (0.2-1.3) AST 29 U/L (14-36) ALT 31 U/L (6-35) Alkaline Phosphatase 56 U/L (38-126) Total Protein 6.0 L g/dL (6.3-8.2) Albumin 3.8 g/dL (3.5-5.1) [id number] 119 mg/dL (83-199) Ceruloplasmin 17 mg/dL (14-48) Patient hx anesthesia problems: none Family hx anesthesia problems: none Results Review: All pre-operative results and documents have been reviewed as part of the pre-operative evaluation. [facility] Past Medical History Medical History Gastroesophageal reflux disease Iron deficiency anemia Hypertension Dyslipidemia Acute ST elevation myocardial infarction (STEMI) of posterior wall (01/06/22) Unstable angina Coronary artery disease Tobacco abuse patient quit smoking in December 2021 after her [place] Surgical History Surgical History History of coronary artery stent placement (12/2021) multivessel coronary disease status post difficult complex multivessel PCI and stent x 6 History of cardiac catheterization History of section Family History Family History Grandparent Cancer Hypertension Social History Social History Social History: Surrogate decision maker: Angel Echevarria (son) and Jair Carrasco. Code status: Full code. Smoking packs per day: 1 Smoking cigarettes per day: 20.0 Years smoked: 33 Smoking pack-years: 33.00 Smoking status: Former smoker Alcohol intake: never Drinks per week: 1 Substance use: never Substance use type: marijuana Do You Feel Safe in your Home?: Yes Lack of Transportation: No Lack of Food: Never True Current Housing: I Have Housing Concerned About Future Housing: No Difficulty Paying Gas/Electric Bills: No Difficulty Paying for Meds: No Currently Unemployed: No Education: Decline to Answer Difficulty w/ Childcare or Family Care: No Spiritual care concerns: No Anes - Eval Final PreProcedure Day of Procedure 01/03/25 13:52 Patient weight: obese Heart: regular rate and rhythm Lungs: clear to auscultation Airway: Mallampati scale class II Neurological: alert and oriented Last oral intake: >/= 8 hours ASA classification: III Emergent: no Anesthetic plan: proceed Anesthesia type and monitoring: general GIVS and standard monitoring Results Review: All pre-operative results and documents have been reviewed as part of the pre-operative evaluation. Informed Consent: The patient's anesthetic plan and its attendant risks and benefits were discussed with the patient/family/POA. Questions were solicited and answers provided to the satisfaction of the patient/family/POA.
[2025-01-03] MEDS: LACTATED RINGERS 1,000 ML 150 ML IV CONT (13:53)
--- NOTE | 2025-01-03 15:01 | SUR.OPER ---
EGD end 1455 COLONOSCOPY START 1501
--- NOTE | 2025-01-03 15:23 | P.PNGI_ITS ---
Progress Note: A&P Assessment and Plan (1) Ischemic colitis: Code(s): K55.9 - Vascular disorder of intestine, unspecified Status: Acute Assessment and Plan: The patient presents with classic ischemic colitis localized to the sigmoid region. Her medical history reveals multiple risk factors, including cardiovascular disease, hypertension, and a history of smoking. While ischemic colitis is typically a self-limiting condition, bacterial translocation is a recognized complication necessitating antibiotic therapy. A 7-day course of broad-spectrum antibiotics, targeting both aerobic and anaerobic organisms, is recommended. The patient's diet can be advanced today, and she is stable for discharge tomorrow. She can be discharged with amoxicillin/clavulanate 1g twice daily for the remaining four days of her antibiotic course. Brilinta can be resumed in one week. Subjective Date/time seen: 01/03/25 15:23 Interval history: Patient hemodynamically stable, did not have further GI bleeding. See EGD and colonoscopy report. Exam Narrative: Abdomen: Soft, nontender, nondistended, no rebound. Rest of the examination within normal limits. Objective Data Vital Signs Vital Signs: Vital Signs - 24 hr 01/02/25 16:00 01/02/25 16:00 01/02/25 16:00 Temperature 98.6 F Pulse Rate 94 94 95 Respiratory Rate 16 16 Blood Pressure 116/64 Pulse Oximetry 97 97 Oxygen Delivery Room Air 01/02/25 18:00 01/02/25 20:00 01/02/25 20:00 Temperature Pulse Rate 88 84 Respiratory Rate Blood Pressure Pulse Oximetry 97 Oxygen Delivery Room Air 01/02/25 20:16 01/02/25 22:00 01/02/25 23:46 Temperature 100.3 F H Pulse Rate 91 96 Respiratory Rate 20 Blood Pressure 113/68 Pulse Oximetry 97 Oxygen Delivery Room Air 01/03/25 00:00 01/03/25 00:00 01/03/25 02:00 Temperature 99.0 F Pulse Rate 90 85 88 Respiratory Rate 20 Blood Pressure 127/71 Pulse Oximetry 100 Oxygen Delivery 01/03/25 04:00 01/03/25 04:00 01/03/25 04:15 Temperature 98.9 F Pulse Rate 109 H 83 Respiratory Rate 20 Blood Pressure 124/66 Pulse Oximetry 99 99 Oxygen Delivery Room Air 01/03/25 06:00 01/03/25 07:24 01/03/25 08:00 Temperature 98.5 F Pulse Rate 87 82 82 Respiratory Rate 16 16 Blood Pressure 116/75 Pulse Oximetry 95 95 Oxygen Delivery Room Air 01/03/25 08:00 01/03/25 10:00 01/03/25 11:51 Temperature 98.6 F Pulse Rate 87 81 84 Respiratory Rate 18 Blood Pressure 119/76 Pulse Oximetry 99 Oxygen Delivery 01/03/25 12:00 01/03/25 12:00 01/03/25 13:50 Temperature 96.6 F L Pulse Rate 84 83 81 Respiratory Rate 18 20 Blood Pressure 119/72 Pulse Oximetry 99 81 L Oxygen Delivery Room Air Room Air 01/03/25 15:15 Temperature Pulse Rate 102 H Respiratory Rate 20 Blood Pressure 103/70 Pulse Oximetry 100 Oxygen Delivery Room Air Intake/Output Intake/Output: Intake & Output 12/31/24 01/01/25 01/02/25 01/03/25 23:59 23:59 23:59 23:59 Intake Total 1000 3711.0 4260 Output Total 900 Balance 1000 2811.0 4260 Meds/Results Medications: Active Medications Generic Name Dose Route Start Last Admin Trade Name Freq PRN Reason Stop Dose Admin Acetaminophen 650 mg 01/02/25 00:48 01/02/25 20:21 Acetaminophen 325 Mg Tablet PO 650 mg Q4H PRN Administration Mild Pain (1-3) or Fever Dicyclomine HCl 20 mg 01/02/25 09:39 01/02/25 10:57 Dicyclomine Hcl 10 Mg Capsule PO 20 mg QID PRN Administration Abdominal Cramping Metronidazole 500 mg in 100 mls @ 100 mls/hr 01/02/25 02:00 01/03/25 11:39 Flagyl 500 Mg/Iso Soln 100 Ml IVPB Infused Q8H DANIELLE Infusion Sodium Chloride 1,000 mls @ 125 mls/hr 01/02/25 02:10 01/03/25 03:51 Normal Saline Iv IV CONT 125 mls/hr .Q8H DANIELLE Administration Levofloxacin/Dextrose 750 mg in 150 mls @ 100 mls/hr 01/02/25 08:00 01/03/25 10:23 Levaquin 750 Mg/D5w 150 Ml IVPB Infused Q24H DANIELLE Infusion Lactated Ringer's 1,000 mls @ 150 mls/hr 01/03/25 13:50 01/03/25 15:13 Lr - Lactated Ringers Iv IV CONT 150 mls/hr .Q6H40M DANIELLE Infusion Ondansetron HCl 4 mg 01/02/25 00:48 01/02/25 02:44 Ondansetron Inj 4 Mg/2 Ml Vial IV PUSH 4 mg Q4H PRN Administration Nausea Pantoprazole Sodium 40 mg 01/02/25 02:05 01/03/25 08:54 Pantoprazole Sodium Iv 40 Mg Vial IV PUSH 40 mg Q12HR DANIELLE Administration Perflutren Lipid Microsphere 0 ml 01/02/25 02:12 Perflutren Lipid Microspheres 1.5 Ml Vial Diluted To 10 Ml Total Volume IV PUSH 01/05/25 02:12 ONCE PRN adequate visualization Protocol Radiology Results: ITS Impressions Head CT 01/01/25 21:11 IMPRESSION: No skull fracture or acute intracranial finding Suspected empty sella Head/Cervical Spine/Facial Bones CT 01/01/25 21:29 IMPRESSION: No facial fracture Moderate cervical spondylosis No fracture or dislocation or locked facet of the cervical spine Abdomen/Pelvis CT 01/01/25 21:35 IMPRESSION: Fluid containing nondilated distal small bowel with occasional air- fluid levels and suggestion of possible colon wall thickening which may indicate colitis; clinical correlation is advised No bowel obstruction or intraperitoneal free air Normal appendix Knee X-Ray 01/01/25 21:46 IMPRESSION: No fracture or dislocation or joint effusion Chest X-Ray 01/01/25 21:47 IMPRESSION: No active cardiopulmonary disease Labs Labs: Laboratory Results - last 24 hr 01/02/25 01/03/25 09:55 04:32 WBC 5.5 RBC 3.03 L Hgb 9.2 L Hct 28.5 L MCV 94.1 MCH 30.4 MCHC 32.3 RDW 11.5 Plt Count 170 MPV 10.9 H Sodium 142 Potassium 3.7 Chloride 111 H Carbon Dioxide 23 Anion Gap 8 BUN 4 L D Creatinine 0.97 Estim Creat Clear Calc 60 Estimated GFR 60 Glucose 86 Calcium 8.4 Total Bilirubin 0.5 AST 29 ALT 31 Alkaline Phosphatase 56 Total Protein 6.0 L Albumin 3.8 [id number] 119 Ceruloplasmin 17
--- NOTE | 2025-01-03 15:44 | PC.NURSE ---
Returned from GI Lab. Report received from DIETER Hernandez @ [phone] ].
[2025-01-03 16:48] LABS: Glucose Point of Care 77 mg/dl (65-105)
--- NOTE | 2025-01-03 17:30 | PC.NURSE ---
This patient, Bertha Echevarria, was received from [place] [id number] on 01/03/25 at 1730 . Patient/family oriented to unit policies and routines
[2025-01-03 17:58] LABS: Glucose Point of Care 104 mg/dl (65-105)
[2025-01-03 22:56] LABS: Glucose Point of Care 128 mg/dl (65-105)
[2025-01-04] MEDS: DICYCLOMINE HCL 10 MG CAPSULE 20 MG PO (01:22)
[2025-01-04] MEDS: metroNIDAZOLE 500 MG/ISO 100ML 500 MG/100 ML BAG 100 MG IVPB (01:22)
[2025-01-04 05:49] VITALS: BP 108/72; PULSE 71; RESP 16; TEMP 36.6; O2SAT 100
[2025-01-04] MEDS: levoFLOXacin 750 MG/D5W 150 ML 750 MG/150 ML BAG 100 MG IVPB (08:05)
[2025-01-04] MEDS: diphenhydrAMINE HCl CAP 25 MG CAPSULE PO (09:01)
--- NOTE | 2025-01-04 10:19 | P.DS_ITS ---
DS: Admitting Diagnosis Discharge Date 01/04/2025 Admitting Diagnosis GI bleed DS: Discharge Diagnosis Discharge Diagnosis (1) Anemia: Code(s): D64.9 - Anemia, unspecified Status: Acute (2) GI bleed: Code(s): K92.2 - Gastrointestinal hemorrhage, unspecified Status: Acute Plan GI bleed Hold Brilinta for a week Underwent colonoscopy and EGD -please review the full report Patient to be discharged with Amoxil of 1 g twice daily Brilinta can be continued in a week Patient presented with abdominal pain and hematochezia CT abdomen showed fluid containing nondilated small bowel and possible colitis Continue IV Protonix, IV fluid, GI consult today. Monitor closely Possible colitis Blood culture ordered Discontinue Levaquin Flagyl Patient reports of itching after Levaquin infusion Anemia Hemoglobin dropped from 12.6-10.4 GI bleed Monitor H and H, iron panel. Syncope wiith head trauma Likely from GI blood loss ECHo and Ct head no significant finding Continue above care Coronary artery disease status post stents Stent placement 2021 Hold Brilinta Or antiplatelets pending GI above. Monitor. Type 2 diabetes Sliding scale insulin with Accu-Cheks adjust with clinical course. Hypertension Titrate her medication clinical course DVT prophylaxis on SCDs, no anticoagulation due to GI bleed Full code Surrogate decision maker is the child's further Jair Carrasco DS: Summary Hospital Course Hospital Course: 54-year-old female past medical history of coronary artery disease status post stents, CC mg abuse, hyperlipidemia, hypertension who presented to the ER on account of bloody stool and syncopal episode. Patient reported she was in her usual state of oral to yesterday when she started having abdominal pain, described as she upper abdomen, we constant 8/10 in intensity. This was followed by 4 episodes of bloody stool described as bright red blood with blood clots. Patient noted 1 episode of passing out with the head trauma. Noted that this was witnessed and she must have been out for about 4 minutes. Otherwise denies any chest pain no shortness of breaths no dysuria no focal symptoms, also denies using [id number] pain medications or trauma to the abdomen. ER evaluation notable for Temperature 98.3?, pulse rate 82, respiratory 16, saturating 100% on room air. Labs notable for hemoglobin 12.6, repeat was 10.4. Troponin negative. CT abdomen showed a fluid containing nondilated distal small bowel with occasional air-fluid levels and suggestion of possible colon wall thickening which may indicate colitis. GI was consulted. Patient underwent EGD EGD which shows normal. Patient underwent colonoscopy which shows sigmoiditis, severe localized colitis was seen in the sigmoid colon region. Please refer to full report. Patient will be discharged with the Augmentin 1 g for 5 days. GI recommended holding Brilinta for a week and can be resumed if no bleeding. Status at Discharge Cognitive/behavioral status at discharge: Stable Time Spent with Patient Time attestation: Total time spent providing and/or coordinating discharge services: 45 minute Exam Narrative: General: alert and comfortable Eyes: EOMI, PERRLA ENNT External ears normal, Neck is supple, no masses, Respiratory systems: Clear to auscultation Cardiovascular S1, S2, normal rhythm, no murmur, rub, or gallop; no thrill or palpable murmurs on palpation. Gastrointestinal: soft, epigastric tenderness r, and non-distended abdomen with no masses; BS present Skin: no rash, lesions, ulcerations, subcutaneous nodules or induration Musculoskeletal: no abnormality and no tenderness, normal ROM Neurologic: Alert and oriented x3, non focal Mental Status Exam: normal affect DS: Data Data Completed and Pending Pending studies at discharge: Pending at discharge 01/03/25 15:13 Surgical [PTH] Routine Labs on day of discharge: Labs from last 24 hours 01/03/25 01/03/25 01/03/25 21:04 17:54 16:39 POC Capillary Glucose 128 H 104 77 Preliminary micro results at discharge 01/02/25 03:31 Blood Culture - Preliminary Blood 01/02/25 03:30 Blood Culture - Preliminary Blood Discharge Plan Discharge Attending physician on discharge: Efren Chung Discharging Clinician: Efren Chung Patient Disposition: Home, Self-Care Activity: as tolerated Diet: heart healthy Discharge Instructions: Please continue Brilinta and ASA after a week In case of any bleeding please return to ED Please follow-up with PCP, Gastroenterology, biomedical engineering technician within a week upon discharge Avoid spicy food Check blood pressure 1 to 2 times a day. Record and bring into your doctor for review. Call your doctor if your blood pressure is greater than 180/110 or less than 90/45. Take precautions to avoid falls. Rise slowly from a lying or sitting position. Pause before standing or walking. Contact your doctor or call 911 and come to the Emergency Room if you have any type of trauma, lightheadedness with standing or other worrisome symptoms. Avoid NSAIDs (ibuprofen, naproxen, Aleve). Tylenol is safe to take. Follow-up with your primary care provider in 1-2 weeks. Please call for appointment. Follow-up with Cardiology and Gastroenterology in 2-4 weeks. Please call for an appointment. Thank you for using [facility] for your health care needs. Patient Instructions: Antibiotic Form, Gastrointestinal Bleeding (GEN), Colonoscopy (GEN), Upper Endoscopy (DC) Patient Language: Turkmen Stand Alone Forms: General Discharge Information Follow-up/Referrals: Jossy,VICKY Marte [Primary Care Provider] - Dale Rodriguez MD [Physician] - Kwesi Chu MD [Physician] - Discharge Medications: New dicyclomine 10 mg Capsule 20 mg PO QID PRN (Reason: Abdominal Cramping) Qty: 5 0RF amoxicillin-pot clavulanate 1,000-62.5 mg tablet extended release 12 hr 1 tablet PO Q12H Qty: 10 0RF Rx Instructions: Please complete the course on 01/08/2025 Continued atorvastatin 80 mg tablet 80 mg PO DAILY ezetimibe 10 mg tablet 10 mg PO DAILY losartan 50 mg tablet 50 mg PO DAILY nitroglycerin [Nitrostat] 0.4 mg Tablet, Sublingual 0.4 mg sublingual Q5MIN PRN (Reason: Chest Pain) Qty: 26 0RF nitroglycerin 0.4 mg tablet, sublingual 0.4 mg sublingual PRN PRN (Reason: chest pain) Rx Instructions: do not exceed 3 doses per episode isosorbide mononitrate 30 mg Tablet Extended Release 24 Hr 15 mg PO QAM 30 Days Qty: 30 0RF metoprolol succinate 25 mg tablet extended release 24 hr 12.5 mg PO DAILY Qty: 30 0RF Ozempic 1 mg/dose (4 mg/3 mL) pen injector 1 mg SUBCUT WEEKLY Held Brilinta 60 mg tablet 60 mg PO Q12H Hold Instructions: Resume on 01/11/25. Please resume after a week if no GI bleed. aspirin 81 mg Tablet,Delayed Release (Dr/Ec) 81 mg PO BID Hold Instructions: Resume on 01/11/25. Please resume after a week if no GI bleed Date of admission: 01/02/25 09:39 Primary Care Provider: JoshRosanna Admitting Provider: Eris Sutherland Attending physician on admission: Eris Sutherland Condition: Stable
[2025-01-04 11:38] LABS: Alpha Fetoprotein Tumor Marker 1.9 ng/mL
[2025-01-04 13:34] LABS: Anti Nuclear Antibody Pattern Nuclear, Speckled; Anti Nuclear Antibody Titer 1:40 titer
[2025-01-05 04:49] LABS: Actin Antibody (IgG) <20 U (<20)
[2025-01-07 18:08] LABS: ALT 22 U/L (6-29); Alpha-2-Macroglobulin 125 mg/dL (106-279); Apolipoprotein A1 80 mg/dL (101-198); Fibrosis Score 0.27; Fibrosis Stage F0-F1; GGT 29 U/L (3-70); Haptoglobin 88 mg/dL (43-212); Necroinflammat Act Grade A0; Total Bilirubin 0.8 mg/dL (0.2-1.2)
[2025-01-08 19:24] LABS: Mitochondrial (M2) Ab (IgG) <20.0 U
== END 2025-01-04 15:17 | disposition home or self-care (01) | DRG 378 ==
LOC: ANHED 21:58 → ANHIMU 01-02 01:53 → ANH3MEDSUR 01-04 10:03 → ANHIMU 01-05 15:40
PROVIDERS: Emergency Medicine; Internal Medicine Gastroenterology; Nurse Practitioner Family; Admitting Provider Internal Medicine; Emergency Provider Student in an Organized Health Care Education/Training Program; PCP Nurse Practitioner Family; Visit Provider General Practice
PROC: 0DJ08ZZ Inspection of Upper Intestinal Tract, Via Natural or Artificial Opening Endoscopic (ICD-10-PCS; CPT 45378; principal; 2025-01-03 14:45)
DX: K62.5 Hemorrhage of anus and rectum (principal); D62 Acute posthemorrhagic anemia; K55.9 Vascular disorder of intestine, unspecified; K52.9 Noninfective gastroenteritis and colitis, unspecified; D50.9 Iron deficiency anemia, unspecified; E11.9 Type 2 diabetes mellitus without complications; E78.5 Hyperlipidemia, unspecified; I10 Essential (primary) hypertension; I25.2 Old myocardial infarction; I25.10 Atherosclerotic heart disease of native coronary artery without angina pectoris; K21.9 Gastro-esophageal reflux disease without esophagitis; R11.2 Nausea with vomiting, unspecified; R55 Syncope and collapse; R74.01 Elevation of levels of liver transaminase levels; Z87.891 Personal history of nicotine dependence; Z95.5 Presence of coronary angioplasty implant and graft; Z79.82 Long term (current) use of aspirin; Z79.85 Long-term (current) use of injectable non-insulin antidiabetic drugs
CPT/HCPCS: 36415; 70450; 70486; 71045; 72125; 73560; 74177; 80053; 81596; 82103; 82105; 82390; 82728; 82948; 83516; 83520; 83540; 83550; 83605; 83690; 84484; 85014; 85018; 85025; 85027; 85610; 85730; 86038; 86039; 86850; 86900; 86901; 87040; 88305; 93005; 93306; 96361; 96365; 96366; 96375; 96376; 99285; A9270; G0378; J1836; J1956; J2003; J2270; J2405; J2470; J2704; J7030; J7120; Q9967

== ENCOUNTER 2025-06-03 10:03 | Emergency (ER) | payer MEDICARE, MEDICAID, SELFPAY ==
--- OUTSIDE RECORDS SUMMARY | 2025-06-02 14:00 | XMS_ITS | Encounter Summary ---
Author Organization [facility] Address [address] [place] [address] Care Team Providers Care General Office Dispatcher Name Role Phone Rosanna Fenton CLAIMS AGENT RIGHT OF WAY Primary Care Provider [phone] Reason for Referral * Consultation (Routine) - Pending Review Specialty Diagnoses / Procedures Referred By Contac t Referred To Contact Gastroenterology Diagnoses Gastrointestinal hemorrhage with melena Rosanna Fenton, CLAIMS AGENT [address] [facility] [address] [place] [address] Phone: tel: fax: Addison Jackman MD [address] [facility] [address] [place] [address] Phone: tel: fax: Referral ID Status Reason Start Date Expiration Date Visits Requested Visits Authorized [id number] Pending Review Specialty Services Required 06/02/2025 07/02/2026 1 1 Question Answer Process Instructions: THE AMBULATORY REFERRAL TO GASTROENTEROLOGY IS NOT AN ORDER FOR A PROCEDURE (I.E. EGD, COLONOSCOPY.) USE THE DIRECT SCHEDULING CASE REQUEST ORDER (GI50) IF THE PATIENT REQUIRES A PROCEDURE TO BE PERFORMED. Please select the performing region: [facility] [[id number]] Please select the performing department: [facility] 280 [[id number]] To Provider NOTE: we will do our best to honor your provider preference, but scheduling the patient in a timely manner in our clinic will take precedence. ADDISON JACKMAN [[id number]] # of visits: 1 Reason for Visit * Reason Comments Rectal Bleeding Bright red lower cras mpingHad diabetic eye exam will call with information. Encounter Details Date Type Department Care Team (Latest Contact Info) Description 06/02/2025 2:00 PM CDT Office Visit [facility] Family Medicine [address] [place] [address] Rosanna Fenton NP [address] [place] [address] Gastrointestinal hemorrhage with melena (Primary Dx); BMI 24.0-24.9, adult; Nausea Social History Tobacco Use Types Packs/Day Years Used Date Smoking Tobacco: Former Cigarettes Q uit: 12/24/2021 Smokeless Tobacco: Never Alcohol Use Standard Drinks/Week Comments Never 0 (1 standard drink = 0.6 oz pur e alcohol) PHQ-2 Answer Date Recorded PHQ-2 Total Score (If total score is 3 or more points, staff should administer the PHQ-9) 0 06/02/2025 AUDIT-C Answer Date Recorded Q1: How often do you have a drink containing alcohol? Never 06/02/2025 Q2: How many drinks containi ng alcohol do you have on a typical day when you are drinking? Patient does not drink Q3: How often do you have si x or more drinks on one occasion? Never 06/02/2025 Personal Safety Answer Date Recorded Have you ever been in or are you currently in a harmful physical or emotional relationship or is someone making you feel afraid or unsafe? 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 Gender Identity Not on file Sexual Orientation Not on file Occupation Industry Job Start Date Job End Date [employer] Not on file Not on file Not on jay e documented as of this encounter Last Filed Vital Signs Vital Sign Reading Time Taken Comments Blood Pressure 112/72 06/02/2025 1:57 PM CDT Pulse 76 06/02/2025 1:57 PM CDT Temperature 36.9 C (98.5 F) 06/02/2025 1:57 PM CDT Respiratory Rate - - Oxygen Saturation 99% 06/02/2025 1:57 PM CDT Inhaled Oxygen Concentration - - Weight 66.2 kg (146 lb) 06/02/2025 1:57 PM CDT Height 165.1 cm (5' 5) 06/02/2025 1:57 PM CDT Body Mass Index 24.3 06/02/2025 1:57 PM CDT documented in this encounter Functional Status * AUDIT-C Score Answer Date of Assessment Author 0 06/02/2025 2:02 PM CDT Darin Worrell MA * Question Answer Date of Assessment Author Q1: How often do you have a drink containing alcohol? Never 06/02/2025 2:02 PM CDT Maylin Worrell MA Q2: How many drinks containing alcohol do you have on a typical day when you are drinking? Patient does not drink 06/02/2025 2:02 PM CDT Maylin Worrell MA Q3: How often do you have six or more drinks on one occasion? Never 06/02/2025 2:02 PM CDT Maylin Worrell MA documented as of this encounter Patient Instructions * Patient Instructions* Rosanna Fenton NP - 06/02/2025 2:00 PM CDT Emergency room for evaluation and stat CT scan as well as blood work documented in this encounter Ordered Prescriptions Prescription Sig Dispense Quantity Refills Last Filled Start Date End Date ondansetron ODT (ZOFRAN-ODT) 4 mg disintegrating tabletIndications:Na usea Take 1 tablet (4 mg total) by mouth every 8 (eight) hours as needed for nausea 20 tablet 1 06/02/2025 documented in this encounter Progress Notes * Rosanna Fenton NP - 06/02/2025 2:00 PM CDT Images from the original note were not included. This patient has verbally consented to recording this visit in order to utilize AI technology in generating this note. Subjective/Objective Patient ID: Bertha Echevarria is a 54 y.o. female. Visit Date: 06/02/2025 Chief Complaint Rectal Bleeding (Bright red lower cramping/Had diabetic eye exam will call with information.) History of Present Illness Bertha Echevarria is a 54 year old female who presents with episodes of syncope and gastrointestinal bleeding. Five days ago, she experienced syncope during a bowel movement with 'peanut butter' consistency, followed by dizziness, sweating, and loss of consciousness. She regained consciousness after receivingnitroglycerin. Post-syncope, she had abdominal cramping and bloody, jelly-like stools. She has not had a bowel movement in four days, deviating from her usual daily pattern. She denies constipation but has decreased appetite and early satiety. She feels weak, dizzy, tired, and sluggishwith minimal activity. Abdominal cramping persists but is less severe. She has had episodes of vomiting over the past fourdays, though some food remains down. No current nausea, but she has used Zofran previously. Her past medical history includes episodes requiring Bentyl for abdominal cramping, which was effective. She has not had a blood transfusion and is unsure about her blood counts. Physical Exam GENERAL: Alert, cooperative, well developed, no acute distress. HEENT: Normocephalic, normal oropharynx, moist mucous membranes. CHEST: Clear to auscultation bilaterally, no wheezes, rhonchi, or crackles. CARDIOVASCULAR: Normal heart rate and rhythm, S1 and S2 normal without murmurs. ABDOMEN: Soft, tender on palpation, non-distended, without organomegaly, hyperactive bowel sounds. EXTREMITIES: No cyanosis or edema. NEUROLOGICAL: Cranial nerves grossly intact, moves all extremities without gross motor or sensory deficit. Results Assessment/Plan Diagnoses and all orders for this visit: Gastrointestinal hemorrhage with melena (K92.1) (Primary) - Ambulatory referral to Gastroenterology; Future BMI 24.0-24.9, adult (Z68.24) Nausea (R11.0) - ondansetron ODT (ZOFRAN-ODT) 4 mg disintegrating tablet; Take 1 tablet (4 mg total) by mouth every 8 (eight) hours as needed for nausea Assessment & Plan Melena with associated abdominal pain, cramping, and vasovagal syncope Experienced melena with abdominal cramping and syncope. Differential includes gastrointestinal bleed, possibly from a tear or constipation. Urgency due to risk of acute bleed and potential transfusion need. - Advise immediate ER evaluation for stat CT abdomen to rule out acute GI bleed. - Check CBC for anemia and transfusion need. - Refer to Dr. Jackman for follow-up colonoscopy. - Recommend bland diet: chicken broth, chicken noodle soup, toast, rice. Nausea and vomiting Episodes likely related to gastrointestinal issues. - Prescribe Zofran for nausea as needed. Constipation No bowel movement in four days, atypical and may contribute to symptoms and potential bleeding. documented in this encounter Plan of Treatment Scheduled Referrals Name Type Priority Associated Diagnoses Order Schedule Ambulatory referral to Gastroenterology Outpatient Referral Routine Gastrointestinal hemorrhage with melena Expected: 08/02/2025 (Approximate), Expires: 06/02/2026 documented as of this encounter Visit Diagnoses Diagnosis Gastrointestinal hemorrhage with melena- Primary BMI 24.0-24.9, adult Nausea Nausea alone documented in this encounter Discontinued Medications Medication Sig Discontinue Reason Start Date End Da te fluconazole (DIFLUCAN) 150 mg tabletIndications:Histor y of lump of right breast Take 1 tablet (150 mg total) by mouth daily Take one tab now. Repeat in 7 days if symptoms persist. Therapy completed 09/15/2024 06/02/2025 isosorbide mononitrate ER (IMDUR) 30 mg 24 hr tablet TAKE 1 TABLET BY MOUTH EVERY DAY Therapy completed 08/12/2024 06/02/2025 documented as of this encounter Care Teams General Office Dispatcher Relationship Specialty Start Date End Date Rosanna Fenton NP [address] [facility] [address] [place] [address] PCP - General Internal Medicine 03/12/23 documented as of this encounter
--- OUTSIDE RECORDS SUMMARY | 2025-06-03 10:07 | XMS_ITS | Clinical Summary ---
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[employer] Gender Identity Not on file Sexual Orientation Not on file Plan of Treatment Health Maintenance Due Date Last Done Comments Hepatitis C Virus (HCV) Screening 1971 TdaP Immunization 1971 Hepatitis B Immunization (1 of 3 - 19+ 3-dose series) 1990 Pap Smear 1992 Cervical Cancer Screening (CCS) 2001 HPV/Cotest 2001 Cologuard 2016 Colonoscopy 2016 Colorectal Cancer Screening 2016 Immunochemical Fecal Occult Blood 2016 Pneumococcal Immunization (5 0+ years) (1 of 1 - PCV) 2021 Zoster Immunization (1 of 2) 2021 SARS-COV-2 Immunization (2 - season) 2024 11/05/2021 Influenza Immunization (#1) 2025 Respiratory Syncytial Virus (RSV) Immunization (Adult) (1 - 1-dose 75+ series) 2046 Human Papillomavirus (HPV) Immunization Aged Out No longer eligible b ased on patient's age to complete this topic Meningococcal Immunization (ACWY) Aged Out No longer eligible based on patient's age to complete this topic Rotavirus Immunization Aged Out No lo nger eligible based on patient's age to complete this topic
--- OUTSIDE RECORDS SUMMARY | 2025-06-03 10:07 | XMS_ITS | Patient Health Record ---
Author Organization [facility] [place] Address [address] [facility] [address] [place] [address] Care Team Providers Care White Sidewall Tire Buffer Name Role Phone Brandee Livingston Unavailable [phone] Reason For Referral No Information Medications Medication SIG (Take, Route, Frequency, Duration) Notes Start Date End Date Status Zoloft 100 MG Tablet Oral Active traZODone HCl 50 MG Tablet Oral Active busPIRone HCl 10 MG Tablet Oral Active Melatonin 3 MG Tablet Oral Active Zoloft 50 MG Tablet Oral Active busPIRone HCl 5 MG Tablet Oral Active Plan Of Treatment No Information
--- OUTSIDE RECORDS SUMMARY | 2025-06-03 10:07 | XMS_ITS | Encounter Summary ---
Author Organization [facility] Healthcare Address [address] [place] [address] Care Team Providers Care Tax Processor Name Role Phone Rosanna Fenton NP Primary Care Provider [phone] Reason for Visit * Reason Onset Date Comments Medication Request 10/25/2024 Encounter Details Date Type Department Care Team ([facility] st Contact Info) Description 10/25/2024 Telephone [facility] Medical Group Internal Medicine at [place] [address] [place] [address] Rosanna Fenton NP [address] [place] [address] Medication Request Social History Tobacco [...] on file Legal Sex Female 8:05 AM SERVICE SHOP FOREMAN Gender Identity Not on file Sexual Orientation Not on file Occupation Industry Job Start Date Job End Date [employer] Not on file Not on file Not on jay e documented as of this encounter Miscellaneous Notes * Telephone Encounter - Susan Bashir LPN - 10/26/2024 11:39 AM SERVICE SHOP FOREMAN Called patient to clarify. Pt stated she has been doing the Ozempic sample that was received in office. She did not berry picker the Trulicity and did not recall [...] Pt wasalso agreeable to plan. Pt will berry picker sample this week. Informed pt to take new insurance card topharmacy as soon as she receives it. ICE SHOP FOREMAN * Telephone Encounter - Susan Bashir LPN - 10/26/2024 10:40 AM SERVICE SHOP FOREMAN Called and LVM for pt to return call. Please transfer through to office. ICE SHOP FOREMAN * Telephone Encounter - Naomi Yepez - 10/25/2024 12:55 PM CST Medication Question/Clarification Medication Name(s): dulaglutide (TRULICITY) 0.75 mg/0.5 mL pen injector What is the question or clarification needed? Patient called in about her medication. [facility] informed that dulaglutide (TRULICITY) 0.75 mg/0.5 mL pen injector was sent to her pharmacy on 09/27. Per patient she did not pick this medication up and in talking with the STORAGE GARAGE MANAGER she was not even aware that this [...] needed, Pharmacy(s) medication(s) should be sent to: [facility]/pharmacy #[id number] - [place], [place] Additional Comments: Please follow up with patient by phone to offer clarity and answer any questions. Does message need to be routed? 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 [address] [place] [address] PCP - General Internal Medicine 03/12/23 documented as of this encounter
--- OUTSIDE RECORDS SUMMARY | 2025-06-03 10:07 | XMS_ITS | Encounter Summary ---
Author Organization [facility] Healthcare Address [address] [place] [address] Care Team Providers Care Blueprint Developer Name Role Phone Rosanna Fenton NP Primary Care Provider [phone] Encounter Details Date Type Department Care Team ([facility] st Contact Info) Description 01/02/2025 Orders Only [facility] Health Information Management [address] [place] [id number] Scanning, Provider Social History Tobacco Use Types Packs/Day Years [...] on file Legal Sex Female 8:05 AM HEALTHCARE ACCOUNT MANAGER Gender Identity Not on file Sexual Orientation Not on file Occupation Industry Job Start Date Job End Date [employer] Not on file Not on file Not on jay e documented as of this encounter Plan of Treatment Not on file documented as of this encounter Procedures Procedure Name Priority Date/Time Associated Diagnosis Comments CARDIOLOGY DOCUMENT SCAN 01/02/2025 documented in this encounter Results * Cardiology Document Scan (01/02/2025) Anatomical Region Laterality Modality Other us Provider Scanning CV CARDIAC SERVICES PROCEDURES Final Result documented in this encounter Visit Diagnoses Not on filedocumented in this encounter Care Teams Blueprint Developer Relationship Specialty Start Date End Date Rosanna Fenton NP [address] [facility] [address] [place] [address] PCP - General Internal Medicine 03/12/23 documented as of this encounter
--- OUTSIDE RECORDS SUMMARY | 2025-06-03 10:07 | XMS_ITS | Encounter Summary ---
Author Organization [facility] Healthcare Address [address] [place] [address] Care Team Providers Care Timber Treating Tank Operator Name Role Phone Rosanna Fenton CARBONIZER TESTER Primary Care Provider [phone] Encounter Details Date Type Department Care Team (Latest Contact Info) Description 04/06/2025 Results Follow-Up [facility] Medical Group Family Medicine [address] [place] [address] Rosanna Fenton, CARBONIZER TESTER [address] [place] [address] Albumin Creatinine Ratio, Urine, Comprehensive metabolic panel, Lipid panel, Hemoglobin A1c Social History Tobacco Use Types Packs/Day Years [...] points, staff should administer the PHQ-9) 0 02/08/2025 Personal Safety Answer Date Recorded Have you ever been in or are you currently in a harmful physical or emotional relationship or is someone making you feel afraid or unsafe? Denies 11/23/2023 Comments No Sex and Gender Information Value Date Recorded Sex Assigned at Not on file Legal Sex Female 8:05 AM FIRST AID DIRECTOR Gender Identity Not on file Sexual Orientation Not on file Occupation Industry Job Start Date Job End Date [employer] Not on file Not on file Not on jay e documented as of this encounter Plan of Treatment Not on file documented as of this encounter Visit Diagnoses Not on filedocumented in this encounter Care Teams Timber Treating Tank Operator Relationship Specialty Start Date End Date Rosanna Fenton NP [address] [facility] [address] [place] [address] PCP - General Internal Medicine 03/12/23 documented as of this encounter
--- OUTSIDE RECORDS SUMMARY | 2025-06-03 10:07 | XMS_ITS | Encounter Summary ---
Author Organization [facility] Healthcare Address [address] [place] [address] Care Team Providers Care Propeller Driven Airplane Mechanic Name Role Phone Rosanna Fenton RN UNIT MANAGER Primary Care Provider [phone] Encounter Details Date Type Department Care Team (Late st Contact Info) Description 06/02/2025 Telephone [facility] Medical Group Family Medicine [address] [place] [address] Rosanna Fenton, RN UNIT MANAGER [address] [place] [address] Social History Tobacco Use Types Packs/Day Years [...] on file Legal Sex Female 8:05 AM SMOKE TESTER Gender Identity Not on file Sexual Orientation Not on file Occupation Industry Job Start Date Job End Date [employer] Not on file Not on file Not on jay e documented as of this encounter Ordered Prescriptions Prescription Sig Dispense Quantity Refills Last Filled Start Date End Date semaglutide (Ozempic) 1 mg/dose (4 mg/3 mL) pen injector injectionIndications :Type 2 diabetes mellitus with hyperlipidemia (HCC) Inject 1 mg under the skin once a week 3 mL 1 06/02/2025 documented in this encounter Miscellaneous Notes * Telephone Encounter - Susan Bashir LPN - 06/02/2025 10:54 AM CDT Refill sent per pharmacy request. documented in this encounter Plan of Treatment Not on file documented as of this encounter Visit Diagnoses Diagnosis Type 2 diabetes mellitus with hyperlipidemia (HCC) documented in this encounter Discontinued Medications Medication Sig Discontinue Reason Start Date End Da te semaglutide (Ozempic) 1 mg/dose (4 mg/3 mL) pen injector injectionIndications:Type 2 diabetes mellitus with hyperlipidemia (HCC) Inject 1 mg under the skin once a week Reorder 05/12/2025 06/02/2025 documented as of this encounter Care Teams Propeller Driven Airplane Mechanic Relationship Specialty Start Date End Date Rosanna Fenton NP [address] [place] [address] [address] [place] [address] PCP - General Internal Medicine 03/12/23 documented as of this encounter
[2025-06-03 10:17] VITALS: BP 113/75; PULSE 75; RESP 16; TEMP 36.4; O2SAT 99
[2025-06-03 10:31] LABS: Hematocrit 35.7 % (37.0-47.0); Hemoglobin 11.5 g/dL (12.0-15.0); Immature Granulocyte Percent A 0.0 % (0-0.5); Lymphocytes Absolute Auto 2.14 K/mm3 (0.9-3.2); Mean Corpuscular HGB Conc 32.2 g/dl (32-36); Mean Corpuscular Hemoglobin 29.0 pg (26-34); Mean Corpuscular Volume 90.2 fl (80-100); Nucleated Red Blood Cells Absolute Auto 0.000 K/mm3 (0.0-0.012); Nucleated Red Blood Cells Perc 0.0 % (0.0-0.2); Platelet Count Result 230 k/mm3 (150-375); Red Blood Count 3.96 M/mm3 (4.2-5.4); White Blood Count 4.5 K/mm3 (4.5-10.0)
[2025-06-03 10:55] LABS: Alanine Aminotransferase 71 U/L (6-35); Albumin Level 4.7 g/dL (3.5-5.1); Alkaline Phosphatase 71 U/L (38-126); Anion Gap 12 mmol/L (4-12); Aspartate Amino Transferase 54 U/L (14-36); Bilirubin,Total 0.5 mg/dL (0.2-1.3); Blood Urea Nitrogen 12 mg/dL (7-17); Calcium 9.6 mg/dL (8.4-10.2); Carbon Dioxide 28 mmol/L (22-30); Chloride 102 mmol/L (98-107); Estimated CRCL calculation 53 ml/min; Estimated Glomerular Filt Rate > 60; Glucose 124 mg/dL (65-110); Lipase 123 U/L (23-300); Potassium 3.9 mmol/L (3.4-5.0); Sodium 142 mmol/L (137-145); Total Protein 8.0 g/dL (6.3-8.2)
--- NOTE | 2025-06-03 12:30 | ED_ITS ---
HPI - General Adult General Chief complaint: Abdominal Pain Stated complaint: abd. cramping, bloody stool, constipation Time Seen by Provider: 06/03/25 10:24 History of Present Illness HPI narrative: Patient is a 54-year-old female who presents ER for evaluation after having crampy abdominal plain with bowel movement resulting in syncope that was also accompanied by 4-5 bloody mucus like stools. This occurred 8 days ago. She has been fine since then. No fevers or chills or sweats. No chest pain. PCP wanted her evaluated. She has had similar episodes in the past. No history IBD. Takes Brilinta for her cardiac disease. Related Data Home Medications ?Medication ?Instructions ?Recorded ?Confirmed ?Last Taken ?Type nitroglycerin 0.4 mg sublingual 0.4 mg sublingual PRN PRN chest 08/21/22 01/02/25 08/21/22 History tablet pain aspirin 81 mg tablet,delayed 81 mg PO BID 10/29/2401/01/25 History release Held on 01/04/25. Instructions: Resume on 01/11/25. Please resume after a week if no GI bleed atorvastatin 80 mg tablet 80 mg PO DAILY 10/29/2412/1101/01/25 History ezetimibe 10 mg tablet 10 mg PO DAILY 10/29/2412/1101/01/25 History losartan 50 mg tablet 50 mg PO DAILY 10/29/2412/1101/01/25 History ticagrelor 60 mg tablet (Brilinta) 60 mg PO Q12H 10/2901/02/25 12/31/24 19:30 History Held on 01/04/25. Instructions: Resume on 01/11/25. Please resume after a week if no GI bleed. semaglutide 1 mg/dose (4 mg/3 mL) 1 mg subcut WEEKLY 0 01/02/25 01/02/25 12/29/24 History subcutaneous pen injector (Ozempic) Allergies Allergy/AdvReac Type Severity Reaction Status Date / Time No Known Allergies Allergy Verified 06/03/25 10:20 Review of Systems 2 Review of Systems: All systems reviewed & are unremarkable except as noted in HPI and below Constitutional: Constitutional: Reports no additional constitutional complaints ENT: Reports system reviewed and no additional complaints, except as documented Cardiovascular: Cardiovascular: Reports no additional cardiovascular complaints Respiratory: Respiratory: Reports no additional respiratory complaints Gastrointestinal: Gastrointestinal: Reports no additional gastrointestinal complaints Neurologic: Reports system reviewed and no additional complaints, except as documented [facility] Past Medical History Medical History Gastroesophageal reflux disease Iron deficiency anemia Hypertension Dyslipidemia Acute ST elevation myocardial infarction (STEMI) of posterior wall (01/06/22) Unstable angina Coronary artery disease Tobacco abuse patient quit smoking in December 2021 after her MT Surgical History Surgical History History of coronary artery stent placement (12/2021) multivessel coronary disease status post difficult complex multivessel PCI and stent x 6 History of cardiac catheterization History of section Family History Family History Grandparent Cancer Hypertension Social History Social History Social History: Surrogate decision maker: Angel Echevarria (son) and Jair Carrasco. Code status: Full code. Smoking packs per day: 1 Smoking cigarettes per day: 20.0 Years smoked: 33 Smoking pack-years: 33.00 Smoking status: Former smoker Alcohol intake: never Drinks per week: 1 Substance use: never Substance use type: marijuana Do You Feel Safe in your Home?: Yes Lack of Transportation: No Lack of Food: Never True Current Housing: I Have Housing Concerned About Future Housing: No Difficulty Paying Gas/Electric Bills: No Difficulty Paying for Meds: No Currently Unemployed: No Education: Decline to Answer Difficulty w/ Childcare or Family Care: No Spiritual care concerns: No Exam 2 Narrative: GENERAL: Well-appearing, well-nourished, and in no acute distress. HEAD: Normocephalic, atraumatic. ENT: Mucous membranes moist. CHEST: Clear to auscultation. No respiratory distress. HEART: Regular rate and rhythm. Normal peripheral pulses. ABDOMEN: Soft, nontender, nondistended. Rectal: No fissures or tears of the rectum. No external hemorrhoids. Digital rectal exam without occult blood or gross blood. No firm stool in the vault. EXTREMITIES: Normal range of motion. No edema. NEURO: Alert and oriented x3. PSYCH: Normal mood and affect. Course Course Emergency Course: Discussed intermittent syncope after bowel movements. Likely vasovagal. She has also had intermittent mucus stools with blood. May have inflammatory bowel disease that is undiagnosed. Discussed need for follow-up with GI and scope. Patient verbalized understanding. Discharge. Vital Signs Vital signs: Vital Signs Temperature 97.5 F L 06/03/25 10:17 Pulse Rate 75 06/03/25 10:17 Respiratory Rate 16 06/03/25 10:17 Blood Pressure 113/75 06/03/25 10:17 Pulse Oximetry 99 06/03/25 10:17 Oxygen Delivery Room Air 06/03/25 10:17 Temperature 97.5 F L 06/03/25 10:17 Pulse Rate 75 06/03/25 10:17 Respiratory Rate 16 06/03/25 10:17 Blood Pressure 113/75 06/03/25 10:17 Pulse Oximetry 99 06/03/25 10:17 Oxygen Delivery Room Air 06/03/25 10:17 Medical Decision Making Vital Signs Vital Signs: Vital Signs Temperature 97.5 F L 06/03/25 10:17 Pulse Rate 75 06/03/25 10:17 Respiratory Rate 16 06/03/25 10:17 Blood Pressure 113/75 06/03/25 10:17 Pulse Oximetry 99 06/03/25 10:17 Oxygen Delivery Room Air 06/03/25 10:17 Temperature 97.5 F L 06/03/25 10:17 Pulse Rate 75 06/03/25 10:17 Respiratory Rate 16 06/03/25 10:17 Blood Pressure 113/75 06/03/25 10:17 Pulse Oximetry 99 06/03/25 10:17 Oxygen Delivery Room Air 06/03/25 10:17 Lab Data 06/03/25 10:25 06/03/25 10:25 Labs: Lab Results 06/03/25 Range/Units 10:25 WBC 4.5 (4.5-10.0) K/mm3 RBC 3.96 L (4.2-5.4) M/mm3 Hgb 11.5 L (12.0-15.0) g/dL Hct 35.7 L (37.0-47.0) % MCV 90.2 (80-100) fl MCH 29.0 (26-34) pg MCHC 32.2 (32-36) g/dl RDW 12.2 (11.5-14.5) % Plt Count 230 (150-375) k/mm3 MPV 11.3 H (7.4-10.4) fl Immature Gran % (Auto) 0.0 (0-0.5) % Neut % (Auto) 40.0 L (45.5-73.1) % Lymph % (Auto) 47.2 H (18.3-44.2) % [place] % (Auto) 7.5 (2.6-8.5) % Eos % (Auto) 4.0 (0-4.4) % Baso % (Auto) 1.3 H (0.2-1.2) % Lymph # (Auto) 2.14 (0.9-3.2) K/mm3 [place] # (Auto) 0.3 (0.1-0.6) K/mm3 Eos # (Auto) 0.2 (0-0.3) K/mm3 Baso # (Auto) 0.1 (0.0-0.1) K/mm3 Abs Immat Gran (auto) 0.00 (0.00-0.031) K/mm3 Absolute Neuts (auto) 1.8 (1.3-6.7) K/mm3 Absolute Nucleated RBC 0.000 (0.0-0.012) K/mm3 Nucleated RBC % 0.0 (0.0-0.2) % Sodium 142 (137-145) mmol/L Potassium 3.9 (3.4-5.0) mmol/L Chloride 102 (98-107) mmol/L Carbon Dioxide 28 (22-30) mmol/L Anion Gap 12 (4-12) mmol/L BUN 12 D (7-17) mg/dL Creatinine 0.94 (0.7-1.0) mg/dL Estim Creat Clear Calc 53 ml/min Estimated GFR > 60 (59 - ) Glucose 124 H (65-110) mg/dL Calcium 9.6 (8.4-10.2) mg/dL Total Bilirubin 0.5 (0.2-1.3) mg/dL AST 54 H (14-36) U/L ALT 71 H (6-35) U/L Alkaline Phosphatase 71 (38-126) U/L Total Protein 8.0 (6.3-8.2) g/dL Albumin 4.7 (3.5-5.1) g/dL Lipase 123 (23-300) U/L Discharge Plan Discharge Clinical Impression: Syncope, vasovagal, Rectal bleeding Patient Disposition: Home Condition: Stable Instructions: Rectal Bleeding (ED), Syncope (ED) Additional Instructions: Return to the emergency department if you develop severe abdominal pain, severe nausea and vomiting to the point where you are unable to keep down fluids, if you develop chest pain or difficulty breathing, blood in your stool, dizziness or fainting, or if you develop any other new or concerning symptoms as these could be signs of more serious medical illness. Try to stay well hydrated. If you are having rectal bleeding, it is best to be evaluated the day it is occurring. Patient Language: [place] Prescriptions: No Action atorvastatin 80 mg tablet 80 mg PO DAILY ezetimibe 10 mg tablet 10 mg PO DAILY Brilinta 60 mg tablet 60 mg PO Q12H losartan 50 mg tablet 50 mg PO DAILY aspirin 81 mg Tablet,Delayed Release (Dr/Ec) 81 mg PO BID nitroglycerin [Nitrostat] 0.4 mg Tablet, Sublingual 0.4 mg sublingual Q5MIN PRN (Reason: Chest Pain) Qty: 26 0RF nitroglycerin 0.4 mg tablet, sublingual 0.4 mg sublingual PRN PRN (Reason: chest pain) Rx Instructions: do not exceed 3 doses per episode isosorbide mononitrate 30 mg Tablet Extended Release 24 Hr 15 mg PO QAM 30 Days Qty: 30 0RF metoprolol succinate 25 mg tablet extended release 24 hr 12.5 mg PO DAILY Qty: 30 0RF Ozempic 1 mg/dose (4 mg/3 mL) pen injector 1 mg SUBCUT WEEKLY dicyclomine 10 mg Capsule 20 mg PO QID PRN (Reason: Abdominal Cramping) Qty: 5 0RF amoxicillin-pot clavulanate 1,000-62.5 mg tablet extended release 12 hr 1 tablet PO Q12H Qty: 10 0RF Rx Instructions: Please complete the course on 01/08/2025 Follow-up/Referrals: Jossy,VICKY Marte [Primary Care Provider, Unknown] - 1 Week Kwesi Chu MD [Physician, Gastroenterology] - 1 Week
== END 2025-06-03 12:52 | disposition home or self-care (01) ==
PROVIDERS: Emergency Provider Emergency Medicine; PCP Nurse Practitioner Family
DX: R55 Syncope and collapse (principal); K62.5 Hemorrhage of anus and rectum; I25.10 Atherosclerotic heart disease of native coronary artery without angina pectoris; I25.2 Old myocardial infarction; E78.5 Hyperlipidemia, unspecified; D50.9 Iron deficiency anemia, unspecified; K21.9 Gastro-esophageal reflux disease without esophagitis; Z95.5 Presence of coronary angioplasty implant and graft; Z87.891 Personal history of nicotine dependence; Z79.02 Long term (current) use of antithrombotics/antiplatelets; Z79.899 Other long term (current) drug therapy; Z79.85 Long-term (current) use of injectable non-insulin antidiabetic drugs; Z79.82 Long term (current) use of aspirin
CPT/HCPCS: 36415; 80053; 83690; 85025; 99283